=== PATIENT | female | born 1990 | race Caucasian/White ===

== ENCOUNTER 2016-07-16 13:38 | Emergency (ER) | payer OTHER ==
[2016-07-16] MEDS ORDERED: Vistaril 50 MG/ML IM ONE ×2 (14:42→14:47)
[2016-07-16] MEDS ORDERED: TORAdol 30 mg Injection IM ONE (14:42)
[2016-07-16] MEDS ORDERED: TORAdol 30 mg Injection ONE (14:46)
--- NOTE | 2016-07-16 15:02 | ERPHSYRPT ---
- History of Present Illness Time Seen by Provider: 07/16/16 14:24 Source: patient Patient Subjective Stated Complaint: pt here for pain, she has lupus and fibro. co pain to legs and arms,she states that her dr is changing her meds around, she is also worried about her mag. levels being low Triage Nursing Assessment: pt alert and walked in, resp easy, skin w/d Physician History: CC; joint pains hx: 26 y/o patient with hx of lupus and fibromyalgia. She formerly was on steroids. Currently on neurontin. She has increased body aches and pains. No fever. Some skin redness. 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 She does not take pain medications. Severity: moderate, severe Allergies/Adverse Reactions: adhesive Allergy (Mild, Verified 07/16/16 14:15) Rash cefaclor [From Ceclor] Allergy (Mild, Verified 07/16/16 14:15) Hives Home Medications: Dextroamphetamine/Amphetamine [Adderall 15 mg Tablet] 15 mg PO DAILY 02/25/16 [ History] Gabapentin [Neurontin] 600 mg BID 07/16/16 [History] Hx Tetanus, Diphtheria Vaccination/Date Given: (unknown) Hx Influenza Vaccination/Date Given: Yes Hx Pneumococcal Vaccination/Date Given: No Immunizations Up to Date: Yes - Review of Systems Constitutional: Fatigue, Malaise, No Fever, No Chills Eyes: No Symptoms Ears, Nose, & Throat: No Symptoms Respiratory: No Cough, No Dyspnea Cardiac: No Chest Pain Abdominal/Gastrointestinal: No Abdominal Pain, No Nausea, No Vomiting Genitourinary Symptoms: No Dysuria Musculoskeletal: Joint Pain (diffuse), No Back Pain Skin: No Rash Neurological: No Focal Weakness, No Headache, No Parasthesia All Other Systems: Reviewed and Negative - Past Medical History Pertinent Past Medical History: Yes Neurological History: Migraines ENT History: No Pertinent History Cardiac History: Other Respiratory History: Asthma, Bronchitis Endocrine Medical History: Hypothyroidism, Other Musculoskeletal History: Other GI Medical History: Esophageal Disorder, GERD, Hernia, Irritable Bowel History: Other Psycho-Social History: Anxiety, Attention Deficit Disorder, Depression, Panic Disorder Female Reproductive Disorders: Other Other Medical History: cysts on ovaries,arm,knee pain,partial thyroidectomy- nodule removed. mitral valve prolapse. kidney/bladder inflammation. lambert- schlatter. chronic hives - Past Surgical History Past Surgical History: Yes Neuro Surgical History: No Pertinent History Cardiac: No Pertinent History Respiratory: No Pertinent History Gastrointestinal: Cholecystectomy Genitourinary: No Pertinent History Musculoskeletal: No Pertinent History Female Surgical History: Tubal Ligation, Other Other Surgical History: thyroidectomy. gallbladder. breast reconstruction- nodules removed. anesthesia problems - difficult to wake up, drop in bp - Social History Smoking Status: Current every day smoker How long have you smoked: 3 Exposure to second hand smoke: Yes Drug Use: none Patient Lives Alone: No - Female History Hx Last Menstrual Period: now Hx Now: No - Nursing Vital Signs Nursing Vital Signs: Initial Vital Signs Temperature 97.9 F Temperature Source Oral Pulse Rate 91 Respiratory Rate 16 Blood Pressure [Left Arm] 143/74 Pain Intensity 7 - Physical Exam General Appearance: alert Eye Exam: PERRL/EOMI Ears, Nose, Throat Exam: normal ENT inspection, moist mucous membranes Neck Exam: normal inspection, non-tender, supple Respiratory Exam: normal breath sounds, lungs clear, No respiratory distress Cardiovascular Exam: regular rate/rhythm, No murmur Gastrointestinal/Abdomen Exam: soft, No tenderness, No distention, No mass, No guarding Extremity Exam: normal inspection, normal range of motion, other (diffuse discomfort) Neurologic Exam: alert, oriented x 3, cooperative Skin Exam: warm, dry, No rash SpO2 Interpretation: normal SpO2: 96 Oxygen Delivery: Room Air - Course Nursing assessment & vital signs reviewed: Yes Ordered Tests: Active Orders 24 hr Category Date Time Status CBC W DIFF Stat Lab 07/16/16 15:12 Completed CMP Stat Lab 07/16/16 14:42 Completed Erythrocyte Sedimentation Rate Stat Lab 07/16/16 15:12 Completed HCG QUALITATIVE,SERUM Stat Lab 07/16/16 15:12 Completed MAGNESIUM Stat Lab 07/16/16 15:12 Completed Medication Summary Discontinued Medications Generic Name Dose Route Start Last Admin Trade Name Freq PRN Reason Stop Dose Admin Hydroxyzine HCl 50 mg 07/16/16 14:42 07/16/16 14:49 Vistaril 50 Mg/Ml IM 07/16/16 14:43 50 mg STAT ONE Administration Hydroxyzine HCl Confirm 07/16/16 14:47 Vistaril 50 Mg/Ml Administered 07/16/16 14:48 Dose 50 mg IM .STK-MED ONE Ketorolac Tromethamine 60 mg 07/16/16 14:42 07/16/16 14:49 Toradol 30 Mg Injection IM 07/16/16 14:43 60 mg STAT ONE Administration Ketorolac Tromethamine Confirm 07/16/16 14:46 Toradol 30 Mg Injection Administered 07/16/16 14:47 Dose 60 mg .ROUTE .STK-MED ONE Lab/Rad Data: Laboratory Result Diagrams 07/16/16 15:12 07/16/16 14:42 Laboratory Results 07/16/16 07/16/16 07/16/16 Range/Units 15:12 15:12 15:12 WBC 7.6 (4.0-10.5) K/mm3 RBC 4.93 (4.1-5.4) M/mm3 Hgb 14.6 (12.0-16.0) gm/dl Hct 41.7 (35-47) % MCV 84.6 (78-100) fl MCH 29.6 (26-32) pg MCHC 35.0 (32-36) g/dl RDW 12.6 (11.5-14.0) % Plt Count 318 (150-450) K/mm3 MPV 9.9 H (6-9.5) fl Gran % 51.9 (36.0-66.0) % Lymphocytes % 36.9 (24.0-44.0) % Monocytes % 6.4 (0.0-12.0) % Eosinophils % 4.5 (0.00-5.0) % Basophils % 0.3 (0.0-0.4) % Basophils # 0.02 (0-0.4) ESR 2 (0-20) mm/hr Sodium (136-145) mEq/L Potassium (3.5-5.1) mEq/L Chloride (98-107) mEq/L Carbon Dioxide (21-32) mEq/L Anion Gap (5-15) MEQ/L BUN (9-20) mg/dL Creatinine (0.55-1.30) mg/dl Estimated GFR ML/MIN Glucose (70-110) MG/DL Calcium (8.5-10.1) mg/dL Magnesium 2.0 (1.8-2.4) mg/dL Total Bilirubin (0.2-1.0) mg/dL AST (15-37) U/L ALT (12-78) U/L Alkaline Phosphatase (46-116) U/L Serum Total Protein (6.4-8.2) gm/dL Albumin (3.4-5.0) g/dL Serum , Qual NEGATIVE (Negative) 07/16/16 Range/Units 14:42 WBC (4.0-10.5) K/mm3 RBC (4.1-5.4) M/mm3 Hgb (12.0-16.0) gm/dl Hct (35-47) % MCV (78-100) fl MCH (26-32) pg MCHC (32-36) g/dl RDW (11.5-14.0) % Plt Count (150-450) K/mm3 MPV (6-9.5) fl Gran % (36.0-66.0) % Lymphocytes % (24.0-44.0) % Monocytes % (0.0-12.0) % Eosinophils % (0.00-5.0) % Basophils % (0.0-0.4) % Basophils # (0-0.4) ESR (0-20) mm/hr Sodium 140 (136-145) mEq/L Potassium 3.6 (3.5-5.1) mEq/L Chloride 104 (98-107) mEq/L Carbon Dioxide 24.2 (21-32) mEq/L Anion Gap 15.1 H (5-15) MEQ/L BUN 9 (9-20) mg/dL Creatinine 0.78 (0.55-1.30) mg/dl Estimated GFR > 60 ML/MIN Glucose 94 (70-110) MG/DL Calcium 9.2 (8.5-10.1) mg/dL Magnesium (1.8-2.4) mg/dL Total Bilirubin 0.4 (0.2-1.0) mg/dL AST 18 (15-37) U/L ALT 24 (12-78) U/L Alkaline Phosphatase 92 (46-116) U/L Serum Total Protein 7.6 (6.4-8.2) gm/dL Albumin 3.9 (3.4-5.0) g/dL Serum , Qual (Negative) - Progress Progress Note: 02/16/17 16:27 She has been sporadically taking neurontin 300mg caps. Explained she needs to take it regularly and not cold stop. She needs to gradually increase. Spoke to Dr Will who will see in [place] office. He advised continue neurontin and NSAID. Counseled pt/family regarding: lab results, diagnosis, need for follow-up - Departure Time of Disposition: 16:29 Departure Disposition: Home Clinical Impression: Arthralgia Qualifiers: Joint pain location: unspecified Qualified Code(s): M25.50 - Pain in unspecified joint Condition: Stable Critical Care Time: No Referrals: ALMA CALABRESE [Primary Care Provider] - MAGY WILL MD [NON-STAFF PHY W/O PRIVILEGES] - Instructions: Chronic Pain -- Adult Additional Instructions: Call Dr Will to arrange follow up at [place] office. Gradually increase neurontin as explained. Do not abruptly stop neurontin. Take ibuprofen as already prescribed. No driving tonite.
[2016-07-16 15:40] LABS: BASOPHIL % 0.3 % (0.0-0.4); Eosinophil % 4.5 % (0.00-5.0); Granulocytes % 51.9 % (36.0-66.0); Lymphocytes % 36.9 % (24.0-44.0); Mean Cell Volume 84.6 fl (78-100); Mean Corpuscular Hemoglobin 29.6 pg (26-32); Mean Platelet Volume 9.9 fl (6-9.5); Monocytes % 6.4 % (0.0-12.0); Platelet Count 318 K/mm3 (150-450); Red Blood Count 4.93 M/mm3 (4.1-5.4); Red Cell Distribution Width 12.6 % (11.5-14.0); White Blood Count 7.6 K/mm3 (4.0-10.5)
[2016-07-16 16:09] LABS: ALBUMIN 3.9 g/dL (3.4-5.0); ALKALINE PHOSPHATASE 92 U/L (46-116); ANION GAP 15.1 MEQ/L (5-15); BILIRUBIN,TOTAL 0.4 mg/dL (0.2-1.0); BLOOD UREA NITROGEN 9 mg/dL (9-20); CHLORIDE 104 mEq/L (98-107); Carbon Dioxide 24.2 mEq/L (21-32); Glucose 94 MG/DL (70-110); Potassium 3.6 mEq/L (3.5-5.1); SGOT/AST 18 U/L (15-37); SGPT/ALT 24 U/L (12-78); SODIUM 140 mEq/L (136-145); Total Protein 7.6 gm/dL (6.4-8.2)
[2016-07-16 16:22] LABS: Erythrocyte Sedimentation Rate 2 mm/hr (0-20)
[2016-07-16 16:42] VITALS: BP 114/77; PULSE 90; O2SAT 98
== END 2016-07-16 16:42 | disposition home or self-care (01) ==
LOC: ED 13:38
DX: M25.50 Pain in unspecified joint (principal); M79.7 Fibromyalgia; Z79.899 Other long term (current) drug therapy
CPT/HCPCS: 36415; 80053; 83735; 84703; 85025; 85652; 96372; 99283; 99284; J1885; J3410

== ENCOUNTER 2016-10-11 01:28 | Emergency (ER) | payer OTHER ==
[2016-10-11 01:43] VITALS: O2SAT 98
--- NOTE | 2016-10-11 02:04 | ERPHSYRPT ---
- History of Present Illness Time Seen by Provider: 10/11/16 01:50 Source: patient Exam Limitations: no limitations Patient Subjective Stated Complaint: REPORTS THAT SHE HAS BEEN FEELING FUZZY WITH A HEADACHE AND HAVING CRAMPS IN THE EXTREMITIES X 4 DAYS AGO - STATES THAT SHE BEGAN TO HAVE PALPITATIONS TONIGHT WITH 2 EPISODES OF VOMITING - BELIEVES HER POTASSIUM AND MAGNESIUM TO BE LOW Triage Nursing Assessment: AMBULATORY TO TREATMENT AREA - STEADY GAIT - MOVES ALL EXTREMITIES WITH EQUAL STRENGTH. ALERT/ORIENTED - TEARFUL AFFECT. SKIN FLUSHED/DRY - NO RASH/INJURY APPRECIATED. RESPS EASY - NON-LABORED Physician History: FOR THE PAST 4 DAYS PT HAS HAD HEADACHE AND CRAMPS IN THE EXTREMITIES; FOR THE PAST 2 DAYS HEART FLUTTERING; TODAY NAUSEA AND VOMITING X2. PT ALSO C/O DAILY DIARRHEA FOR YEARS. Allergies/Adverse Reactions: adhesive Allergy (Mild, Verified 10/11/16 01:29) Rash cefaclor [From Ceclor] Allergy (Mild, Verified 10/11/16 01:29) Hives duloxetine [From Cymbalta] Allergy (Verified 10/11/16 01:32) Home Medications: Dextroamphetamine/Amphetamine [Adderall 15 mg Tablet] 15 mg PO DAILY 02/25/16 [ History] Gabapentin [Neurontin] 600 mg BID 07/16/16 [History] Hx Tetanus, Diphtheria Vaccination/Date Given: Yes Hx Influenza Vaccination/Date Given: No Hx Pneumococcal Vaccination/Date Given: No Immunizations Up to Date: Yes - Review of Systems Cardiac: Palpitations Abdominal/Gastrointestinal: Nausea, Vomiting, Diarrhea Musculoskeletal: Other (CRAMPING IN EXTREMITIES) Neurological: Headache All Other Systems: Reviewed and Negative - Past Medical History Pertinent Past Medical History: Yes Neurological History: Migraines ENT History: No Pertinent History Cardiac History: Other Respiratory History: Asthma, Bronchitis Endocrine Medical History: Hypothyroidism, Other Musculoskeletal History: Other GI Medical History: Esophageal Disorder, GERD, Hernia, Irritable Bowel History: Other Psycho-Social History: Anxiety, Attention Deficit Disorder, Depression, Panic Disorder Female Reproductive Disorders: Other Other Medical History: cysts on ovaries,arm,knee pain,partial thyroidectomy- nodule removed. mitral valve prolapse. kidney/bladder inflammation. lambert- schlatter. chronic hives - Past Surgical History Past Surgical History: Yes Neuro Surgical History: No Pertinent History Cardiac: No Pertinent History Respiratory: No Pertinent History Gastrointestinal: Cholecystectomy Genitourinary: No Pertinent History Musculoskeletal: No Pertinent History Female Surgical History: Dilation & Curettage, Tubal Ligation, Other Other Surgical History: thyroidectomy. gallbladder. breast reconstruction- nodules removed. anesthesia problems - difficult to wake up, drop in bp - Social History Smoking Status: Never smoker How long have you smoked: 3 Exposure to second hand smoke: No Drug Use: none Patient Lives Alone: No - Female History Hx Last Menstrual Period: 4 MONTHS Hx Now: No - Nursing Vital Signs Nursing Vital Signs: Initial Vital Signs Temperature 98.0 F Temperature Source Oral Pulse Rate 70 Respiratory Rate 16 Blood Pressure [] 118/62 Pain Intensity 6 - Physical Exam General Appearance: alert, anxiety Eye Exam: PERRL/EOMI, eyes nml inspection Ears, Nose, Throat Exam: TMs normal, pharynx normal, moist mucous membranes Neck Exam: normal inspection Respiratory Exam: lungs clear Cardiovascular Exam: normal heart sounds Gastrointestinal/Abdomen Exam: soft, normal bowel sounds Back Exam: normal range of motion Extremity Exam: normal inspection, No pedal edema Neurologic Exam: alert, cooperative, sensation nml, No motor deficits Skin Exam: warm, dry SpO2 Interpretation: normal SpO2: 98 Oxygen Delivery: Room Air - Course Nursing assessment & vital signs reviewed: Yes EKG Interpreted by Me: RATE (85), Sinus Rhythm, NORMAL AXIS, NORMAL QRS - Radiology Exams Chest X-ray Interpretation: Interpreted by me, No Pneumonia Ordered Tests: Active Orders 24 hr Category Date Time Status EKG-ER Only STAT Care 10/11/16 01:56 Active IV Insertion STAT Care 10/11/16 02:10 Active CHEST 1 VIEW (PORTABLE) Stat Exams 10/11/16 01:57 Taken AMYLASE Stat Lab 10/11/16 02:06 Completed CBC W DIFF Stat Lab 10/11/16 02:06 Completed CMP Stat Lab 10/11/16 02:06 Completed HCG QUALITATIVE,SERUM Stat Lab 10/11/16 02:06 Completed LIPASE Stat Lab 10/11/16 02:06 Completed MAGNESIUM Stat Lab 10/11/16 02:06 Completed TROPONIN Stat Lab 10/11/16 02:06 Completed UA W/ MICROSCOPIC Stat Lab 10/11/16 02:00 Completed Urine Triage Profile Stat Lab 10/11/16 02:00 Completed Medication Summary Discontinued Medications Generic Name Dose Route Start Last Admin Trade Name Freq PRN Reason Stop Dose Admin Promethazine HCl 12.5 mg 10/11/16 02:33 10/11/16 02:37 Phenergan 25 Mg Inj IV 10/11/16 02:34 12.5 mg STAT ONE Administration Promethazine HCl Confirm 10/11/16 02:34 Phenergan 25 Mg Inj Administered 10/11/16 02:35 Dose 25 mg .ROUTE .STK-MED ONE Lab/Rad Data: Laboratory Result Diagrams 10/11/16 02:06 10/11/16 02:06 Laboratory Results 10/11/16 10/11/16 10/11/16 Range/Units 02:06 02:06 02:06 WBC 10.8 H (4.0-10.5) K/mm3 RBC 5.14 (4.1-5.4) M/mm3 Hgb 15.4 (12.0-16.0) gm/dl Hct 44.2 (35-47) % MCV 86.0 (78-100) fl MCH 30.0 (26-32) pg MCHC 34.8 (32-36) g/dl RDW 12.7 (11.5-14.0) % Plt Count 309 (150-450) K/mm3 MPV 10.0 H (6-9.5) fl Gran % 61.2 (36.0-66.0) % Lymphocytes % 29.6 (24.0-44.0) % Monocytes % 5.9 (0.0-12.0) % Eosinophils % 3.0 (0.00-5.0) % Basophils % 0.3 (0.0-0.4) % Basophils # 0.03 (0-0.4) Sodium 138 (136-145) mEq/L Potassium 3.1 L (3.5-5.1) mEq/L Chloride 102 (98-107) mEq/L Carbon Dioxide 26.4 (21-32) mEq/L Anion Gap 12.7 (5-15) MEQ/L BUN 15 (9-20) mg/dL Creatinine 1.02 (0.55-1.30) mg/dl Estimated GFR > 60 ML/MIN Glucose 143 H (70-110) MG/DL Calcium 9.4 (8.5-10.1) mg/dL Magnesium 1.6 L (1.8-2.4) mg/dL Total Bilirubin 0.5 (0.2-1.0) mg/dL AST 16 (15-37) U/L ALT 22 (12-78) U/L Alkaline Phosphatase 94 (46-116) U/L Troponin I < 0.017 (0.000-0.056) ng/ml Serum Total Protein 7.5 (6.4-8.2) gm/dL Albumin 4.0 (3.4-5.0) g/dL Amylase 26 (25-115) U/L Lipase 60 L (73-393) U/L Serum , Qual NEGATIVE (Negative) Ur Collection Type Urine Color (YELLOW) Urine Appearance (CLEAR) Urine pH (5-6) Ur Specific [place] (1.005-1.025) Urine Protein (Negative) Urine Glucose (UA) (NEGATIVE) mg/dL Urine Ketones (NEGATIVE) Urine Nitrite (NEGATIVE) Urine Bilirubin (NEGATIVE) Urine Urobilinogen (0-1) mg/dL Urine WBC (Auto) (NEGATIVE) Urine RBC (Auto) (0-5) Matthew/ul Urine Microscopic RBC (0-2) /HPF Ur Epithelial Cells (FEW) /HPF Urine Bacteria (NEGATIVE) /HPF Urine Opiates Level (NEGATIVE) Ur Methadone (NEGATIVE) Urine Barbiturates (NEGATIVE) Ur Phencyclidine (PCP) (NEGATIVE) Urine Amphetamine (NEGATIVE) U Benzodiazepine Level (NEGATIVE) Urine Cocaine (NEGATIVE) Urine Marijuana (THC) (NEGATIVE) Specimen Received 10/11/16 10/11/16 Range/Units 02:00 02:00 WBC (4.0-10.5) K/mm3 RBC (4.1-5.4) M/mm3 Hgb (12.0-16.0) gm/dl Hct (35-47) % MCV (78-100) fl MCH (26-32) pg MCHC (32-36) g/dl RDW (11.5-14.0) % Plt Count (150-450) K/mm3 MPV (6-9.5) fl Gran % (36.0-66.0) % Lymphocytes % (24.0-44.0) % Monocytes % (0.0-12.0) % Eosinophils % (0.00-5.0) % Basophils % (0.0-0.4) % Basophils # (0-0.4) Sodium (136-145) mEq/L Potassium (3.5-5.1) mEq/L Chloride (98-107) mEq/L Carbon Dioxide (21-32) mEq/L Anion Gap (5-15) MEQ/L BUN (9-20) mg/dL Creatinine (0.55-1.30) mg/dl Estimated GFR ML/MIN Glucose (70-110) MG/DL Calcium (8.5-10.1) mg/dL Magnesium (1.8-2.4) mg/dL Total Bilirubin (0.2-1.0) mg/dL AST (15-37) U/L ALT (12-78) U/L Alkaline Phosphatase (46-116) U/L Troponin I (0.000-0.056) ng/ml Serum Total Protein (6.4-8.2) gm/dL Albumin (3.4-5.0) g/dL Amylase (25-115) U/L Lipase (73-393) U/L Serum , Qual (Negative) Ur Collection Type CLEAN CATCH Urine Color STRAW (YELLOW) Urine Appearance CLEAR (CLEAR) Urine pH 6.0 (5-6) Ur Specific [place] >=1.030 (1.005-1.025) Urine Protein 30 (Negative) Urine Glucose (UA) NEGATIVE (NEGATIVE) mg/dL Urine Ketones NEGATIVE (NEGATIVE) Urine Nitrite NEGATIVE (NEGATIVE) Urine Bilirubin NEGATIVE (NEGATIVE) Urine Urobilinogen 0.2 (0-1) mg/dL Urine WBC (Auto) NEGATIVE (NEGATIVE) Urine RBC (Auto) TRACE NON-HEM (0-5) Matthew/ul Urine Microscopic RBC 0-2 (0-2) /HPF Ur Epithelial Cells FEW (FEW) /HPF Urine Bacteria RARE (NEGATIVE) /HPF Urine Opiates Level NEG. (NEGATIVE) Ur Methadone NEG. (NEGATIVE) Urine Barbiturates NEG. (NEGATIVE) Ur Phencyclidine (PCP) NEG. (NEGATIVE) Urine Amphetamine POS. (NEGATIVE) U Benzodiazepine Level NEG. (NEGATIVE) Urine Cocaine NEG. (NEGATIVE) Urine Marijuana (THC) NEG. (NEGATIVE) Specimen Received 10/11/16:0200 - Departure Time of Disposition: 03:03 Departure Disposition: Home Clinical Impression: HYPOKALEMIA, HYPOMAGNESEMIA Condition: Fair Critical Care Time: No Instructions: Headache Additional Instructions: FOLLOW UP WITH PRIVATE DOCTOR TOMORROW.
[2016-10-11 02:13] LABS: BASOPHIL % 0.3 % (0.0-0.4); Granulocytes % 61.2 % (36.0-66.0); Lymphocytes % 29.6 % (24.0-44.0); Monocytes % 5.9 % (0.0-12.0); Platelet Count 309 K/mm3 (150-450); Red Blood Count 5.14 M/mm3 (4.1-5.4); Red Cell Distribution Width 12.7 % (11.5-14.0); White Blood Count 10.8 K/mm3 (4.0-10.5)
[2016-10-11 02:15] LABS: COMPLETE URINE MICROSCOPIC? YES; Collection Type CLEAN CATCH
[2016-10-11 02:16] LABS: Bacteria RARE /HPF (NEGATIVE); Epithelial Cells FEW /HPF (FEW)
[2016-10-11] MEDS ORDERED: Phenergan 25 MG INJ IV ONE (02:33)
[2016-10-11] MEDS ORDERED: Phenergan 25 MG INJ ONE (02:34)
[2016-10-11 02:41] LABS: ALKALINE PHOSPHATASE 94 U/L (46-116); ANION GAP 12.7 MEQ/L (5-15); BILIRUBIN,TOTAL 0.5 mg/dL (0.2-1.0); BLOOD UREA NITROGEN 15 mg/dL (9-20); CHLORIDE 102 mEq/L (98-107); Carbon Dioxide 26.4 mEq/L (21-32); Glucose 143 MG/DL (70-110); LIPASE 60 U/L (73-393); MAGNESIUM 1.6 mg/dL (1.8-2.4); Potassium 3.1 mEq/L (3.5-5.1); SGOT/AST 16 U/L (15-37); SGPT/ALT 22 U/L (12-78); SODIUM 138 mEq/L (136-145); TROPONIN < 0.017 ng/ml (0.000-0.056); Total Protein 7.5 gm/dL (6.4-8.2)
[2016-10-11 02:58] VITALS: BP 118/62; PULSE 70
[2016-10-11] MEDS ORDERED: MAG-OX 400 ONE (03:04)
[2016-10-11] MEDS ORDERED: POTASSIUM CHL 40 MEQ/30 ML ORAL SOLUTION ONE (03:05)
--- NOTE | 2016-10-11 08:48 | XRAY ---
Indication: Palpitations. Comparison: May 13, 2016. Portable chest again demonstrates normal heart, lungs, and bony thorax.
[2016-10-11] MEDS ORDERED: POTASSIUM CHL 40 MEQ/30 ML ORAL SOLUTION PO SCH (10:00)
[2016-10-11] MEDS ORDERED: MAG-OX 400 PO SCH (10:00)
== END 2016-10-11 03:19 | disposition home or self-care (01) ==
LOC: ED 01:28
DX: E87.6 Hypokalemia (principal); E83.42 Hypomagnesemia; R51 Headache; R25.2 Cramp and spasm; R00.2 Palpitations; Z87.898 Personal history of other specified conditions
CPT/HCPCS: 36000; 36415; 71010; 80053; 80307; 81000; 82150; 83690; 83735; 84484; 84703; 85025; 93005; 96374; 99284; J2550; A9270-GY

== ENCOUNTER 2016-11-22 04:02 | Emergency (ER) | payer OTHER ==
[2016-11-22 04:21] VITALS: BP 116/68
--- NOTE | 2016-11-22 04:30 | ERPHSYRPT ---
- History of Present Illness Time Seen by Provider: 11/22/16 04:15 Source: patient Exam Limitations: no limitations Patient Subjective Stated Complaint: reports possible anxiety attack but having left arm, neck, upper, left back and chest pain onset a few hours ago - reports onset of cough with the pain - states that she was hiking earlier today and believes that she was bitten by something on the left leg/hip Triage Nursing Assessment: ambulatory to treatment area - steady gait - moves all extremities with equal strength. alert/oriented - anxious affect. skin flushed/dry - no rash/small localized area of redness on the left upper lateral leg. resps non-labored - dry cough Physician History: ABOUT 45 MINUTES AGO PT STARTED WITH LEFT SIDED BACK, CHEST, NECK AND SHOULDER PAIN WITH COUGH AND CHILLS. PT WAS BITTEN BY A MOSQUITO 2 DAYS AGO ON THE LEFT UPPER THIGH. Allergies/Adverse Reactions: adhesive Allergy (Mild, Verified 11/22/16 04:21) Rash cefaclor [From Ceclor] Allergy (Mild, Verified 11/22/16 04:21) Hives duloxetine [From Cymbalta] Allergy (Verified 11/22/16 04:21) Home Medications: Dextroamphetamine/Amphetamine [Adderall 15 mg Tablet] 15 mg PO DAILY 02/25/16 [ History] Clonazepam [Klonopin] 0.25 mg PO Q4-6HPRN PRN 11/22/16 [History] Potassium Chloride 10 Meq Tab* [Klor Con 10 MEQ] 10 meq PO DAILY 11/22/16 [ History] Hx Tetanus, Diphtheria Vaccination/Date Given: Yes Hx Influenza Vaccination/Date Given: Yes Hx Pneumococcal Vaccination/Date Given: No Immunizations Up to Date: Yes - Review of Systems Constitutional: Chills Respiratory: Cough Cardiac: Chest Pain Musculoskeletal: Back Pain, Neck Pain, Joint Pain (LEFT SHOULDER PAIN) All Other Systems: Reviewed and Negative - Past Medical History Pertinent Past Medical History: Yes Neurological History: Migraines ENT History: No Pertinent History Cardiac History: Other Respiratory History: Asthma, Bronchitis Endocrine Medical History: Hypothyroidism, Other Musculoskeletal History: Other GI Medical History: Esophageal Disorder, GERD, Hernia, Irritable Bowel History: Other Psycho-Social History: Anxiety, Attention Deficit Disorder, Depression, Panic Disorder Female Reproductive Disorders: Other Other Medical History: cysts on ovaries,arm,knee pain,partial thyroidectomy- nodule removed. mitral valve prolapse. kidney/bladder inflammation. lambert- schlatter. chronic hives - Past Surgical History Past Surgical History: Yes Neuro Surgical History: No Pertinent History Cardiac: No Pertinent History Respiratory: No Pertinent History Gastrointestinal: Cholecystectomy Genitourinary: No Pertinent History Musculoskeletal: No Pertinent History Female Surgical History: Dilation & Curettage, Tubal Ligation, Other Other Surgical History: thyroidectomy. gallbladder. breast reconstruction- nodules removed. anesthesia problems - difficult to wake up, drop in bp - Social History Smoking Status: Never smoker How long have you smoked: 3 Exposure to second hand smoke: No Drug Use: none Patient Lives Alone: No - Female History Hx Last Menstrual Period: ablation Hx Now: No - Nursing Vital Signs Nursing Vital Signs: Initial Vital Signs Temperature 98.7 F Temperature Source Oral Pulse Rate [] 83 Pulse Rate 70 Respiratory Rate 16 Blood Pressure [] 116/68 Pain Intensity 9 - Physical Exam General Appearance: alert, anxiety Eye Exam: PERRL/EOMI Ears, Nose, Throat Exam: TMs normal, pharynx normal, moist mucous membranes Neck Exam: normal inspection Respiratory Exam: lungs clear Cardiovascular Exam: normal heart sounds Gastrointestinal/Abdomen Exam: soft, normal bowel sounds Back Exam: normal range of motion Extremity Exam: normal range of motion, No pedal edema Neurologic Exam: alert, cooperative, sensation nml, No motor deficits Skin Exam: other (INSECT BITE ON ANTERIOMEDIAL ASPECT OF LEFT UPPER THIGH) SpO2 Interpretation: normal SpO2: 98 Oxygen Delivery: Room Air - Course Nursing assessment & vital signs reviewed: Yes EKG Interpreted by Me: RATE (85), Sinus Rhythm, NORMAL AXIS, NORMAL INTERVALS - Radiology Exams Chest X-ray Interpretation: Interpreted by me, No Pneumonia Ordered Tests: Active Orders 24 hr Category Date Time 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 STAT Care 11/22/16 04:37 Active EKG-ER Only STAT Care 11/22/16 04:23 Active IV Insertion STAT Care 11/22/16 04:38 Active CHEST 1 VIEW (PORTABLE) Stat Exams 11/22/16 04:24 Taken AMYLASE Stat Lab 11/22/16 04:37 Completed CBC W DIFF Stat Lab 11/22/16 04:37 Completed CMP Stat Lab 11/22/16 04:37 Completed HCG QUALITATIVE,SERUM Stat Lab 11/22/16 04:37 Completed LIPASE Stat Lab 11/22/16 04:37 Completed MAGNESIUM Stat Lab 11/22/16 04:37 Completed TROPONIN Q3H Lab 11/22/16 04:37 Completed TROPONIN Q3H Lab 11/22/16 07:30 Ordered TROPONIN Q3H Lab 11/22/16 10:30 Ordered TROPONIN Q3H Lab 11/22/16 13:30 Ordered TROPONIN Q3H Lab 11/22/16 16:30 Ordered UA W/RFX UR CULTURE Stat Lab 11/22/16 04:35 Completed Urine Triage Profile Stat Lab 11/22/16 04:35 Completed Medication Summary Discontinued Medications Generic Name Dose Route Start Last Admin Trade Name Freq PRN Reason Stop Dose Admin Ketorolac Tromethamine 30 mg 11/22/16 05:09 Toradol 30 Mg Injection IV 11/22/16 05:10 STAT ONE Ketorolac Tromethamine Confirm 11/22/16 05:19 Toradol 30 Mg Injection Administered 11/22/16 05:20 Dose 30 mg .ROUTE .[employer] ONE Lab/Rad Data: Laboratory Result Diagrams 11/22/16 04:37 11/22/16 04:37 Laboratory Results 11/22/16 11/22/16 11/22/16 Range/Units 04:37 04:37 04:37 WBC (4.0-10.5) K/mm3 RBC (4.1-5.4) M/mm3 Hgb (12.0-16.0) gm/dl Hct (35-47) % MCV (78-100) fl MCH (26-32) pg MCHC (32-36) g/dl RDW (11.5-14.0) % Plt Count (150-450) K/mm3 MPV (6-9.5) fl Gran % (36.0-66.0) % Lymphocytes % (24.0-44.0) % Monocytes % (0.0-12.0) % Eosinophils % (0.00-5.0) % Basophils % (0.0-0.4) % Basophils # (0-0.4) Sodium 142 (136-145) mEq/L Potassium 3.6 (3.5-5.1) mEq/L Chloride 107 (98-107) mEq/L Carbon Dioxide 23.3 (21-32) mEq/L Anion Gap 15.2 H (5-15) MEQ/L BUN 13 (9-20) mg/dL Creatinine 0.86 (0.55-1.30) mg/dl Estimated GFR > 60 ML/MIN Glucose 131 H (70-110) MG/DL Calcium 9.1 (8.5-10.1) mg/dL Magnesium 1.8 (1.8-2.4) mg/dL Total Bilirubin 0.40 (0.2-1.0) mg/dL AST 14 L (15-37) U/L ALT 19 (12-78) U/L Alkaline Phosphatase 85 (46-116) U/L Troponin I < 0.017 (0.000-0.056) ng/ml Serum Total Protein 6.6 (6.4-8.2) gm/dL Albumin 3.4 (3.4-5.0) g/dL Amylase 25 (25-115) U/L Lipase 84 (73-393) U/L Serum , Qual NEGATIVE (Negative) Ur Collection Type Urine Color (YELLOW) Urine Appearance (CLEAR) Urine pH (5-6) Ur Specific [place] (1.005-1.025) Urine Protein (Negative) Urine Ketones (NEGATIVE) Urine Blood (0-5) Matthew/ul Urine Nitrite (NEGATIVE) Urine Bilirubin (NEGATIVE) Urine Urobilinogen (0-1) mg/dL Ur Leukocyte Esterase (NEGATIVE) Urine Glucose (NEGATIVE) mg/dL Urine Opiates Level (NEGATIVE) Ur Methadone (NEGATIVE) Urine Barbiturates (NEGATIVE) Ur Phencyclidine (PCP) (NEGATIVE) Urine Amphetamine (NEGATIVE) U Benzodiazepine Level (NEGATIVE) Urine Cocaine (NEGATIVE) Urine Marijuana (THC) (NEGATIVE) Specimen Received 11/22/16 11/22/16 11/22/16 Range/Units 04:37 04:35 04:35 WBC 9.8 (4.0-10.5) K/mm3 RBC 4.49 (4.1-5.4) M/mm3 Hgb 13.9 (12.0-16.0) gm/dl Hct 39.0 (35-47) % MCV 86.9 (78-100) fl MCH 31.0 (26-32) pg MCHC 35.6 (32-36) g/dl RDW 12.4 (11.5-14.0) % Plt Count 262 (150-450) K/mm3 MPV 10.3 H (6-9.5) fl Gran % 53.0 (36.0-66.0) % Lymphocytes % 35.5 (24.0-44.0) % Monocytes % 6.5 (0.0-12.0) % Eosinophils % 4.8 (0.00-5.0) % Basophils % 0.2 (0.0-0.4) % Basophils # 0.02 (0-0.4) Sodium (136-145) mEq/L Potassium (3.5-5.1) mEq/L Chloride (98-107) mEq/L Carbon Dioxide (21-32) mEq/L Anion Gap (5-15) MEQ/L BUN (9-20) mg/dL Creatinine (0.55-1.30) mg/dl Estimated GFR ML/MIN Glucose (70-110) MG/DL Calcium (8.5-10.1) mg/dL Magnesium (1.8-2.4) mg/dL Total Bilirubin (0.2-1.0) mg/dL AST (15-37) U/L ALT (12-78) U/L Alkaline Phosphatase (46-116) U/L Troponin I (0.000-0.056) ng/ml Serum Total Protein (6.4-8.2) gm/dL Albumin (3.4-5.0) g/dL Amylase (25-115) U/L Lipase (73-393) U/L Serum , Qual (Negative) Ur Collection Type CLEAN CATCH Urine Color YELLOW (YELLOW) Urine Appearance CLEAR (CLEAR) Urine pH 5.5 (5-6) Ur Specific [place] 1.020 (1.005-1.025) Urine Protein NEGATIVE (Negative) Urine Ketones NEGATIVE (NEGATIVE) Urine Blood NEGATIVE (0-5) Matthew/ul Urine Nitrite NEGATIVE (NEGATIVE) Urine Bilirubin NEGATIVE (NEGATIVE) Urine Urobilinogen NORMAL (0-1) mg/dL Ur Leukocyte Esterase NEGATIVE (NEGATIVE) Urine Glucose NEGATIVE (NEGATIVE) mg/dL Urine Opiates Level NEG. (NEGATIVE) Ur Methadone NEG. (NEGATIVE) Urine Barbiturates NEG. (NEGATIVE) Ur Phencyclidine (PCP) NEG. (NEGATIVE) Urine Amphetamine NEG. (NEGATIVE) U Benzodiazepine Level NEG. (NEGATIVE) Urine Cocaine NEG. (NEGATIVE) Urine Marijuana (THC) NEG. (NEGATIVE) Specimen Received 11/22/16:0435 - Departure Time of Disposition: 05:36 Departure Disposition: Home Clinical Impression: CHEST PAIN, LEFT SHOULDER PAIN, ANXIETY Condition: Stable Critical Care Time: No Instructions: Chest Pain Additional Instructions: FOLLOW UP WITH PRIVATE DOCTOR TOMORROW. Prescriptions: Ibuprofen 200 mg [Motrin 200 mg] 600 mg PO Q6H PRN PRN #20 tablet PRN Reason: Pain
[2016-11-22 04:43] LABS: ADD URINE CULTURE? NO (NO); Bilirubin NEGATIVE (NEGATIVE); Blood NEGATIVE Ery/ul (0-5); COMPLETE URINE MICROSCOPIC? NO; Collection Type CLEAN CATCH; Glucose NEGATIVE (NEGATIVE); Leukocyte Esterase NEGATIVE (NEGATIVE)
[2016-11-22 04:43] LABS: BASOPHIL % 0.2 % (0.0-0.4); Eosinophil % 4.8 % (0.00-5.0); Lymphocytes % 35.5 % (24.0-44.0); Mean Cell Volume 86.9 fl (78-100); Mean Platelet Volume 10.3 fl (6-9.5); Monocytes % 6.5 % (0.0-12.0); Platelet Count 262 K/mm3 (150-450); Red Blood Count 4.49 M/mm3 (4.1-5.4); Red Cell Distribution Width 12.4 % (11.5-14.0); White Blood Count 9.8 K/mm3 (4.0-10.5)
[2016-11-22 05:05] LABS: ALBUMIN 3.4 g/dL (3.4-5.0); ALKALINE PHOSPHATASE 85 U/L (46-116); ANION GAP 15.2 MEQ/L (5-15); BLOOD UREA NITROGEN 13 mg/dL (9-20); CHLORIDE 107 mEq/L (98-107); Carbon Dioxide 23.3 mEq/L (21-32); Glucose 131 MG/DL (70-110); LIPASE 84 U/L (73-393); MAGNESIUM 1.8 mg/dL (1.8-2.4); Potassium 3.6 mEq/L (3.5-5.1); SGOT/AST 14 U/L (15-37); SGPT/ALT 19 U/L (12-78); SODIUM 142 mEq/L (136-145); Total Protein 6.6 gm/dL (6.4-8.2)
[2016-11-22 05:08] VITALS: PULSE 70
[2016-11-22] MEDS ORDERED: TORAdol 30 mg Injection IV ONE (05:09)
[2016-11-22] MEDS ORDERED: TORAdol 30 mg Injection ONE (05:19)
[2016-11-22 05:20] VITALS: O2SAT 98
--- NOTE | 2016-11-22 07:44 | XRAY ---
Indication: Pain. Comparison: October 11, 2016. Portable chest again demonstrates normal heart, lungs, and bony thorax.
== END 2016-11-22 05:51 | disposition home or self-care (01) ==
LOC: ED 04:02
DX: R07.89 Other chest pain (principal); M25.512 Pain in left shoulder; F41.9 Anxiety disorder, unspecified
CPT/HCPCS: 36000; 36415; 71010; 80053; 80307; 81002; 82150; 83690; 83735; 84484; 84703; 85025; 93005; 93041; 99284; 99285; J1885

== ENCOUNTER 2016-12-11 20:41 | Emergency (ER) | payer OTHER ==
--- NOTE | 2016-12-11 21:23 | ERPHSYRPT ---
- History of Present Illness Time Seen by Provider: 12/11/16 21:20 Historian: patient Exam Limitations: no limitations Patient Subjective Stated Complaint: pt states she had a hysterectomy on wednesday and states she has had pain that has not been controlled since. Triage Nursing Assessment: pt alert and oriented, answrs questions approp. pt ambulatory with slow careful gait noted while holding a pillow against her abd. respirations tachy, nonlabored. lungs cta. abd soft nontender in upper quadrants. inc to pelvic area with gianni and steri strips. no redness around incision noted. Physician History: 26 y/o female s/p hysterectomy on Wednesday at [facility] comes to the ER with complaints of lower abdominal pain since the surgery. Pt describes the pain as sharp, constant, 8/10, and not relieved by percocet. Pt also admits to dysuria, polyuria and nausea. Pt denies any vomiting, fever, chills, bloody stools or constipation. Pt says that she is passing gas. Timing/Duration: day(s) Activities at Onset: none Quality: sharpness Abdominal Pain Onset Location: suprapubic Pain Radiation: no radiation Severity of Pain-Max: severe Severity of Pain-Current: severe Modifying Factors: Improves With: nothing Associated Symptoms: nausea Allergies/Adverse Reactions: adhesive Allergy (Mild, Verified 12/11/16 21:00) Rash cefaclor [From Ceclor] Allergy (Mild, Verified 12/11/16 21:00) Hives duloxetine [From Cymbalta] Allergy (Verified 12/11/16 21:00) tramadol Adverse Reaction (Verified 12/11/16 21:00) Home Medications: Clonazepam [Klonopin] 0.5 mg PO Q4-6HPRN PRN 11/22/16 [History] Oxycodone HCl/Acetaminophen [Percocet 5-325 mg Tablet] 1 each PO Q4-6HPRN PRN [History] Hx Tetanus, Diphtheria Vaccination/Date Given: Yes Hx Influenza Vaccination/Date Given: Yes Hx Pneumococcal Vaccination/Date Given: No Immunizations Up to Date: Yes - Review of Systems Constitutional: No Fever, No Chills Eyes: No Symptoms Ears, Nose, & Throat: No Symptoms Respiratory: No Cough, No Dyspnea Cardiac: No Chest Pain, No Edema, No Syncope Abdominal/Gastrointestinal: Abdominal Pain, Nausea, No Vomiting, No Diarrhea Genitourinary Symptoms: No Dysuria Musculoskeletal: No Back Pain, No Neck Pain Skin: No Rash Neurological: No Dizziness, No Focal Weakness, No Sensory Changes Psychological: No Symptoms Endocrine: No Symptoms All Other Systems: Reviewed and Negative - Past Medical History Pertinent Past Medical History: Yes Neurological History: Migraines ENT History: No Pertinent History Cardiac History: Other Respiratory History: Asthma, Bronchitis Endocrine Medical History: Hypothyroidism, Other Musculoskeletal History: Other GI Medical History: Esophageal Disorder, GERD, Irritable Bowel History: Other Psycho-Social History: Anxiety, Attention Deficit Disorder, Depression, Panic Disorder Female Reproductive Disorders: Other Other Medical History: cysts on ovaries,arm,knee pain,partial thyroidectomy- nodule removed. mitral valve prolapse. kidney/bladder inflammation. lambert- schlatter. chronic hives - Past Surgical History Past Surgical History: Yes Neuro Surgical History: No Pertinent History Cardiac: No Pertinent History Respiratory: No Pertinent History Gastrointestinal: Cholecystectomy Genitourinary: No Pertinent History Musculoskeletal: No Pertinent History Female Surgical History: Hysterectomy, Dilation & Curettage, Tubal Ligation, Other Other Surgical History: thyroidectomy. gallbladder. breast reconstruction- nodules removed. anesthesia problems - difficult to wake up, drop in bp - Social History Smoking Status: Current every day smoker How long have you smoked: 3 Exposure to second hand smoke: No Drug Use: none Patient Lives Alone: No - Female History Hx Last Menstrual Period: hyster tues Hx Now: No - Nursing Vital Signs Nursing Vital Signs: Initial Vital Signs Temperature 98.1 F Temperature Source Oral Pulse Rate 110 Respiratory Rate 18 Blood Pressure [Left Arm] 118/82 Blood Pressure [Right Arm] 115/64 Pain Intensity 7 - Physical Exam General Appearance: moderate distress, alert Eye Exam: PERRL/EOMI, eyes nml inspection Ears, Nose, Throat Exam: normal ENT inspection, pharynx normal, moist mucous membranes Neck Exam: normal inspection, non-tender, supple, full range of motion Respiratory Exam: normal breath sounds, lungs clear, No respiratory distress Cardiovascular Exam: regular rate/rhythm, normal heart sounds Gastrointestinal/Abdomen Exam: soft, normal bowel sounds, tenderness, distention , other (incision site looks clean with no drainage), No mass Back Exam: normal inspection, normal range of motion, No CVA tenderness, No vertebral tenderness Extremity Exam: normal inspection, normal range of motion, pelvis stable Neurologic Exam: alert, oriented x 3, cooperative, normal mood/affect, nml cerebellar function, sensation nml, No motor deficits Skin Exam: normal color, warm, dry SpO2: 99 Oxygen Delivery: Room Air - Course Nursing assessment & vital signs reviewed: Yes Ordered Tests: Active Orders 24 hr Category Date Time Status IV Insertion STAT Care 12/11/16 21:25 Active ABDOMEN AND PELVIS W CONTRAST [CT] Stat Exams 12/11/16 21:24 Taken AMYLASE Stat Lab 12/11/16 21:26 Completed CBCD [CBC W DIFF] Stat Lab 12/11/16 21:26 Completed CMP Stat Lab 12/11/16 21:26 Completed LIPASE Stat Lab 12/11/16 21:26 Completed Lactic Acid Stat Lab 12/11/16 21:42 Completed UA W/RFX UR CULTURE Stat Lab 12/11/16 21:45 Completed Medication Summary Discontinued Medications Generic Name Dose Route Start Last Admin Trade Name Freq PRN Reason Stop Dose Admin Hydromorphone HCl 1 mg 12/11/16 21:25 12/11/16 21:31 Hydromorphone 1 Mg/Ml Ampule IV 12/11/16 21:26 1 mg STAT ONE Administration Hydromorphone HCl Confirm 12/11/16 21:28 Hydromorphone 1 Mg/Ml Ampule Administered 12/11/16 21:29 Dose 1 mg .ROUTE .STK-MED ONE Hydromorphone HCl 1 mg 12/11/16 22:29 12/11/16 22:33 Hydromorphone 1 Mg/Ml Ampule IV 12/11/16 22:30 1 mg STAT ONE Administration Hydromorphone HCl Confirm 12/11/16 22:32 Hydromorphone 1 Mg/Ml Ampule Administered 12/11/16 22:33 Dose 1 mg .ROUTE .STK-MED ONE Sodium Chloride 1,000 mls @ 999 mls/hr 12/11/16 21:25 12/11/16 21:31 Sodium Chloride 0.9% 1000 Ml IV 12/11/16 22:25 999 mls/hr .Q1H1M STA Administration Sodium Chloride Confirm 12/11/16 21:29 Sodium Chloride 0.9% 1000 Ml Administered 12/11/16 21:30 Dose 1,000 mls @ ud .ROUTE .STK-MED ONE Ketorolac Tromethamine 30 mg 12/11/16 23:35 12/11/16 23:40 Toradol 30 Mg Injection IV 12/11/16 23:36 30 mg STAT ONE Administration Ketorolac Tromethamine Confirm 12/11/16 23:39 Toradol 30 Mg Injection Administered 12/11/16 23:40 Dose 30 mg .ROUTE .STK-MED ONE Ondansetron HCl 4 mg 12/11/16 21:25 12/11/16 21:31 Zofran 4 Mg/2 Ml Vial IV 12/11/16 21:26 4 mg STAT ONE Administration Ondansetron HCl Confirm 12/11/16 21:28 Zofran 4 Mg/2 Ml Vial Administered 12/11/16 21:29 Dose 4 mg .ROUTE .STK-MED ONE Lab/Rad Data: Laboratory Result Diagrams 12/11/16 21:26 12/11/16 21:26 Laboratory Results 12/11/16 12/11/16 12/11/16 Range/Units 21:45 21:42 21:26 WBC (4.0-10.5) K/mm3 RBC (4.1-5.4) M/mm3 Hgb (12.0-16.0) gm/dl Hct (35-47) % MCV (78-100) fl MCH (26-32) pg MCHC (32-36) g/dl RDW (11.5-14.0) % Plt Count (150-450) K/mm3 MPV (6-9.5) fl Gran % (36.0-66.0) % Lymphocytes % (24.0-44.0) % Monocytes % (0.0-12.0) % Eosinophils % (0.00-5.0) % Basophils % (0.0-0.4) % Basophils # (0-0.4) Sodium 137 (136-145) mEq/L Potassium 3.9 (3.5-5.1) mEq/L Chloride 100 (98-107) mEq/L Carbon Dioxide 24.9 (21-32) mEq/L Anion Gap 16.0 H (5-15) MEQ/L BUN 10 (9-20) mg/dL Creatinine 0.88 (0.55-1.30) mg/dl Estimated GFR > 60 ML/MIN Glucose 126 H (70-110) MG/DL Lactic Acid 1.3 (0.4-2.0) Calcium 9.3 (8.5-10.1) mg/dL Total Bilirubin 0.30 (0.2-1.0) mg/dL AST 17 (15-37) U/L ALT 22 (12-78) U/L Alkaline Phosphatase 115 (46-116) U/L Serum Total Protein 6.7 (6.4-8.2) gm/dL Albumin 3.6 (3.4-5.0) g/dL Amylase 24 L (25-115) U/L Lipase 67 L (73-393) U/L Ur Collection Type CLEAN CATCH Urine Color YELLOW (YELLOW) Urine Appearance CLEAR (CLEAR) Urine pH 8.0 (5-6) Ur Specific [place] 1.005 (1.005-1.025) Urine Protein NEGATIVE (Negative) Urine Ketones NEGATIVE (NEGATIVE) Urine Blood NEGATIVE (0-5) Matthew/ul Urine Nitrite NEGATIVE (NEGATIVE) Urine Bilirubin NEGATIVE (NEGATIVE) Urine Urobilinogen NORMAL (0-1) mg/dL Ur Leukocyte Esterase NEGATIVE (NEGATIVE) Urine Glucose NEGATIVE (NEGATIVE) mg/dL Specimen Received 12/11/16 2145 12/11/16 Range/Units 21:26 WBC 11.0 H (4.0-10.5) K/mm3 RBC 4.64 (4.1-5.4) M/mm3 Hgb 14.2 (12.0-16.0) gm/dl Hct 39.9 (35-47) % MCV 86.0 (78-100) fl MCH 30.6 (26-32) pg MCHC 35.6 (32-36) g/dl RDW 12.1 (11.5-14.0) % Plt Count 341 (150-450) K/mm3 MPV 10.4 H (6-9.5) fl Gran % 60.3 (36.0-66.0) % Lymphocytes % 30.3 (24.0-44.0) % Monocytes % 5.1 (0.0-12.0) % Eosinophils % 4.0 (0.00-5.0) % Basophils % 0.3 (0.0-0.4) % Basophils # 0.03 (0-0.4) Sodium (136-145) mEq/L Potassium (3.5-5.1) mEq/L Chloride (98-107) mEq/L Carbon Dioxide (21-32) mEq/L Anion Gap (5-15) MEQ/L BUN (9-20) mg/dL Creatinine (0.55-1.30) mg/dl Estimated GFR ML/MIN Glucose (70-110) MG/DL Lactic Acid (0.4-2.0) Calcium (8.5-10.1) mg/dL Total Bilirubin (0.2-1.0) mg/dL AST (15-37) U/L ALT (12-78) U/L Alkaline Phosphatase (46-116) U/L Serum Total Protein (6.4-8.2) gm/dL Albumin (3.4-5.0) g/dL Amylase (25-115) U/L Lipase (73-393) U/L Ur Collection Type Urine Color (YELLOW) Urine Appearance (CLEAR) Urine pH (5-6) Ur Specific [place] (1.005-1.025) Urine Protein (Negative) Urine Ketones (NEGATIVE) Urine Blood (0-5) Matthew/ul Urine Nitrite (NEGATIVE) Urine Bilirubin (NEGATIVE) Urine Urobilinogen (0-1) mg/dL Ur Leukocyte Esterase (NEGATIVE) Urine Glucose (NEGATIVE) mg/dL Specimen Received - Progress Progress: improved Progress Note: 12/11/16 23:[address] scan abd/pelvis does not show any acute findings except for significant constipation. The rest of the labs and UA are within normal limits. Pt was given 2 doses of dilaudid 1mg IV and toradol 30mg IV X 1 dose. Pt will be given a dose of magnesium citrate and a bowel regimen of miralax and senna for constipation. - Departure Time of Disposition: 23:57 Departure Disposition: Home Clinical Impression: Constipation Qualifiers: Constipation type: drug induced constipation Qualified Code(s): K59.03 - Drug induced constipation Condition: Stable Critical Care Time: No Referrals: ALMA CALABRESE [Primary Care Provider] - Instructions: Constipation Additional Instructions: Follow up with your primary care doctor for any additional recommendations for constipation. Start the following bowel regimen: 1) Miralax 17 grams once daily 2) Senna 1 tablet twice daily Prescriptions: Polyethylene Glycol 3350 17 gm [Miralax Powder 17GM PACKET] 17 gm PO DAILY # 30 packet Sennosides [Senna] 8.6 mg PO BID #30 tablet
[2016-12-11] MEDS ORDERED: Hydromorphone 1 mg/ml Ampule IV ONE ×2 (21:25→22:29)
[2016-12-11] MEDS ORDERED: Sodium Chloride 0.9% 1000 ML 1,000 ML IV STA (21:25)
[2016-12-11] MEDS ORDERED: Zofran 4 MG/2 ML VIAL IV ONE (21:25)
[2016-12-11] MEDS ORDERED: Hydromorphone 1 mg/ml Ampule ONE ×2 (21:28→22:32)
[2016-12-11] MEDS ORDERED: Zofran 4 MG/2 ML VIAL ONE (21:28)
[2016-12-11] MEDS ORDERED: Sodium Chloride 0.9% 1000 ML 1,000 ML ONE (21:29)
[2016-12-11 21:32] LABS: BASOPHIL % 0.3 % (0.0-0.4); Granulocytes % 60.3 % (36.0-66.0); Lymphocytes % 30.3 % (24.0-44.0); Mean Corpuscular Hemoglobin 30.6 pg (26-32); Mean Platelet Volume 10.4 fl (6-9.5); Monocytes % 5.1 % (0.0-12.0); Platelet Count 341 K/mm3 (150-450); Red Blood Count 4.64 M/mm3 (4.1-5.4); Red Cell Distribution Width 12.1 % (11.5-14.0)
[2016-12-11 21:49] LABS: ADD URINE CULTURE? NO (NO); Bilirubin NEGATIVE (NEGATIVE); Blood NEGATIVE Ery/ul (0-5); COMPLETE URINE MICROSCOPIC? NO; Collection Type CLEAN CATCH; Glucose NEGATIVE (NEGATIVE); Leukocyte Esterase NEGATIVE (NEGATIVE)
[2016-12-11 21:55] LABS: ALBUMIN 3.6 g/dL (3.4-5.0); ALKALINE PHOSPHATASE 115 U/L (46-116); BLOOD UREA NITROGEN 10 mg/dL (9-20); CHLORIDE 100 mEq/L (98-107); Carbon Dioxide 24.9 mEq/L (21-32); Glucose 126 MG/DL (70-110); LIPASE 67 U/L (73-393); Potassium 3.9 mEq/L (3.5-5.1); SGOT/AST 17 U/L (15-37); SGPT/ALT 22 U/L (12-78); SODIUM 137 mEq/L (136-145); Total Protein 6.7 gm/dL (6.4-8.2)
[2016-12-11 23:33] VITALS: BP 115/64; PULSE 110
[2016-12-11] MEDS ORDERED: TORAdol 30 mg Injection IV ONE (23:35)
[2016-12-11] MEDS ORDERED: TORAdol 30 mg Injection ONE (23:39)
[2016-12-11] MEDS ORDERED: CITROMA 296 ML PO ONE (23:55)
[2016-12-12] VITALS: O2SAT 99
[2016-12-12] MEDS ORDERED: CITROMA 296 ML ONE (00:01)
--- NOTE | 2016-12-12 08:51 | XRAY ---
Indication: Right lower quadrant pain following hysterectomy 3 days ago. Abscess versus small bowel obstruction. Multiple contiguous axial images obtained through the abdomen and pelvis using 80 cc Isovue 370 contrast and enteric contrast. Comparison: October 14, 2016. Lung bases clear. Heart is not enlarged. Again partially visualized bilateral breast implants. Contrasted stomach and bowel loops appear nonobstructed. There is again mild/moderate scattered colonic fecal debris throughout. Normal appearing appendix. There has been interval partial hysterectomy. Small pelvic free fluid, abdominal wall soft tissue changes, and cutaneous suture material attest to recent surgery. No walled off fluid collection or free air. Spleen remains enlarged today 15 cm in greatest axial dimension. Again previous cholecystectomy. Urinary bladder now demonstrates small intraluminal air either iatrogenic versus air forming bacterial infection. Remaining liver, pancreas, spleen, adrenal glands, kidneys, ureters, bladder, ovaries, and aorta appear unremarkable. No pathologic retroperitoneal lymphadenopathy. Osseous structures intact. Impression: 1. Status post partial hysterectomy. Abdominal wall and pelvic free fluid presumed related to recent surgery. No walled off fluid collection/abscess. 2. Again mild stasis without obstruction. 3. Increasing splenomegaly. Comment: Preliminary interpretation was made by C. No critical discrepancy. CTDI 27.58
== END 2016-12-12 00:12 | disposition home or self-care (01) ==
LOC: ED 20:41
DX: K59.03 Drug induced constipation (principal); R30.0 Dysuria; R11.0 Nausea; R10.9 Unspecified abdominal pain
CPT/HCPCS: 36000; 36415; 74177; 80053; 81002; 82150; 83605; 83690; 85025; 96360; 96374; 96375; 99284; J1170; J1885; J2405; A9270-GY

== ENCOUNTER 2016-12-19 01:32 | Emergency (ER) | payer OTHER ==
[2016-12-19] MEDS ORDERED: Phenergan 25 MG INJ IV ONE ×2 (02:07→05:54)
[2016-12-19] MEDS ORDERED: Hydromorphone 1 mg/ml Ampule IV ONE ×3 (02:07→04:58)
[2016-12-19] MEDS ORDERED: Sodium Chloride 0.9% 1000 ML 1,000 ML IV SCH (02:15)
--- NOTE | 2016-12-19 02:16 | ERPHSYRPT ---
- History of Present Illness Time Seen by Provider: 12/19/16 01:56 Historian: patient Exam Limitations: no limitations Physician History: 12 DAYS AGO PT HAD A HYSTERECTOMY BY DR ALEXANDER. 5 DAYS AGO THE INCISION HAD DEHISCENCE. FOR THE PAST 3 DAYS PT HAS HAD YELLOW GREEN BLOODY DRAINAGE FROM THE INCISION, FEVER UP TO 100.9 DEGREES, DIARRHEA, LOWER ABDOMINAL PAIN, DIAPHORESIS AND CHILLS. PT ALSO C/O URINARY HESITANCY SINCE HER SURGERY. Allergies/Adverse Reactions: adhesive Allergy (Mild, Verified 12/19/16 02:43) Rash cefaclor [From Ceclor] Allergy (Mild, Verified 12/19/16 02:43) Hives duloxetine [From Cymbalta] Allergy (Verified 12/19/16 02:43) tramadol Adverse Reaction (Verified 12/19/16 02:43) Home Medications: Clonazepam [Klonopin] 0.5 mg PO Q4-6HPRN PRN 11/22/16 [History] Hx Tetanus, Diphtheria Vaccination/Date Given: Yes Hx Influenza Vaccination/Date Given: Yes Hx Pneumococcal Vaccination/Date Given: No - Review of Systems Constitutional: Fever, Chills Abdominal/Gastrointestinal: Abdominal Pain, Diarrhea, Other (ABDOMINAL INCISIONAL DRAINAGE.) Genitourinary Symptoms: Hesitancy Endocrine: Excessive Sweating All Other Systems: Reviewed and Negative - Past Medical History Pertinent Past Medical History: Yes Neurological History: Migraines ENT History: No Pertinent History Cardiac History: Other Respiratory History: Asthma, Bronchitis Endocrine Medical History: Hypothyroidism, Other Musculoskeletal History: Other GI Medical History: Esophageal Disorder, GERD, Irritable Bowel History: Other Psycho-Social History: Anxiety, Attention Deficit Disorder, Depression, Panic Disorder Female Reproductive Disorders: Other Other Medical History: cysts on ovaries,arm,knee pain,partial thyroidectomy- nodule removed. mitral valve prolapse. kidney/bladder inflammation. lambert- schlatter. chronic hives - Past Surgical History Past Surgical History: Yes Neuro Surgical History: No Pertinent History Cardiac: No Pertinent History Respiratory: No Pertinent History Gastrointestinal: Cholecystectomy Genitourinary: No Pertinent History Musculoskeletal: No Pertinent History Female Surgical History: Hysterectomy, Dilation & Curettage, Tubal Ligation, Other Other Surgical History: thyroidectomy. gallbladder. breast reconstruction- nodules removed. anesthesia problems - difficult to wake up, drop in bp - Social History Smoking Status: Current every day smoker How long have you smoked: 3 Exposure to second hand smoke: No Drug Use: none Patient Lives Alone: No - Female History Hx Now: No - Nursing Vital Signs Nursing Vital Signs: Initial Vital Signs Temperature 98.8 F 12/19/16 02:53 Pulse Rate 84 12/19/16 02:53 Respiratory Rate 16 12/19/16 02:53 Blood Pressure 130/78 12/19/16 02:53 O2 Sat by Pulse Oximetry 97 12/19/16 02:53 Pain Scale Pain Intensity 7 - Physical Exam General Appearance: alert Eye Exam: PERRL/EOMI Ears, Nose, Throat Exam: pharynx normal, moist mucous membranes Neck Exam: normal inspection Respiratory Exam: lungs clear Cardiovascular Exam: normal heart sounds Gastrointestinal/Abdomen Exam: soft, normal bowel sounds, tenderness (MILD LOWER ABDOMINAL TENDERNESS RIGHT > LEFT), other (CLEAR EXUDATE FROM THE RIGHT SIDE OF THE LOWER ABDOMINAL INCISION WITH SURROUNDING ERYTHEMA.) Back Exam: normal range of motion Extremity Exam: normal inspection, No pedal edema Neurologic Exam: alert, cooperative - Course Nursing assessment & vital signs reviewed: Yes - CT Exams Abdomen/Pelvis CT Interpretation: Tele-radiologist Report (ENLARGED RIGHT ADNEXAL REGION MEASURING 5.1 CM WITH A SMALL AMOUNT OF ADJACENT FLUID IN THE CENTRAL 2.5 CM CYST. 3MM NONOBSTRUCTING RIGHT RENAL CALCULUS. SMALL AMOUNT OF FLUID ALONG THE PELVIC WALL INCISION.) - Radiology Ultrasound Exam Pelvis Ultrasound: Other (TECH REPORT: INFLAMATION ABOUT 2 CM DOWN FROM INCISION. NO LARGE FLUID COLLECTION.) Ordered Tests: Active Orders 24 hr Category Date Time Status Clean Catch Urine Specimen STAT Care 12/19/16 02:07 Active IV Insertion STAT Care 12/19/16 02:07 Active ABDOMEN AND PELVIS W/0 CONTRAS [CT] Stat Exams 12/19/16 02:08 Taken PELVIC [US] Stat Exams 12/19/16 03:30 Ordered AMYLASE Stat Lab 12/19/16 02:30 Completed BLOOD CULTURE Stat Lab 12/19/16 05:10 Ordered CBC W DIFF Stat Lab 12/19/16 02:30 Completed CMP Stat Lab 12/19/16 02:30 Completed Erythrocyte Sedimentation Rate Stat Lab 12/19/16 02:30 Completed LIPASE Stat Lab 12/19/16 02:30 Completed MAG [MAGNESIUM] Stat Lab 12/19/16 02:30 Completed UA W/RFX UR CULTURE Stat Lab 12/19/16 02:30 Completed Medication Summary Generic Name Dose Route Start Last Admin Trade Name Viktoriya PRN Reason Stop Dose Admin Sodium Chloride 1,000 mls @ 250 mls/hr 12/19/16 02:15 12/19/16 02:39 Sodium Chloride 0.9% 1000 Ml IV 01/18/17 02:14 250 mls/hr .Q4H MALA Administration Clindamycin HCl/Dextrose 900 mg in 50 mls @ 100 mls/hr 12/19/16 04:58 05:10 Clindamycin-D5w 900 Mg/50 Ml IV 12/19/16 05:27 100 mls/hr STAT STA Administration Magnesium Oxide 400 mg 12/19/16 10:00 Mag-Ox 400 PO 01/18/17 09:59 BID MALA Discontinued Medications Generic Name Dose Route Start Last Admin Trade Name Viktoriya PRN Reason Stop Dose Admin Hydromorphone HCl 1 mg 12/19/16 02:07 12/19/16 02:39 Hydromorphone 1 Mg/Ml Ampule IV 12/19/16 02:08 1 mg STAT ONE Administration Hydromorphone HCl Confirm 12/19/16 02:34 Hydromorphone 1 Mg/Ml Ampule Administered 12/19/16 02:35 Dose 1 mg .ROUTE .STK-MED ONE Hydromorphone HCl 1 mg 12/19/16 03:26 12/19/16 03:31 Hydromorphone 1 Mg/Ml Ampule IV 12/19/16 03:27 1 mg STAT ONE Administration Hydromorphone HCl Confirm 12/19/16 03:29 Hydromorphone 1 Mg/Ml Ampule Administered 12/19/16 03:30 Dose 1 mg .ROUTE .STK-MED ONE Hydromorphone HCl 1 mg 12/19/16 04:58 12/19/16 05:10 Hydromorphone 1 Mg/Ml Ampule IV 12/19/16 04:59 1 mg STAT ONE Administration Hydromorphone HCl Confirm 12/19/16 05:03 Hydromorphone 1 Mg/Ml Ampule Administered 12/19/16 05:04 Dose 1 mg .ROUTE .STK-MED ONE Clindamycin HCl/Dextrose Confirm 12/19/16 05:04 Clindamycin-D5w 900 Mg/50 Ml Administered 12/19/16 05:05 Dose 900 mg in 50 mls @ ud IV .STK-MED ONE Promethazine HCl 12.5 mg 12/19/16 02:07 12/19/16 02:40 Phenergan 25 Mg Inj IV 12/19/16 02:08 12.5 mg STAT ONE Administration Promethazine HCl Confirm 12/19/16 02:34 Phenergan 25 Mg Inj Administered 12/19/16 02:35 Dose 25 mg .ROUTE .STK-MED ONE Lab/Rad Data: Laboratory Result Diagrams 12/19/16 02:30 12/19/16 02:30 Laboratory Results 12/19/16 12/19/16 12/19/16 Range/Units 02:30 02:30 02:30 WBC (4.0-10.5) K/mm3 RBC (4.1-5.4) M/mm3 Hgb (12.0-16.0) gm/dl Hct (35-47) % MCV (78-100) fl MCH (26-32) pg MCHC (32-36) g/dl RDW (11.5-14.0) % Plt Count (150-450) K/mm3 MPV (6-9.5) fl Gran % (36.0-66.0) % Lymphocytes % (24.0-44.0) % Monocytes % (0.0-12.0) % Eosinophils % (0.00-5.0) % Basophils % (0.0-0.4) % Basophils # (0-0.4) ESR 42 H (0-20) mm/hr Sodium 138 (136-145) mEq/L Potassium 3.7 (3.5-5.1) mEq/L Chloride 102 (98-107) mEq/L Carbon Dioxide 25.2 (21-32) mEq/L Anion Gap 14.3 (5-15) MEQ/L BUN 13 (9-20) mg/dL Creatinine 0.82 (0.55-1.30) mg/dl Estimated GFR > 60 ML/MIN Glucose 122 H (70-110) MG/DL Calcium 9.7 (8.5-10.1) mg/dL Magnesium 1.7 L (1.8-2.4) mg/dL Total Bilirubin 0.20 (0.2-1.0) mg/dL AST 16 (15-37) U/L ALT 40 (12-78) U/L Alkaline Phosphatase 106 (46-116) U/L Serum Total Protein 7.4 (6.4-8.2) gm/dL Albumin 3.7 (3.4-5.0) g/dL Amylase 27 (25-115) U/L Lipase 65 L (73-393) U/L Ur Collection Type Urine Color (YELLOW) Urine Appearance (CLEAR) Urine pH (5-6) Ur Specific [place] (1.005-1.025) Urine Protein (Negative) Urine Ketones (NEGATIVE) Urine Blood (0-5) Matthew/ul Urine Nitrite (NEGATIVE) Urine Bilirubin (NEGATIVE) Urine Urobilinogen (0-1) mg/dL Ur Leukocyte Esterase (NEGATIVE) Urine Glucose (NEGATIVE) mg/dL Specimen Received 12/19/16 12/19/16 Range/Units 02:30 02:30 WBC 11.9 H (4.0-10.5) K/mm3 RBC 4.57 (4.1-5.4) M/mm3 Hgb 14.0 (12.0-16.0) gm/dl Hct 39.4 (35-47) % MCV 86.2 (78-100) fl MCH 30.6 (26-32) pg MCHC 35.5 (32-36) g/dl RDW 12.2 (11.5-14.0) % Plt Count 329 (150-450) K/mm3 MPV 9.9 H (6-9.5) fl Gran % 66.0 (36.0-66.0) % Lymphocytes % 24.5 (24.0-44.0) % Monocytes % 6.3 (0.0-12.0) % Eosinophils % 2.9 (0.00-5.0) % Basophils % 0.3 (0.0-0.4) % Basophils # 0.04 (0-0.4) ESR (0-20) mm/hr Sodium (136-145) mEq/L Potassium (3.5-5.1) mEq/L Chloride (98-107) mEq/L Carbon Dioxide (21-32) mEq/L Anion Gap (5-15) MEQ/L BUN (9-20) mg/dL Creatinine (0.55-1.30) mg/dl Estimated GFR ML/MIN Glucose (70-110) MG/DL Calcium (8.5-10.1) mg/dL Magnesium (1.8-2.4) mg/dL Total Bilirubin (0.2-1.0) mg/dL AST (15-37) U/L ALT (12-78) U/L Alkaline Phosphatase (46-116) U/L Serum Total Protein (6.4-8.2) gm/dL Albumin (3.4-5.0) g/dL Amylase (25-115) U/L Lipase (73-393) U/L Ur Collection Type CLEAN CATCH Urine Color LT.YELLOW (YELLOW) Urine Appearance CLEAR (CLEAR) Urine pH 7.0 (5-6) Ur Specific [place] 1.015 (1.005-1.025) Urine Protein NEGATIVE (Negative) Urine Ketones NEGATIVE (NEGATIVE) Urine Blood NEGATIVE (0-5) Matthew/ul Urine Nitrite NEGATIVE (NEGATIVE) Urine Bilirubin NEGATIVE (NEGATIVE) Urine Urobilinogen NORMAL (0-1) mg/dL Ur Leukocyte Esterase NEGATIVE (NEGATIVE) Urine Glucose NEGATIVE (NEGATIVE) mg/dL Specimen Received 12/19/16 0230 - Progress Discussed with : Other (SPOKE WITH DR MCCORD(COVERING FOR DR ALEXANDER)([id number]) WHO ACCEPTED PT FOR TRANSFER TO [facility] A DIRECT ADMISSION.) - Departure Time of Disposition: 05:26 Departure Disposition: Transfer ([facility]) Clinical Impression: CELLULITIS OF ABDOMINAL WALL, MILD HYPOMAGNESEMIA, S/P HYSTERECTOMY DAY 12 Condition: Stable Critical Care Time: No Referrals: ALAM CALABRESE [Primary Care Provider] -
[2016-12-19] MEDS ORDERED: Hydromorphone 1 mg/ml Ampule ONE ×3 (02:34→05:03)
[2016-12-19] MEDS ORDERED: Phenergan 25 MG INJ ONE ×2 (02:34→05:59)
[2016-12-19] MEDS ORDERED: Sodium Chloride 0.9% 1000 ML 1,000 ML ONE (02:35)
[2016-12-19 02:40] LABS: BASOPHIL % 0.3 % (0.0-0.4); Eosinophil % 2.9 % (0.00-5.0); Lymphocytes % 24.5 % (24.0-44.0); Mean Cell Volume 86.2 fl (78-100); Mean Corpuscular Hemoglobin 30.6 pg (26-32); Mean Platelet Volume 9.9 fl (6-9.5); Monocytes % 6.3 % (0.0-12.0); Platelet Count 329 K/mm3 (150-450); Red Blood Count 4.57 M/mm3 (4.1-5.4); Red Cell Distribution Width 12.2 % (11.5-14.0); White Blood Count 11.9 K/mm3 (4.0-10.5)
[2016-12-19 02:45] LABS: Collection Type CLEAN CATCH
[2016-12-19 02:46] LABS: ADD URINE CULTURE? NO (NO); Bilirubin NEGATIVE (NEGATIVE); Blood NEGATIVE Ery/ul (0-5); COMPLETE URINE MICROSCOPIC? NO; Glucose NEGATIVE (NEGATIVE); Leukocyte Esterase NEGATIVE (NEGATIVE)
[2016-12-19 03:02] LABS: ALBUMIN 3.7 g/dL (3.4-5.0); ALKALINE PHOSPHATASE 106 U/L (46-116); ANION GAP 14.3 MEQ/L (5-15); BLOOD UREA NITROGEN 13 mg/dL (9-20); CHLORIDE 102 mEq/L (98-107); Carbon Dioxide 25.2 mEq/L (21-32); Glucose 122 MG/DL (70-110); LIPASE 65 U/L (73-393); Potassium 3.7 mEq/L (3.5-5.1); SGOT/AST 16 U/L (15-37); SGPT/ALT 40 U/L (12-78); SODIUM 138 mEq/L (136-145); Total Protein 7.4 gm/dL (6.4-8.2)
[2016-12-19] MEDS ORDERED: CLINDAMYCIN-D5W 900 MG/50 ML*** 900 MG/50 ML BAG IV STA (04:58)
[2016-12-19] MEDS ORDERED: CLINDAMYCIN-D5W 900 MG/50 ML*** 900 MG/50 ML BAG IV ONE (05:04)
[2016-12-19] MEDS ORDERED: MAG-OX 400 ONE (06:00)
--- NOTE | 2016-12-19 08:23 | XRAY ---
Indication: Lower abdominal pain. Status post hysterectomy 10 days ago with incisional drainage. Multiple contiguous axial images obtained through the abdomen and pelvis without contrast as ordered. Comparison: October 14 and December 11, 2016. Lung bases clear. Heart is not enlarged. Again partially visualized bilateral breast implants. Contrasted stomach and bowel loops appear nonobstructed. There is mild scattered colonic fecal debris throughout less than before. Normal appearing appendix with now a tiny appendicolith. Again post surgical changes related to hysterectomy. There is now 3.2 cm leaking right ovary cyst with stable small pelvic free fluid. No free air. Again abdominal wall postsurgical soft tissue changes with new incisional fluid collection measuring at least 11 cm in diameter and 11 mm in thickness but no abnormal air bubbles. Finding probably postsurgical hematoma/seroma with infected fluid collection not completely excluded on this noncontrast exam. Spleen remains enlarged today 14.3 cm in greatest axial dimension. Again previous cholecystectomy. There is now a 3 mm nonobstructing right renal calculus obscured on the previous contrasted exam. Remaining liver, pancreas, spleen, adrenal glands, kidneys, ureters, bladder, and aorta appear unremarkable. Impression: 1. Again status post partial hysterectomy. New incisional fluid collection as detailed either hematoma/seroma. Cannot completely exclude infected fluid collection on this noncontrast exam. 2. New 3.2 cm leaking right ovary cyst. Pelvic sonogram may yield further information if there remains further clinical concern. 3. New nonobstructing right renal microcalculus obscured on the previous contrast exam. 4. Again splenomegaly. Comment: Preliminary interpretation was made by [facility]. No critical discrepancy. CTDI 22.11
[2016-12-19] MEDS ORDERED: MAG-OX 400 PO SCH (10:00)
[2016-12-19 20:46] VITALS: BP 130/78; PULSE 84; O2SAT 97
--- NOTE | 2016-12-20 17:52 | XRAY ---
Indication: Incisional drainage following partial hysterectomy. Two-dimensional transabdominal pelvic sonogram was performed. Comparison: August 09, 2008. Sonogram limited due to overlying bandage material and patient discomfort. Uterus is now surgically absent. Neither ovaries are seen. No suspicious pelvic mass or fluid collection. Abdominal wall incision demonstrates small subcutaneous fluid collection at least 8 mm in thickness. Impression: Limited transabdominal pelvic sonogram as detailed. Abdominal wall incisional fluid collection corresponds to the same day CT finding. Comment: Preliminary report was given.
== END 2016-12-19 06:50 | disposition short-term general hospital (02) ==
LOC: ED 01:32
DX: L03.311 Cellulitis of abdominal wall (principal); E83.42 Hypomagnesemia; Z90.710 Acquired absence of both cervix and uterus
CPT/HCPCS: 36000; 36415; 74176; 76856; 80053; 81002; 82150; 83690; 83735; 85025; 85652; 87040; 96360; 96361; 96365; 96374; 96375; 96376; 99284; 99285; J1170; J2550; A9270-GY

== ENCOUNTER 2017-01-10 21:48 | Emergency (ER) | payer OTHER ==
[2017-01-10] MEDS ORDERED: Lactated Ringers 1,000 ML IV ONE ×2 (22:07→22:16)
[2017-01-10 22:14] LABS: BASOPHIL % 0.2 % (0.0-0.4); Eosinophil % 3.1 % (0.00-5.0); Granulocytes % 60.1 % (36.0-66.0); Lymphocytes % 30.8 % (24.0-44.0); Mean Cell Volume 86.8 fl (78-100); Mean Corpuscular Hemoglobin 30.3 pg (26-32); Mean Platelet Volume 10.2 fl (6-9.5); Monocytes % 5.8 % (0.0-12.0); Platelet Count 296 K/mm3 (150-450); Red Blood Count 4.68 M/mm3 (4.1-5.4); Red Cell Distribution Width 12.4 % (11.5-14.0); White Blood Count 12.1 K/mm3 (4.0-10.5)
[2017-01-10] MEDS ORDERED: Pepcid 20 MG VIAL IV ONE ×2 (22:15→22:18)
[2017-01-10] MEDS ORDERED: SUBLIMAZE 100 MCG/2 ML IV ONE ×2 (22:15→23:16)
[2017-01-10] MEDS ORDERED: BENADRYL 50 MG/ML IV ONE (22:15)
[2017-01-10] MEDS ORDERED: BENADRYL 50 MG/ML ONE (22:18)
[2017-01-10] MEDS ORDERED: SUBLIMAZE 100 MCG/2 ML ONE ×2 (22:19→23:18)
[2017-01-10 22:25] LABS: Bilirubin NEGATIVE (NEGATIVE); Blood NEGATIVE Ery/ul (0-5); Collection Type VOID; Glucose NEGATIVE (NEGATIVE); Leukocyte Esterase 1+ (NEGATIVE)
[2017-01-10 22:26] LABS: ADD URINE CULTURE? YES (NO); Bacteria MODERATE /HPF (NEGATIVE); COMPLETE URINE MICROSCOPIC? YES; Epithelial Cells MODERATE /HPF (FEW); Mucus SLIGHT /HPF (NEGATIVE)
--- NOTE | 2017-01-10 22:28 | ERPHSYRPT ---
- History of Present Illness Time Seen by Provider: 01/10/17 21:51 Source: patient Patient Subjective Stated Complaint: Pt states "about four weeks ago I had a histerctomy and I have. had quite a few problems since then. I had a ct scan last week and it showed an ovarian cyst, enlarged spleen. I am having trouble urinating, and yesterday I had horrible back pain on the left that goes straight into my stomach." Triage Nursing Assessment: Pt alert and oriented X 3, skin pwd. Pt ambulates slowly, pt is crying, holding her left flank and walking slightly hunched over. pt able to speak in full setences. Physician History: CC: pain Hx: 26 y/o patient of Dr Sandie Alexander is 5 weeks post hysterectomy. She had post op abd pain and was seen in ER and had pelvic sono and CT which showed mild right kidney stone, right ovarian cyst, and minimal courtney-incisional fluid. She was transferred to [facility] under chief dispatcher care and released. She subsequently saw SALAS Leger and had abtx for her urine and wound. Small wound separation. She took pyridium. Since yesterday she has some pain in left upper abd and her back. No chest pain. No cough or shortness of breath. Then the pain comes in sharp stabs every minute. Some urinary hesitancy. Normal BM's. No fever or chills. She reports allergic to toradol. Timing/Duration: today (5PM) Severity: severe Allergies/Adverse Reactions: adhesive Allergy (Mild, Verified 12/19/16 02:43) Rash cefaclor [From Ceclor] Allergy (Mild, Verified 01/10/17 22:02) Hives duloxetine [From Cymbalta] Allergy (Verified 12/19/16 02:43) tramadol Adverse Reaction (Verified 12/19/16 02:43) Home Medications: Clonazepam [Klonopin] 0.5 mg PO Q4-6HPRN PRN 11/22/16 [History] Hx Tetanus, Diphtheria Vaccination/Date Given: Yes Hx Influenza Vaccination/Date Given: Yes Hx Pneumococcal Vaccination/Date Given: No Immunizations Up to Date: Yes - Review of Systems Constitutional: Malaise, No Fever, No Chills Eyes: No Symptoms Ears, Nose, & Throat: No Symptoms Respiratory: No Cough, No Dyspnea Cardiac: No Chest Pain, No Edema, No Palpitations, No Syncope Abdominal/Gastrointestinal: Abdominal Pain, No Nausea, No Vomiting, No Diarrhea , No Constipation Genitourinary Symptoms: Hesitancy, No Dysuria Musculoskeletal: Back Pain Skin: No Rash Neurological: No Focal Weakness, No Headache, No Parasthesia All Other Systems: Reviewed and Negative - Past Medical History Pertinent Past Medical History: Yes Neurological History: Migraines ENT History: No Pertinent History Cardiac History: Other Respiratory History: Asthma, Bronchitis Endocrine Medical History: Hypothyroidism, Other Musculoskeletal History: Other GI Medical History: Esophageal Disorder, GERD, Irritable Bowel History: Other Psycho-Social History: Anxiety, Attention Deficit Disorder, Depression, Panic Disorder Female Reproductive Disorders: Other Other Medical History: cysts on ovaries,arm,knee pain,partial thyroidectomy- nodule removed. mitral valve prolapse. kidney/bladder inflammation. lambert- schlatter. chronic hives - Past Surgical History Past Surgical History: Yes Neuro Surgical History: No Pertinent History Cardiac: No Pertinent History Respiratory: No Pertinent History Gastrointestinal: Cholecystectomy Genitourinary: No Pertinent History Musculoskeletal: No Pertinent History Female Surgical History: Hysterectomy, Dilation & Curettage, Tubal Ligation, Other Other Surgical History: thyroidectomy. gallbladder. breast reconstruction- nodules removed. anesthesia problems - difficult to wake up, drop in bp. histerectomy - Social History Smoking Status: Current every day smoker How long have you smoked: 1.5 year Exposure to second hand smoke: Yes Drug Use: none Patient Lives Alone: No - Female History Hx Last Menstrual Period: histectomy 4 weeks ago Hx Now: No - Nursing Vital Signs Nursing Vital Signs: Initial Vital Signs Temperature 98.5 F 01/10/17 21:51 Pulse Rate 132 H 01/10/17 21:51 Respiratory Rate 18 01/10/17 21:51 Blood Pressure 129/101 01/10/17 21:51 O2 Sat by Pulse Oximetry 98 01/10/17 21:51 Pain Scale Pain Intensity 4 118/70 current manual BP - Physical Exam General Appearance: alert, anxiety Eye Exam: PERRL/EOMI Ears, Nose, Throat Exam: normal ENT inspection, moist mucous membranes Neck Exam: normal inspection, non-tender, supple Respiratory Exam: normal breath sounds, lungs clear Cardiovascular Exam: regular rate/rhythm, tachycardia Gastrointestinal/Abdomen Exam: soft, tenderness (diffuse discomfort without guarding or point tenderness. No mass. At times she complains or right then left.), other (inicision well healed, nontender, pink scar, no fluctuance) Back Exam: normal inspection, No CVA tenderness Extremity Exam: normal inspection, normal range of motion Neurologic Exam: alert, oriented x 3, cooperative, sensation nml, No motor deficits Skin Exam: warm, dry, No rash SpO2 Interpretation: normal SpO2: 98 Oxygen Delivery: Room Air - Course Nursing assessment & vital signs reviewed: Yes - Radiology Exams AAS X-ray Interpretation: Interpreted by me, Negative (no free air or obstr), No Pneumonia - CT Exams abd/pelvis CT Interpretation: Tele-radiologist Report (trace pelvic free fluid, mild hepatosplenomegaly, prominent adnexa, tiny umbilical hernia) Ordered Tests: Active Orders 24 hr Category Date Time Status Clean Catch Urine Specimen STAT Care 01/10/17 22:06 Active IV Insertion STAT Care 01/10/17 22:06 Active ABDOMEN AND PELVIS W CONTRAST [CT] Stat Exams 01/10/17 23:16 Taken OBSTR/ACUTE ABDOMEN SERIES Stat Exams 01/10/17 22:15 Taken CBC W DIFF Stat Lab 01/10/17 22:09 Completed CMP Stat Lab 01/10/17 22:09 Completed CULTURE,URINE Stat Lab 01/10/17 22:09 Received LIPASE Stat Lab 01/10/17 22:09 Completed Lactic Acid Stat Lab 01/10/17 22:06 Completed UA W/ MICROSCOPIC Stat Lab 01/10/17 22:09 Completed Medication Summary Discontinued Medications Generic Name Dose Route Start Last Admin Trade Name Nileq PRN Reason Stop Dose Admin Diphenhydramine HCl 50 mg 01/10/17 22:15 01/10/17 22:21 Benadryl 50 Mg/Ml IV 01/10/17 22:16 50 mg STAT ONE Administration Diphenhydramine HCl Confirm 01/10/17 22:18 Benadryl 50 Mg/Ml Administered 01/10/17 22:19 Dose 50 mg .ROUTE .STK-MED ONE Famotidine 20 mg 01/10/17 22:15 01/10/17 22:20 Pepcid 20 Mg Vial IV 01/10/17 22:16 20 mg STAT ONE Administration Famotidine Confirm 01/10/17 22:18 Pepcid 20 Mg Vial Administered 01/10/17 22:19 Dose 20 mg IV .STK-MED ONE Fentanyl Citrate 50 mcg 01/10/17 22:15 01/10/17 22:20 Sublimaze 100 Mcg/2 Ml IV 01/10/17 22:16 50 mcg STAT ONE Administration Fentanyl Citrate Confirm 01/10/17 22:19 Sublimaze 100 Mcg/2 Ml Administered 01/10/17 22:20 Dose 100 mcg .ROUTE .STK-MED ONE Fentanyl Citrate 50 mcg 01/10/17 23:16 01/10/17 23:21 Sublimaze 100 Mcg/2 Ml IV 01/10/17 23:17 50 mcg STAT ONE Administration Fentanyl Citrate Confirm 01/10/17 23:18 Sublimaze 100 Mcg/2 Ml Administered 01/10/17 23:19 Dose 100 mcg .ROUTE .STK-MED ONE Lactated Ringer's 1,000 mls @ 999 mls/hr 01/10/17 22:07 01/10/17 22:20 Lactated Ringers IV 01/10/17 23:07 999 mls/hr .Q1H1M ONE Administration Lactated Ringer's Confirm 01/10/17 22:16 Lactated Ringers Administered 01/10/17 22:17 Dose 1,000 mls @ ud IV .STK-MED ONE Lab/Rad Data: Laboratory Result Diagrams 01/10/17 22:09 01/10/17 22:09 Laboratory Results 01/10/17 01/10/17 01/10/17 Range/Units 22:09 22:09 22:09 WBC 12.1 H (4.0-10.5) K/mm3 RBC 4.68 (4.1-5.4) M/mm3 Hgb 14.2 (12.0-16.0) gm/dl Hct 40.6 (35-47) % MCV 86.8 (78-100) fl MCH 30.3 (26-32) pg MCHC 35.0 (32-36) g/dl RDW 12.4 (11.5-14.0) % Plt Count 296 (150-450) K/mm3 MPV 10.2 H (6-9.5) fl Gran % 60.1 (36.0-66.0) % Lymphocytes % 30.8 (24.0-44.0) % Monocytes % 5.8 (0.0-12.0) % Eosinophils % 3.1 (0.00-5.0) % Basophils % 0.2 (0.0-0.4) % Basophils # 0.03 (0-0.4) Sodium 140 (136-145) mEq/L Potassium 3.8 (3.5-5.1) mEq/L Chloride 104 (98-107) mEq/L Carbon Dioxide 22.5 (21-32) mEq/L Anion Gap 16.9 H (5-15) MEQ/L BUN 9 (9-20) mg/dL Creatinine 0.83 (0.55-1.30) mg/dl Estimated GFR > 60 ML/MIN Glucose 124 H (70-110) MG/DL Lactic Acid (0.4-2.0) Calcium 9.3 (8.5-10.1) mg/dL Total Bilirubin 0.30 (0.2-1.0) mg/dL AST 15 (15-37) U/L ALT 19 (12-78) U/L Alkaline Phosphatase 112 (46-116) U/L Serum Total Protein 8.2 (6.4-8.2) gm/dL Albumin 4.0 (3.4-5.0) g/dL Lipase 88 (73-393) U/L Ur Collection Type VOID Urine Color YELLOW (YELLOW) Urine Appearance CLEAR (CLEAR) Urine pH 7.0 (5-6) Ur Specific [place] 1.010 (1.005-1.025) Urine Protein NEGATIVE (Negative) Urine Ketones NEGATIVE (NEGATIVE) Urine Blood NEGATIVE (0-5) Matthew/ul Urine Nitrite NEGATIVE (NEGATIVE) Urine Bilirubin NEGATIVE (NEGATIVE) Urine Urobilinogen NORMAL (0-1) mg/dL Ur Leukocyte Esterase 1+ (NEGATIVE) Urine Microscopic RBC 2-5 (0-2) /HPF Urine Microscopic WBC 2-5 (0-5) /HPF Ur Epithelial Cells MODERATE (FEW) /HPF Urine Bacteria MODERATE (NEGATIVE) /HPF Urine Mucus SLIGHT (NEGATIVE) /HPF Urine Glucose NEGATIVE (NEGATIVE) mg/dL Specimen Received 01/10/17 2212 01/10/17 Range/Units 22:06 WBC (4.0-10.5) K/mm3 RBC (4.1-5.4) M/mm3 Hgb (12.0-16.0) gm/dl Hct (35-47) % MCV (78-100) fl MCH (26-32) pg MCHC (32-36) g/dl RDW (11.5-14.0) % Plt Count (150-450) K/mm3 MPV (6-9.5) fl Gran % (36.0-66.0) % Lymphocytes % (24.0-44.0) % Monocytes % (0.0-12.0) % Eosinophils % (0.00-5.0) % Basophils % (0.0-0.4) % Basophils # (0-0.4) Sodium (136-145) mEq/L Potassium (3.5-5.1) mEq/L Chloride (98-107) mEq/L Carbon Dioxide (21-32) mEq/L Anion Gap (5-15) MEQ/L BUN (9-20) mg/dL Creatinine (0.55-1.30) mg/dl Estimated GFR ML/MIN Glucose (70-110) MG/DL Lactic Acid 1.6 (0.4-2.0) Calcium (8.5-10.1) mg/dL Total Bilirubin (0.2-1.0) mg/dL AST (15-37) U/L ALT (12-78) U/L Alkaline Phosphatase (46-116) U/L Serum Total Protein (6.4-8.2) gm/dL Albumin (3.4-5.0) g/dL Lipase (73-393) U/L Ur Collection Type Urine Color (YELLOW) Urine Appearance (CLEAR) Urine pH (5-6) Ur Specific [place] (1.005-1.025) Urine Protein (Negative) Urine Ketones (NEGATIVE) Urine Blood (0-5) Matthew/ul Urine Nitrite (NEGATIVE) Urine Bilirubin (NEGATIVE) Urine Urobilinogen (0-1) mg/dL Ur Leukocyte Esterase (NEGATIVE) Urine Microscopic RBC (0-2) /HPF Urine Microscopic WBC (0-5) /HPF Ur Epithelial Cells (FEW) /HPF Urine Bacteria (NEGATIVE) /HPF Urine Mucus (NEGATIVE) /HPF Urine Glucose (NEGATIVE) mg/dL Specimen Received - Progress Progress: unchanged Progress Note: 01/10/17 22:27 She is anxious. She has no symptoms to suggest PE. MEdications and lab evaluation ordered. 01/10/17 23:06 Explained test results to pt and her mother. She has IVF in progress. The test results are really unremarkable. Vitals better after medications. Unlikely that CT would be helpful as she had this prior. Offered CT but discussed risks and benefits. She declines for now but is considering. Advised follow up with Dr Alexander her surgeon or SALAS Leger tomorrow. She is somewhat upset as she never gets an answer regarding the cause of her pain. 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 She declines toradol as she is allergic- it caused seizures. 01/10/17 23:17 She changed her mind and told nurse she wants CT scan. She understands risks and benefits including risks of multiple radiation exposures. Will get CT abd/ pelvis. Fentanyl given for pain. 01/11/17 01:16 CT reassuring. Explained this to pt and mother. Urine cx pending. She is distracted by pain but explained no further treatment at this time and needs follow up with SALAS Leger in 1 days. Mother and pt report she can take motrin/ ibuprofen. Will release with instructions. Counseled pt/family regarding: lab results, diagnosis, need for follow-up, rad results - Departure Time of Disposition: 01:17 Departure Disposition: Home Clinical Impression: Status post hysterectomy Abdominal pain Qualifiers: Abdominal location: generalized Qualified Code(s): R10.84 - Generalized abdominal pain Condition: Stable Critical Care Time: No Referrals: ADAMS LEGER [NON-STAFF PHY W/O PRIVILEGES] - SANDIE ALEXANDER [COURTESY STAFF] - Additional Instructions: Abdominal pain
[2017-01-10 22:34] LABS: ALKALINE PHOSPHATASE 112 U/L (46-116); ANION GAP 16.9 MEQ/L (5-15); BLOOD UREA NITROGEN 9 mg/dL (9-20); CHLORIDE 104 mEq/L (98-107); Carbon Dioxide 22.5 mEq/L (21-32); Glucose 124 MG/DL (70-110); LIPASE 88 U/L (73-393); Potassium 3.8 mEq/L (3.5-5.1); SGOT/AST 15 U/L (15-37); SGPT/ALT 19 U/L (12-78); SODIUM 140 mEq/L (136-145); Total Protein 8.2 gm/dL (6.4-8.2)
[2017-01-11 00:39] VITALS: PULSE 83
[2017-01-11 01:17] VITALS: BP 113/60; O2SAT 98
--- NOTE | 2017-01-11 08:45 | XRAY ---
Indication: Left abdominal pain Multiple contiguous axial images obtained through the abdomen and pelvis using 80 cc Isovue 370 contrast. Comparison: December 11 and 2016. Lung bases remain clear. Heart is not enlarged. Again partially visualized bilateral breast implants. Noncontrasted stomach and bowel loops appear nonobstructed. There remains mild scattered colonic fecal debris. Normal appearing appendix. Again cholecystectomy and partial hysterectomy. There is now 1.7 cm leaking left ovary cyst tiny free fluid. No free air. Spleen remains enlarged today 14.3 cm in greatest axial dimension. Stable 3 mm nonobstructing right renal calculus. Previous incisional fluid collection has cleared. Remaining liver, pancreas, spleen, adrenal glands, kidneys, ureters, bladder, and aorta appear unremarkable. Osseous structures intact. Impression: 1. New 1.7 cm leaking left ovary cyst with tiny free fluid. Pelvic sonogram may yield further information if there remains further clinical concern. 2. Stable nonobstructing right renal microcalculus and splenomegaly. Comment: Preliminary interpretation was made by [facility]. No critical discrepancy. CTDI 23.39
--- NOTE | 2017-01-11 08:47 | XRAY ---
Indication: Left abdomen/flank pain. Comparison: Chest exam November 22, 2016. 2 views of the abdomen nonacute and nonobstructed with cholecystotomy clips. Solid organs and osseous structures unremarkable. AP chest again demonstrates normal heart, lungs, and bony thorax. Impression: Negative abdomen. Stable normal 1 view chest.
== END 2017-01-11 01:31 | disposition home or self-care (01) ==
LOC: ED 21:48
DX: R10.84 Generalized abdominal pain (principal); Z90.710 Acquired absence of both cervix and uterus
CPT/HCPCS: 36000; 36415; 74022; 74177; 80053; 81000; 83605; 83690; 85025; 87086; 96360; 96374; 96375; 96376; 99284; J1200; J3010

== ENCOUNTER 2017-09-22 12:59 | Emergency (ER) | payer BC, OTHER ==
[2017-09-22 13:10] VITALS: BP 129/90; PULSE 112; O2SAT 98
--- NOTE | 2017-09-22 13:21 | ERPHSYRPT ---
- History of Present Illness Time Seen by Provider: 09/22/17 13:09 Source: patient Exam Limitations: no limitations Patient Subjective Stated Complaint: Left Knee pain Triage Nursing Assessment: Pt presents to the ED with complaints of left knee pain after falling 3 days ago. Pt states ache to left knee after initial injury. Pt states she then tripped over her dog today causing worse pain. Pt states burning sensation to left knee. Pt able to walk with pain. No distress noted, skin PWD. Physician History: Pt states, she fell 3 days ago, twisted her left knee. She has been walking with mild-moderate pain, and apparently fell over her dog this morning, and twisted her left knee again. She denies fall, head or other injury or complaints. Method of Injury: twisted Occurred: days ago (3) Quality: constant Severity of Pain-Max: moderate Severity of Pain-Current: moderate Modifying Factors: Improves With: movement Associated Symptoms: none Allergies/Adverse Reactions: adhesive Allergy (Mild, Verified 12/19/16 02:43) Rash cefaclor [From Ceclor] Allergy (Mild, Verified 01/10/17 22:02) Hives duloxetine [From Cymbalta] Allergy (Verified 12/19/16 02:43) tramadol Adverse Reaction (Verified 12/19/16 02:43) Home Medications: Clonazepam [Klonopin] 0.5 mg PO BIDPRN PRN 11/22/16 [History] Albuterol 2.5 mg/3 ml Neb [Proventil 2.5 mg/3 ml Neb] 2.5 mg IH Q4HPRN PRN 03/30/17 [History] Albuterol Common Canister [Proventil Common Canister] 2 puff IH Q4H PRN PRN 03/30/17 [History] Bupropion HCl [Wellbutrin] 200 mg PO BID 09/22/17 [History] Hx Tetanus, Diphtheria Vaccination/Date Given: Yes Hx Influenza Vaccination/Date Given: Yes Hx Pneumococcal Vaccination/Date Given: No Immunizations Up to Date: Yes - Review of Systems Constitutional: No Symptoms Musculoskeletal: Other (left knee pain) All Other Systems: Reviewed and Negative - Past Medical History Pertinent Past Medical History: Yes Neurological History: Migraines ENT History: No Pertinent History Cardiac History: Other Respiratory History: Asthma, Bronchitis Endocrine Medical History: Hypothyroidism, Other Musculoskeletal History: Fibromyalgia, Other GI Medical History: Esophageal Disorder, GERD, Irritable Bowel History: Other Psycho-Social History: Anxiety, Attention Deficit Disorder, Depression, Panic Disorder Female Reproductive Disorders: Other Other Medical History: cysts on ovaries,arm,knee pain,partial thyroidectomy- nodule removed. mitral valve prolapse. kidney/bladder inflammation. lambert- schlatter. chronic hives - Past Surgical History Past Surgical History: Yes Neuro Surgical History: No Pertinent History Cardiac: No Pertinent History, Other Respiratory: Other Gastrointestinal: Cholecystectomy Genitourinary: No Pertinent History Musculoskeletal: No Pertinent History Female Surgical History: Hysterectomy, Dilation & Curettage, Tubal Ligation, Other Other Surgical History: thyroidectomy. gallbladder. breast reconstruction- nodules removed. anesthesia problems - difficult to wake up, drop in bp. histerectomy - Social History Smoking Status: Current every day smoker How long have you smoked: 2 years Exposure to second hand smoke: Yes Drug Use: none Patient Lives Alone: No - Female History Hx Now: No - Nursing Vital Signs Nursing Vital Signs: Initial Vital Signs Temperature 98.2 F 09/22/17 13:05 Pulse Rate 112 H 09/22/17 13:05 Respiratory Rate 16 09/22/17 13:05 Blood Pressure 129/90 09/22/17 13:05 O2 Sat by Pulse Oximetry 98 09/22/17 13:05 Pain Scale Pain Intensity 0 - Physical Exam General Appearance: no apparent distress Eyes, Ears, Nose, Throat Exam: normal ENT inspection Neck Exam: normal inspection, non-tender Cardiovascular/Respiratory Exam: chest non-tender, normal breath sounds, heart sounds normal Gastrointestinal/Abdominal Exam: non-tender, soft Back Exam: normal inspection, No CVA tenderness Knees Exam: left knee: soft tissue tenderness (full ROM, diffuse tenderness ( medial-lateral), no deformity, or severe laxity, no effusion. Good distal pulses.) Neuro/Tendon Exam: normal motor functions Mental Status Exam: alert, oriented x 3 Skin Exam: normal color, warm, dry SpO2 Interpretation: normal SpO2: 98 Oxygen Delivery: Room Air - Course Nursing assessment & vital signs reviewed: Yes - Radiology Exams Knee X-ray Interpretation: Reviewed by me, Negative Ordered Tests: Active Orders 24 hr Category Date Time Status Crutches STAT Care 09/22/17 14:03 Ordered KNEE (3 VIEWS) Stat Exams 09/22/17 13:28 Completed - Progress Progress: unchanged Progress Note: 09/22/17 14:04 I discussed X ray report with this patient, and the possible diagnosis, spained knee, or minor meniscus injury, she is given JOSIAS band and crutches, to follow up with her physician or Orthopedic surgeon next week, if still not better. - Departure Time of Disposition: 14:06 Departure Disposition: Home Clinical Impression: Knee sprain Qualifiers: Encounter type: initial encounter Involved ligament of knee: unspecified ligament Laterality: left Qualified Code(s): S83.92XA - Sprain of unspecified site of left knee, initial encounter Condition: Stable Critical Care Time: No Referrals: ALMA CALABRESE [Primary Care Provider] - Instructions: Knee Sprain (DC) Additional Instructions: Rest x 1-2 days with elevated leg, apply ice or cold compresses to swelling, return if severe pain, swelling, discoloration or coldness of the toes, or foot ! Follow up with your physician and Orthopedic surgeon next week, if not better!
--- NOTE | 2017-09-22 13:43 | XRAY ---
Indication: Pain following twisting injury. Comparison: June 09, 2016. 3 views of the left knee unchanged again demonstrating minimal medial joint space narrowing, tiny infrapatellar spurring, and tiny well-circumscribed ossification adjacent to the lateral tibial plateau either degenerative versus old injury. No new/acute findings.
== END 2017-09-22 14:19 | disposition home or self-care (01) ==
LOC: ED 12:59
DX: S83.92XA Sprain of unspecified site of left knee, initial encounter (principal); W01.0XXA Fall on same level from slipping, tripping and stumbling without subsequent striking against object, initial encounter
CPT/HCPCS: 73562; 99283

== ENCOUNTER 2017-11-25 23:11 | Emergency (ER) | payer BC, OTHER ==
[2017-11-26] MEDS ORDERED: Lasix 20 MG/2 ML IV ONE (00:29)
[2017-11-26] MEDS ORDERED: TORAdol 30 mg Injection IV ONE (00:30)
[2017-11-26] MEDS ORDERED: Lasix 40 MG/4 ML ONE (00:33)
[2017-11-26] MEDS ORDERED: TORAdol 30 mg Injection ONE (00:33)
[2017-11-26 01:19] LABS: BASOPHIL % 0.3 % (0.0-0.4); Basophil (Absolute #) 0.03 (0-0.4); Eosinophil % 2.8 % (0.00-5.0); Eosinophil (Absolute #) 0.24 (0-0.5); Granulocyte Absolute (ANC) 4.53 (1.4-6.9); Granulocytes % 52.2 % (36.0-66.0); Hematocrit 37.7 % (35-47); Hemoglobin 13.4 gm/dl (12.0-16.0); Lymphocyte (Absolute #) 3.41 (1.0-4.6); Lymphocytes % 39.2 % (24.0-44.0); Mean Cell Volume 86.9 fl (78-100); Mean Corpuscular Hemoglobin 30.9 pg (26-32); Mean Corpuscular Hgb Concent. 35.5 g/dl (32-36); Mean Platelet Volume 10.3 fl (6-9.5); Monocyte (Absolute #) 0.48 (0.0-1.3); Monocytes % 5.5 % (0.0-12.0); Platelet Count 302 K/mm3 (150-450); Red Blood Count 4.34 M/mm3 (4.1-5.4); Red Cell Distribution Width 12.4 % (11.5-14.0); White Blood Count 8.7 K/mm3 (4.0-10.5)
[2017-11-26 01:36] LABS: ANION GAP 13.7 MEQ/L (5-15); BLOOD UREA NITROGEN 9 mg/dL (7-17); CHLORIDE 108 mmol/L (98-107); Calcium 9.4 mg/dL (8.4-10.2); Carbon Dioxide 24 mmol/L (22-30); Creatinine 1 0.59 mg/dL (0.52-1.04); Glucose 102 mg/dL (74-106); Potassium 3.4 mmol/L (3.5-5.1); SODIUM 142 mmol/L (137-145)
--- NOTE | 2017-11-26 03:34 | ERPHSYRPT ---
- History of Present Illness Time Seen by Provider: 11/25/17 23:45 Source: patient Exam Limitations: clinical condition Patient Subjective Stated Complaint: hands began swelling approximately 5-6 days ago, left arm started hurting tonite which radiated to the jaw and chest Triage Nursing Assessment: Pt A&O x3, c/o of burning in her left hand, weakness numbness in the forearm and squeezing/stabbing pain in the upper part of her left arm, hands began swelling 5-6 days ago and stated that she has had a 10 lb weight gain in the past week, no edema present, pulses normal Physician History: PATIENT WITH A HISTORY OF SYSTEMIC LUPUS ERYThEMATOUS COMPLAINS OF SWELLING OF BOTH HANDS OVER PAST 24 HOURS ASSOCIATED WITH LEFT ARM PAIN, NUMBNESS, ASSOCIATED WITH SHARP PAINS OVER THE LEFT SIDE OF HER NECK RADIATING DOWN HER LEFT ARM. DENIES HEADACHE , BLURRED VISION, SLURRED SPEECH, FOCAL WEAKNESS IN EXTREMITIES. Timing/Duration: today Severity: moderate Character of Deficits: altered sensation, LLE Baseline/Normal Cognition: alert oriented x 3 Current Cognition: alert oriented x 3 Baseline Gait: walks w/o assistance Associated Symptoms: numbness/tingling in legs/feet Allergies/Adverse Reactions: adhesive Allergy (Mild, Verified 11/25/17 23:52) Rash cefaclor [From Ceclor] Allergy (Mild, Verified 11/25/17 23:52) Hives duloxetine [From Cymbalta] Allergy (Verified 11/25/17 23:52) tramadol Adverse Reaction (Verified 11/25/17 23:52) Home Medications: Cyclobenzaprine HCl [Flexeril] 5 mg PO TID PRN 11/25/17 [History] Hx Tetanus, Diphtheria Vaccination/Date Given: Yes Hx Influenza Vaccination/Date Given: Yes Hx Pneumococcal Vaccination/Date Given: No - Review of Systems Constitutional: No Fever, No Chills Eyes: No Symptoms Ears, Nose, & Throat: No Symptoms Respiratory: No Symptoms, No Cough, No Dyspnea Cardiac: No Chest Pain, No Edema, No Syncope Abdominal/Gastrointestinal: No Symptoms, No Abdominal Pain, No Nausea, No Vomiting, No Diarrhea Genitourinary Symptoms: No Symptoms, No Dysuria Musculoskeletal: No Symptoms, No Back Pain, No Neck Pain Skin: No Rash Neurological: Parasthesia, No Dizziness, No Focal Weakness, No Sensory Changes Psychological: No Symptoms Endocrine: No Symptoms All Other Systems: Reviewed and Negative - Past Medical History Pertinent Past Medical History: Yes Neurological History: Migraines ENT History: No Pertinent History Cardiac History: Other Respiratory History: Asthma, Bronchitis Endocrine Medical History: Hypothyroidism, Other Musculoskeletal History: Fibromyalgia, Other GI Medical History: GERD, Irritable Bowel History: Other Psycho-Social History: Anxiety, Attention Deficit Disorder, Depression, Panic Disorder Female Reproductive Disorders: Other Other Medical History: cysts on ovaries,arm,knee pain,partial thyroidectomy- nodule removed. mitral valve prolapse. kidney/bladder inflammation. lambert- schlatter. chronic hives - Past Surgical History Past Surgical History: Yes Neuro Surgical History: No Pertinent History Cardiac: No Pertinent History, Other Respiratory: Other Gastrointestinal: Cholecystectomy Genitourinary: No Pertinent History Musculoskeletal: No Pertinent History Female Surgical History: Hysterectomy, Dilation & Curettage, Tubal Ligation, Other Other Surgical History: thyroidectomy. gallbladder. breast reconstruction- nodules removed. anesthesia problems - difficult to wake up, drop in bp. histerectomy - Social History Smoking Status: Current every day smoker How long have you smoked: 2 years Exposure to second hand smoke: Yes Drug Use: none Patient Lives Alone: No - Female History Hx Last Menstrual Period: hysterectomy Hx Now: No - Nursing Vital Signs Nursing Vital Signs: Initial Vital Signs Temperature 98.9 F 11/25/17 23:39 Pulse Rate 99 H 11/25/17 23:39 Blood Pressure 123/79 11/25/17 23:39 O2 Sat by Pulse Oximetry 99 11/25/17 23:39 Pain Scale Pain Intensity 7 - Physical Exam General Appearance: no apparent distress, alert Eye Exam: bilateral eye: PERRL, EOMI Ears, Nose, Throat Exam: normal ENT inspection, moist mucous membranes Neck Exam: normal inspection, non-tender, supple Respiratory: normal breath sounds, lungs clear, airway intact, No respiratory distress Cardiovascular: regular rate/rhythm, normal heart sounds, No edema Gastrointestinal: soft, No tenderness, No distention Back Exam: normal inspection Extremity Exam: normal inspection, other (THERE IS MINIMAL SWELLING LEFT DIGITS OF LEFT HAND, NO FOREARM OR BICEPS TENDERNESS, SWELLING, LEFT RADIAL PULSE 2+) , No pedal edema Peripheral Pulses: carotid (R): 2+, carotid (L): 2+, femoral (R): 2+, femoral (L ): 2+, dorsalis-pedis (R): 2+, dorsalis-pedis (L): 2+ Mental Status: alert, oriented 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: tongue midline Coordination/Gait: normal finger to nose, normal gait Motor/Sensory: no motor deficit, no sensory deficit DTR: bicep (R): 2+, bicep (L): 2+, tricep (R): 2+, tricep (L): 2+, knee (R): 2+ , knee (L): 2+, ankle (R): 2+, ankle (L): 2+ Skin Exam: normal color, warm, dry, No rash SpO2 Interpretation: normal SpO2: 97 Oxygen Delivery: Room Air - Course EKG Interpreted by Me: RATE, Sinus Rhythm, NORMAL AXIS - CT Exams Head CT Interpretation: Tele-radiologist Report (NO ACUTE FINDINGS), No/Intracranial Hemorrhag Cervical Spine CT Interpretation: Tele-radiologist Report, No Fracture, No Subluxation Ordered Tests: Active Orders 24 hr Category Date Time Status EKG-ER Only STAT Care 11/26/17 00:23 Active IV Insertion STAT Care 11/26/17 00:23 Active CERVICAL SPINE WO CONTRAST [CT] Stat Exams 11/26/17 01:51 Taken CHEST 1 VIEW (PORTABLE) Stat Exams 11/26/17 00:25 Taken HEAD WITHOUT CONTRAST [CT] Stat Exams 11/26/17 01:50 Taken BMP Stat Lab 11/26/17 00:45 Completed CBC W DIFF Stat Lab 11/26/17 00:45 Completed D-DIMER QUANTITATION Stat Lab 11/26/17 00:45 Completed MAGNESIUM Stat Lab 11/26/17 00:30 Completed TROPONIN Q3H Lab 11/26/17 00:45 Completed TROPONIN Q3H Lab 11/26/17 03:30 Ordered TROPONIN Q3H Lab 11/26/17 06:30 Ordered TROPONIN Q3H Lab 11/26/17 09:30 Ordered TROPONIN Q3H Lab 11/26/17 12:30 Ordered Peak Expiratory Flow Rate ONCE RT 11/26/17 00:30 Completed Medication Summary Discontinued Medications Generic Name Dose Route Start Last Admin Trade Name Freq PRN Reason Stop Dose Admin Furosemide 20 mg 11/26/17 00:29 11/26/17 00:57 Lasix 20 Mg/2 Ml IV 11/26/17 00:30 20 mg STAT ONE Administration Furosemide Confirm 11/26/17 00:33 Lasix 40 Mg/4 Ml Administered 11/26/17 00:34 Dose 40 mg .ROUTE .[facility] ONE Ketorolac Tromethamine 30 mg 11/26/17 00:30 11/26/17 00:57 Toradol 30 Mg Injection IV 11/26/17 00:31 30 mg STAT ONE Administration Ketorolac Tromethamine Confirm 11/26/17 00:33 Toradol 30 Mg Injection Administered 11/26/17 00:34 Dose 30 mg .ROUTE .[facility] ONE Lab/Rad Data: Laboratory Result Diagrams 11/26/17 00:45 11/26/17 00:45 Laboratory Results 11/26/17 11/26/17 11/26/17 Range/Units 00:45 00:45 00:45 WBC (4.0-10.5) K/mm3 RBC (4.1-5.4) M/mm3 Hgb (12.0-16.0) gm/dl Hct (35-47) % MCV (78-100) fl MCH (26-32) pg MCHC (32-36) g/dl RDW (11.5-14.0) % Plt Count (150-450) K/mm3 MPV (6-9.5) fl Gran % (36.0-66.0) % Eos # (Auto) (0-0.5) Absolute Lymphs (auto) (1.0-4.6) Absolute Monos (auto) (0.0-1.3) Lymphocytes % (24.0-44.0) % Monocytes % (0.0-12.0) % Eosinophils % (0.00-5.0) % Basophils % (0.0-0.4) % Absolute Granulocytes (1.4-6.9) Basophils # (0-0.4) D-Dimer 426 (215-500) ng/mL Sodium 142 (137-145) mmol/L Potassium 3.4 L (3.5-5.1) mmol/L Chloride 108 H (98-107) mmol/L Carbon Dioxide 24 (22-30) mmol/L Anion Gap 13.7 (5-15) MEQ/L BUN 9 (7-17) mg/dL Creatinine 0.59 (0.52-1.04) mg/dL Estimated GFR > 60.0 ML/MIN Glucose 102 (74-106) mg/dL Calcium 9.4 (8.4-10.2) mg/dL Magnesium (1.6-2.3) mg/dL Troponin I < 0.012 (0.000-0.034) ng/mL 11/26/17 11/26/17 Range/Units 00:45 00:30 WBC 8.7 (4.0-10.5) K/mm3 RBC 4.34 (4.1-5.4) M/mm3 Hgb 13.4 (12.0-16.0) gm/dl Hct 37.7 (35-47) % MCV 86.9 (78-100) fl MCH 30.9 (26-32) pg MCHC 35.5 (32-36) g/dl RDW 12.4 (11.5-14.0) % Plt Count 302 (150-450) K/mm3 MPV 10.3 H (6-9.5) fl Gran % 52.2 (36.0-66.0) % Eos # (Auto) 0.24 (0-0.5) Absolute Lymphs (auto) 3.41 (1.0-4.6) Absolute Monos (auto) 0.48 (0.0-1.3) Lymphocytes % 39.2 (24.0-44.0) % Monocytes % 5.5 (0.0-12.0) % Eosinophils % 2.8 (0.00-5.0) % Basophils % 0.3 (0.0-0.4) % Absolute Granulocytes 4.53 (1.4-6.9) Basophils # 0.03 (0-0.4) D-Dimer (215-500) ng/mL Sodium (137-145) mmol/L Potassium (3.5-5.1) mmol/L Chloride (98-107) mmol/L Carbon Dioxide (22-30) mmol/L Anion Gap (5-15) MEQ/L BUN (7-17) mg/dL Creatinine (0.52-1.04) mg/dL Estimated GFR ML/MIN Glucose (74-106) mg/dL Calcium (8.4-10.2) mg/dL Magnesium 1.9 (1.6-2.3) mg/dL Troponin I (0.000-0.034) ng/mL - Progress Progress Note: 11/26/17 03:35 SALINE LOCK ESTABLISHED, TORADOL 30MG, LASIX 20MG IV - Departure Time of Disposition: 03:55 Departure Disposition: Home Clinical Impression: DEPENDENT EDEMA, CERVICAL RADICULOPATHY, HYPOKALEMIA Condition: Stable Critical Care Time: No Referrals: ALMA CALABRESE [Primary Care Provider] - Additional Instructions: PERCOGESIC EVERY 6 HOURS FOR PAIN NEEDED, AND KLOR CON 20MEQ DAILY FOR 1 WEEK FOR TREATMENT OF LOW POTASSIUM. CONSULT YOUR PRIMARY CARE PROVIDER FOR FOLLOWUP. Prescriptions: Acetaminophen/Diphenhydramine [Percogesic 325-12.5 mg Tablet] 1 each PO Q6H PRN PRN #15 tablet PRN Reason: Pain Potassium Chloride 20 Meq [Klor-Con 20 MEQ] 20 meq PO DAILY #7 tab
[2017-11-26 04:29] VITALS: BP 123/86; PULSE 82; O2SAT 96
--- NOTE | 2017-11-26 09:24 | XRAY ---
Indication: Headache. Left neck/jaw and left arm pain. Intermittent blurred vision. Multiple contiguous axial images obtained through the head without contrast as ordered. Comparison: March 31, 2017. Again normal appearing brain parenchyma, ventricles, and bony calvarium. Visualized paranasal sinuses and mastoid air cells are clear. Impression: Stable normal CT head without contrast exam. Comment: Preliminary interpretation was made by [facility]. No discrepancy. CT DI 69.11
--- NOTE | 2017-11-26 09:26 | XRAY ---
Indication: Headache. Left neck/jaw and left arm pain. Intermittent blurred vision. Multiple contiguous axial images obtained through the cervical spine. Sagittal and coronal reformatted images obtained. Comparison: Cervical radiograph October 17, 2009. Axial images negative for acute fracture, suspicious bony lesions, or spinal canal stenosis. Sagittal and coronal reformatted images again demonstrates straightening of the cervical lordosis, positional versus paraspinal spasm. Disc spaces maintained. No acute compression fracture, subluxation, or jumped facet. Normal appearing craniocervical junction. Visualized noncontrasted soft tissues demonstrates right thyroid lobectomy. Impression: 1. Stable cervical lordotic straightening, positional versus paraspinal spasm. 2. Remaining CT cervical spine is negative. Comment: Preliminary interpretation was made by [facility]. No discrepancy. CT DI 56.67
--- NOTE | 2017-11-26 09:30 | XRAY ---
Indication: Dyspnea. Comparison: March 31, 2017. Portable chest again demonstrates normal heart, lungs, and bony thorax.
== END 2017-11-26 04:29 | disposition home or self-care (01) ==
LOC: ED 23:11
DX: R60.9 Edema, unspecified (principal); M79.89 Other specified soft tissue disorders; M54.12 Radiculopathy, cervical region; M79.602 Pain in left arm; R20.0 Anesthesia of skin; M54.2 Cervicalgia; E87.6 Hypokalemia
CPT/HCPCS: 36000; 36415; 70450; 71045; 72125; 80048; 83735; 84484; 85025; 85379; 93005; 94150; 96374; 96375; 99284; J1885; J1940

== ENCOUNTER 2018-09-16 13:17 | Emergency (ER) | payer BC ==
[2018-09-16] MEDS ORDERED: Zofran 4 MG/2 ML VIAL IV ONE (13:58)
[2018-09-16] MEDS ORDERED: Sodium Chloride 0.9% 1000 ML 1,000 ML IV STA (13:58)
[2018-09-16] MEDS ORDERED: Zofran 4 MG/2 ML VIAL ONE (14:05)
[2018-09-16] MEDS ORDERED: Sodium Chloride 0.9% 1000 ML 1,000 ML ONE (14:05)
[2018-09-16 14:12] VITALS: PULSE 68; O2SAT 96
[2018-09-16] MEDS ORDERED: TORAdol 30 mg Injection IV ONE (14:21)
[2018-09-16] MEDS ORDERED: Hydromorphone 1 mg/ml Ampule IV ONE (14:21)
[2018-09-16] MEDS ORDERED: TORAdol 30 mg Injection ONE (14:23)
[2018-09-16] MEDS ORDERED: Hydromorphone 1 mg/ml Ampule ONE (14:24)
[2018-09-16 14:27] LABS: BASOPHIL % 0.1 % (0.0-0.4); Basophil (Absolute #) 0.01 (0-0.4); Eosinophil % 1.6 % (0.00-5.0); Eosinophil (Absolute #) 0.17 (0-0.5); Granulocytes % 82.7 % (36.0-66.0); Hematocrit 44.6 % (35-47); Hemoglobin 15.5 gm/dl (12.0-16.0); Lymphocyte (Absolute #) 1.14 (1.0-4.6); Lymphocytes % 10.5 % (24.0-44.0); Mean Cell Volume 86.4 fl (78-100); Mean Corpuscular Hgb Concent. 34.8 g/dl (32-36); Monocyte (Absolute #) 0.55 (0.0-1.3); Monocytes % 5.1 % (0.0-12.0); Platelet Count 274 K/mm3 (150-450); Red Blood Count 5.16 M/mm3 (4.1-5.4); White Blood Count 10.9 K/mm3 (4.0-10.5)
[2018-09-16 14:39] LABS: ALBUMIN 4.5 g/dL (3.5-5.0); ALKALINE PHOSPHATASE 84 U/L (38-126); AMYLASE 49 U/L (30-110); ANION GAP 15.2 MEQ/L (5-15); BLOOD UREA NITROGEN 12 mg/dL (7-17); CHLORIDE 103 mmol/L (98-107); Calcium 9.7 mg/dL (8.4-10.2); Carbon Dioxide 23 mmol/L (22-30); Creatinine 1 0.66 mg/dL (0.52-1.04); Glucose 109 mg/dL (74-106); LIPASE 15 U/L (23-300); Potassium 3.9 mmol/L (3.5-5.1); SGOT/AST 22 U/L (14-36); SGPT/ALT 20 U/L (0-35); SODIUM 138 mmol/L (137-145)
[2018-09-16 15:08] VITALS: BP 115/71
--- NOTE | 2018-09-16 15:13 | ERPHSYRPT ---
- History of Present Illness Time Seen by Provider: 09/16/18 14:00 Historian: patient Exam Limitations: clinical condition Patient Subjective Stated Complaint: right side abdominal pain since last night. states had a BM thinking it would help but it did not. nausea with no vomiting. Triage Nursing Assessment: alert and tearful.. states pauin to RLQ starting yesterday. Physician History: PATIENT WITH A HISTORY OF LUPUS, ASTHMA, IRRITABLE BOWEL COMPLAINS OF RIGHT SIDED ABDOMINAL PAIN SINCE LAST NIGHT ASSOCIATED WITH NAUSEA. DENIES FEVER, URINARY SYMPTOMS, DYSURIA, FREQUENCY, URGENCY Timing/Duration: yesterday Activities at Onset: none Quality: sharpness, stabbing Abdominal Pain Onset Location: RLQ, periumbilical Pain Radiation: no radiation Severity of Pain-Max: moderate Severity of Pain-Current: moderate Modifying Factors: Improves With: nothing Associated Symptoms: nausea Previous symptoms: same symptoms as today Allergies/Adverse Reactions: adhesive Allergy (Mild, Verified 11/25/17 23:52) Rash cefaclor [From Ceclor] Allergy (Mild, Verified 11/25/17 23:52) Hives duloxetine [From Cymbalta] Allergy (Verified 11/25/17 23:52) tramadol Adverse Reaction (Verified 11/25/17 23:52) Home Medications: Cyclobenzaprine HCl [Flexeril] 5 mg PO TID PRN 11/25/17 [History] Hx Tetanus, Diphtheria Vaccination/Date Given: Yes Hx Influenza Vaccination/Date Given: Yes Hx Pneumococcal Vaccination/Date Given: No - Review of Systems Constitutional: No Fever, No Chills Eyes: No Symptoms Ears, Nose, & Throat: No Symptoms Respiratory: No Symptoms, No Cough, No Dyspnea Cardiac: No Symptoms, No Chest Pain, No Edema, No Syncope Abdominal/Gastrointestinal: Abdominal Pain, Nausea, No Vomiting, No Diarrhea Genitourinary Symptoms: No Symptoms, No Dysuria Musculoskeletal: No Symptoms, No Back Pain, No Neck Pain Skin: No Rash Neurological: No Dizziness, No Focal Weakness, No Sensory Changes Psychological: No Symptoms Endocrine: No Symptoms All Other Systems: Reviewed and Negative - Past Medical History Pertinent Past Medical History: Yes Neurological History: Migraines ENT History: No Pertinent History Cardiac History: Other Respiratory History: Asthma, Bronchitis Endocrine Medical History: Hypothyroidism, Other Musculoskeletal History: Fibromyalgia, Other GI Medical History: GERD, Irritable Bowel History: Other Psycho-Social History: Anxiety, Attention Deficit Disorder, Depression, Panic Disorder Female Reproductive Disorders: Other Other Medical History: cysts on ovaries,arm,knee pain,partial thyroidectomy- nodule removed. mitral valve prolapse. kidney/bladder inflammation. lambert- schlatter. chronic hives - Past Surgical History Past Surgical History: Yes Neuro Surgical History: No Pertinent History Cardiac: No Pertinent History, Other Respiratory: Other Gastrointestinal: Cholecystectomy Genitourinary: No Pertinent History Musculoskeletal: No Pertinent History Female Surgical History: Hysterectomy, Dilation & Curettage, Tubal Ligation, Other Other Surgical History: thyroidectomy. gallbladder. breast reconstruction- nodules removed. anesthesia problems - difficult to wake up, drop in bp. histerectomy - Social History Smoking Status: Never smoker How long have you smoked: 2 years Exposure to second hand smoke: No Drug Use: none Patient Lives Alone: No - Female History Hx Now: No (hysterectomy) - Nursing Vital Signs Nursing Vital Signs: Initial Vital Signs Temperature 98.7 F 09/16/18 13:44 Pulse Rate 94 H 09/16/18 13:44 Respiratory Rate 18 09/16/18 13:44 Blood Pressure 119/74 09/16/18 13:44 O2 Sat by Pulse Oximetry 97 09/16/18 13:44 Pain Scale Pain Intensity 2 - Physical Exam General Appearance: no apparent distress, alert Eye Exam: PERRL/EOMI, eyes nml inspection Ears, Nose, Throat Exam: normal ENT inspection, pharynx normal, moist mucous membranes Neck Exam: normal inspection, non-tender, supple, full range of motion Respiratory Exam: normal breath sounds, lungs clear, No respiratory distress Cardiovascular Exam: regular rate/rhythm, normal heart sounds Gastrointestinal/Abdomen Exam: soft, normal bowel sounds, tenderness (RIGHT LATERAL PERIUMBILICAL TENDERNESS, SUPRAPUBIC TENDERNESS), No mass Back Exam: normal inspection, normal range of motion, No CVA tenderness, No vertebral tenderness Extremity Exam: normal inspection, normal range of motion, pelvis stable Neurologic Exam: alert, oriented x 3, cooperative, normal mood/affect, nml cerebellar function, sensation nml, No motor deficits Skin Exam: normal color, warm, dry SpO2: 96 - CT Exams Abdomen/Pelvis CT Interpretation: Discussed w/radiologist (FECAL STASIS, NORMAL APPENDIX, NO ACUTE FINDINGS) Ordered Tests: Active Orders 24 hr Category Date Time Status Clean Catch Urine Specimen STAT Care 09/16/18 13:58 Active IV Insertion STAT Care 09/16/18 13:58 Active ABDOMEN AND PELVIS W CONTRAST [CT] Stat Exams 09/16/18 13:59 Taken AMYLASE Stat Lab 09/16/18 14:00 Completed BLOOD CULTURE Stat Lab 09/16/18 14:00 Received CBC W DIFF Stat Lab 09/16/18 14:00 Completed CMP Stat Lab 09/16/18 14:00 Completed LIPASE Stat Lab 09/16/18 14:00 Completed UA W/RFX UR CULTURE Stat Lab 09/16/18 15:30 Completed Medication Summary Discontinued Medications Generic Name Dose Route Start Last Admin Trade Name Freq PRN Reason Stop Dose Admin Hydromorphone HCl 1 mg 09/16/18 14:21 09/16/18 14:30 Hydromorphone 1 Mg/Ml Ampule IV 09/16/18 14:22 1 mg STAT ONE Administration Hydromorphone HCl Confirm 09/16/18 14:24 Hydromorphone 1 Mg/Ml Ampule Administered 09/16/18 14:25 Dose 1 mg .ROUTE .STK-MED ONE Sodium Chloride 1,000 mls @ 999 mls/hr 09/16/18 13:58 09/16/18 16:18 Sodium Chloride 0.9% 1000 Ml IV 09/16/18 14:58 Infused .Q1H1M STA Infusion Sodium Chloride Confirm 09/16/18 14:05 Sodium Chloride 0.9% 1000 Ml Administered 09/16/18 14:06 Dose 1,000 mls @ ud .ROUTE .STK-MED ONE Ketorolac Tromethamine 30 mg 09/16/18 14:21 09/16/18 14:26 Toradol 30 Mg Injection IV 09/16/18 14:22 30 mg STAT ONE Administration Ketorolac Tromethamine Confirm 09/16/18 14:23 Toradol 30 Mg Injection Administered 09/16/18 14:24 Dose 30 mg .ROUTE .STK-MED ONE Ondansetron HCl 4 mg 09/16/18 13:58 09/16/18 14:08 Zofran 4 Mg/2 Ml Vial IV 09/16/18 13:59 4 mg STAT ONE Administration Ondansetron HCl Confirm 09/16/18 14:05 Zofran 4 Mg/2 Ml Vial Administered 09/16/18 14:06 Dose 4 mg .ROUTE .STK-MED ONE Lab/Rad Data: Laboratory Result Diagrams 09/16/18 14:00 09/16/18 14:00 Laboratory Results 09/16/18 09/16/18 09/16/18 Range/Units 15:30 14:00 14:00 WBC 10.9 H (4.0-10.5) K/mm3 RBC 5.16 (4.1-5.4) M/mm3 Hgb 15.5 (12.0-16.0) gm/dl Hct 44.6 (35-47) % MCV 86.4 (78-100) fl MCH 30.0 (26-32) pg MCHC 34.8 (32-36) g/dl RDW 13.0 (11.5-14.0) % Plt Count 274 (150-450) K/mm3 MPV 10.0 H (6-9.5) fl Gran % 82.7 H (36.0-66.0) % Eos # (Auto) 0.17 (0-0.5) Absolute Lymphs (auto) 1.14 (1.0-4.6) Absolute Monos (auto) 0.55 (0.0-1.3) Lymphocytes % 10.5 L (24.0-44.0) % Monocytes % 5.1 (0.0-12.0) % Eosinophils % 1.6 (0.00-5.0) % Basophils % 0.1 (0.0-0.4) % Absolute Granulocytes 9.00 H (1.4-6.9) Basophils # 0.01 (0-0.4) Sodium 138 (137-145) mmol/L Potassium 3.9 (3.5-5.1) mmol/L Chloride 103 (98-107) mmol/L Carbon Dioxide 23 (22-30) mmol/L Anion Gap 15.2 H (5-15) MEQ/L BUN 12 (7-17) mg/dL Creatinine 0.66 (0.52-1.04) mg/dL Estimated GFR > 60.0 ML/MIN Glucose 109 H (74-106) mg/dL Calcium 9.7 (8.4-10.2) mg/dL Total Bilirubin 1.00 (0.2-1.3) mg/dL AST 22 (14-36) U/L ALT 20 (0-35) U/L Alkaline Phosphatase 84 (38-126) U/L Serum Total Protein 8.0 (6.3-8.2) g/dL Albumin 4.5 (3.5-5.0) g/dL Amylase 49 (30-110) U/L Lipase 15 L (23-300) U/L Urine Color YELLOW (YELLOW) Urine Appearance SLIGHTLY CLOUDY (CLEAR) Urine pH 7.0 (5-6) Ur Specific [place] 1.020 (1.005-1.025) Urine Protein NEGATIVE (Negative) Urine Ketones NEGATIVE (NEGATIVE) Urine Blood NEGATIVE (0-5) Matthew/ul Urine Nitrite NEGATIVE (NEGATIVE) Urine Bilirubin NEGATIVE (NEGATIVE) Urine Urobilinogen NEGATIVE (0-1) mg/dL Ur Leukocyte Esterase NEGATIVE (NEGATIVE) Urine WBC (Auto) NONE (0-5) /HPF Urine RBC (Auto) NONE (0-2) /HPF U Epithel Cells (Auto) FEW (FEW) /HPF Urine Bacteria (Auto) NONE (NEGATIVE) /HPF Urine Mucus (Auto) SLIGHT (NEGATIVE) /HPF Urine Culture Reflexed NO (NO) Urine Glucose NEGATIVE (NEGATIVE) mg/dL - Progress Progress: improved Progress Note: 09/16/18 16:31 IV NORMAL SALINE 1 LITER/HR, ZOFRAN 4MG, TORADOL 30MG AND DILAUDID 1MG. Counseled pt/family regarding: lab results, diagnosis, rad results - Departure Departure Disposition: Home Clinical Impression: ABDOMINAL PAIN Condition: Stable Critical Care Time: No Referrals: ALMA CALABRESE [Primary Care Provider] - Additional Instructions: TORADOL 10MG EVERY 6 HOURS NEEDED FOR PAIN. ZOFRAN 4MG EVERY 6 HOURS NEEDED FOR NAUSEA. CONSULT YOUR PRIMARY CARE PROVIDER FOR EVALUATION. RETURN TO EMERGENCY FOR INCREASING PAIN DISCOMFORT. Prescriptions: Ketorolac Tromethamine [Toradol] 10 mg PO Q6HPRN PRN #20 tablet PRN Reason: Pain Ondansetron ODT 4 MG [Zofran Odt 4 mg] 4 mg PO Q6H PRN PRN #10 tab.rapdis PRN Reason: Nausea
[2018-09-16 15:39] LABS: Appearance SLIGHTLY CLOUDY (CLEAR); Bilirubin NEGATIVE (NEGATIVE); Blood NEGATIVE Ery/ul (0-5); Epithelial Cells FEW /HPF (FEW); Glucose NEGATIVE (NEGATIVE); Ketones NEGATIVE (NEGATIVE); Leukocyte Esterase NEGATIVE (NEGATIVE); Mucus SLIGHT /HPF (NEGATIVE); Nitrite NEGATIVE (NEGATIVE); Protein,Urine Dip NEGATIVE (Negative); Urobilinogen NEGATIVE mg/dL (0-1)
--- NOTE | 2018-09-16 19:02 | XRAY ---
Indication: Right upper quadrant pain. Multiple contiguous axial images obtained through the abdomen and pelvis using 100 cc Isovue 370 contrast. Comparison: January 10, 2017. Lung bases are clear. Heart is not enlarged. Again partially visualized bilateral breast implants. Noncontrasted stomach and bowel loops appear nonobstructed. Normal appendix. Again mild diffuse scattered colonic fecal debris throughout. Minimal sigmoid diverticulosis. Previous cholecystectomy and hysterectomy. No free fluid/air. Spleen remains enlarged measuring 14 cm in greatest axial dimension. Remaining liver, pancreas, spleen, adrenal glands, kidneys, ureters, bladder, and aorta appear unremarkable. No pathologic retroperitoneal lymphadenopathy. Osseous structures intact. No ventral or inguinal hernias. Impression: 1. Again mild fecal stasis without obstruction and splenomegaly. 2. New sigmoid diverticulosis without diverticulitis. 3. Remaining CT abdomen/pelvis with contrast exam is negative. CTDI 22.64
== END 2018-09-16 16:52 | disposition home or self-care (01) ==
LOC: ED 13:17
DX: R10.9 Unspecified abdominal pain (principal)
CPT/HCPCS: 36000; 36415; 74177; 80053; 81001; 82150; 83690; 85025; 87040; 96360; 96374; 96375; 99284; J1170; J1885; J2405

== ENCOUNTER 2018-11-15 19:56 | Observation (INO) | payer BC ==
[2018-11-15] MEDS ORDERED: Sodium Chloride 0.9% 1000 ML 1,000 ML IV STA (20:20)
[2018-11-15] MEDS ORDERED: Zofran 4 MG/2 ML VIAL IV ONE (20:20)
--- NOTE | 2018-11-15 20:29 | ERPHSYRPT ---
- History of Present Illness Time Seen by Provider: 11/15/18 20:14 Source: patient, police Exam Limitations: no limitations Physician History: Pt states, she has been depressed since last March, since her marital difficulties started. She was treated in [facility] 3 weeks ago, because she was suicidal. She was diagnosed wih Depression, Anxiety and PTSD, currently takes Klonopin and Wellbutrin. She tried to cut herself few hours ago with a knife and took 12 x 1 mg Klonopin (1 mg) tablets at 18:30 PM, and had several drinks of [place]. She denies taking other medications or drugs, or other injury complaints, besides being nauseated, and dizzy. She states her tetanus was undated 2 years ago. Timing/Duration: today Severity of Symptoms-Max: severe Severity of Symptoms-Current: severe Context related to: spouse Suicidal thoughts: attempt Associated Symptoms: anxiety, depressed Previous symptoms: same symptoms as today Allergies/Adverse Reactions: adhesive Allergy (Mild, Verified 09/16/18 16:36) Rash cefaclor [From Ceclor] Allergy (Mild, Verified 09/16/18 16:36) Hives duloxetine [From Cymbalta] Allergy (Verified 09/16/18 16:36) tramadol Adverse Reaction (Verified 09/16/18 16:36) Home Medications: Bupropion HCl [Wellbutrin Xl] 150 mg PO DAILY 11/15/18 [History] Clonazepam 0.5 mg [Klonopin 0.5 MG] 0.5 mg PO BID 11/15/18 [History] Escitalopram Oxalate [Lexapro] 10 mg PO DAILY 11/15/18 [History] Hx Tetanus, Diphtheria Vaccination/Date Given: Yes Hx Influenza Vaccination/Date Given: Yes Hx Pneumococcal Vaccination/Date Given: No - Past Medical History Pertinent Past Medical History: Yes Neurological History: Migraines ENT History: No Pertinent History Cardiac History: Other Respiratory History: Asthma, Bronchitis Endocrine Medical History: Hypothyroidism, Other Musculoskeletal History: Fibromyalgia, Other GI Medical History: GERD, Irritable Bowel History: Other Psycho-Social History: Anxiety, Attention Deficit Disorder, Depression, Panic Disorder Female Reproductive Disorders: Other Other Medical History: cysts on ovaries,arm,knee pain,partial thyroidectomy- nodule removed. mitral valve prolapse. kidney/bladder inflammation. lambert- schlatter. chronic hives - Past Surgical History Past Surgical History: Yes Neuro Surgical History: No Pertinent History Cardiac: No Pertinent History, Other Respiratory: Other Gastrointestinal: Cholecystectomy Genitourinary: No Pertinent History Musculoskeletal: No Pertinent History Female Surgical History: Hysterectomy, Dilation & Curettage, Tubal Ligation, Other Other Surgical History: thyroidectomy. gallbladder. breast reconstruction- nodules removed. anesthesia problems - difficult to wake up, drop in bp. histerectomy - Social History Smoking Status: Never smoker How long have you smoked: 2 years Exposure to second hand smoke: No Drug Use: none Patient Lives Alone: No - Review of Systems Constitutional: No Symptoms Eyes: No Symptoms Ears, Nose, & Throat: No Symptoms Respiratory: No Symptoms Cardiac: No Symptoms Abdominal/Gastrointestinal: Nausea Musculoskeletal: No Symptoms Skin: Other (superficial excoriation of the left anterior thigh.) Neurological: Dizziness Psychological: Anxiety, Depression, Suicidal Ideations Endocrine: No Symptoms All Other Systems: Reviewed and Negative - Nursing Vital Signs Nursing Vital Signs: Initial Vital Signs Temperature 98.7 F 11/15/18 20:09 Pulse Rate 79 11/15/18 20:09 Respiratory Rate 14 11/15/18 20:09 Blood Pressure 131/76 11/15/18 20:09 O2 Sat by Pulse Oximetry 96 11/15/18 20:09 Pain Scale Pain Intensity 0 - Physical Exam General Appearance: no apparent distress Eyes, Ears, Nose, Throat Exam: normal ENT inspection, pharynx normal Neck Exam: normal inspection, non-tender, supple, No carotid bruit, No JVD Respiratory Exam: normal breath sounds, lungs clear, airway intact Cardiovascular Exam: regular rate/rhythm, normal heart sounds, normal peripheral pulses, capillary refill <2 sec, No murmur Gastrointestinal/Abdominal Exam: soft, normal bowel sounds, No tenderness, No distention, No mass, No guarding, No ecchymosis, No rebound, No organomegaly Peripheral Pulses: carotid (R): 3+, carotid (L): 3+, dorsalis-pedis (R): 3+, dorsalis-pedis (L): 3+ Current Suicidality: has suicide plan Neurological Exam: alert, normal mood/affect, oriented x 3 Appearance: appropriate appearance Behavior/Eye Contact/Speech: alert & cooperative Thoughts/Hallucinations: normal thought pattern, no apparent hallucination Skin Exam: normal color, warm, dry, rash, other (5-6 cm long superficial excoriation over the left superior, anterior thigh, no penetrating injury, bleeding or hematoma.), No petechiae, No jaundice, No cyanosis, No diaphoresis SpO2 Interpretation: normal O2 Delivery: Room Air - Course Nursing assessment & vital signs reviewed: Yes EKG Interpreted by Me: RATE (70/min), NORMAL AXIS, NORMAL INTERVALS, NORMAL QRS , Non-specific ST Changes Ordered Tests: Active Orders 24 hr Category Date Time Status EKG-ER Only STAT Care 11/15/18 20:20 Active IV Insertion STAT Care 11/15/18 20:20 Active ACETAMINOPHEN Stat Lab 11/15/18 20:39 Completed CBC W DIFF Stat Lab 11/15/18 20:39 Completed CMP Stat Lab 11/15/18 20:39 Completed ETHYL ALCOHOL Stat Lab 11/15/18 20:39 Completed HCG,QUALITATIVE URINE Stat Lab 11/15/18 20:39 Completed MAGNESIUM Stat Lab 11/15/18 20:39 Completed SALICYLATE Stat Lab 11/15/18 20:39 Completed TSH [TSH, 3RD Generation] Stat Lab 11/15/18 20:39 Completed UA W/RFX UR CULTURE Stat Lab 11/15/18 20:39 Completed Urine Triage Profile Stat Lab 11/15/18 20:39 Completed Medication Summary Discontinued Medications Generic Name Dose Route Start Last Admin Trade Name Freq PRN Reason Stop Dose Admin Sodium Chloride 1,000 mls @ 999 mls/hr 11/15/18 20:20 11/15/18 20:42 Sodium Chloride 0.9% 1000 Ml IV 11/15/18 21:20 999 mls/hr .Q1H1M STA Administration Sodium Chloride Confirm 11/15/18 20:38 Sodium Chloride 0.9% 1000 Ml Administered 11/15/18 20:39 Dose 1,000 mls @ ud .ROUTE .STK-MED ONE Ondansetron HCl 4 mg 11/15/18 20:20 11/15/18 20:41 Zofran 4 Mg/2 Ml Vial IV 11/15/18 20:21 4 mg STAT ONE Administration Ondansetron HCl Confirm 11/15/18 20:38 Zofran 4 Mg/2 Ml Vial Administered 11/15/18 20:39 Dose 4 mg .ROUTE .STK-MED ONE Lab/Rad Data: Laboratory Result Diagrams 11/15/18 20:39 06/18/19 20:39 Laboratory Results 11/15/18 11/15/18 11/15/18 Range/Units 20:39 20:39 20:39 WBC (4.0-10.5) K/mm3 RBC (4.1-5.4) M/mm3 Hgb (12.0-16.0) gm/dl Hct (35-47) % MCV (78-100) fl MCH (26-32) pg MCHC (32-36) g/dl RDW (11.5-14.0) % Plt Count (150-450) K/mm3 MPV (6-9.5) fl Gran % (36.0-66.0) % Eos # (Auto) (0-0.5) Absolute Lymphs (auto) (1.0-4.6) Absolute Monos (auto) (0.0-1.3) Lymphocytes % (24.0-44.0) % Monocytes % (0.0-12.0) % Eosinophils % (0.00-5.0) % Basophils % (0.0-0.4) % Absolute Granulocytes (1.4-6.9) Basophils # (0-0.4) Sodium (137-145) mmol/L Potassium (3.5-5.1) mmol/L Chloride (98-107) mmol/L Carbon Dioxide (22-30) mmol/L Anion Gap (5-15) MEQ/L BUN (7-17) mg/dL Creatinine (0.52-1.04) mg/dL Estimated GFR ML/MIN Glucose (74-106) mg/dL Calcium (8.4-10.2) mg/dL Magnesium (1.6-2.3) mg/dL Total Bilirubin (0.2-1.3) mg/dL AST (14-36) U/L ALT (0-35) U/L Alkaline Phosphatase (38-126) U/L Serum Total Protein (6.3-8.2) g/dL Albumin (3.5-5.0) g/dL TSH 3rd Generation (0.47-4.68) mIU/L Urine Color YELLOW (YELLOW) Urine Appearance CLEAR (CLEAR) Urine pH 7.0 (5-6) Ur Specific [place] 1.005 (1.005-1.025) Urine Protein NEGATIVE (Negative) Urine Ketones NEGATIVE (NEGATIVE) Urine Blood NEGATIVE (0-5) Matthew/ul Urine Nitrite NEGATIVE (NEGATIVE) Urine Bilirubin NEGATIVE (NEGATIVE) Urine Urobilinogen NEGATIVE (0-1) mg/dL Ur Leukocyte Esterase NEGATIVE (NEGATIVE) Urine WBC (Auto) NONE (0-5) /HPF Urine RBC (Auto) NONE (0-2) /HPF U Epithel Cells (Auto) RARE (FEW) /HPF Urine Bacteria (Auto) NONE (NEGATIVE) /HPF Urine Mucus (Auto) SLIGHT (NEGATIVE) /HPF Urine Culture Reflexed NO (NO) Urine Glucose NEGATIVE (NEGATIVE) mg/dL Urine HCG, Qual NEGATIVE (Negative) Salicylates (2-20) mg/dL Urine Opiates Level NEGATIVE (NEGATIVE) Ur Methadone NEGATIVE (NEGATIVE) Acetaminophen (10-30) ug/ml Urine Barbiturates NEGATIVE (NEGATIVE) Ur Phencyclidine (PCP) NEGATIVE (NEGATIVE) Urine Amphetamine NEGATIVE (NEGATIVE) U Benzodiazepine Level NEGATIVE (NEGATIVE) Urine Cocaine NEGATIVE (NEGATIVE) Urine Marijuana (THC) NEGATIVE (NEGATIVE) Ethyl Alcohol (0-10) mg/dL 11/15/18 11/15/18 11/15/18 Range/Units 20:39 20:39 20:39 WBC 9.8 (4.0-10.5) K/mm3 RBC 4.67 (4.1-5.4) M/mm3 Hgb 14.7 (12.0-16.0) gm/dl Hct 41.7 (35-47) % MCV 89.3 (78-100) fl MCH 31.5 (26-32) pg MCHC 35.3 (32-36) g/dl RDW 13.1 (11.5-14.0) % Plt Count 264 (150-450) K/mm3 MPV 10.5 H (6-9.5) fl Gran % 64.2 (36.0-66.0) % Eos # (Auto) 0.09 (0-0.5) Absolute Lymphs (auto) 2.86 (1.0-4.6) Absolute Monos (auto) 0.54 (0.0-1.3) Lymphocytes % 29.2 (24.0-44.0) % Monocytes % 5.5 (0.0-12.0) % Eosinophils % 0.9 (0.00-5.0) % Basophils % 0.2 (0.0-0.4) % Absolute Granulocytes 6.28 (1.4-6.9) Basophils # 0.02 (0-0.4) Sodium 144 (137-145) mmol/L Potassium 3.6 (3.5-5.1) mmol/L Chloride 107 (98-107) mmol/L Carbon Dioxide 23 (22-30) mmol/L Anion Gap 18.5 H (5-15) MEQ/L BUN 3 L (7-17) mg/dL Creatinine 0.70 (0.52-1.04) mg/dL Estimated GFR > 60.0 ML/MIN Glucose 87 (74-106) mg/dL Calcium 9.9 (8.4-10.2) mg/dL Magnesium 2.1 (1.6-2.3) mg/dL Total Bilirubin 0.60 (0.2-1.3) mg/dL AST 23 (14-36) U/L ALT 24 (0-35) U/L Alkaline Phosphatase 77 (38-126) U/L Serum Total Protein 7.9 (6.3-8.2) g/dL Albumin 4.5 (3.5-5.0) g/dL TSH 3rd Generation 1.320 (0.47-4.68) mIU/L Urine Color (YELLOW) Urine Appearance (CLEAR) Urine pH (5-6) Ur Specific [place] (1.005-1.025) Urine Protein (Negative) Urine Ketones (NEGATIVE) Urine Blood (0-5) Matthew/ul Urine Nitrite (NEGATIVE) Urine Bilirubin (NEGATIVE) Urine Urobilinogen (0-1) mg/dL Ur Leukocyte Esterase (NEGATIVE) Urine WBC (Auto) (0-5) /HPF Urine RBC (Auto) (0-2) /HPF U Epithel Cells (Auto) (FEW) /HPF Urine Bacteria (Auto) (NEGATIVE) /HPF Urine Mucus (Auto) (NEGATIVE) /HPF Urine Culture Reflexed (NO) Urine Glucose (NEGATIVE) mg/dL Urine HCG, Qual (Negative) Salicylates < 1.0 L (2-20) mg/dL Urine Opiates Level (NEGATIVE) Ur Methadone (NEGATIVE) Acetaminophen < 10 L (10-30) ug/ml Urine Barbiturates (NEGATIVE) Ur Phencyclidine (PCP) (NEGATIVE) Urine Amphetamine (NEGATIVE) U Benzodiazepine Level (NEGATIVE) Urine Cocaine (NEGATIVE) Urine Marijuana (THC) (NEGATIVE) Ethyl Alcohol 83 H (0-10) mg/dL - Progress Progress: improved Progress Note: 11/15/18 21:47 Pt improved, did not vomit, calm, asleep, easy to arouse, not lethargic, reviewed her lab results, mild alcohol intoxication noted, she is medically stable, after observed for 6 hours following Klonopin overdose. Psychiatry consult ordered. 11/16/18 00:18 [facility] was contacted, they are unable to accept this patient till this morning. We called Dr Banerjee, patient's physician, discussed her finding and current condition, situation, he agreed to admit her for observation until psychiatric consult is available. Discussed with : Chriss Will see patient in: hospital (observation) Counseled pt/family regarding: lab results, diagnosis, need for follow-up - Departure Departure Disposition: Observation Clinical Impression: Alcohol intoxication Qualifiers: Complication of substance-induced condition: uncomplicated Qualified Code(s): F10.920 - Alcohol use, unspecified with intoxication, uncomplicated Overdose Qualifiers: Encounter type: initial encounter Injury intent: intentional self-harm Qualified Code(s): T50.902A - Poisoning by unspecified drugs, medicaments and biological substances, intentional self-harm, initial encounter Condition: Stable Critical Care Time: No Referrals: ALMA BANERJEE [Primary Care Provider] -
[2018-11-15] MEDS ORDERED: Zofran 4 MG/2 ML VIAL ONE (20:38)
[2018-11-15] MEDS ORDERED: Sodium Chloride 0.9% 1000 ML 1,000 ML ONE (20:38)
[2018-11-15 20:42] LABS: BASOPHIL % 0.2 % (0.0-0.4); Basophil (Absolute #) 0.02 (0-0.4); Eosinophil % 0.9 % (0.00-5.0); Eosinophil (Absolute #) 0.09 (0-0.5); Granulocyte Absolute (ANC) 6.28 (1.4-6.9); Granulocytes % 64.2 % (36.0-66.0); Hematocrit 41.7 % (35-47); Hemoglobin 14.7 gm/dl (12.0-16.0); Lymphocyte (Absolute #) 2.86 (1.0-4.6); Lymphocytes % 29.2 % (24.0-44.0); Mean Cell Volume 89.3 fl (78-100); Mean Corpuscular Hemoglobin 31.5 pg (26-32); Mean Corpuscular Hgb Concent. 35.3 g/dl (32-36); Mean Platelet Volume 10.5 fl (6-9.5); Monocyte (Absolute #) 0.54 (0.0-1.3); Monocytes % 5.5 % (0.0-12.0); Platelet Count 264 K/mm3 (150-450); Red Blood Count 4.67 M/mm3 (4.1-5.4); Red Cell Distribution Width 13.1 % (11.5-14.0); White Blood Count 9.8 K/mm3 (4.0-10.5)
[2018-11-15 20:47] LABS: Appearance CLEAR (CLEAR); Bilirubin NEGATIVE (NEGATIVE); Blood NEGATIVE Ery/ul (0-5); Epithelial Cells RARE /HPF (FEW); Glucose NEGATIVE (NEGATIVE); Ketones NEGATIVE (NEGATIVE); Leukocyte Esterase NEGATIVE (NEGATIVE); Mucus SLIGHT /HPF (NEGATIVE); Nitrite NEGATIVE (NEGATIVE); Protein,Urine Dip NEGATIVE (Negative); Specific Gravity 1.005 (1.005-1.025); Urobilinogen NEGATIVE mg/dL (0-1)
[2018-11-15 20:54] LABS: ALBUMIN 4.5 g/dL (3.5-5.0); ALKALINE PHOSPHATASE 77 U/L (38-126); ANION GAP 18.5 MEQ/L (5-15); BLOOD UREA NITROGEN 3 mg/dL (7-17); CHLORIDE 107 mmol/L (98-107); Calcium 9.9 mg/dL (8.4-10.2); Carbon Dioxide 23 mmol/L (22-30); ETHYL ALCOHOL 83 mg/dL (0-10); Glucose 87 mg/dL (74-106); Potassium 3.6 mmol/L (3.5-5.1); SGOT/AST 23 U/L (14-36); SGPT/ALT 24 U/L (0-35); SODIUM 144 mmol/L (137-145); Total Protein 7.9 g/dL (6.3-8.2)
[2018-11-15 20:55] LABS: ACETAMINOPHEN < 10 ug/ml (10-30); SALICYLATE < 1.0 mg/dL (2-20)
[2018-11-15 21:00] LABS: Amphetamine,Urine NEGATIVE (NEGATIVE); Barbiturate,Urine NEGATIVE (NEGATIVE); Benzodiazepine,Urine NEGATIVE (NEGATIVE); Cocaine,Urine NEGATIVE (NEGATIVE); Methadone,Urine NEGATIVE (NEGATIVE); Opiate,Urine NEGATIVE (NEGATIVE); PCP,Urine NEGATIVE (NEGATIVE); THC,Urine NEGATIVE (NEGATIVE)
[2018-11-15 21:27] LABS: MAGNESIUM 2.1 mg/dL (1.6-2.3); TSH, 3RD Generation 1.32 mIU/L (0.47-4.68)
[2018-11-16] MEDS ORDERED: TYLENOL 325 MG PO PRN (00:21)
[2018-11-16] MEDS ORDERED: Zofran 4 MG/2 ML VIAL IV PRN (00:21)
[2018-11-16] MEDS ORDERED: Sodium Chloride 0.9% 1000 ML 1,000 ML IV SCH (00:30)
[2018-11-16] MEDS ORDERED: Zofran 4 MG/2 ML VIAL IV ONE (00:31)
[2018-11-16] MEDS ORDERED: TYLENOL EXTRA STRENGTH 500 MG PO STA (00:31)
[2018-11-16] MEDS ORDERED: TYLENOL EXTRA STRENGTH 500 MG ONE (01:13)
[2018-11-16 06:04] LABS: BASOPHIL % 0.3 % (0.0-0.4); Basophil (Absolute #) 0.02 (0-0.4); Eosinophil % 1.7 % (0.00-5.0); Eosinophil (Absolute #) 0.13 (0-0.5); Granulocyte Absolute (ANC) 4.44 (1.4-6.9); Granulocytes % 56.5 % (36.0-66.0); Hematocrit 37.2 % (35-47); Hemoglobin 12.7 gm/dl (12.0-16.0); Lymphocyte (Absolute #) 2.68 (1.0-4.6); Lymphocytes % 34.1 % (24.0-44.0); Mean Cell Volume 91.4 fl (78-100); Mean Corpuscular Hemoglobin 31.2 pg (26-32); Mean Corpuscular Hgb Concent. 34.1 g/dl (32-36); Mean Platelet Volume 10.7 fl (6-9.5); Monocyte (Absolute #) 0.58 (0.0-1.3); Monocytes % 7.4 % (0.0-12.0); Platelet Count 230 K/mm3 (150-450); Red Blood Count 4.07 M/mm3 (4.1-5.4); Red Cell Distribution Width 13.2 % (11.5-14.0); White Blood Count 7.9 K/mm3 (4.0-10.5)
[2018-11-16 06:59] LABS: ANION GAP 12.1 MEQ/L (5-15); BLOOD UREA NITROGEN 7 mg/dL (7-17); CHLORIDE 108 mmol/L (98-107); Calcium 8.7 mg/dL (8.4-10.2); Carbon Dioxide 24 mmol/L (22-30); Glucose 87 mg/dL (74-106); Potassium 3.5 mmol/L (3.5-5.1); SODIUM 141 mmol/L (137-145)
--- NOTE | 2018-11-16 10:16 | SSS ---
DISCHARGE DIAGNOSIS: SUICIDE GESTURE. HISTORY: The patient is a 28 year-old white female with long history of psych problems with depression and anxiety. She was seen in our office by nurse practitioner and placed on Lexapro and Klonopin as she had been previously on medications by myself. She was fairly recently admitted to the [facility] for inpatient stay for approximately five to seven days. She reports that they treated her like shit there and she just wanted to go home. Apparently last evening she got into it with her for which she is having issues and contemplating divorce over the past six months. She took a handful which I believe was a total 12 Klonopin last evening and scratched her left thigh very superficially. The patient this morning is awake, alert, oriented x3. She reports it was stupid what she did and regrets it and currently is back to what appears to be her usual state of health. 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 Apparently the nurses report the patient was never lethargic after taking the Klonopin and currently as I mentioned earlier is entirely awake, alert, oriented x3. PAST MEDICAL/SURGICAL HISTORY: Otherwise significant for hysterectomy, cholecystectomy. She has had breast reconstruction, nodules removed and thyroidectomy. PHYSICAL EXAMINATION: Her vital signs on admission showed temperature 98.7F, pulse 79, respiratory rate 14 and blood pressure 131/76. O2 saturation 96%. HEENT: Normocephalic, atraumatic. Pupils equal round reactive to light. Extraocular movements intact. Oropharynx is pink and moist. NECK: Supple without lymphadenopathy, thyromegaly or JVD. CHEST: Clear to auscultation. HEART: Regular rate and rhythm without murmurs, rubs or gallops. ABDOMEN: Soft. No palpable masses. EXTREMITIES: Without cyanosis, clubbing or edema. NEUROLOGIC: The patient is again alert and oriented x3. No focal deficits were noted. LAB DATA AND TESTS: Revealed metabolic panel which was normal. She had UA which was normal. She had metabolic panel showing glucose 87, BUN 3, creatinine 0.7. Liver enzymes were normal. Acetaminophen and salicylate were negative. Alcohol was 83. CBC was entirely normal. Urine HCG was negative. Magnesium 2.1. TSH was 1.32. Urine drug screen was entirely negative including benzodiazepines. The patient's EKG was normal sinus rhythm and appeared to be normal. HOSPITAL COURSE: Currently the patient is awaiting [facility] consultation. They had reported last evening they would take her for inpatient stay but this morning she appears to be of no danger to herself presently at least. We will have a [place] tele-medicine consult at roughly 1000 hours this morning. Disposition will be determined by them as she is cleared medically for either discharge home or transfer to inpatient stay.
[2018-11-16 13:31] VITALS: BP 119/71; PULSE 93; O2SAT 96
== END 2018-11-16 13:11 | disposition home or self-care (01) ==
LOC: ED 19:56 → MED SURG 11-16 01:36
PROVIDERS: ADMIT Family Medicine; ATTEND Family Medicine
DX: T50.902A Poisoning by unspecified drugs, medicaments and biological substances, intentional self-harm, initial encounter (principal); S70.312A Abrasion, left thigh, initial encounter
CPT/HCPCS: 36000; 36415; 80048; 80053; 80307; 81001; 83735; 84443; 84703; 85025; 93005; 96374; G0481; 90791; 96376; 99285; G0378; J2405; Q3014; A9270-GY; G0480

== ENCOUNTER 2019-07-21 19:22 | Emergency (ER) | payer OTHER ==
--- NOTE | 2019-07-21 19:37 | ERPHSYRPT ---
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 pt is under stress but not more than usual. no new meds. pt denies head injury. pt has a h/o migraine headaches. no headache now. pt has a h/o anxiety and panic disorder, attention deficit disorder and depression. pt has a remote h/o seizure d/o but usually smells a bad odor before onset of them. did not experience this today. Timing/Duration: today (45 minutes ago.) Severity: mild Character of Deficits: none Deficits: no difficulties Baseline/Normal Cognition: alert oriented x 3 Current Cognition: alert oriented x 3 Baseline Gait: walks w/o assistance Associated Symptoms: confusion (resolved) Allergies/Adverse Reactions: adhesive Allergy (Mild, Verified 07/21/19 19:46) Rash cefaclor [From Ceclor] Allergy (Mild, Verified 07/21/19 19:46) Hives duloxetine [From Cymbalta] Allergy (Verified 07/21/19 19:46) ketorolac [From Toradol] Allergy (Verified 07/21/19 19:46) Hives paroxetine [From Paxil] Adverse Reaction (Verified 07/21/19 19:46) tramadol Adverse Reaction (Verified 07/21/19 19:46) Home Medications: Levothyroxine Sodium 50 Mcg [Synthroid 50 Mcg] 50 mcg PO DAILY 07/21/19 [ History] clonazePAM [Clonazepam] 1 mg PO BIDPRN PRN 07/21/19 [History] Hx Tetanus, Diphtheria Vaccination/Date Given: Yes Hx Influenza Vaccination/Date Given: Yes Hx Pneumococcal Vaccination/Date Given: No - Review of Systems Constitutional: No Symptoms Eyes: No Symptoms Ears, Nose, & Throat: No Symptoms Respiratory: No Symptoms Cardiac: No Symptoms Abdominal/Gastrointestinal: No Symptoms Genitourinary Symptoms: No Symptoms Musculoskeletal: No Symptoms Skin: No Symptoms Neurological: Dizziness, Other (confusion) Psychological: No Symptoms Endocrine: No Symptoms Hematologic/Lymphatic: No Symptoms Immunological/Allergic: No Symptoms All Other Systems: Reviewed and Negative - Past Medical History Pertinent Past Medical History: Yes Neurological History: Migraines ENT History: No Pertinent History Cardiac History: Other Respiratory History: Bronchitis Endocrine Medical History: Other Musculoskeletal History: Fibromyalgia GI Medical History: GERD, Irritable Bowel History: Other Psycho-Social History: Anxiety, Attention Deficit Disorder, Depression, Panic Disorder Female Reproductive Disorders: Other Other Medical History: cysts on ovaries,. partial thyroidectomy-nodule removed (pt states she has never been dx with low thyroid). mitral valve prolapse. frequent bladder/kidney infections. 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 lupus. hives d/t anxiety - Past Surgical History Past Surgical History: Yes Neuro Surgical History: No Pertinent History Cardiac: No Pertinent History Respiratory: No Pertinent History Gastrointestinal: Cholecystectomy Genitourinary: No Pertinent History Musculoskeletal: No Pertinent History Female Surgical History: Hysterectomy, Dilation & Curettage, Tubal Ligation, Other Other Surgical History: partial thyroidectomy. breast reconstruction-nodules removed. anesthesia problems - difficult to wake up, drop in bp. histerectomy - Social History Smoking Status: Current every day smoker How long have you smoked: 2 years Exposure to second hand smoke: No Drug Use: marijuana Patient Lives Alone: No - Nursing Vital Signs Nursing Vital Signs: Initial Vital Signs Temperature 98.1 F 07/21/19 19:31 Pulse Rate 114 H 07/21/19 19:31 Respiratory Rate 16 07/21/19 19:31 Blood Pressure 141/92 07/21/19 19:31 O2 Sat by Pulse Oximetry 100 07/21/19 19:31 Pain Scale Pain Intensity 8 - [place] Coma Scale Best Eye Response ([place]): (4) open spontaneously Best Verbal Response (Ziggy): (5) oriented Best Motor Response (Ziggy): (6) obeys commands Ziggy Total: 15 - Physical Exam General Appearance: no apparent distress, alert, anxiety Eye Exam: bilateral eye: normal inspection, PERRL, EOMI Ears, Nose, Throat Exam: normal ENT inspection, moist mucous membranes Neck Exam: normal inspection, non-tender, supple, full range of motion Respiratory: normal breath sounds, lungs clear, airway intact, No chest tenderness, No respiratory distress Cardiovascular: regular rate/rhythm, normal heart sounds, normal peripheral pulses Gastrointestinal: soft, normal bowel sounds, No tenderness Pelvic Exam: not done Rectal Exam: not done Back Exam: normal inspection, normal range of motion, No CVA tenderness, No vertebral tenderness Extremity Exam: normal inspection, normal range of motion, pelvis stable Mental Status: alert, oriented x 3, 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 Exam: normal hearing, normal speech, PERRL, tongue midline Coordination/Gait: normal finger to nose, normal gait, normal cerebellar function Motor/Sensory: no motor deficit, no sensory deficit, no pronator drift Skin Exam: normal color, warm, dry SpO2 Interpretation: normal O2 Delivery: Room Air - Course Nursing assessment & vital signs reviewed: Yes EKG Interpreted by Me: RATE (106), Sinus Rhythm, Other (new sI/QIII; no other changes compared to ekg dated 11/15/18) Ordered Tests: Active Orders 24 hr Category Date Time Status Accucheck STAT Care 07/21/19 19:51 Active Journalism Intern STAT Care 07/21/19 19:54 Active EKG-ER Only STAT Care 07/21/19 19:51 Active IV Insertion STAT Care 07/21/19 19:51 Active Pulse Oximetry (ED) STAT Care 07/21/19 19:51 Active HEAD WITHOUT CONTRAST [CT] Stat Exams 07/21/19 19:53 Taken CBC W DIFF Stat Lab 07/21/19 19:45 Completed CMP Stat Lab 07/21/19 19:45 Completed ETHYL ALCOHOL Stat Lab 07/21/19 19:45 Completed HCG,QUALITATIVE URINE Stat Lab 07/21/19 19:45 Completed T4 (Thyroxine) Stat Lab 07/21/19 19:45 Completed TSH [TSH, 3RD Generation] Stat Lab 07/21/19 19:45 Completed UA W/RFX UR CULTURE Stat Lab 07/21/19 19:45 Completed Urine Triage Profile Stat Lab 07/21/19 19:45 Completed Medication Summary Discontinued Medications Generic Name Dose Route Start Last Admin Trade Name Viktoriya PRN Reason Stop Dose Admin Acetaminophen 650 mg 07/21/19 20:18 07/21/19 20:19 Tylenol 325 Mg PO 07/21/19 20:19 650 mg STAT STA Administration Acetaminophen Confirm 07/21/19 20:18 Tylenol 325 Mg Administered 07/21/19 20:19 Dose 650 mg .ROUTE .STK-MED ONE Sodium Chloride 1,000 mls @ 999 mls/hr 07/21/19 19:51 07/21/19 21:03 Sodium Chloride 0.9% 1000 Ml IV 07/21/19 20:51 Infused .Q1H1M STA Infusion Sodium Chloride Confirm 07/21/19 20:00 Sodium Chloride 0.9% 1000 Ml Administered 07/21/19 20:01 Dose 1,000 mls @ ud .ROUTE .K-MED ONE Lab/Rad Data: Laboratory Result Diagrams 07/21/19 19:45 07/21/19 19:45 Laboratory Results 07/21/19 07/21/19 07/21/19 Range/Units 19:45 19:45 19:45 WBC (4.0-10.5) K/mm3 RBC (4.1-5.4) M/mm3 Hgb (12.0-16.0) gm/dl Hct (35-47) % MCV (78-100) fl MCH (26-32) pg MCHC (32-36) g/dl RDW (11.5-14.0) % Plt Count (150-450) K/mm3 MPV (7.5-11.0) fl Gran % (36.0-66.0) % Eos # (Auto) (0-0.5) Absolute Lymphs (auto) (1.0-4.6) Absolute Monos (auto) (0.0-1.3) Lymphocytes % (24.0-44.0) % Monocytes % (0.0-12.0) % Eosinophils % (0.00-5.0) % Basophils % (0.0-0.4) % Absolute Granulocytes (1.4-6.9) Basophils # (0-0.4) Sodium (137-145) mmol/L Potassium (3.5-5.1) mmol/L Chloride (98-107) mmol/L Carbon Dioxide (22-30) mmol/L Anion Gap (5-15) MEQ/L BUN (7-17) mg/dL Creatinine (0.52-1.04) mg/dL Estimated GFR ML/MIN Glucose (74-106) mg/dL Calcium (8.4-10.2) mg/dL Total Bilirubin (0.2-1.3) mg/dL AST (14-36) U/L ALT (0-35) U/L Alkaline Phosphatase (38-126) U/L Ammonia (9-30) umol/L Serum Total Protein (6.3-8.2) g/dL Albumin (3.5-5.0) g/dL Thyroxine (T4) (5.53-10.96) ug/dL TSH 3rd Generation (0.47-4.68) mIU/L Urine Color YELLOW (YELLOW) Urine Appearance SLIGHTLY CLOUDY (CLEAR) Urine pH 5.0 (5-6) Ur Specific [place] 1.014 (1.005-1.025) Urine Protein NEGATIVE (Negative) Urine Ketones NEGATIVE (NEGATIVE) Urine Blood NEGATIVE (0-5) Matthew/ul Urine Nitrite NEGATIVE (NEGATIVE) Urine Bilirubin NEGATIVE (NEGATIVE) Urine Urobilinogen NEGATIVE (0-1) mg/dL Ur Leukocyte Esterase NEGATIVE (NEGATIVE) Urine WBC (Auto) NONE (0-5) /HPF Urine RBC (Auto) NONE (0-2) /HPF U Epithel Cells (Auto) RARE (FEW) /HPF Urine Bacteria (Auto) NONE (NEGATIVE) /HPF Urine Mucus (Auto) SLIGHT (NEGATIVE) /HPF Urine Culture Reflexed NO (NO) Urine Glucose NEGATIVE (NEGATIVE) mg/dL Urine HCG, Qual NEGATIVE (Negative) Urine Opiates Level NEGATIVE (NEGATIVE) Ur Methadone NEGATIVE (NEGATIVE) Urine Barbiturates NEGATIVE (NEGATIVE) Ur Phencyclidine (PCP) NEGATIVE (NEGATIVE) Urine Amphetamine NEGATIVE (NEGATIVE) U Benzodiazepine Level NEGATIVE (NEGATIVE) Urine Cocaine NEGATIVE (NEGATIVE) Urine Marijuana (THC) NEGATIVE (NEGATIVE) Ethyl Alcohol (0-10) mg/dL 07/21/19 07/21/19 07/21/19 Range/Units 19:45 19:45 19:45 WBC (4.0-10.5) K/mm3 RBC (4.1-5.4) M/mm3 Hgb (12.0-16.0) gm/dl Hct (35-47) % MCV (78-100) fl MCH (26-32) pg MCHC (32-36) g/dl RDW (11.5-14.0) % Plt Count (150-450) K/mm3 MPV (7.5-11.0) fl Gran % (36.0-66.0) % Eos # (Auto) (0-0.5) Absolute Lymphs (auto) (1.0-4.6) Absolute Monos (auto) (0.0-1.3) Lymphocytes % (24.0-44.0) % Monocytes % (0.0-12.0) % Eosinophils % (0.00-5.0) % Basophils % (0.0-0.4) % Absolute Granulocytes (1.4-6.9) Basophils # (0-0.4) Sodium (137-145) mmol/L Potassium (3.5-5.1) mmol/L Chloride (98-107) mmol/L Carbon Dioxide (22-30) mmol/L Anion Gap (5-15) MEQ/L BUN (7-17) mg/dL Creatinine (0.52-1.04) mg/dL Estimated GFR ML/MIN Glucose (74-106) mg/dL Calcium (8.4-10.2) mg/dL Total Bilirubin (0.2-1.3) mg/dL AST (14-36) U/L ALT (0-35) U/L Alkaline Phosphatase (38-126) U/L Ammonia < 9 L (9-30) umol/L Serum Total Protein (6.3-8.2) g/dL Albumin (3.5-5.0) g/dL Thyroxine (T4) 8.31 (5.53-10.96) ug/dL TSH 3rd Generation (0.47-4.68) mIU/L Urine Color (YELLOW) Urine Appearance (CLEAR) Urine pH (5-6) Ur Specific [place] (1.005-1.025) Urine Protein (Negative) Urine Ketones (NEGATIVE) Urine Blood (0-5) Matthew/ul Urine Nitrite (NEGATIVE) Urine Bilirubin (NEGATIVE) Urine Urobilinogen (0-1) mg/dL Ur Leukocyte Esterase (NEGATIVE) Urine WBC (Auto) (0-5) /HPF Urine RBC (Auto) (0-2) /HPF U Epithel Cells (Auto) (FEW) /HPF Urine Bacteria (Auto) (NEGATIVE) /HPF Urine Mucus (Auto) (NEGATIVE) /HPF Urine Culture Reflexed (NO) Urine Glucose (NEGATIVE) mg/dL Urine HCG, Qual (Negative) Urine Opiates Level (NEGATIVE) Ur Methadone (NEGATIVE) Urine Barbiturates (NEGATIVE) Ur Phencyclidine (PCP) (NEGATIVE) Urine Amphetamine (NEGATIVE) U Benzodiazepine Level (NEGATIVE) Urine Cocaine (NEGATIVE) Urine Marijuana (THC) (NEGATIVE) Ethyl Alcohol < 10 (0-10) mg/dL 07/21/19 07/21/19 07/21/19 Range/Units 19:45 19:45 19:45 WBC 12.4 H (4.0-10.5) K/mm3 RBC 5.07 (4.1-5.4) M/mm3 Hgb 15.7 (12.0-16.0) gm/dl Hct 44.6 (35-47) % MCV 88.0 (78-100) fl MCH 31.0 (26-32) pg MCHC 35.2 (32-36) g/dl RDW 12.4 (11.5-14.0) % Plt Count 321 (150-450) K/mm3 MPV 10.3 (7.5-11.0) fl Gran % 61.0 (36.0-66.0) % Eos # (Auto) 0.40 (0-0.5) Absolute Lymphs (auto) 3.91 (1.0-4.6) Absolute Monos (auto) 0.49 (0.0-1.3) Lymphocytes % 31.6 (24.0-44.0) % Monocytes % 4.0 (0.0-12.0) % Eosinophils % 3.2 (0.00-5.0) % Basophils % 0.2 (0.0-0.4) % Absolute Granulocytes 7.54 H (1.4-6.9) Basophils # 0.03 (0-0.4) Sodium 141 (137-145) mmol/L Potassium 3.7 (3.5-5.1) mmol/L Chloride 105 (98-107) mmol/L Carbon Dioxide 25 (22-30) mmol/L Anion Gap 14.6 (5-15) MEQ/L BUN 14 (7-17) mg/dL Creatinine 0.75 (0.52-1.04) mg/dL Estimated GFR > 60.0 ML/MIN Glucose 160 H (74-106) mg/dL Calcium 10.0 (8.4-10.2) mg/dL Total Bilirubin 0.60 (0.2-1.3) mg/dL AST 21 (14-36) U/L ALT 21 (0-35) U/L Alkaline Phosphatase 98 (38-126) U/L Ammonia (9-30) umol/L Serum Total Protein 8.7 H (6.3-8.2) g/dL Albumin 5.0 (3.5-5.0) g/dL Thyroxine (T4) (5.53-10.96) ug/dL TSH 3rd Generation 2.070 (0.47-4.68) mIU/L Urine Color (YELLOW) Urine Appearance (CLEAR) Urine pH (5-6) Ur Specific [place] (1.005-1.025) Urine Protein (Negative) Urine Ketones (NEGATIVE) Urine Blood (0-5) Matthew/ul Urine Nitrite (NEGATIVE) Urine Bilirubin (NEGATIVE) Urine Urobilinogen (0-1) mg/dL Ur Leukocyte Esterase (NEGATIVE) Urine WBC (Auto) (0-5) /HPF Urine RBC (Auto) (0-2) /HPF U Epithel Cells (Auto) (FEW) /HPF Urine Bacteria (Auto) (NEGATIVE) /HPF Urine Mucus (Auto) (NEGATIVE) /HPF Urine Culture Reflexed (NO) Urine Glucose (NEGATIVE) mg/dL Urine HCG, Qual (Negative) Urine Opiates Level (NEGATIVE) Ur Methadone (NEGATIVE) Urine Barbiturates (NEGATIVE) Ur Phencyclidine (PCP) (NEGATIVE) Urine Amphetamine (NEGATIVE) U Benzodiazepine Level (NEGATIVE) Urine Cocaine (NEGATIVE) Urine Marijuana (THC) (NEGATIVE) Ethyl Alcohol (0-10) mg/dL - Progress Progress: improved Progress Note: 07/21/19 21:17 CAT scan of the head reveals no acute intra-cranial process Counseled pt/family regarding: lab results, diagnosis, need for follow-up, rad results - Departure Departure Disposition: Home Clinical Impression: Dizziness, Confusion, Anxiety Condition: Stable Critical Care Time: No Referrals: ALMA CALABRESE [Primary Care Provider] - Additional Instructions: Follow-up with your primary care physician and neurologist for further evaluation of your symptoms. Take all your medications as prescribed
[2019-07-21] MEDS ORDERED: Sodium Chloride 0.9% 1000 ML 1,000 ML IV STA (19:51)
[2019-07-21] MEDS ORDERED: Sodium Chloride 0.9% 1000 ML 1,000 ML ONE (20:00)
[2019-07-21 20:03] LABS: Absolute Neutrophil Ct (ANC) 7.54 (1.4-6.9); BASOPHIL % 0.2 % (0.0-0.4); Basophil (Absolute #) 0.03 (0-0.4); Eosinophil % 3.2 % (0.00-5.0); Hematocrit 44.6 % (35-47); Hemoglobin 15.7 gm/dl (12.0-16.0); Lymphocyte (Absolute #) 3.91 (1.0-4.6); Lymphocytes % 31.6 % (24.0-44.0); Mean Corpuscular Hgb Concent. 35.2 g/dl (32-36); Mean Platelet Volume 10.3 fl (7.5-11.0); Monocyte (Absolute #) 0.49 (0.0-1.3); Platelet Count 321 K/mm3 (150-450); Red Blood Count 5.07 M/mm3 (4.1-5.4); Red Cell Distribution Width 12.4 % (11.5-14.0); White Blood Count 12.4 K/mm3 (4.0-10.5)
[2019-07-21 20:12] LABS: ALKALINE PHOSPHATASE 98 U/L (38-126); ANION GAP 14.6 MEQ/L (5-15); BLOOD UREA NITROGEN 14 mg/dL (7-17); CHLORIDE 105 mmol/L (98-107); Carbon Dioxide 25 mmol/L (22-30); Creatinine 1 0.75 mg/dL (0.52-1.04); Glucose 160 mg/dL (74-106); Potassium 3.7 mmol/L (3.5-5.1); SGOT/AST 21 U/L (14-36); SGPT/ALT 21 U/L (0-35); SODIUM 141 mmol/L (137-145); Total Protein 8.7 g/dL (6.3-8.2)
[2019-07-21 20:17] LABS: Appearance SLIGHTLY CLOUDY (CLEAR); Bilirubin NEGATIVE (NEGATIVE); Blood NEGATIVE Ery/ul (0-5); Epithelial Cells RARE /HPF (FEW); Glucose NEGATIVE (NEGATIVE); Ketones NEGATIVE (NEGATIVE); Leukocyte Esterase NEGATIVE (NEGATIVE); Mucus SLIGHT /HPF (NEGATIVE); Nitrite NEGATIVE (NEGATIVE); Protein,Urine Dip NEGATIVE (Negative); Specific Gravity 1.014 (1.005-1.025); Urobilinogen NEGATIVE mg/dL (0-1)
[2019-07-21] MEDS ORDERED: TYLENOL 325 MG ONE (20:18)
[2019-07-21] MEDS ORDERED: TYLENOL 325 MG PO STA (20:18)
[2019-07-21 20:24] LABS: Amphetamine,Urine NEGATIVE (NEGATIVE); Barbiturate,Urine NEGATIVE (NEGATIVE); Benzodiazepine,Urine NEGATIVE (NEGATIVE); Cocaine,Urine NEGATIVE (NEGATIVE); Methadone,Urine NEGATIVE (NEGATIVE); Opiate,Urine NEGATIVE (NEGATIVE); PCP,Urine NEGATIVE (NEGATIVE); THC,Urine NEGATIVE (NEGATIVE)
[2019-07-21 21:19] VITALS: BP 114/72; PULSE 82; O2SAT 99
--- NOTE | 2019-07-21 21:49 | XRAY ---
Indication: Frontal headache and dizziness. Confusion. No known injury. Multiple contiguous axial images obtained through the head without contrast. Comparison: November 26, 2017. Again normal appearing brain parenchyma, ventricles, and bony calvarium. Visualized paranasal sinuses and mastoid air cells are clear. Impression: Normal CT head without contrast exam. Comment: Preliminary interpretation was made by [facility]. No critical discrepancy.
== END 2019-07-21 21:23 | disposition home or self-care (01) ==
LOC: ED 19:22
DX: R42 Dizziness and giddiness (principal); R41.0 Disorientation, unspecified; F41.9 Anxiety disorder, unspecified; Z79.899 Other long term (current) drug therapy
CPT/HCPCS: 36000; 36415; 70450; 80053; 80307; 81001; 82140; 82962; 84436; 84443; 84703; 85025; 93005; 93041; 94760; 99284; G0480; 96360; A9270-GY

== ENCOUNTER 2019-07-31 12:34 | Emergency (ER) | payer OTHER ==
[2019-07-31 13:00] VITALS: O2SAT 97
[2019-07-31] MEDS ORDERED: Zofran 4 MG/2 ML VIAL IV ONE (13:18)
[2019-07-31] MEDS ORDERED: Sodium Chloride 0.9% 1000 ML 1,000 ML IV STA (13:18)
--- NOTE | 2019-07-31 13:18 | ERPHSYRPT ---
- History of Present Illness Time Seen by Provider: 07/31/19 13:10 Historian: patient Exam Limitations: no limitations Patient Subjective Stated Complaint: Pt stated that she was here about a week ago due to a migraine and a CT was done at that time and said that everything looked normal, has had a migraine everyday since then and yesterday she began vomiting up blood mixed all in her vomit and then she had black specks in it and then she had blood streaks in it Triage Nursing Assessment: Pt brought into the ER by her , pt reports that she has a mass in her right breast and is to have an MRI tomorrow for it, states that it is painful and swollen, breast is noticably larger than the left , pt unsure if she isn't feeling well due to the breast, pt rates abdominal pain as 6/10, hypertensive, no edema, nauseous, usually has daily diarrhea but her bowels have gotten harder, pain in upper medial epigastric area, pain to LUQ with palpatation, lots of belching, unable to keep liquids down Physician History: This is a 29-year-old female who I evaluated approximately 1 week ago for complaints of a headache. CAT scan of the head was done at that time which was normal. Since that time the patient states that she has had a persistently intermittent headache that is not worsened. This morning, the patient stated that she had some vomiting issues and there was bright red blood in it followed by an episode of vomiting with black specks in it. Patient is concerned about this vomiting. Patient is very anxious and has a history of anxiety and panic disorder. Patient also is known to have a left breast mass that is present and is scheduled for an MRI tomorrow. Patient denies chest pain she denies shortness of breath. Patient denies fevers. Patient has had not had any diarrhea Timing/Duration: today Activities at Onset: none Quality: cramping Abdominal Pain Onset Location: epigastric Pain Radiation: no radiation Severity of Pain-Max: mild Severity of Pain-Current: mild Modifying Factors: Improves With: vomiting Associated Symptoms: nausea, vomiting Previous symptoms: no prior history Allergies/Adverse Reactions: adhesive Allergy (Mild, Verified 07/31/19 13:01) Rash cefaclor [From Ceclor] Allergy (Mild, Verified 07/31/19 13:01) Hives duloxetine [From Cymbalta] Allergy (Verified 07/31/19 13:01) ketorolac [From Toradol] Allergy (Verified 07/31/19 13:01) Hives paroxetine [From Paxil] Adverse Reaction (Verified 07/31/19 13:01) tramadol Adverse Reaction (Verified 07/31/19 13:01) Home Medications: Levothyroxine Sodium 50 Mcg [Synthroid 50 Mcg] 50 mcg PO DAILY 07/21/19 [ History] Hx Tetanus, Diphtheria Vaccination/Date Given: Yes Hx Influenza Vaccination/Date Given: Yes Hx Pneumococcal Vaccination/Date Given: No - Review of Systems Constitutional: No Symptoms Eyes: No Symptoms Ears, Nose, & Throat: No Symptoms Respiratory: No Symptoms Cardiac: No Symptoms Abdominal/Gastrointestinal: Abdominal Pain (Mild epigastric), Nausea, Vomiting Genitourinary Symptoms: No Symptoms Musculoskeletal: No Symptoms Skin: No Symptoms Neurological: No Symptoms Psychological: Anxiety Endocrine: No Symptoms Hematologic/Lymphatic: No Symptoms Immunological/Allergic: No Symptoms All Other Systems: Reviewed and Negative - Past Medical History Pertinent Past Medical History: Yes Neurological History: Migraines ENT History: No Pertinent History Cardiac History: Other Respiratory History: Bronchitis Endocrine Medical History: Other Musculoskeletal History: Fibromyalgia GI Medical History: GERD, Irritable Bowel History: Other Psycho-Social History: Anxiety, Attention Deficit Disorder, Depression, Panic Disorder Female Reproductive Disorders: Other Other Medical History: cysts on ovaries,. partial thyroidectomy-nodule removed (pt states she has never been dx with low thyroid). mitral valve prolapse. frequent bladder/kidney infections. 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 lupus. hives d/t anxiety - Past Surgical History Past Surgical History: Yes Neuro Surgical History: No Pertinent History Cardiac: No Pertinent History Respiratory: No Pertinent History Gastrointestinal: Cholecystectomy Genitourinary: No Pertinent History Musculoskeletal: No Pertinent History Female Surgical History: Hysterectomy, Dilation & Curettage, Tubal Ligation, Other Other Surgical History: partial thyroidectomy. breast reconstruction-nodules removed. anesthesia problems - difficult to wake up, drop in bp. histerectomy - Social History Smoking Status: Current every day smoker How long have you smoked: 2 years Exposure to second hand smoke: Yes Drug Use: marijuana Patient Lives Alone: No - Female History Hx Now: No (hysterectomy) - Nursing Vital Signs Nursing Vital Signs: Initial Vital Signs Temperature 98.7 F 03/02/20 12:45 Pulse Rate 93 H 07/31/19 12:45 Blood Pressure 140/104 07/31/19 12:45 O2 Sat by Pulse Oximetry 97 07/31/19 12:45 Pain Scale Pain Intensity 6 - Physical Exam General Appearance: no apparent distress, alert, anxiety, obese Eye Exam: PERRL/EOMI, eyes nml inspection Ears, Nose, Throat Exam: normal ENT inspection, moist mucous membranes Neck Exam: normal inspection, non-tender, supple, full range of motion Respiratory Exam: normal breath sounds, lungs clear, airway intact, No chest tenderness, No respiratory distress Cardiovascular Exam: regular rate/rhythm, normal heart sounds, normal peripheral pulses Gastrointestinal/Abdomen Exam: soft, normal bowel sounds, tenderness (Mild epigastric), No guarding, No rebound Pelvic Exam: not done Rectal Exam: not done Back Exam: normal inspection, normal range of motion, No CVA tenderness, No vertebral tenderness Extremity Exam: normal inspection, normal range of motion, pelvis stable Neurologic Exam: alert, oriented x 3, cooperative, 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, nml cerebellar function Skin Exam: normal color, warm, dry Lymphatic Exam: No adenopathy SpO2 Interpretation: normal SpO2: 97 O2 Delivery: Room Air Ordered Tests: Active Orders 24 hr Category Date Time Status IV Insertion STAT Care 07/31/19 13:18 Active AMYLASE Stat Lab 07/31/19 13:18 Completed BLOOD CULTURE Stat Lab 07/31/19 13:35 Received CBC W DIFF Stat Lab 07/31/19 13:18 Completed CMP Stat Lab 07/31/19 13:18 Completed HCG,QUALITATIVE URINE Stat Lab 07/31/19 14:18 Completed LIPASE Stat Lab 07/31/19 13:18 Completed Lactic Acid Stat Lab 07/31/19 13:40 Completed UA W/RFX UR CULTURE Stat Lab 07/31/19 14:18 Completed Medication Summary Discontinued Medications Generic Name Dose Route Start Last Admin Trade Name Freq PRN Reason Stop Dose Admin Hydromorphone HCl 1 mg 07/31/19 14:58 07/31/19 15:03 Hydromorphone 1 Mg/Ml Ampule IV 07/31/19 14:59 1 mg STAT ONE Administration Hydromorphone HCl Confirm 07/31/19 15:02 Hydromorphone 1 Mg/Ml Ampule Administered 07/31/19 15:03 Dose 1 mg .ROUTE .STK-MED ONE Sodium Chloride 1,000 mls @ 999 mls/hr 07/31/19 13:18 07/31/19 14:45 Sodium Chloride 0.9% 1000 Ml IV 07/31/19 14:18 Infused .Q1H1M STA Infusion Sodium Chloride Confirm 07/31/19 13:22 Sodium Chloride 0.9% 1000 Ml Administered 07/31/19 13:23 Dose 1,000 mls @ ud .ROUTE .STK-MED ONE Ondansetron HCl 4 mg 07/31/19 13:18 07/31/19 13:23 Zofran 4 Mg/2 Ml Vial IV 07/31/19 13:19 4 mg STAT ONE Administration Ondansetron HCl Confirm 07/31/19 13:22 Zofran 4 Mg/2 Ml Vial Administered 07/31/19 13:23 Dose 4 mg .ROUTE .STK-MED ONE Pantoprazole Sodium 40 mg 07/31/19 14:59 07/31/19 15:03 Protonix 40 Mg Iv IV 07/31/19 15:00 40 mg STAT ONE Administration Pantoprazole Sodium Confirm 07/31/19 15:02 Protonix 40 Mg Iv Administered 07/31/19 15:03 Dose 40 mg IV .STK-MED ONE Lab/Rad Data: Laboratory Result Diagrams 07/31/19 13:18 07/31/19 13:18 Laboratory Results 07/31/19 07/31/19 07/31/19 Range/Units 14:18 14:18 13:40 WBC (4.0-10.5) K/mm3 RBC (4.1-5.4) M/mm3 Hgb (12.0-16.0) gm/dl Hct (35-47) % MCV (78-100) fl MCH (26-32) pg MCHC (32-36) g/dl RDW (11.5-14.0) % Plt Count (150-450) K/mm3 MPV (7.5-11.0) fl Gran % (36.0-66.0) % Eos # (Auto) (0-0.5) Absolute Lymphs (auto) (1.0-4.6) Absolute Monos (auto) (0.0-1.3) Lymphocytes % (24.0-44.0) % Monocytes % (0.0-12.0) % Eosinophils % (0.00-5.0) % Basophils % (0.0-0.4) % Absolute Granulocytes (1.4-6.9) Basophils # (0-0.4) Sodium (137-145) mmol/L Potassium (3.5-5.1) mmol/L Chloride (98-107) mmol/L Carbon Dioxide (22-30) mmol/L Anion Gap (5-15) MEQ/L BUN (7-17) mg/dL Creatinine (0.52-1.04) mg/dL Estimated GFR ML/MIN Glucose (74-106) mg/dL Lactic Acid 1.7 (0.4-2.0) Calcium (8.4-10.2) mg/dL Total Bilirubin (0.2-1.3) mg/dL AST (14-36) U/L ALT (0-35) U/L Alkaline Phosphatase (38-126) U/L Serum Total Protein (6.3-8.2) g/dL Albumin (3.5-5.0) g/dL Amylase (30-110) U/L Lipase (23-300) U/L Urine Color YELLOW (YELLOW) Urine Appearance SLIGHTLY CLOUDY (CLEAR) Urine pH 6.0 (5-6) Ur Specific [place] 1.016 (1.005-1.025) Urine Protein NEGATIVE (Negative) Urine Ketones NEGATIVE (NEGATIVE) Urine Blood NEGATIVE (0-5) Matthew/ul Urine Nitrite NEGATIVE (NEGATIVE) Urine Bilirubin NEGATIVE (NEGATIVE) Urine Urobilinogen NEGATIVE (0-1) mg/dL Ur Leukocyte Esterase NEGATIVE (NEGATIVE) Urine WBC (Auto) NONE (0-5) /HPF Urine RBC (Auto) NONE (0-2) /HPF U Epithel Cells (Auto) RARE (FEW) /HPF Urine Bacteria (Auto) NONE (NEGATIVE) /HPF Urine Mucus (Auto) SLIGHT (NEGATIVE) /HPF Urine Culture Reflexed NO (NO) Urine Glucose NEGATIVE (NEGATIVE) mg/dL Urine HCG, Qual NEGATIVE (Negative) 07/31/19 07/31/19 Range/Units 13:18 13:18 WBC 8.2 (4.0-10.5) K/mm3 RBC 4.87 (4.1-5.4) M/mm3 Hgb 15.1 (12.0-16.0) gm/dl Hct 42.9 (35-47) % MCV 88.1 (78-100) fl MCH 31.0 (26-32) pg MCHC 35.2 (32-36) g/dl RDW 12.4 (11.5-14.0) % Plt Count 312 (150-450) K/mm3 MPV 9.6 (7.5-11.0) fl Gran % 58.4 (36.0-66.0) % Eos # (Auto) 0.40 (0-0.5) Absolute Lymphs (auto) 2.60 (1.0-4.6) Absolute Monos (auto) 0.39 (0.0-1.3) Lymphocytes % 31.6 (24.0-44.0) % Monocytes % 4.7 (0.0-12.0) % Eosinophils % 4.9 (0.00-5.0) % Basophils % 0.4 (0.0-0.4) % Absolute Granulocytes 4.81 (1.4-6.9) Basophils # 0.03 (0-0.4) Sodium 140 (137-145) mmol/L Potassium 4.1 (3.5-5.1) mmol/L Chloride 106 (98-107) mmol/L Carbon Dioxide 25 (22-30) mmol/L Anion Gap 12.6 (5-15) MEQ/L BUN 9 (7-17) mg/dL Creatinine 0.62 (0.52-1.04) mg/dL Estimated GFR > 60.0 ML/MIN Glucose 107 H (74-106) mg/dL Lactic Acid (0.4-2.0) Calcium 9.8 (8.4-10.2) mg/dL Total Bilirubin 0.60 (0.2-1.3) mg/dL AST 19 (14-36) U/L ALT 19 (0-35) U/L Alkaline Phosphatase 85 (38-126) U/L Serum Total Protein 7.9 (6.3-8.2) g/dL Albumin 4.5 (3.5-5.0) g/dL Amylase 49 (30-110) U/L Lipase 16 L (23-300) U/L Urine Color (YELLOW) Urine Appearance (CLEAR) Urine pH (5-6) Ur Specific [place] (1.005-1.025) Urine Protein (Negative) Urine Ketones (NEGATIVE) Urine Blood (0-5) Matthew/ul Urine Nitrite (NEGATIVE) Urine Bilirubin (NEGATIVE) Urine Urobilinogen (0-1) mg/dL Ur Leukocyte Esterase (NEGATIVE) Urine WBC (Auto) (0-5) /HPF Urine RBC (Auto) (0-2) /HPF U Epithel Cells (Auto) (FEW) /HPF Urine Bacteria (Auto) (NEGATIVE) /HPF Urine Mucus (Auto) (NEGATIVE) /HPF Urine Culture Reflexed (NO) Urine Glucose (NEGATIVE) mg/dL Urine HCG, Qual (Negative) - Progress Progress: improved Progress Note: 07/31/19 15:11 Patient states she is not on any medications for stomach ulcer gastritis or gastroesophageal reflux disease at this time Counseled pt/family regarding: lab results, diagnosis, need for follow-up - Departure Departure Disposition: Home Clinical Impression: Gastritis, Vomiting Condition: Stable Critical Care Time: No Referrals: ALMA CALABRESE [Primary Care Provider] - Additional Instructions: Drink plenty of fluids. Avoid fatty greasy spicy foods. Keep your appointment for your MRI tomorrow. Call your primary care physician for further management of your symptoms. Prescriptions: Ondansetron ODT 4 MG [Zofran Odt 4 mg] 4 mg PO Q6H PRN PRN #10 tab.rapdis PRN Reason: Vomiting Famotidine 20 mg [Pepcid 20 MG] 20 mg PO DAILY #10 tablet
[2019-07-31] MEDS ORDERED: Zofran 4 MG/2 ML VIAL ONE (13:22)
[2019-07-31] MEDS ORDERED: Sodium Chloride 0.9% 1000 ML 1,000 ML ONE (13:22)
[2019-07-31 13:47] LABS: ALBUMIN 4.5 g/dL (3.5-5.0); ALKALINE PHOSPHATASE 85 U/L (38-126); AMYLASE 49 U/L (30-110); ANION GAP 12.6 MEQ/L (5-15); BLOOD UREA NITROGEN 9 mg/dL (7-17); CHLORIDE 106 mmol/L (98-107); Calcium 9.8 mg/dL (8.4-10.2); Carbon Dioxide 25 mmol/L (22-30); Creatinine 1 0.62 mg/dL (0.52-1.04); Glucose 107 mg/dL (74-106); LIPASE 16 U/L (23-300); Potassium 4.1 mmol/L (3.5-5.1); SGOT/AST 19 U/L (14-36); SGPT/ALT 19 U/L (0-35); SODIUM 140 mmol/L (137-145); Total Protein 7.9 g/dL (6.3-8.2)
[2019-07-31 13:51] LABS: Red Blood Count 4.87 M/mm3 (4.1-5.4); White Blood Count 8.2 K/mm3 (4.0-10.5)
[2019-07-31 13:52] LABS: Absolute Neutrophil Ct (ANC) 4.81 (1.4-6.9); BASOPHIL % 0.4 % (0.0-0.4); Basophil (Absolute #) 0.03 (0-0.4); Eosinophil % 4.9 % (0.00-5.0); Hematocrit 42.9 % (35-47); Hemoglobin 15.1 gm/dl (12.0-16.0); Lymphocytes % 31.6 % (24.0-44.0); Mean Cell Volume 88.1 fl (78-100); Mean Corpuscular Hgb Concent. 35.2 g/dl (32-36); Mean Platelet Volume 9.6 fl (7.5-11.0); Monocyte (Absolute #) 0.39 (0.0-1.3); Monocytes % 4.7 % (0.0-12.0); Neutrophil % 58.4 % (36.0-66.0); Platelet Count 312 K/mm3 (150-450); Red Cell Distribution Width 12.4 % (11.5-14.0)
[2019-07-31 14:29] LABS: Appearance SLIGHTLY CLOUDY (CLEAR); Bilirubin NEGATIVE (NEGATIVE); Blood NEGATIVE Ery/ul (0-5); Epithelial Cells RARE /HPF (FEW); Glucose NEGATIVE (NEGATIVE); Ketones NEGATIVE (NEGATIVE); Leukocyte Esterase NEGATIVE (NEGATIVE); Mucus SLIGHT /HPF (NEGATIVE); Nitrite NEGATIVE (NEGATIVE); Protein,Urine Dip NEGATIVE (Negative); Specific Gravity 1.016 (1.005-1.025); Urobilinogen NEGATIVE mg/dL (0-1)
[2019-07-31] MEDS ORDERED: Hydromorphone 1 mg/ml Ampule IV ONE (14:58)
[2019-07-31] MEDS ORDERED: PROTONIX 40 MG IV IV ONE ×2 (14:59→15:02)
[2019-07-31] MEDS ORDERED: Hydromorphone 1 mg/ml Ampule ONE (15:02)
[2019-07-31 15:08] VITALS: BP 101/70; PULSE 88
== END 2019-07-31 16:21 | disposition home or self-care (01) ==
LOC: ED 12:34
DX: K29.70 Gastritis, unspecified, without bleeding (principal); R10.13 Epigastric pain; R11.2 Nausea with vomiting, unspecified; Z79.899 Other long term (current) drug therapy
CPT/HCPCS: 36415; 80053; 81001; 82150; 83605; 83690; 84703; 85025; 87040; 96360; 96374; 96375; 99284; J1170; J2405

== ENCOUNTER 2020-01-11 17:20 | Emergency (ER) | payer OTHER ==
[2020-01-11] MEDS ORDERED: Compazine 10 MG/2 ML IV ONE (17:54)
[2020-01-11] MEDS ORDERED: Sodium Chloride 0.9% 1000 ML 1,000 ML IV STA (17:54)
[2020-01-11 18:03] LABS: Absolute Neutrophil Ct (ANC) 5.62 (1.4-6.9); BASOPHIL % 0.3 % (0.0-0.4); Basophil (Absolute #) 0.03 (0-0.4); Eosinophil % 3.9 % (0.00-5.0); Eosinophil (Absolute #) 0.37 (0-0.5); Hematocrit 45.9 % (35-47); Hemoglobin 15.9 gm/dl (12.0-16.0); Lymphocyte (Absolute #) 3.04 (1.0-4.6); Lymphocytes % 31.9 % (24.0-44.0); Mean Cell Volume 89.6 fl (78-100); Mean Corpuscular Hemoglobin 31.1 pg (26-32); Mean Corpuscular Hgb Concent. 34.6 g/dl (32-36); Mean Platelet Volume 10.3 fl (7.5-11.0); Monocyte (Absolute #) 0.47 (0.0-1.3); Monocytes % 4.9 % (0.0-12.0); Platelet Count 328 K/mm3 (150-450); Red Blood Count 5.12 M/mm3 (4.1-5.4); Red Cell Distribution Width 12.2 % (11.5-14.0); White Blood Count 9.5 K/mm3 (4.0-10.5)
[2020-01-11 18:07] LABS: ALBUMIN 4.7 g/dL (3.5-5.0); ALKALINE PHOSPHATASE 95 U/L (38-126); BLOOD UREA NITROGEN 11 mg/dL (7-17); CHLORIDE 104 mmol/L (98-107); Calcium 9.8 mg/dL (8.4-10.2); Carbon Dioxide 26 mmol/L (22-30); Creatinine 1 0.66 mg/dL (0.52-1.04); Glucose 133 mg/dL (74-106); Potassium 3.5 mmol/L (3.5-5.1); SGOT/AST 25 U/L (14-36); SGPT/ALT 24 U/L (0-35); SODIUM 139 mmol/L (137-145); Total Protein 7.8 g/dL (6.3-8.2)
[2020-01-11 18:19] LABS: Appearance SLIGHTLY CLOUDY (CLEAR); Bacteria RARE /HPF (NEGATIVE); Bilirubin NEGATIVE (NEGATIVE); Blood SMALL Ery/ul (0-5); Epithelial Cells RARE /HPF (FEW); Glucose NEGATIVE (NEGATIVE); Ketones NEGATIVE (NEGATIVE); Leukocyte Esterase NEGATIVE (NEGATIVE); Mucus SLIGHT /HPF (NEGATIVE); Nitrite NEGATIVE (NEGATIVE); Protein,Urine Dip NEGATIVE (Negative); Specific Gravity 1.021 (1.005-1.025); Urobilinogen NEGATIVE mg/dL (0-1); WBC 0-2 /HPF (0-5)
[2020-01-11 18:32] VITALS: O2SAT 96
[2020-01-11] MEDS ORDERED: Compazine 10 MG/2 ML ONE (18:33)
[2020-01-11] MEDS ORDERED: Sodium Chloride 0.9% 1000 ML 1,000 ML ONE (18:33)
--- NOTE | 2020-01-11 18:55 | ERPHSYRPT ---
- History of Present Illness Time Seen by Provider: 01/11/20 17:30 Exam Limitations: no limitations Patient Subjective Stated Complaint: covid sx, ear ache and neck pain Triage Nursing Assessment: pt to ED c/o bilat ear aches and neck pain onset today, as well as COVId sx since Wednesday. was already swabbed per PCP for flu and COVID yesterday, flu - and COVID still pending. called PCP today when ears and neck began to hurt and told to come to ED. rates 7/10 pain. ears without redness, throat appears irritated. no diff breathing or SOB. Physician History: Patient is a 29-year-old female referred to our ED for evaluation. Patient has been experiencing a headache bilateral posterior neck pain along with bilateral earache. Headache and neck pain started today. Subjective fever at home. Patient currently afebrile. Patient is also been experiencing myalgias. She was tested for flu and strep which were both negative. Patient had a COVID test yesterday. Results pending. Patient admits to history of meningitis. In light of patient symptomology a lumbar puncture was advised. Patient adamantly refused. Patient agrees to symptomatic care only at this time. Timing/Duration: today Severity: moderate Modifying Factors: Improves With: nothing Associated Symptoms: vomiting, abdominal pain, heartburn, diaphoresis, cough, headaches, No nausea, No shortness of breath, No loss of appetite, No malaise, No syncope, No seizure, No weakness Allergies/Adverse Reactions: adhesive Allergy (Mild, Verified 01/11/20 17:40) Rash cefaclor [From Ceclor] Allergy (Mild, Verified 01/11/20 17:40) Hives duloxetine [From Cymbalta] Allergy (Verified 01/11/20 17:40) ketorolac [From Toradol] Allergy (Verified 01/11/20 17:40) Hives paroxetine [From Paxil] Adverse Reaction (Verified 01/11/20 17:40) tramadol Adverse Reaction (Verified 01/11/20 17:40) Home Medications: Levothyroxine Sodium 50 Mcg [Synthroid 50 Mcg] 50 mcg PO DAILY 07/21/19 [History] Hx Tetanus, Diphtheria Vaccination/Date Given: Yes Hx Influenza Vaccination/Date Given: Yes Hx Pneumococcal Vaccination/Date Given: No Immunizations Up to Date: Yes Travel Risk - International Travel Have you traveled outside of the country in past 3 weeks: No - Coronavirus Screening Are you exhibiting any of the following symptoms?: No Close contact with a COVID-19 positive Pt in past 14-21 Days: No - Review of Systems Constitutional: No Symptoms, No Fever, No Chills Eyes: No Symptoms Ears, Nose, & Throat: No Symptoms Respiratory: No Symptoms, No Cough, No Dyspnea Cardiac: No Symptoms, No Chest Pain, No Edema, No Syncope Abdominal/Gastrointestinal: No Symptoms, No Abdominal Pain, No Nausea, No Vomiting, No Diarrhea Genitourinary Symptoms: No Symptoms, No Dysuria Musculoskeletal: No Symptoms, No Back Pain, No Neck Pain Skin: No Symptoms, No Rash Neurological: No Symptoms, No Dizziness, No Focal Weakness, No Sensory Changes Psychological: No Symptoms Endocrine: No Symptoms Hematologic/Lymphatic: No Symptoms Immunological/Allergic: No Symptoms All Other Systems: Reviewed and Negative - Past Medical History Pertinent Past Medical History: Yes Neurological History: Seizures ENT History: No Pertinent History Cardiac History: Other Respiratory History: Asthma Endocrine Medical History: Hypothyroidism, Other Musculoskeletal History: Other GI Medical History: GERD, Irritable Bowel History: Other Psycho-Social History: Anxiety, Attention Deficit Disorder, Depression, Panic Disorder Female Reproductive Disorders: Other Other Medical History: MITRAL VALVE PROLAPSE, HX OF SEIZURES BUT NO LONGER TAKING MEDICATION, "PREDIABETIC" - SUPPOSED TO TAKE METFORMIN BUT DOESN'T. REPO RTS SYSTEMIC LUPUS - Past Surgical History Past Surgical History: Yes Neuro Surgical History: No Pertinent History Cardiac: No Pertinent History Respiratory: No Pertinent History Gastrointestinal: Cholecystectomy Genitourinary: No Pertinent History Musculoskeletal: No Pertinent History Female Surgical History: Hysterectomy, Dilation & Curettage, Tubal Ligation, Other Other Surgical History: partial thyroidectomy. breast reconstruction-nodules removed. anesthesia problems - difficult to wake up, drop in bp. hysterectomy - Social History Smoking Status: Current every day smoker How long have you smoked: years Exposure to second hand smoke: Yes Drug Use: none Patient Lives Alone: No - Female History Hx Now: No - Nursing Vital Signs Nursing Vital Signs: Initial Vital Signs Temperature 98.5 F 01/11/20 17:26 Pulse Rate 95 H 01/11/20 17:26 Respiratory Rate 16 01/11/20 17:26 Blood Pressure 127/78 01/11/20 17:26 O2 Sat by Pulse Oximetry 95 01/11/20 17:26 Pain Scale Pain Intensity 7 - Physical Exam General Appearance: no apparent distress, alert Eye Exam: PERRL/EOMI, eyes nml inspection Ears, Nose, Throat Exam: normal ENT inspection, TMs normal, pharynx normal, moist mucous membranes Neck Exam: normal inspection, non-tender, supple, full range of motion Respiratory Exam: normal breath sounds, lungs clear, No respiratory distress Cardiovascular Exam: regular rate/rhythm, normal heart sounds, normal peripheral pulses Gastrointestinal/Abdomen Exam: soft, normal bowel sounds, No tenderness, No mass Back Exam: normal inspection, normal range of motion, No CVA tenderness, No vertebral tenderness Extremity Exam: normal inspection, normal range of motion, pelvis stable Neurologic Exam: alert, oriented x 3, cooperative, normal mood/affect, nml cerebellar function, nml station & gait, sensation nml, other (No focal or lateralizing symptoms. Neck pain with chin to chest motion. 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 Skin Exam: normal color, warm, dry, No rash Lymphatic Exam: No adenopathy SpO2 Interpretation: normal SpO2: 96 O2 Delivery: Room Air - Course Nursing assessment & vital signs reviewed: Yes Ordered Tests: Active Orders 24 hr Category Date Time Status IV Insertion STAT Care 01/11/20 17:54 Active CBC W DIFF Stat Lab 01/11/20 17:58 Completed CMP Stat Lab 01/11/20 17:54 Completed HCG,QUALITATIVE URINE Stat Lab 01/11/20 18:00 Completed UA W/RFX UR CULTURE Stat Lab 01/11/20 18:00 Completed Medication Summary Discontinued Medications Generic Name Dose Route Start Last Admin Trade Name Freq PRN Reason Stop Dose Admin Sodium Chloride 1,000 mls @ 999 mls/hr 01/11/20 17:54 01/11/20 18:36 Sodium Chloride 0.9% 1000 Ml IV 01/11/20 18:54 999 mls/hr .Q1H1M STA Administration Sodium Chloride Confirm 01/11/20 18:33 Sodium Chloride 0.9% 1000 Ml Administered 01/11/20 18:34 Dose 1,000 mls @ ud .ROUTE .[facility] Prochlorperazine Edisylate 10 mg 01/11/20 17:54 01/11/20 18:35 Compazine 10 Mg/2 Ml IV 01/11/20 17:55 10 mg STAT ONE Administration Prochlorperazine Edisylate Confirm 01/11/20 18:33 Compazine 10 Mg/2 Ml Administered 01/11/20 18:34 Dose 10 mg .ROUTE .[facility] Lab/Rad Data: Laboratory Result Diagrams 01/11/20 17:58 01/11/20 17:54 Laboratory Results 01/11/20 01/11/20 01/11/20 Range/Units 18:00 18:00 17:58 WBC 9.5 (4.0-10.5) K/mm3 RBC 5.12 (4.1-5.4) M/mm3 Hgb 15.9 (12.0-16.0) gm/dl Hct 45.9 (35-47) % MCV 89.6 (78-100) fl MCH 31.1 (26-32) pg MCHC 34.6 (32-36) g/dl RDW 12.2 (11.5-14.0) % Plt Count 328 (150-450) K/mm3 MPV 10.3 (7.5-11.0) fl Gran % 59.0 (36.0-66.0) % Eos # (Auto) 0.37 (0-0.5) Absolute Lymphs (auto) 3.04 (1.0-4.6) Absolute Monos (auto) 0.47 (0.0-1.3) Lymphocytes % 31.9 (24.0-44.0) % Monocytes % 4.9 (0.0-12.0) % Eosinophils % 3.9 (0.00-5.0) % Basophils % 0.3 (0.0-0.4) % Absolute Granulocytes 5.62 (1.4-6.9) Basophils # 0.03 (0-0.4) Sodium (137-145) mmol/L Potassium (3.5-5.1) mmol/L Chloride (98-107) mmol/L Carbon Dioxide (22-30) mmol/L Anion Gap (5-15) MEQ/L BUN (7-17) mg/dL Creatinine (0.52-1.04) mg/dL Estimated GFR ML/MIN Glucose (74-106) mg/dL Calcium (8.4-10.2) mg/dL Total Bilirubin (0.2-1.3) mg/dL AST (14-36) U/L ALT (0-35) U/L Alkaline Phosphatase (38-126) U/L Serum Total Protein (6.3-8.2) g/dL Albumin (3.5-5.0) g/dL Urine Color YELLOW (YELLOW) Urine Appearance SLIGHTLY CLOUDY (CLEAR) Urine pH 5.0 (5-6) Ur Specific [place] 1.021 (1.005-1.025) Urine Protein NEGATIVE (Negative) Urine Ketones NEGATIVE (NEGATIVE) Urine Blood SMALL (0-5) Matthew/ul Urine Nitrite NEGATIVE (NEGATIVE) Urine Bilirubin NEGATIVE (NEGATIVE) Urine Urobilinogen NEGATIVE (0-1) mg/dL Ur Leukocyte Esterase NEGATIVE (NEGATIVE) Urine WBC (Auto) 0-2 (0-5) /HPF Urine RBC (Auto) 3-5 (0-2) /HPF U Epithel Cells (Auto) RARE (FEW) /HPF Urine Bacteria (Auto) RARE (NEGATIVE) /HPF Urine Mucus (Auto) SLIGHT (NEGATIVE) /HPF Urine Culture Reflexed NO (NO) Urine Glucose NEGATIVE (NEGATIVE) mg/dL Urine HCG, Qual NEGATIVE (Negative) 01/11/20 Range/Units 17:54 WBC (4.0-10.5) K/mm3 RBC (4.1-5.4) M/mm3 Hgb (12.0-16.0) gm/dl Hct (35-47) % MCV (78-100) fl MCH (26-32) pg MCHC (32-36) g/dl RDW (11.5-14.0) % Plt Count (150-450) K/mm3 MPV (7.5-11.0) fl Gran % (36.0-66.0) % Eos # (Auto) (0-0.5) Absolute Lymphs (auto) (1.0-4.6) Absolute Monos (auto) (0.0-1.3) Lymphocytes % (24.0-44.0) % Monocytes % (0.0-12.0) % Eosinophils % (0.00-5.0) % Basophils % (0.0-0.4) % Absolute Granulocytes (1.4-6.9) Basophils # (0-0.4) Sodium 139 (137-145) mmol/L Potassium 3.5 (3.5-5.1) mmol/L Chloride 104 (98-107) mmol/L Carbon Dioxide 26 (22-30) mmol/L Anion Gap 13.0 (5-15) MEQ/L BUN 11 (7-17) mg/dL Creatinine 0.66 (0.52-1.04) mg/dL Estimated GFR > 60.0 ML/MIN Glucose 133 H (74-106) mg/dL Calcium 9.8 (8.4-10.2) mg/dL Total Bilirubin 0.50 (0.2-1.3) mg/dL AST 25 (14-36) U/L ALT 24 (0-35) U/L Alkaline Phosphatase 95 (38-126) U/L Serum Total Protein 7.8 (6.3-8.2) g/dL Albumin 4.7 (3.5-5.0) g/dL Urine Color (YELLOW) Urine Appearance (CLEAR) Urine pH (5-6) Ur Specific [place] (1.005-1.025) Urine Protein (Negative) Urine Ketones (NEGATIVE) Urine Blood (0-5) Matthew/ul Urine Nitrite (NEGATIVE) Urine Bilirubin (NEGATIVE) Urine Urobilinogen (0-1) mg/dL Ur Leukocyte Esterase (NEGATIVE) Urine WBC (Auto) (0-5) /HPF Urine RBC (Auto) (0-2) /HPF U Epithel Cells (Auto) (FEW) /HPF Urine Bacteria (Auto) (NEGATIVE) /HPF Urine Mucus (Auto) (NEGATIVE) /HPF Urine Culture Reflexed (NO) Urine Glucose (NEGATIVE) mg/dL Urine HCG, Qual (Negative) - Progress Progress: improved Progress Note: 01/11/20 18:49 Patient reassessed. Symptoms significantly improved. Patient declined a lumbar puncture as she has had meningitis in the past. She had a lumbar puncture w hich was complicated by a post LP headache. Patient adamantly refused a lumbar puncture. Risks and benefits of LP were discussed. In spite of the potential outcome patient declined lumbar puncture. Patient is of sound mind. She is appropriate to make informed independent medical decisions. Patient understand that declining lumbar puncture may result in delayed diagnosis, worsening of symptoms, increased risk of morbidity, mortality, short and long-term disability including . In spite of her risks patient has refused a lumbar puncture. Patient understand that she may return to our ED at any point for reevaluation and/or lumbar puncture. Patient agrees to follow-up with her primary care doctor within 48 hours for reevaluation. Counseled pt/family regarding: lab results, diagnosis, need for follow-up, rad results - Departure Departure Disposition: Home Clinical Impression: Viral illness, Meningismus Condition: Stable Critical Care Time: No Referrals: ALMA CALABRESE [Primary Care Provider] - Additional Instructions: Discharge/Care Plan AGNIESZKA HE IGNACIO was seen on 01/11/20 in the Emergency Room. The patient was counseled regarding Diagnosis,Lab results, Imaging studies, need for follow up and when to return to the Emergency Room. Prescriptions given: Discharge Note I have spoken with the patient and/or caregivers. I have explained the patient's condition, diagnosis and treatment plan based on the information available to me at this time. I have answered the patient's and/or caregiver's questions and addressed any concerns. The patient and/or caregivers have as good understanding of the patient's diagnosis, condition and treatment plan as can be expected at this point. The vital signs have been stable. The patient's condition is stable and appropriate for discharge from the emergency department. The patient will pursue further outpatient evaluation with the primary care physician or other designated or consulting physician as outlined in the discharge instructions. The patient and/or caregivers are agreeable to this plan of care and follow-up instructions have been explained in detail. The patient and/or caregivers have received these instruction. The patient/and or caregivers are aware that any significant change in condition or worsening of symptoms should prompt an immediate return to this or the closest emergency department or call 911.
[2020-01-11 19:08] VITALS: BP 106/85; PULSE 72
== END 2020-01-11 19:30 | disposition home or self-care (01) ==
LOC: ED 17:20
DX: B34.9 Viral infection, unspecified (principal); R29.1 Meningismus; H92.03 Otalgia, bilateral; M54.2 Cervicalgia; R51 Headache; R11.10 Vomiting, unspecified; R10.9 Unspecified abdominal pain; R12 Heartburn; R61 Generalized hyperhidrosis; R05 Cough; Z79.899 Other long term (current) drug therapy; E03.9 Hypothyroidism, unspecified
CPT/HCPCS: 36000; 36415; 80053; 81001; 84703; 85025; 96360; 96374; 99284

== ENCOUNTER 2020-05-29 01:33 | Emergency (ER) | payer OTHER ==
[2020-05-29 02:13] LABS: Absolute Neutrophil Ct (ANC) 7.18 (1.4-6.9); BASOPHIL % 0.2 % (0.0-0.4); Basophil (Absolute #) 0.03 (0-0.4); Eosinophil % 2.2 % (0.00-5.0); Eosinophil (Absolute #) 0.28 (0-0.5); Hematocrit 44.5 % (35-47); Hemoglobin 15.4 gm/dl (12.0-16.0); Lymphocyte (Absolute #) 4.52 (1.0-4.6); Lymphocytes % 35.6 % (24.0-44.0); Mean Cell Volume 88.8 fl (78-100); Mean Corpuscular Hemoglobin 30.7 pg (26-32); Mean Corpuscular Hgb Concent. 34.6 g/dl (32-36); Mean Platelet Volume 10.1 fl (7.5-11.0); Monocytes % 5.5 % (0.0-12.0); Neutrophil % 56.5 % (36.0-66.0); Platelet Count 339 K/mm3 (150-450); Red Blood Count 5.01 M/mm3 (4.1-5.4); Red Cell Distribution Width 12.5 % (11.5-14.0); White Blood Count 12.7 K/mm3 (4.0-10.5)
[2020-05-29 02:24] LABS: ALBUMIN 4.3 g/dL (3.5-5.0); ALKALINE PHOSPHATASE 115 U/L (38-126); ANION GAP 12.3 MEQ/L (5-15); BLOOD UREA NITROGEN 16 mg/dL (7-17); CHLORIDE 106 mmol/L (98-107); Calcium 9.8 mg/dL (8.4-10.2); Carbon Dioxide 22 mmol/L (22-30); Creatinine 1 0.66 mg/dL (0.52-1.04); EST GLOMERULAR FILTRATION RATE > 60.0 ML/MIN; ETHYL ALCOHOL < 10 mg/dL (0-10); Glucose 108 mg/dL (74-106); MAGNESIUM 1.8 mg/dL (1.6-2.3); Potassium 3.7 mmol/L (3.5-5.1); SGOT/AST 18 U/L (14-36); SGPT/ALT 19 U/L (0-35); SODIUM 137 mmol/L (137-145); Total Protein 7.7 g/dL (6.3-8.2)
--- NOTE | 2020-05-29 02:26 | ERPHSYRPT ---
- History of Present Illness Time Seen by Provider: 05/29/20 01:40 Historian: patient Exam Limitations: no limitations Patient Subjective Stated Complaint: pt state she has been having palpitations throughout the day with occasional dizzy spells. approx 2-3 hours ago she began having chest pain radiating to her neck and lt arm. states she has heaviness in her chest and arm Triage Nursing Assessment: pt alert and oreinted, answers questions approp. pt ambulatory with steady gait noted. respirations nonlabored with lungs cta. skin pink warm and dry. heart rate 102 on monitor, sinus tach. Physician History: Patient is a 29-year-old female with history of lupus, diabetes current smoker presents to our ED with complaints of heart palpitations and dizzy spells that have been intermittent throughout the day. Approximately 2 to 3 hours prior to arrival patient developed chest pain and a heavy sensation in her chest and left arm. Patient states her chest pain tends to radiate to her left arm as well. No nausea or vomiting. No diaphoresis. No trauma no fevers. Patient has history of anxiety and states that her symptoms were somewhat different from her typical anxiety attacks. No active chest pain during time of this HPI. Symptoms are mild to moderate in intensity. No specific worsening or improving factors. Patient voices no other complaints at this time. Timing/Duration: today Activities at Onset: none Quality: aching Location: substernal Chest Pain Radiation: arm, back Severity of Pain-Max: moderate Severity of Pain-Current: mild Modifying Factors: Improves With: nothing Prior Chest Pain/Cardiac Workup: no prior chest pain Nitro Today/Relief: no nitro taken today Aspirin Treatment Today: no aspirin today Allergies/Adverse Reactions: adhesive Allergy (Mild, Verified 01/11/20 17:40) Rash cefaclor [From Ceclor] Allergy (Mild, Verified 01/11/20 17:40) Hives duloxetine [From Cymbalta] Allergy (Verified 01/11/20 17:40) ketorolac [From Toradol] Allergy (Verified 01/11/20 17:40) Hives paroxetine [From Paxil] Adverse Reaction (Verified 01/11/20 17:40) tramadol Adverse Reaction (Verified 01/11/20 17:40) Home Medications: Levothyroxine Sodium 50 Mcg [Synthroid 50 Mcg] 50 mcg PO DAILY 07/21/19 [History] Metformin HCl 500 mg [Glucophage 500 MG] 500 mg PO DAILY 05/29/20 [History] clonazePAM [Klonopin] 1 mg PO BID PRN 05/29/20 [History] Hx Tetanus, Diphtheria Vaccination/Date Given: Yes Hx Influenza Vaccination/Date Given: No Hx Pneumococcal Vaccination/Date Given: No Immunizations Up to Date: Yes Travel Risk - International Travel Have you traveled outside of the country in past 3 weeks: No - Coronavirus Screening Are you exhibiting any of the following symptoms?: No Close contact with a COVID-19 positive Pt in past 14-21 Days: No - Review of Systems Constitutional: No Symptoms, No Fever, No Chills Eyes: No Symptoms Ears, Nose, & Throat: No Symptoms Respiratory: No Symptoms, No Cough, No Dyspnea Cardiac: No Symptoms, No Chest Pain, No Edema, No Syncope Abdominal/Gastrointestinal: No Symptoms, No Abdominal Pain, No Nausea, No Vomi ting, No Diarrhea Genitourinary Symptoms: No Symptoms, No Dysuria Musculoskeletal: No Symptoms, No Back Pain, No Neck Pain Skin: No Symptoms, No Rash Neurological: No Symptoms, No Dizziness, No Focal Weakness, No Sensory Changes Psychological: No Symptoms Endocrine: No Symptoms Hematologic/Lymphatic: No Symptoms Immunological/Allergic: No Symptoms All Other Systems: Reviewed and Negative - Past Medical History Pertinent Past Medical History: Yes Neurological History: Seizures ENT History: No Pertinent History Cardiac History: Other Respiratory History: Asthma Endocrine Medical History: Hypothyroidism, Other Musculoskeletal History: Other GI Medical History: GERD, Irritable Bowel History: Other Psycho-Social History: Anxiety, Attention Deficit Disorder, Depression, Panic Disorder Female Reproductive Disorders: Other Other Medical History: MITRAL VALVE PROLAPSE, HX OF SEIZURES BUT NO LONGER TAKING MEDICATION, "PREDIABETIC" - SUPPOSED TO TAKE METFORMIN BUT DOESN'T. REPORTS SYSTEMIC LUPUS - Past Surgical History Past Surgical History: Yes Neuro Surgical History: No Pertinent History Cardiac: No Pertinent History Respiratory: No Pertinent History Gastrointestinal: Cholecystectomy Genitourinary: No Pertinent History Musculoskeletal: No Pertinent History Female Surgical History: Hysterectomy, Dilation & Curettage, Tubal Ligation, Other Other Surgical History: partial thyroidectomy. breast reconstruction-nodules removed. anesthesia problems - difficult to wake up, drop in bp. hysterectomy - Social History Smoking Status: Current every day smoker How long have you smoked: 4 yrs Exposure to second hand smoke: Yes Drug Use: none Patient Lives Alone: No - Female History Hx Last Menstrual Period: hyster Hx Now: No - Nursing Vital Signs Nursing Vital Signs: Initial Vital Signs Temperature 98.6 F 05/29/20 01:37 Pulse Rate 104 H 05/29/20 01:37 Respiratory Rate 18 05/29/20 01:37 Blood Pressure 130/100 05/29/20 01:37 O2 Sat by Pulse Oximetry 98 05/29/20 01:37 Pain Scale Pain Intensity 0 - Physical Exam General Appearance: no apparent distress, alert Eye Exam: PERRL/EOMI, eyes nml inspection Ears, Nose, Throat Exam: normal ENT inspection, moist mucous membranes Neck Exam: normal inspection, non-tender, supple, full range of motion Respiratory Exam: normal breath sounds, lungs clear, No respiratory distress Cardiovascular Exam: regular rate/rhythm, normal heart sounds Gastrointestinal/Abdomen Exam: soft, No tenderness, No mass Back Exam: normal inspection, No CVA tenderness, No vertebral tenderness Extremity Exam: normal inspection, normal range of motion Neurologic Exam: alert, oriented x 3, cooperative, normal mood/affect, sensation nml, No motor deficits Skin Exam: normal color, warm, dry SpO2 Interpretation: normal SpO2: 98 O2 Delivery: Room Air - Course Nursing assessment & vital signs reviewed: Yes EKG Interpreted by Me: RATE ([id number]), Sinus Rhythm, NORMAL AXIS, NORMAL INTERVALS - CT Exams Chest CT Interpretation: Tele-radiologist Report (No Pulmonary embolus. Evidence of cholecystectomy. Negative CTA chest) Ordered Tests: Active Orders 24 hr Category Date Time Status Substation Operator STAT Care 05/29/20 01:51 Active EKG-ER Only STAT Care 05/29/20 01:51 Active IV Insertion STAT Care 05/29/20 01:51 Active Pulse Oximetry (ED) STAT Care 05/29/20 01:51 Active CHEST 1 VIEW (PORTABLE) Stat Exams 05/29/20 01:51 Taken CHEST WITH CONTRAST [CT] Stat Exams 05/29/20 02:42 Taken CBC W DIFF Stat Lab 05/29/20 02:00 Completed CMP Stat Lab 05/29/20 02:00 Completed D-DIMER QUANTITATIVE Stat Lab 05/29/20 02:00 Completed ETHYL ALCOHOL Stat Lab 05/29/20 02:00 Completed MAGNESIUM Stat Lab 05/29/20 02:00 Completed TROPONIN Q3H Lab 05/29/20 02:00 Completed TROPONIN Q3H Lab 05/29/20 04:20 Completed TROPONIN Q3H Lab 05/29/20 08:15 Ordered TROPONIN Q3H Lab 05/29/20 11:15 Ordered TROPONIN Q3H Lab 05/29/20 14:15 Ordered UA W/RFX UR CULTURE Stat Lab 05/29/20 02:33 Completed Urine Triage Profile Stat Lab 05/29/20 02:33 Completed Lab/Rad Data: Laboratory Result Diagrams 05/29/20 02:00 05/29/20 02:00 Laboratory Results 05/29/20 05/29/20 05/29/20 Range/Units 04:20 02:33 02:33 WBC (4.0-10.5) K/mm3 RBC (4.1-5.4) M/mm3 Hgb (12.0-16.0) gm/dl Hct (35-47) % MCV (78-100) fl MCH (26-32) pg MCHC (32-36) g/dl RDW (11.5-14.0) % Plt Count (150-450) K/mm3 MPV (7.5-11.0) fl Gran % (36.0-66.0) % Eos # (Auto) (0-0.5) Absolute Lymphs (auto) (1.0-4.6) Absolute Monos (auto) (0.0-1.3) Lymphocytes % (24.0-44.0) % Monocytes % (0.0-12.0) % Eosinophils % (0.00-5.0) % Basophils % (0.0-0.4) % Absolute Granulocytes (1.4-6.9) Basophils # (0-0.4) D-Dimer (215-500) ng/mL Sodium (137-145) mmol/L Potassium (3.5-5.1) mmol/L Chloride (98-107) mmol/L Carbon Dioxide (22-30) mmol/L Anion Gap (5-15) MEQ/L BUN (7-17) mg/dL Creatinine (0.52-1.04) mg/dL Estimated GFR ML/MIN Glucose (74-106) mg/dL Calcium (8.4-10.2) mg/dL Magnesium (1.6-2.3) mg/dL Total Bilirubin (0.2-1.3) mg/dL AST (14-36) U/L ALT (0-35) U/L Alkaline Phosphatase (38-126) U/L Troponin I < 0.012 (0.000-0.034) ng/mL Serum Total Protein (6.3-8.2) g/dL Albumin (3.5-5.0) g/dL Urine Color YELLOW (YELLOW) Urine Appearance SLIGHTLY CLOUDY (CLEAR) Urine pH 5.0 (5-6) Ur Specific [place] 1.023 (1.005-1.025) Urine Protein NEGATIVE (Negative) Urine Ketones NEGATIVE (NEGATIVE) Urine Blood NEGATIVE (0-5) Matthew/ul Urine Nitrite NEGATIVE (NEGATIVE) Urine Bilirubin NEGATIVE (NEGATIVE) Urine Urobilinogen NEGATIVE (0-1) mg/dL Ur Leukocyte Esterase NEGATIVE (NEGATIVE) Urine WBC (Auto) NONE (0-5) /HPF Urine RBC (Auto) NONE (0-2) /HPF U Epithel Cells (Auto) RARE (FEW) /HPF Urine Bacteria (Auto) NONE (NEGATIVE) /HPF Urine Mucus (Auto) SLIGHT (NEGATIVE) /HPF Urine Culture Reflexed NO (NO) Urine Glucose NEGATIVE (NEGATIVE) mg/dL Urine Opiates Level NEGATIVE (NEGATIVE) Ur Methadone NEGATIVE (NEGATIVE) Urine Barbiturates NEGATIVE (NEGATIVE) Ur Phencyclidine (PCP) NEGATIVE (NEGATIVE) Urine Amphetamine NEGATIVE (NEGATIVE) U Benzodiazepine Level NEGATIVE (NEGATIVE) Urine Cocaine NEGATIVE (NEGATIVE) Urine Marijuana (THC) NEGATIVE (NEGATIVE) Ethyl Alcohol (0-10) mg/dL 05/29/20 05/29/20 05/29/20 Range/Units 02:00 02:00 02:00 WBC (4.0-10.5) K/mm3 RBC (4.1-5.4) M/mm3 Hgb (12.0-16.0) gm/dl Hct (35-47) % MCV (78-100) fl MCH (26-32) pg MCHC (32-36) g/dl RDW (11.5-14.0) % Plt Count (150-450) K/mm3 MPV (7.5-11.0) fl Gran % (36.0-66.0) % Eos # (Auto) (0-0.5) Absolute Lymphs (auto) (1.0-4.6) Absolute Monos (auto) (0.0-1.3) Lymphocytes % (24.0-44.0) % Monocytes % (0.0-12.0) % Eosinophils % (0.00-5.0) % Basophils % (0.0-0.4) % Absolute Granulocytes (1.4-6.9) Basophils # (0-0.4) D-Dimer 557 H* (215-500) ng/mL Sodium 137 (137-145) mmol/L Potassium 3.7 (3.5-5.1) mmol/L Chloride 106 (98-107) mmol/L Carbon Dioxide 22 (22-30) mmol/L Anion Gap 12.3 (5-15) MEQ/L BUN 16 (7-17) mg/dL Creatinine 0.66 (0.52-1.04) mg/dL Estimated GFR > 60.0 ML/MIN Glucose 108 H (74-106) mg/dL Calcium 9.8 (8.4-10.2) mg/dL Magnesium 1.8 (1.6-2.3) mg/dL Total Bilirubin 0.20 (0.2-1.3) mg/dL AST 18 (14-36) U/L ALT 19 (0-35) U/L Alkaline Phosphatase 115 (38-126) U/L Troponin I < 0.012 (0.000-0.034) ng/mL Serum Total Protein 7.7 (6.3-8.2) g/dL Albumin 4.3 (3.5-5.0) g/dL Urine Color (YELLOW) Urine Appearance (CLEAR) Urine pH (5-6) Ur Specific [place] (1.005-1.025) Urine Protein (Negative) Urine Ketones (NEGATIVE) Urine Blood (0-5) Matthew/ul Urine Nitrite (NEGATIVE) Urine Bilirubin (NEGATIVE) Urine Urobilinogen (0-1) mg/dL Ur Leukocyte Esterase (NEGATIVE) Urine WBC (Auto) (0-5) /HPF Urine RBC (Auto) (0-2) /HPF U Epithel Cells (Auto) (FEW) /HPF Urine Bacteria (Auto) (NEGATIVE) /HPF Urine Mucus (Auto) (NEGATIVE) /HPF Urine Culture Reflexed (NO) Urine Glucose (NEGATIVE) mg/dL Urine Opiates Level (NEGATIVE) Ur Methadone (NEGATIVE) Urine Barbiturates (NEGATIVE) Ur Phencyclidine (PCP) (NEGATIVE) Urine Amphetamine (NEGATIVE) U Benzodiazepine Level (NEGATIVE) Urine Cocaine (NEGATIVE) Urine Marijuana (THC) (NEGATIVE) Ethyl Alcohol < 10 (0-10) mg/dL 05/29/20 Range/Units 02:00 WBC 12.7 H (4.0-10.5) K/mm3 RBC 5.01 (4.1-5.4) M/mm3 Hgb 15.4 (12.0-16.0) gm/dl Hct 44.5 (35-47) % MCV 88.8 (78-100) fl MCH 30.7 (26-32) pg MCHC 34.6 (32-36) g/dl RDW 12.5 (11.5-14.0) % Plt Count 339 (150-450) K/mm3 MPV 10.1 (7.5-11.0) fl Gran % 56.5 (36.0-66.0) % Eos # (Auto) 0.28 (0-0.5) Absolute Lymphs (auto) 4.52 (1.0-4.6) Absolute Monos (auto) 0.70 (0.0-1.3) Lymphocytes % 35.6 (24.0-44.0) % Monocytes % 5.5 (0.0-12.0) % Eosinophils % 2.2 (0.00-5.0) % Basophils % 0.2 (0.0-0.4) % Absolute Granulocytes 7.18 H (1.4-6.9) Basophils # 0.03 (0-0.4) D-Dimer (215-500) ng/mL Sodium (137-145) mmol/L Potassium (3.5-5.1) mmol/L Chloride (98-107) mmol/L Carbon Dioxide (22-30) mmol/L Anion Gap (5-15) MEQ/L BUN (7-17) mg/dL Creatinine (0.52-1.04) mg/dL Estimated GFR ML/MIN Glucose (74-106) mg/dL Calcium (8.4-10.2) mg/dL Magnesium (1.6-2.3) mg/dL Total Bilirubin (0.2-1.3) mg/dL AST (14-36) U/L ALT (0-35) U/L Alkaline Phosphatase (38-126) U/L Troponin I (0.000-0.034) ng/mL Serum Total Protein (6.3-8.2) g/dL Albumin (3.5-5.0) g/dL Urine Color (YELLOW) Urine Appearance (CLEAR) Urine pH (5-6) Ur Specific [place] (1.005-1.025) Urine Protein (Negative) Urine Ketones (NEGATIVE) Urine Blood (0-5) Matthew/ul Urine Nitrite (NEGATIVE) Urine Bilirubin (NEGATIVE) Urine Urobilinogen (0-1) mg/dL Ur Leukocyte Esterase (NEGATIVE) Urine WBC (Auto) (0-5) /HPF Urine RBC (Auto) (0-2) /HPF U Epithel Cells (Auto) (FEW) /HPF Urine Bacteria (Auto) (NEGATIVE) /HPF Urine Mucus (Auto) (NEGATIVE) /HPF Urine Culture Reflexed (NO) Urine Glucose (NEGATIVE) mg/dL Urine Opiates Level (NEGATIVE) Ur Methadone (NEGATIVE) Urine Barbiturates (NEGATIVE) Ur Phencyclidine (PCP) (NEGATIVE) Urine Amphetamine (NEGATIVE) U Benzodiazepine Level (NEGATIVE) Urine Cocaine (NEGATIVE) Urine Marijuana (THC) (NEGATIVE) Ethyl Alcohol (0-10) mg/dL - Progress Progress: improved Air Movement: good Progress Note: 05/29/20 05:12 Patient reassessed. Symptoms essentially resolved. Troponin negative x2. EKG negative for ischemia/STEMI. D-dimer positive. CTA chest negative. Vitals st able. No indication for further evaluation or treatment at this time. Will discharge home. Heart score 1 which is considered low. Risk of MACE of 0.9 to 1.7%. Patient agrees to follow-up with her primary care doctor within 48 hours for reevaluation. Blood Culture(s) Obtained: No Antibiotics given: No Counseled pt/family regarding: lab results, diagnosis, need for follow-up, rad results - Departure Departure Disposition: Home Clinical Impression: Chest pain Condition: Stable Critical Care Time: No Referrals: ALMA CALABRESE [Primary Care Provider] - Instructions: Chest Pain (DC) Additional Instructions: Discharge/Care Plan [id number] PIERRE was seen on 05/29/20 in the Emergency Room. The patient was counseled regarding Diagnosis,Lab results, Imaging studies, need for follow up and when to return to the Emergency Room. Prescriptions given: Discharge Note I have spoken with the patient and/or caregivers. I have explained the patient's condition, diagnosis and treatment plan based on the information available to me at this time. I have answered the patient's and/or caregiver's questions and addressed any concerns. The patient and/or caregivers have as good understanding of the patient's diagnosis, condition and treatment plan as can be expected at this point. The vital signs have been stable. The patient's condition is stable and appropriate for discharge from the emergency department. The patient will pursue further outpatient evaluation with the primary care physician or other designated or consulting physician as outlined in the discharge instructions. The patient and/or caregivers are agreeable to this plan of care and follow-up instructions have been explained in detail. The patient and/or caregivers have received these instruction. The patient/and or caregivers are aware that any significant change in condition or worsening of symptoms should prompt an immediate return to this or the closest emergency department or call 911.
[2020-05-29 03:00] LABS: Appearance SLIGHTLY CLOUDY (CLEAR); Bilirubin NEGATIVE (NEGATIVE); Blood NEGATIVE Ery/ul (0-5); Epithelial Cells RARE /HPF (FEW); Glucose NEGATIVE (NEGATIVE); Ketones NEGATIVE (NEGATIVE); Leukocyte Esterase NEGATIVE (NEGATIVE); Mucus SLIGHT /HPF (NEGATIVE); Nitrite NEGATIVE (NEGATIVE); Protein,Urine Dip NEGATIVE (Negative); Specific Gravity 1.023 (1.005-1.025); Urobilinogen NEGATIVE mg/dL (0-1)
[2020-05-29 03:08] LABS: Amphetamine,Urine NEGATIVE (NEGATIVE); Barbiturate,Urine NEGATIVE (NEGATIVE); Benzodiazepine,Urine NEGATIVE (NEGATIVE); Cocaine,Urine NEGATIVE (NEGATIVE); Methadone,Urine NEGATIVE (NEGATIVE); Opiate,Urine NEGATIVE (NEGATIVE); PCP,Urine NEGATIVE (NEGATIVE); THC,Urine NEGATIVE (NEGATIVE)
[2020-05-29 05:16] VITALS: O2SAT 98
[2020-05-29 05:19] VITALS: BP 127/81; PULSE 76
--- NOTE | 2020-05-29 09:15 | XRAY ---
Indication: Chest pain. Elevated d-dimer. Multiple contiguous axial images obtained through the chest using 80 cc Isovue 370 contrast and PE protocol. Comparison: None There is suboptimal opacification of the pulmonary arteries limiting evaluation for pulmonary embolus. No obvious central pulmonary embolus. Heart is not enlarged. Aorta is normal in course and caliber. No pathologic mediastinal/hilar lymphadenopathy. Lungs are inflated and clear. Bony thorax intact. Incidental intact bilateral breast implants. Limited upper abdomen demonstrates mild fatty liver, 14.3 cm splenomegaly, and cholecystectomy. Impression: 1. Pulmonary embolus evaluation limited due to suboptimal contrast opacification. No obvious central pulmonary embolus. 2. Incidental fatty liver, splenomegaly, and bilateral breast implants. 3. Remaining CT chest with contrast exam is negative. Comment: Preliminary interpretation was made by [facility]. No critical discrepancy.
--- NOTE | 2020-05-29 09:15 | XRAY ---
Indication: Chest pain. Comparison: November 26, 2017. Portable chest again demonstrates normal heart, lungs, and bony thorax.
== END 2020-05-29 05:28 | disposition home or self-care (01) ==
LOC: ED 01:33
DX: R07.89 Other chest pain (principal); E11.9 Type 2 diabetes mellitus without complications; Z79.899 Other long term (current) drug therapy; E03.9 Hypothyroidism, unspecified
CPT/HCPCS: 36000; 36415; 71045; 71260; 80053; 80307; 81001; 83735; 84484; 85025; 85379; 93005; 93041; 94760; 99284; G0480

== ENCOUNTER 2020-07-14 13:44 | Emergency (ER) | payer OTHER ==
--- NOTE | 2020-07-14 14:12 | ERPHSYRPT ---
- History of Present Illness Time Seen by Provider: 07/14/20 14:07 Source: patient Exam Limitations: no limitations Patient Subjective Stated Complaint: fall down stairs today Triage Nursing Assessment: pt to ED c/o R hand pain after falling down stairs today. denies hitting head and no LOC. denies blodo thinners. limited ROM with R hand, noted mild swelling to thumb under hand and tender to palp. rates 8/10 sharp constant pain that does not radiate out of hand. staes body is some what sore from fall. down 4 stairs. Physician History: pt fell down 4 stairs after missing a step looking for dog today. Denies hitting head , no LOC, no head or neck pain. Not SObreath, No CP or abd pain . Chest nontender , Abd soft nontender. normal neuro. full ROM all ext except right hand which is tender at navicular shuff box. some mild pain at full ROM right shoulder, right ankle, Left Knee. Occurred: just prior to arrival Reason for Fall: tripped, fell from standing pos Injuries/Pain Location: upper extremity Loss of Consciousness: no loss of consciousness Quality: sharpness, throbbing Severity of Pain-Max: moderate Severity of Pain-Current: moderate Modifying Factors: Improves With: cold therapy, immobilization, movement Associated Symptoms (Fall): denies symptoms Allergies/Adverse Reactions: adhesive Allergy (Mild, Verified 07/14/20 13:59) Rash cefaclor [From Ceclor] Allergy (Mild, Verified 07/14/20 13:59) Hives duloxetine [From Cymbalta] Allergy (Verified 07/14/20 13:59) ketorolac [From Toradol] Allergy (Verified 07/14/20 13:59) Hives paroxetine [From Paxil] Adverse Reaction (Verified 07/14/20 13:59) tramadol Adverse Reaction (Verified 07/14/20 13:59) Home Medications: Levothyroxine Sodium 50 Mcg [Synthroid 50 Mcg] 50 mcg PO DAILY 07/21/19 [History] Metformin HCl 500 mg [Glucophage 500 MG] 500 mg PO DAILY 05/29/20 [History] clonazePAM [Klonopin] 1 mg PO BID PRN 05/29/20 [History] Semaglutide [Ozempic] 1 mg SQ WEEKLY 07/14/20 [History] Hx Tetanus, Diphtheria Vaccination/Date Given: Yes Hx Influenza Vaccination/Date Given: No Hx Pneumococcal Vaccination/Date Given: No Travel Risk - International Travel Have you traveled outside of the country in past 3 weeks: No - Coronavirus Screening Are you exhibiting any of the following symptoms?: No Close contact with a COVID-19 positive Pt in past 14-21 Days: No - Review of Systems Constitutional: No Fever, No Chills Eyes: No Symptoms Ears, Nose, & Throat: No Symptoms Respiratory: No Cough, No Dyspnea Cardiac: No Chest Pain, No Edema, No Syncope Abdominal/Gastrointestinal: No Abdominal Pain, No Nausea, No Vomiting, No Diarrhea Genitourinary Symptoms: No Dysuria Musculoskeletal: Fall, Injury, Joint Pain (right ankle, hand, shoulder, Left knee), No Back Pain, No Neck Pain Skin: No Rash Neurological: No Symptoms, No Dizziness, No Focal Weakness, No Headache, No Seizure, No Sensory Changes, No Vertigo Psychological: No Symptoms Endocrine: No Symptoms Hematologic/Lymphatic: No Symptoms Immunological/Allergic: No Symptoms All Other Systems: Reviewed and Negative - Past Medical History Pertinent Past Medical History: Yes Neurological History: Seizures ENT History: No Pertinent History Cardiac History: Other Respiratory History: Asthma Endocrine Medical History: Diabetes Type II, Hypothyroidism, Other Musculoskeletal History: Other GI Medical History: GERD, Irritable Bowel History: Other Psycho-Social History: Anxiety, Attention Deficit Disorder, Depression, Panic Disorder Female Reproductive Disorders: Other Other Medical History: MITRAL VALVE PROLAPSE, HX OF SEIZURES BUT NO LONGER TAKING MEDICATION,. REPORTS SYSTEMIC LUPUS - Past Surgical History Past Surgical History: Yes Neuro Surgical History: No Pertinent History Cardiac: No Pertinent History Respiratory: No Pertinent History Gastrointestinal: Cholecystectomy Genitourinary: No Pertinent History Musculoskeletal: No Pertinent History Female Surgical History: Hysterectomy, Dilation & Curettage, Tubal Ligation, Other Other Surgical History: partial thyroidectomy. breast reconstruction-nodules removed. anesthesia problems - difficult to wake up, drop in bp. hysterectomy - Social History Smoking Status: Current every day smoker How long have you smoked: 4 yrs Exposure to second hand smoke: Yes Drug Use: none Patient Lives Alone: No - Female History Hx Now: No (hysterectomy) - Nursing Vital Signs Nursing Vital Signs: Initial Vital Signs Temperature 97.7 F 07/14/20 13:47 Pulse Rate 73 07/14/20 13:47 Respiratory Rate 18 07/14/20 13:47 Blood Pressure 120/80 07/14/20 13:47 O2 Sat by Pulse Oximetry 99 07/14/20 13:47 Pain Scale Pain Intensity [] 3 Pain Intensity [] 3 Pain Intensity 8 - Ziggy Coma Score Best Eye Response (Ziggy): (4) open spontaneously Best Verbal Response (Ziggy): (5) oriented Best Motor Response (Spencer): (6) obeys commands Spencer Total: 15 - Physical Exam General Appearance: no apparent distress, alert Head Injury: no evidence of injury Eye Exam: PERRL/EOMI ENT Exam: airway nml Neck Exam: normal inspection, No tenderness Respiratory/Chest Exam: normal breath sounds, No chest tenderness, No respiratory distress Cardiovascular Exam: normal heart sounds, regular rate/rhythm Gastrointestinal Exam: soft, No tenderness, No distention, No guarding, No ecchymosis Rectal Exam: deferred Back Exam: normal inspection, No vertebral tenderness Extremity Exam: normal inspection, normal range of motion, pelvis stable, No deformities Peripheral Pulses: carotid (R): 2+, carotid (L): 2+, femoral (R): 2+, femoral (L): 2+, dorsalis-pedis (R): 2+, dorsalis-pedis (L): 2+ Neurologic Exam: alert, oriented x 3, cooperative, sensation nml, No motor deficits Skin Exam: normal color, warm, dry SpO2 Interpretation: normal SpO2: 99 O2 Delivery: Room Air Procedures - Splinting Location of Splint: Right, Wrist Type of Splint: Orthoglass Short Arm Splint Splint Applied By: ED Nurse Pre-Proc Neuro Vasc Exam: normal Post-Proc Neuro Vasc Exam: neurovascular intact, good alignment, unchanged from pre-exam - Course Nursing assessment & vital signs reviewed: Yes - Radiology Exams Left Knee X-ray Interpretation: Reviewed by me, Other (no obvious fracture noted.) Right Ankle X-ray Interpretation: Reviewed by me, Other (no obvious fracture noted) Right Shoulder X-ray Interpretation: Reviewed by me, Other (no obvious fracture noted. ) Right Hand X-ray Interpretation: Reviewed by me, Non-displaced Fracture (suspected nondisplace schaphoid fx, also sent for read for carpal alignment. ) Ordered Tests: Active Orders 24 hr Category Date Time Status Splint STAT Care 07/14/20 16:15 Ordered ANKLE (3 VIEWS) Stat Exams 07/14/20 14:04 Taken HAND (MINIMUM 3 VIEWS) Stat Exams 07/14/20 14:06 Taken KNEE (3 VIEWS) Stat Exams 07/14/20 14:05 Taken SHOULDER Stat Exams 07/14/20 14:05 Taken Medication Summary Discontinued Medications Generic Name Dose Route Start Last Admin Trade Name Viktoriya PRN Reason Stop Dose Admin Hydrocodone Bitart/Acetaminophen 1 tab 07/14/20 15:54 07/14/20 15:57 [place] 5/325 Mg PO 07/14/20 15:55 1 tab STAT ONE Administration Hydrocodone Bitart/Acetaminophen Confirm 07/14/20 15:55 [place] 5/325 Mg Administered 07/14/20 15:56 Dose 1 tab .ROUTE .STK-MED ONE - Progress Progress: improved, re-examined Progress Note: 07/14/20 14:41 pt was advised of the limitations of testing performed and that additional fractures and/or internal injuries may still be evolving undetected and of the need for return/followup if any further symptoms develope; she understands and prefers this to further observation testing in ER at this time, and has the capacity to make this choice. 07/14/20 16:07 discussed possibility of ligament injury and occult fracture of wrist/hand with pt and need for f/u to rule out. pt prefers splint and outpt f/u to further w/u at this time, and has the capacity to make this choice. Counseled pt/family regarding: diagnosis, need for follow-up, rad results - Departure Departure Disposition: Home Clinical Impression: clinical/ occult right schapoid fracture, wrist sprain/hand sprain, Sprain/lig/ injury L Knee R SHould R ANk, Sprain of ulnar collateral ligament of metacarpophalangeal (MCP) joint of thumb Condition: Good Critical Care Time: No Referrals: ALMA CALABRESE [Primary Care Provider] - Instructions: Hand Fracture (DC), Wrist Fracture (DC), Knee Sprain (DC), Ankle Sprain (DC), Shoulder Sprain, Sprained Thumb (DC) Additional Instructions: although the radiology reading is no acute fracture, there still could be an undetected fracture such as the schaphoid and so we will splint as such - these can become visible sometimes 10 days after on later x-rays. In addition, ligament injuries are common and may require MRI to detect and surgery to repair. So followup with your Dr, this week final x-ray reports Wednesday, for the hand, knee, shoulder and ankle, and return meantime if persisting pain, numbness or other concerns. There also could be ligament injuries of the ankle, knee or shoulder to followup with your Dr. In addition, other undetected injuries from a fall are possible to still be evolving so return if any dizziness or other symptoms of concern.
[2020-07-14] MEDS ORDERED: NORCO 5/325 MG PO ONE (15:54)
[2020-07-14] MEDS ORDERED: NORCO 5/325 MG ONE (15:55)
[2020-07-14 16:09] VITALS: BP 124/76; PULSE 72
[2020-07-14 16:13] VITALS: O2SAT 99
--- NOTE | 2020-07-14 17:58 | XRAY ---
Indication: Pain following fall. Comparison: None 3 view right ankle demonstrates tiny plantar heel spur. No other bony, articular, or soft tissue abnormalities.
--- NOTE | 2020-07-14 17:58 | XRAY ---
Indication: Pain following fall. Comparison: None 3 view right shoulder obtained. No bony, articular, or soft tissue abnormalities.
--- NOTE | 2020-07-14 17:58 | XRAY ---
Indication: Pain following fall. Comparison: September 22, 2017. 3 view left knee unchanged again demonstrating minimal medial joint space narrowing and tiny infrapatellar spurring. No new/acute bony, articular, or soft tissue abnormalities.
--- NOTE | 2020-07-14 18:04 | XRAY ---
Indication: Pain following fall. Comparison: None 3 view right hand demonstrates old 5th metacarpal fracture. No other bony, articular, or soft tissue abnormalities. Comment: Preliminary interpretation was made by [facility]. No critical discrepancy.
== END 2020-07-14 16:43 | disposition home or self-care (01) ==
LOC: ED 13:44
DX: M79.641 Pain in right hand (principal); M25.511 Pain in right shoulder; M25.561 Pain in right knee; M25.571 Pain in right ankle and joints of right foot; S62.011A Displaced fracture of distal pole of navicular [scaphoid] bone of right wrist, initial encounter for closed fracture; S63.501A Unspecified sprain of right wrist, initial encounter; S83.91XA Sprain of unspecified site of right knee, initial encounter; S93.401A Sprain of unspecified ligament of right ankle, initial encounter; W10.9XXA Fall (on) (from) unspecified stairs and steps, initial encounter; E11.9 Type 2 diabetes mellitus without complications; F17.210 Nicotine dependence, cigarettes, uncomplicated; Z79.899 Other long term (current) drug therapy
CPT/HCPCS: 29125; 73030; 73130; 73562; 73610; 99284; A9270-GY

== ENCOUNTER 2020-08-10 10:53 | Emergency (ER) | payer OTHER ==
[2020-08-10] MEDS ORDERED: VENTOLIN COMMON CANISTER IH ONE (11:14)
[2020-08-10 11:30] LABS: Hematocrit 43.1 % (35-47); Hemoglobin 14.7 gm/dl (12.0-16.0); Mean Cell Volume 88.3 fl (78-100); Mean Corpuscular Hemoglobin 30.1 pg (26-32); Mean Corpuscular Hgb Concent. 34.1 g/dl (32-36); Mean Platelet Volume 10.3 fl (7.5-11.0); Platelet Count 269 K/mm3 (150-450); Red Blood Count 4.88 M/mm3 (4.1-5.4); Red Cell Distribution Width 12.2 % (11.5-14.0); White Blood Count 8.2 K/mm3 (4.0-10.5)
[2020-08-10 11:37] LABS: INR 1.39 (0.8-3.0); PROTIME 15.8 SECONDS (9.95-12.35)
--- NOTE | 2020-08-10 11:46 | ERPHSYRPT ---
- History of Present Illness Time Seen by Provider: 08/10/20 11:45 Source: patient Exam Limitations: no limitations Patient Subjective Stated Complaint: SOB Triage Nursing Assessment: Patient ambulated back to ED and transferred self to bed. Patient complains of cough, ONOFRE, fever, chills fatigue that started on Friday August 07, 2020. [facility] [place] and swabbed for COVID, which was negative and dx with pneumonia. Patient currently on Doxycycline 100mg BID for 10 days. Patient has productive cough with thick green sputum. Lungs clear a/p carlos. Physician History: Patient complains of cough, ONOFRE, fever, chills fatigue that started on Friday August 07, 2020. [facility] at [facility] in [place] and swabbed for COVID, which was negative and dx with pneumonia. Patient currently on Doxycycline 100mg BID for 10 days. Patient has productive cough with thick green sputum Timing/Duration: day(s) (three) Severity: moderate Associated Symptoms: shortness of breath, cough, chills, chest pain, fever, headaches Allergies/Adverse Reactions: adhesive Allergy (Mild, Verified 08/10/20 11:04) Rash cefaclor [From Ceclor] Allergy (Mild, Verified 08/10/20 11:04) Hives duloxetine [From Cymbalta] Allergy (Verified 08/10/20 11:04) ketorolac [From Toradol] Allergy (Verified 08/10/20 11:04) Hives paroxetine [From Paxil] Adverse Reaction (Verified 08/10/20 11:04) tramadol Adverse Reaction (Verified 08/10/20 11:04) Home Medications: Levothyroxine Sodium 50 Mcg [Synthroid 50 Mcg] 50 mcg PO DAILY 07/21/19 [History] Metformin HCl 500 mg [Glucophage 500 MG] 500 mg PO BID 05/29/20 [History] clonazePAM [Klonopin] 1 mg PO BID PRN 05/29/20 [History] Semaglutide [Ozempic] 1 mg SQ WEEKLY 07/14/20 [History] Hx Tetanus, Diphtheria Vaccination/Date Given: Yes Hx Influenza Vaccination/Date Given: Yes Hx Pneumococcal Vaccination/Date Given: No Immunizations Up to Date: Yes Travel Risk - International Travel Have you traveled outside of the country in past 3 weeks: No - Coronavirus Screening Are you exhibiting any of the following symptoms?: Yes Symptoms: Fever, Cough: New Onset, Shortness of Breath, Headaches/Body Aches/Fatigue - Review of Systems Constitutional: Fever, Chills Eyes: No Symptoms Ears, Nose, & Throat: No Symptoms Respiratory: Cough, Dyspnea, Dyspnea on Exertion (JEAN) Cardiac: No Chest Pain, No Edema, No Syncope Abdominal/Gastrointestinal: No Abdominal Pain, No Nausea, No Vomiting, No Diarrhea Genitourinary Symptoms: No Dysuria Musculoskeletal: No Back Pain, No Neck Pain Skin: No Rash Neurological: No Dizziness, No Focal Weakness, No Sensory Changes Psychological: No Symptoms Endocrine: No Symptoms All Other Systems: Reviewed and Negative - Past Medical History Pertinent Past Medical History: Yes Neurological History: Seizures ENT History: No Pertinent History Cardiac History: Other Respiratory History: Asthma Endocrine Medical History: Diabetes Type II, Hypothyroidism, Other Musculoskeletal History: Other GI Medical History: GERD, Irritable Bowel History: Other Psycho-Social History: Anxiety, Attention Deficit Disorder, Depression, Panic Disorder Female Reproductive Disorders: Other Other Medical History: MITRAL VALVE PROLAPSE, HX OF SEIZURES BUT NO LONGER TAKING MEDICATION,. REPORTS SYSTEMIC LUPUS - Past Surgical History Past Surgical History: Yes Neuro Surgical History: No Pertinent History Cardiac: No Pertinent History Respiratory: No Pertinent History Gastrointestinal: Cholecystectomy Genitourinary: No Pertinent History Musculoskeletal: No Pertinent History Female Surgical History: Hysterectomy, Dilation & Curettage, Tubal Ligation, Other Other Surgical History: partial thyroidectomy. breast reconstruction-nodules removed. anesthesia problems - difficult to wake up, drop in bp. hysterectomy - Social History Smoking Status: Current every day smoker How long have you smoked: 4 yrs Exposure to second hand smoke: Yes Drug Use: none Patient Lives Alone: No - Female History Hx Last Menstrual Period: partial hysterectomy 2017 Hx Now: No - Nursing Vital Signs Nursing Vital Signs: Initial Vital Signs Temperature 99.2 F 08/10/20 11:06 Pulse Rate 110 H 08/10/20 11:06 Respiratory Rate 20 08/10/20 11:06 Blood Pressure 140/88 08/10/20 11:06 O2 Sat by Pulse Oximetry 98 08/10/20 11:06 Pain Scale Pain Intensity 7 - Physical Exam General Appearance: no apparent distress, alert Eye Exam: PERRL/EOMI, eyes nml inspection Ears, Nose, Throat Exam: normal ENT inspection, TMs normal, pharynx normal, moist mucous membranes Neck Exam: normal inspection, non-tender, supple, full range of motion Respiratory Exam: lungs clear, diminished breath sounds, wheezing, No resp iratory distress Cardiovascular Exam: regular rate/rhythm, normal heart sounds, normal peripheral pulses Gastrointestinal/Abdomen Exam: soft, normal bowel sounds, No tenderness, No mass Back Exam: normal inspection, normal range of motion, No CVA tenderness, No vertebral tenderness Extremity Exam: normal inspection, normal range of motion, pelvis stable Neurologic Exam: alert, oriented x 3, cooperative, normal mood/affect, nml cerebellar function, nml station & gait, sensation nml, No motor deficits Skin Exam: normal color, warm, dry, No rash Lymphatic Exam: No adenopathy SpO2: 97 - Course Nursing assessment & vital signs reviewed: Yes - Radiology Exams Chest X-ray Interpretation: Reviewed by me, Infiltrates (early infiltrate) Ordered Tests: Active Orders 24 hr Category Date Time Status Precision Mechanical Instrument Maker STAT Care 08/10/20 11:15 Active Isolation, Initiate & Maintain STAT Care 08/10/20 11:15 Active CHEST 1 VIEW (PORTABLE) Stat Exams 08/10/20 11:14 Taken CBC Stat Lab 08/10/20 11:20 Completed CMP Stat Lab 08/10/20 11:20 Completed D-DIMER QUANTITATIVE Stat Lab 08/10/20 11:20 Completed Ferritin Stat Lab 08/10/20 11:20 Received LDH-LACTATE DEHYDROGENASE Stat Lab 08/10/20 11:20 Completed PROCALCITONIN Stat Lab 08/10/20 11:20 Received PROTIME WITH INR Stat Lab 08/10/20 11:20 Completed Respiratory MDI STAT RT 08/10/20 11:16 Completed Respiratory Therapy Assessment DAILY RT 08/10/20 11:43 Completed Medication Summary Discontinued Medications Generic Name Dose Route Start Last Admin Trade Name Freq PRN Reason Stop Dose Admin Albuterol Sulfate 4 puff 08/10/20 11:14 08/10/20 11:43 Ventolin Common Canister IH 08/10/20 11:15 4 puff STAT ONE Administration Lab/Rad Data: Laboratory Result Diagrams 08/10/20 11:20 08/10/20 11:20 Laboratory Results 08/10/20 08/10/20 08/10/20 Range/Units 11:20 11:20 11:20 WBC 8.2 (4.0-10.5) K/mm3 RBC 4.88 (4.1-5.4) M/mm3 Hgb 14.7 (12.0-16.0) gm/dl Hct 43.1 (35-47) % MCV 88.3 (78-100) fl MCH 30.1 (26-32) pg MCHC 34.1 (32-36) g/dl RDW 12.2 (11.5-14.0) % Plt Count 269 (150-450) K/mm3 MPV 10.3 (7.5-11.0) fl PT 15.8 H (9.95-12.35) SECONDS INR 1.39 (0.8-3.0) D-Dimer 432 (215-500) ng/mL Sodium 138 (137-145) mmol/L Potassium 4.1 (3.5-5.1) mmol/L Chloride 104 (98-107) mmol/L Carbon Dioxide 25 (22-30) mmol/L Anion Gap 13.1 (5-15) MEQ/L BUN 11 (7-17) mg/dL Creatinine 0.74 (0.52-1.04) mg/dL Estimated GFR > 60.0 ML/MIN Glucose 121 H (74-106) mg/dL Calcium 10.1 (8.4-10.2) mg/dL Total Bilirubin 0.50 (0.2-1.3) mg/dL AST 24 (14-36) U/L ALT 18 (0-35) U/L Alkaline Phosphatase 74 (38-126) U/L Lactate Dehydrogenase 139 (120-246) U/L Serum Total Protein 8.0 (6.3-8.2) g/dL Albumin 4.8 (3.5-5.0) g/dL - Progress Progress: improved Counseled pt/family regarding: lab results, diagnosis, need for follow-up, rad results - Departure Departure Disposition: Home Clinical Impression: Asymptomatic COVID-19 virus infection, Viral pneumonia Condition: Stable Critical Care Time: No Referrals: ALMA CALABRESE [Primary Care Provider] - Instructions: Coronavirus Disease 2019 (COVID-19) (DC)
[2020-08-10 11:49] LABS: ALBUMIN 4.8 g/dL (3.5-5.0); ALKALINE PHOSPHATASE 74 U/L (38-126); ANION GAP 13.1 MEQ/L (5-15); BLOOD UREA NITROGEN 11 mg/dL (7-17); CHLORIDE 104 mmol/L (98-107); Calcium 10.1 mg/dL (8.4-10.2); Carbon Dioxide 25 mmol/L (22-30); Creatinine 1 0.74 mg/dL (0.52-1.04); EST GLOMERULAR FILTRATION RATE > 60.0 ML/MIN; Glucose 121 mg/dL (74-106); LDH-LACTATE DEHYDROGENASE 139 U/L (120-246); Potassium 4.1 mmol/L (3.5-5.1); SGOT/AST 24 U/L (14-36); SGPT/ALT 18 U/L (0-35); SODIUM 138 mmol/L (137-145)
[2020-08-10 12:03] VITALS: BP 112/67; PULSE 87; O2SAT 98
[2020-08-10 12:32] LABS: Ferritin 98.9 ng/mL (6.24-137)
--- NOTE | 2020-08-10 20:06 | XRAY ---
Indication: Short of breath. Suspect Covid 19. Comparison: May 29, 2020. Portable chest again demonstrates normal heart, lungs, and bony thorax.
== END 2020-08-10 12:33 | disposition home or self-care (01) ==
LOC: ED 10:53
DX: U07.1 COVID-19 (principal); J12.82 Pneumonia due to coronavirus disease 2019
CPT/HCPCS: 36000; 36415; 71045; 80053; 82728; 83615; 84145; 85027; 85379; 85610; 93041; 94640; 99284; U0003

== ENCOUNTER 2020-12-10 07:07 | Day surgery (SDC) | payer OTHER ==
[~2020-12-10 07:07] MED LIST: Sensorcaine 0.25% 10 ML ONE
[2020-12-10] MEDS ORDERED: CLINDAMYCIN-D5W 900 MG/50 ML*** 900 MG/50 ML BAG IV STA (07:20)
[2020-12-10] MEDS ORDERED: Lactated Ringers 1,000 ML IV SCH (07:30)
[2020-12-10] MEDS ORDERED: CLINDAMYCIN-D5W 900 MG/50 ML*** 900 MG/50 ML BAG IV ONE (07:58)
[2020-12-10] MEDS ORDERED: Lactated Ringers 1,000 ML IV ONE ×2 (07:59→10:11)
[2020-12-10] MEDS ORDERED: Zofran 4 MG/2 ML VIAL ONE (09:10)
[2020-12-10] MEDS ORDERED: DIPRIVAN 200 MG/20 ML IV ONE (09:10)
[2020-12-10] MEDS ORDERED: SUBLIMAZE 100 MCG/2 ML ONE ×2 (09:10→10:43)
[2020-12-10] MEDS ORDERED: Zemuron 100 MG/10 ML ONE ×2 (09:10→10:04)
[2020-12-10] MEDS ORDERED: Decadron 4 MG INJ ONE (09:10)
[2020-12-10] MEDS ORDERED: Versed 2 MG/2 ML Injection ONE (09:10)
[2020-12-10] MEDS ORDERED: BRIDION 200MG/2ML IV ONE (10:21)
[2020-12-10] MEDS ORDERED: Hydromorphone 1 mg/ml Injection ONE (10:43)
[2020-12-10 12:29] VITALS: BP 101/63; PULSE 67; O2SAT 97
[2020-12-10 15:21] LABS: Appearance SLIGHTLY CLOUDY (CLEAR); Bilirubin NEGATIVE (NEGATIVE); Blood NEGATIVE Ery/ul (0-5); Epithelial Cells RARE /HPF (FEW); Glucose NEGATIVE (NEGATIVE); Ketones NEGATIVE (NEGATIVE); Leukocyte Esterase NEGATIVE (NEGATIVE); Mucus MANY /HPF (NEGATIVE); Nitrite NEGATIVE (NEGATIVE); Protein,Urine Dip NEGATIVE (Negative); Specific Gravity 1.026 (1.005-1.025); Urobilinogen NEGATIVE mg/dL (0-1)
--- NOTE | 2020-12-11 09:25 | OP ---
SURGERY DATE/TIME: 12/10/2020 0928 PREOPERATIVE DIAGNOSES: 1) Chronic pelvic pain. 2) Left ovarian cyst. POSTOPERATIVE DIAGNOSIS: Chronic pelvic pain with extensive abdominopelvic adhesions. PROCEDURES: 1) Diagnostic laparoscopy, lysis of abdominopelvic adhesions. 2) Left salpingectomy. SURGEON: Murtaza Kent D.O. LOG FEEDER: Adis Valdez armorer technician. ANESTHESIA: General. ESTIMATED BLOOD LOSS: Minimal. COMPLICATIONS: None. INDICATIONS: The risks, benefits, indications and alternatives of the procedure were reviewed with the patient prior to procedure. The patient understood the risk of infection, bleeding, bowel injury, bladder injury, ureteral injury, pelvic infection, thromboembolic disorder associated with this procedure however desires to have this surgery as a possible means to alleviate her current medical condition. DESCRIPTION OF PROCEDURE AND FINDINGS: At this point the patient is taken to the operating room, given general sedation, placed in the supine position where she was prepped and draped in the usual sterile fashion. A 5 mm incision was made approximately 1 cm above the umbilicus where a 5 mm trocar and sleeve were advanced under direct visualization where pneumoperitoneum was obtained with 4 liters of CO2 gas. An additional incision was made in the left middle quadrant region where a 5 mm trocar and sleeve were advanced under direct visualization where at this point it was noted the trocar site was noted to be bleeding. Immediately a 2-0 chromic suture was placed over the bleeding site to tamponade the bleeding where at this point there was no bleeding that was noted from the trocar site. An additional incision was made 2 cm above the symphysis pubic where 5 mm trocar and sleeve were advanced under direct visualization. From this point there was a flap of omentum that was located in the midline from the umbilicus down to the pelvic symphysis region where LigaSure was used and was taken down adjacent to the abdominal wall where flap was completely taken down and hemostasis was obtained. There was no bowel that was noted on the vertical flap. From this point the patient did have a history of a hysterectomy and one of the trocar sites a grasper was used to lift the left ovary and in doing so there was some bleeding noted from the fallopian tube where LigaSure was used to excise the fallopian tube and hemostasis was obtained. The left ovary appeared to be within normal limits with no cysts that were located on the left ovary. The right ovary appeared to be within normal limits as well with no cysts located on its side. There were adhesions between left colon and left side wall where it was taken down freeing up the left colon from the left side wall. There were also adhesions between the left adnexa to left side wall where again the adhesions were lysed freeing up the left side of her ovary again visualizing no cysts that were noted. From this point the remainder of the abdominopelvic region appeared to be within normal limits with no gross abnormalities that were noted. From this point all instruments were then removed from the patient's abdominal region and the incisions were closed with 4-0 Monocryl suture. The patient was then taken out of anesthesia and was then taken to the recovery room in stable condition. All laps and instruments were accounted for x2.
== END 2020-12-10 12:32 | disposition home or self-care (01) ==
LOC: SDC 07:07
PROVIDERS: ATTEND Obstetrics & Gynecology
DX: R10.2 Pelvic and perineal pain (principal); N83.202 Unspecified ovarian cyst, left side
CPT/HCPCS: 81001; 82947; 87086; J1100; J1170; J2250; J2405; J2704; J3010

== ENCOUNTER 2020-12-14 18:04 | Emergency (ER) | payer OTHER ==
--- NOTE | 2020-12-14 18:08 | ERPHSYRPT ---
- History of Present Illness Time Seen by Provider: 12/14/20 18:08 Source: patient Exam Limitations: no limitations Physician History: This is a 30-year-old white female who has had a hysterectomy in the distant past and presents with 2-day history of feeling weak and dizzy intermittently and migraine headache. This morning, the patient's headache was much worse. She also felt very shaky and weak and had near syncopal episode. Patient underwent a laparoscopic left salpingectomy on 12/10/[address] Kent. She stated that this procedure was meant to perform a left ovarian cystectomy. However, when exploratory laparoscopy was performed the left ovarian cyst had ruptured already and there was bleeding from the left fallopian tube and therefore it was removed. She also underwent adhesiolysis laparoscopically. Patient was feeling well until yesterday then she began having the above symptoms. She has had some associated abdominal pain today. She has had no vaginal bleeding. She has no abdominal vaginal discharge. She has no dysuria or hematuria. She has been having intermittent rectal bleeding even before her procedure from approximately 4 days ago. She has already seen a emergency worker and has a colonoscopy scheduled for further evaluation of the colon. Patient refusing any narcotic pain medicine is on arrival. Timing/Duration: yesterday, worse Severity: moderate Modifying Factors: Improves With: nothing Associated Symptoms: nausea, abdominal pain, headaches, weakness, No shortness of breath, No cough Allergies/Adverse Reactions: duloxetine [From Cymbalta] Allergy (Intermediate, Verified 12/14/20 18:24) states "irritability" adhesive Allergy (Mild, Verified 12/14/20 18:24) Rash cefaclor [From Ceclor] Allergy (Mild, Verified 12/14/20 18:24) Hives ketorolac [From Toradol] Allergy (Verified 12/14/20 18:24) Hives paroxetine [From Paxil] Adverse Reaction (Severe, Verified 12/14/20 18:24) "electric shock feeling in my head" tramadol Adverse Reaction (Intermediate, Verified 12/14/20 18:24) Hives Home Medications: Levothyroxine Sodium 50 Mcg [Synthroid 50 Mcg] 50 mcg PO DAILY 07/21/19 [History] Semaglutide [Ozempic] 1 mg SQ WEEKLY 07/14/20 [History] clonazePAM [Klonopin] 1 mg PO UD 11/27/20 [History] Hx Tetanus, Diphtheria Vaccination/Date Given: Yes Hx Influenza Vaccination/Date Given: Yes Hx Pneumococcal Vaccination/Date Given: No Travel Risk - International Travel Have you traveled outside of the country in past 3 weeks: No - Coronavirus Screening Are you exhibiting any of the following symptoms?: No Close contact with a COVID-19 positive Pt in past 14-21 Days: No - Review of Systems Constitutional: Weakness Eyes: No Symptoms Ears, Nose, & Throat: No Symptoms Respiratory: No Symptoms Cardiac: No Symptoms Abdominal/Gastrointestinal: Abdominal Pain, Nausea Genitourinary Symptoms: No Symptoms Musculoskeletal: No Symptoms Skin: No Symptoms Neurological: Headache Psychological: No Symptoms Endocrine: No Symptoms Hematologic/Lymphatic: No Symptoms Immunological/Allergic: No Symptoms All Other Systems: Reviewed and Negative - Past Medical History Pertinent Past Medical History: Yes Neurological History: Migraines ENT History: No Pertinent History Cardiac History: No Pertinent History Respiratory History: No Pertinent History Endocrine Medical History: Diabetes Type II, Hypothyroidism Musculoskeletal History: No Pertinent History GI Medical History: GERD, Irritable Bowel History: Other Psycho-Social History: Anxiety, Attention Deficit Disorder, Depression, Panic Disorder Female Reproductive Disorders: Other Other Medical History: Pt has a partial thyroid, mitral valve prolapse.Dr Kent dx states chronic pelvic pain - Past Surgical History Past Surgical History: Yes Neuro Surgical History: No Pertinent History Cardiac: No Pertinent History Respiratory: No Pertinent History Gastrointestinal: Cholecystectomy Genitourinary: No Pertinent History Musculoskeletal: No Pertinent History Female Surgical History: Hysterectomy, Dilation & Curettage, Tubal Ligation, Other Other Surgical History: partial thyroidectomy. breast reconstruction-nodules removed. anesthesia problems - difficult to wake up, drop in bp. hysterectomy - Social History Smoking Status: Current every day smoker How long have you smoked: 4 yrs Exposure to second hand smoke: Yes Drug Use: none Patient Lives Alone: No - Nursing Vital Signs Nursing Vital Signs: Initial Vital Signs Temperature 97.8 F 12/14/20 18:14 Pulse Rate 94 H 12/14/20 18:14 Blood Pressure 104/81 12/14/20 18:14 O2 Sat by Pulse Oximetry 98 12/14/20 18:14 Pain Scale Pain Intensity 4 - Physical Exam General Appearance: no apparent distress, alert, anxiety Eye Exam: PERRL/EOMI, eyes nml inspection Ears, Nose, Throat Exam: normal ENT inspection, moist mucous membranes Neck Exam: normal inspection, non-tender, supple, full range of motion Respiratory Exam: normal breath sounds, lungs clear, airway intact, No chest tenderness, No respiratory distress Cardiovascular Exam: regular rate/rhythm, normal heart sounds, normal peripheral pulses Gastrointestinal/Abdomen Exam: soft, normal bowel sounds, tenderness, No guarding (Mild generalized) Pelvic Exam: not done Rectal Exam: not done Back Exam: normal inspection, normal range of motion, No CVA tenderness, No vertebral tenderness Extremity Exam: normal inspection, normal range of motion, pelvis stable Neurologic Exam: alert, oriented x 3, cooperative, glass sander belt II-XII nml as tested, normal mood/affect, nml cerebellar function, nml station & gait, sensation nml Skin Exam: normal color, warm, dry Lymphatic Exam: No adenopathy SpO2 Interpretation: normal O2 Delivery: Room Air - Course Nursing assessment & vital signs reviewed: Yes Ordered Tests: Active Orders 24 hr Category Date Time Status IV Insertion STAT Care 12/14/20 18:55 Active ABDOMEN AND PELVIS W/0 CONTRAS [CT] Stat Exams 12/14/20 18:56 Taken HEAD WITHOUT CONTRAST [CT] Stat Exams 12/14/20 18:57 Taken AMYLASE Stat Lab 12/14/20 18:50 Completed CBC W DIFF Stat Lab 12/14/20 18:50 Completed CMP Stat Lab 12/14/20 18:50 Completed LIPASE Stat Lab 12/14/20 18:50 Completed Lactic Acid Stat Lab 12/14/20 18:55 Completed UA W/RFX UR CULTURE Stat Lab 12/14/20 19:39 Completed Medication Summary Discontinued Medications Generic Name Dose Route Start Last Admin Trade Name Viktoriya PRN Reason Stop Dose Admin Sodium Chloride 1,000 mls @ 999 mls/hr 12/14/20 18:55 12/14/20 20:29 Sodium Chloride 0.9% 1000 Ml IV 12/14/20 19:55 Infused .Q1H1M STA Infusion Sodium Chloride Confirm 12/14/20 18:59 Sodium Chloride 0.9% 1000 Ml Administered 12/14/20 19:00 Dose 1,000 mls @ ud .ROUTE .STK-MED ONE Ondansetron HCl 4 mg 12/14/20 18:55 12/14/20 19:02 Zofran 4 Mg/2 Ml Vial IV 12/14/20 18:56 4 mg STAT ONE Administration Ondansetron HCl Confirm 12/14/20 18:59 Zofran 4 Mg/2 Ml Vial Administered 12/14/20 19:00 Dose 4 mg .ROUTE .STK-MED ONE Lab/Rad Data: Laboratory Result Diagrams 12/14/20 18:50 12/14/20 18:50 Laboratory Results 12/14/20 12/14/20 12/14/20 Range/Units 19:39 18:55 18:50 WBC (4.0-10.5) K/mm3 RBC (4.1-5.4) M/mm3 Hgb (12.0-16.0) gm/dl Hct (35-47) % MCV (78-100) fl MCH (26-32) pg MCHC (32-36) g/dl RDW (11.5-14.0) % Plt Count (150-450) K/mm3 MPV (7.5-11.0) fl Gran % (36.0-66.0) % Eos # (Auto) (0-0.5) Absolute Lymphs (auto) (1.0-4.6) Absolute Monos (auto) (0.0-1.3) Lymphocytes % (24.0-44.0) % Monocytes % (0.0-12.0) % Eosinophils % (0.00-5.0) % Basophils % (0.0-0.4) % Absolute Granulocytes (1.4-6.9) Basophils # (0-0.4) Sodium 138 (137-145) mmol/L Potassium 3.6 (3.5-5.1) mmol/L Chloride 103 (98-107) mmol/L Carbon Dioxide 23 (22-30) mmol/L Anion Gap 15.8 H (5-15) MEQ/L BUN 10 (7-17) mg/dL Creatinine 0.63 (0.52-1.04) mg/dL Estimated GFR > 60.0 ML/MIN Glucose 96 (74-106) mg/dL Lactic Acid 1.0 (0.4-2.0) Calcium 9.6 (8.4-10.2) mg/dL Total Bilirubin 0.40 (0.2-1.3) mg/dL AST 24 (14-36) U/L ALT 23 (0-35) U/L Alkaline Phosphatase 76 (38-126) U/L Serum Total Protein 7.5 (6.3-8.2) g/dL Albumin 4.6 (3.5-5.0) g/dL Amylase 47 (30-110) U/L Lipase 21 L (23-300) U/L Urine Color STRAW (YELLOW) Urine Appearance CLEAR (CLEAR) Urine pH 6.0 (5-6) Ur Specific [place] 1.005 (1.005-1.025) Urine Protein NEGATIVE (Negative) Urine Ketones NEGATIVE (NEGATIVE) Urine Blood NEGATIVE (0-5) Matthew/ul Urine Nitrite NEGATIVE (NEGATIVE) Urine Bilirubin NEGATIVE (NEGATIVE) Urine Urobilinogen NEGATIVE (0-1) mg/dL Ur Leukocyte Esterase NEGATIVE (NEGATIVE) Urine WBC (Auto) 3-5 (0-5) /HPF Urine RBC (Auto) NONE (0-2) /HPF U Epithel Cells (Auto) RARE (FEW) /HPF Urine Bacteria (Auto) MODERATE (NEGATIVE) /HPF Urine Culture Reflexed NO (NO) Urine Glucose NEGATIVE (NEGATIVE) mg/dL 12/14/20 Range/Units 18:50 WBC 11.5 H (4.0-10.5) K/mm3 RBC 5.37 (4.1-5.4) M/mm3 Hgb 16.1 H (12.0-16.0) gm/dl Hct 45.9 (35-47) % MCV 85.5 (78-100) fl MCH 30.0 (26-32) pg MCHC 35.1 (32-36) g/dl RDW 12.2 (11.5-14.0) % Plt Count 337 (150-450) K/mm3 MPV 10.4 (7.5-11.0) fl Gran % 64.9 (36.0-66.0) % Eos # (Auto) 0.40 (0-0.5) Absolute Lymphs (auto) 2.99 (1.0-4.6) Absolute Monos (auto) 0.62 (0.0-1.3) Lymphocytes % 26.0 (24.0-44.0) % Monocytes % 5.4 (0.0-12.0) % Eosinophils % 3.5 (0.00-5.0) % Basophils % 0.2 (0.0-0.4) % Absolute Granulocytes 7.47 H (1.4-6.9) Basophils # 0.02 (0-0.4) Sodium (137-145) mmol/L Potassium (3.5-5.1) mmol/L Chloride (98-107) mmol/L Carbon Dioxide (22-30) mmol/L Anion Gap (5-15) MEQ/L BUN (7-17) mg/dL Creatinine (0.52-1.04) mg/dL Estimated GFR ML/MIN Glucose (74-106) mg/dL Lactic Acid (0.4-2.0) Calcium (8.4-10.2) mg/dL Total Bilirubin (0.2-1.3) mg/dL AST (14-36) U/L ALT (0-35) U/L Alkaline Phosphatase (38-126) U/L Serum Total Protein (6.3-8.2) g/dL Albumin (3.5-5.0) g/dL Amylase (30-110) U/L Lipase (23-300) U/L Urine Color (YELLOW) Urine Appearance (CLEAR) Urine pH (5-6) Ur Specific [place] (1.005-1.025) Urine Protein (Negative) Urine Ketones (NEGATIVE) Urine Blood (0-5) Matthew/ul Urine Nitrite (NEGATIVE) Urine Bilirubin (NEGATIVE) Urine Urobilinogen (0-1) mg/dL Ur Leukocyte Esterase (NEGATIVE) Urine WBC (Auto) (0-5) /HPF Urine RBC (Auto) (0-2) /HPF U Epithel Cells (Auto) (FEW) /HPF Urine Bacteria (Auto) (NEGATIVE) /HPF Urine Culture Reflexed (NO) Urine Glucose (NEGATIVE) mg/dL - Progress Progress: improved, pain not gone completely, re-examined Progress Note: 12/14/20 20:36 CAT scan of the head shows no acute intracranial abnormality. CAT scan of the abdomen pelvis without contrast shows no acute process intra- abdominal or intrapelvic leak - Departure Departure Disposition: Home Clinical Impression: Postoperative abdominal pain, Headache Condition: Stable Critical Care Time: No Referrals: ALMA CALABRESE [Primary Care Provider] - Additional Instructions: Drink plenty of fluids. Use Tylenol and ibuprofen for pain control. Follow-up with your surgeon and primary care physician for further management.
[2020-12-14] MEDS ORDERED: Sodium Chloride 0.9% 1000 ML 1,000 ML IV STA (18:55)
[2020-12-14] MEDS ORDERED: Zofran 4 MG/2 ML VIAL IV ONE (18:55)
[2020-12-14] MEDS ORDERED: Sodium Chloride 0.9% 1000 ML 1,000 ML ONE (18:59)
[2020-12-14] MEDS ORDERED: Zofran 4 MG/2 ML VIAL ONE (18:59)
[2020-12-14 19:07] LABS: Absolute Neutrophil Ct (ANC) 7.47 (1.4-6.9); BASOPHIL % 0.2 % (0.0-0.4); Basophil (Absolute #) 0.02 (0-0.4); Eosinophil % 3.5 % (0.00-5.0); Hematocrit 45.9 % (35-47); Hemoglobin 16.1 gm/dl (12.0-16.0); Lymphocyte (Absolute #) 2.99 (1.0-4.6); Mean Cell Volume 85.5 fl (78-100); Mean Corpuscular Hgb Concent. 35.1 g/dl (32-36); Mean Platelet Volume 10.4 fl (7.5-11.0); Monocyte (Absolute #) 0.62 (0.0-1.3); Monocytes % 5.4 % (0.0-12.0); Neutrophil % 64.9 % (36.0-66.0); Platelet Count 337 K/mm3 (150-450); Red Blood Count 5.37 M/mm3 (4.1-5.4); Red Cell Distribution Width 12.2 % (11.5-14.0); White Blood Count 11.5 K/mm3 (4.0-10.5)
[2020-12-14 19:14] LABS: ALBUMIN 4.6 g/dL (3.5-5.0); ALKALINE PHOSPHATASE 76 U/L (38-126); AMYLASE 47 U/L (30-110); ANION GAP 15.8 MEQ/L (5-15); BLOOD UREA NITROGEN 10 mg/dL (7-17); CHLORIDE 103 mmol/L (98-107); Calcium 9.6 mg/dL (8.4-10.2); Carbon Dioxide 23 mmol/L (22-30); Creatinine 1 0.63 mg/dL (0.52-1.04); EST GLOMERULAR FILTRATION RATE > 60.0 ML/MIN; Glucose 96 mg/dL (74-106); LIPASE 21 U/L (23-300); Potassium 3.6 mmol/L (3.5-5.1); SGOT/AST 24 U/L (14-36); SGPT/ALT 23 U/L (0-35); SODIUM 138 mmol/L (137-145); Total Protein 7.5 g/dL (6.3-8.2)
[2020-12-14 19:58] LABS: Appearance CLEAR (CLEAR); Bacteria MODERATE /HPF (NEGATIVE); Bilirubin NEGATIVE (NEGATIVE); Blood NEGATIVE Ery/ul (0-5); Epithelial Cells RARE /HPF (FEW); Glucose NEGATIVE (NEGATIVE); Ketones NEGATIVE (NEGATIVE); Leukocyte Esterase NEGATIVE (NEGATIVE); Nitrite NEGATIVE (NEGATIVE); Protein,Urine Dip NEGATIVE (Negative); Specific Gravity 1.005 (1.005-1.025); Urobilinogen NEGATIVE mg/dL (0-1)
[2020-12-14 20:45] VITALS: BP 100/70; PULSE 75; O2SAT 99
--- NOTE | 2020-12-14 21:35 | XRAY ---
Indication: Headache and syncope. History of migraines. Multiple contiguous axial images obtained through the head without contrast. Comparison: July 21, 2019. Normal appearing brain parenchyma, ventricles, and bony calvarium. Visualized paranasal sinuses and mastoid air cells are clear. Impression: Continued normal CT head without contrast exam. Comment: Preliminary interpretation made by [facility]. No critical discrepancy.
--- NOTE | 2020-12-14 21:41 | XRAY ---
Indication: Postop abdominal pain following oophorectomy. Multiple contiguous axial images obtained through the abdomen and pelvis without contrast. Comparison: November 21, 2020. Lung bases are clear. Heart not enlarged. Again partially visualized bilateral breast implants. Noncontrasted stomach and bowel loops are nonobstructed. Normal appendix. There is again mild diffuse scattered colonic fecal debris less than before. Again cholecystectomy. Uterus and ovaries surgically absent. Tiny pelvic free fluid presumed postoperative hematoma/seroma. No walled off fluid collection/abscess. Abdominal wall demonstrates subcutaneous air also presumed postoperative. Remaining liver, pancreas, spleen, adrenal glands, kidneys, ureters, bladder, and aorta are unremarkable for noncontrast exam. Osseous structures intact. Impression: 1. Tiny pelvic free fluid presumed postoperative hematoma/seroma. Anterior abdominal wall subcutaneous air also presumed postoperative. 2. Diminished fecal stasis. 3. Remaining CT abdomen/pelvis without contrast exam is negative. Comment: Preliminary interpretation made by [facility]. No critical discrepancy.
== END 2020-12-14 20:49 | disposition home or self-care (01) ==
LOC: ED 18:04
DX: R10.9 Unspecified abdominal pain (principal); Z98.890 Other specified postprocedural states; R42 Dizziness and giddiness; R53.1 Weakness
CPT/HCPCS: 36000; 36415; 70450; 74176; 80053; 81001; 82150; 83605; 83690; 85025; 96374; 99284; J2405

== ENCOUNTER 2021-03-19 15:24 | Emergency (ER) | payer OTHER ==
[2021-03-19] MEDS ORDERED: Zofran 4 MG/2 ML VIAL IV ONE (15:44)
[2021-03-19] MEDS ORDERED: Sodium Chloride 0.9% 1000 ML 1,000 ML IV SCH (15:45)
[2021-03-19] MEDS ORDERED: Sodium Chloride 0.9% 1000 ML 1,000 ML ONE (15:49)
[2021-03-19] MEDS ORDERED: Zofran 4 MG/2 ML VIAL ONE (15:49)
[2021-03-19 15:55] LABS: BASOPHIL % 0.2 % (0.0-0.4); Basophil (Absolute #) 0.01 (0-0.4); Eosinophil % 4.6 % (0.00-5.0); Eosinophil (Absolute #) 0.26 (0-0.5); Lymphocyte (Absolute #) 2.05 (1.0-4.6); Lymphocytes % 36.4 % (24.0-44.0); Mean Cell Volume 87.8 fl (78-100); Mean Corpuscular Hemoglobin 30.6 pg (26-32); Mean Corpuscular Hgb Concent. 34.9 g/dl (32-36); Mean Platelet Volume 10.3 fl (7.5-11.0); Monocyte (Absolute #) 0.41 (0.0-1.3); Monocytes % 7.3 % (0.0-12.0); Neutrophil % 51.5 % (36.0-66.0); Platelet Count 267 K/mm3 (150-450); Red Cell Distribution Width 12.5 % (11.5-14.0); White Blood Count 5.6 K/mm3 (4.0-10.5)
[2021-03-19 15:57] LABS: Appearance SLIGHTLY CLOUDY (CLEAR); Bacteria RARE /HPF (NEGATIVE); Bilirubin NEGATIVE (NEGATIVE); Blood NEGATIVE Ery/ul (0-5); Epithelial Cells RARE /HPF (FEW); Glucose NEGATIVE (NEGATIVE); Ketones TRACE (NEGATIVE); Leukocyte Esterase NEGATIVE (NEGATIVE); Mucus MANY /HPF (NEGATIVE); Nitrite NEGATIVE (NEGATIVE); Protein,Urine Dip 30 (Negative); RBC 0-2 /HPF (0-2); Specific Gravity 1.033 (1.005-1.025); Urobilinogen 2 mg/dL (0-1); WBC 0-2 /HPF (0-5)
[2021-03-19 16:11] LABS: ALBUMIN 4.6 g/dL (3.5-5.0); ALKALINE PHOSPHATASE 78 U/L (38-126); ANION GAP 15.8 MEQ/L (5-15); BLOOD UREA NITROGEN 14 mg/dL (7-17); CHLORIDE 103 mmol/L (98-107); Calcium 9.2 mg/dL (8.4-10.2); Carbon Dioxide 24 mmol/L (22-30); Creatinine 1 0.78 mg/dL (0.52-1.04); EST GLOMERULAR FILTRATION RATE > 60.0 ML/MIN; Glucose 92 mg/dL (74-106); Potassium 3.6 mmol/L (3.5-5.1); SGOT/AST 24 U/L (14-36); SGPT/ALT 20 U/L (0-35); SODIUM 139 mmol/L (137-145); Total Protein 7.4 g/dL (6.3-8.2)
[2021-03-19 16:53] VITALS: O2SAT 98
--- NOTE | 2021-03-19 17:44 | ERPHSYRPT ---
- History of Present Illness Time Seen by Provider: 03/19/21 15:40 Historian: patient Exam Limitations: no limitations Patient Subjective Stated Complaint: Abdominal pain Triage Nursing Assessment: Patient ambulated into ED and transferred self to bed. Patient A+O X3. patient's skin pink ,warm and dry. Patient complains of left sided abdominal pain 8/10 constant aching with intermittent sharp and stabbing pain. Patient states she started vomiting and diarrhea on wednesday and her left side of abdomen has hurt ever since vomiting. She states she was vomiting very hard. Patient denies N/V today, but complains of diarrhea. Abdomen soft and round with BS X 4. Physician History: Patient is a 30-year-old female presents to our ED with complaints of left upper abdominal pain. Symptoms started 3 days ago on Wednesday. Pain started after a bout of nausea vomiting and diarrhea. Pain has been ongoing for 3 days. Pain described as a constant ache with occasional episodes of intermittent sharp stabbing sensation. No associated trauma. No fever. No vaginal discharge. Symptoms are mild to moderate in intensity. No specific worsening improving factors. Patient voices no other complaints or concerns at this time. Patient advised that she has a history of hepatosplenomegaly. She was told in the past that she had a mass on her spleen. Patient had a colonoscopy 2 months ago. Patient reports all was negative. Timing/Duration: day(s) (3 days ago) Activities at Onset: none Quality: aching, stabbing Abdominal Pain Onset Location: LLQ Pain Radiation: no radiation Severity of Pain-Max: moderate Severity of Pain-Current: mild Modifying Factors: Improves With: nothing Associated Symptoms: diarrhea, nausea, vomiting Previous symptoms: no prior history Allergies/Adverse Reactions: duloxetine [From Cymbalta] Allergy (Intermediate, Verified 03/19/21 15:32) states "irritability" adhesive Allergy (Mild, Verified 03/19/21 15:32) Rash cefaclor [From Ceclor] Allergy (Mild, Verified 03/19/21 15:32) Hives ketorolac [From Toradol] Allergy (Verified 03/19/21 15:32) Hives paroxetine [From Paxil] Adverse Reaction (Severe, Verified 03/19/21 15:32) "electric shock feeling in my head" tramadol Adverse Reaction (Intermediate, Verified 10/20/21 15:32) Hives Home Medications: Levothyroxine Sodium 50 Mcg [Synthroid 50 Mcg] 50 mcg PO DAILY 07/21/19 [History] Semaglutide [Ozempic] 1 mg SQ WEEKLY 07/14/20 [History] clonazePAM [Klonopin] 1 mg PO UD 11/27/20 [History] Hx Tetanus, Diphtheria Vaccination/Date Given: Yes Hx Influenza Vaccination/Date Given: No Hx Pneumococcal Vaccination/Date Given: No Immunizations Up to Date: Yes Travel Risk - International Travel Have you traveled outside of the country in past 3 weeks: No - Coronavirus Screening Are you exhibiting any of the following symptoms?: No Close contact with a COVID-19 positive Pt in past 14-21 Days: No - Vaccine Status Have you recieved a Covid-19 vaccination: No - Review of Systems Constitutional: No Symptoms, No Fever, No Chills Eyes: No Symptoms Ears, Nose, & Throat: No Symptoms Respiratory: No Symptoms, No Cough, No Dyspnea Cardiac: Orthopnea, No Chest Pain, No Edema, No Syncope Abdominal/Gastrointestinal: No Abdominal Pain, No Nausea, No Vomiting, No Diarrhea Genitourinary Symptoms: No Symptoms, No Dysuria Musculoskeletal: No Symptoms, No Back Pain, No Neck Pain Skin: No Symptoms, No Rash Neurological: No Symptoms, No Dizziness, No Focal Weakness, No Sensory Changes Psychological: No Symptoms Endocrine: No Symptoms Hematologic/Lymphatic: No Symptoms Immunological/Allergic: No Symptoms All Other Systems: Reviewed and Negative - Past Medical History Pertinent Past Medical History: Yes Neurological History: Migraines ENT History: No Pertinent History Cardiac History: No Pertinent History Respiratory History: No Pertinent History Endocrine Medical History: Diabetes Type II, Hypothyroidism Musculoskeletal History: No Pertinent History GI Medical History: GERD, Irritable Bowel History: Other Psycho-Social History: Anxiety, Attention Deficit Disorder, Depression, Panic Disorder Female Reproductive Disorders: Other Other Medical History: Pt has a partial thyroid, mitral valve prolapse.Dr Donte cevallos states chronic pelvic pain - Past Surgical History Past Surgical History: Yes Neuro Surgical History: No Pertinent History Cardiac: No Pertinent History Respiratory: No Pertinent History Gastrointestinal: Cholecystectomy Genitourinary: No Pertinent History Musculoskeletal: No Pertinent History Female Surgical History: Hysterectomy, Dilation & Curettage, Tubal Ligation, Other Other Surgical History: partial thyroidectomy. breast reconstruction-nodules removed. anesthesia problems - difficult to wake up, drop in bp. hysterectomy - Social History Smoking Status: Current every day smoker How long have you smoked: 4 yrs Exposure to second hand smoke: Yes Drug Use: none Patient Lives Alone: No - Female History Hx Last Menstrual Period: hysterectomy 2017 Hx Now: No - Nursing Vital Signs Nursing Vital Signs: Initial Vital Signs Temperature 98.4 F 03/19/21 15:33 Pulse Rate 88 03/19/21 15:33 Respiratory Rate 18 03/19/21 15:33 Blood Pressure 132/89 03/19/21 15:33 O2 Sat by Pulse Oximetry 100 03/19/21 15:33 Pain Scale Pain Intensity 4 - Physical Exam General Appearance: no apparent distress, alert Eye Exam: PERRL/EOMI, eyes nml inspection Ears, Nose, Throat Exam: normal ENT inspection, pharynx normal, moist mucous membranes Neck Exam: normal inspection, non-tender, supple, full range of motion Respiratory Exam: normal breath sounds, lungs clear, No respiratory distress Cardiovascular Exam: regular rate/rhythm, normal heart sounds Gastrointestinal/Abdomen Exam: soft, tenderness (Tenderness palpation left upper quadrant.), No mass Back Exam: normal inspection, normal range of motion, No CVA tenderness, No vertebral tenderness Extremity Exam: normal inspection, normal range of motion, pelvis stable Neurologic Exam: alert, oriented x 3, cooperative, normal mood/affect, nml cerebellar function, sensation nml, No motor deficits Skin Exam: normal color, warm, dry Lymphatic Exam: No adenopathy SpO2 Interpretation: normal SpO2: 98 O2 Delivery: Room Air - Course Nursing assessment & vital signs reviewed: Yes - CT Exams Abdomen/Pelvis CT Interpretation: Tele-radiologist Report (Continue negative abdomen pelvis compared to 12/14/2020. Incidental 14.4 cm splenomegaly.) Ordered Tests: Active Orders 24 hr Category Date Time Status IV Insertion STAT Care 03/19/21 15:44 Active ABDOMEN AND PELVIS W CONTRAST [CT] Stat Exams 03/19/21 15:44 Taken CBC W DIFF Stat Lab 03/19/21 15:50 Completed CMP Stat Lab 03/19/21 15:50 Completed UA W/RFX UR CULTURE Stat Lab 03/19/21 15:47 Completed Medication Summary Generic Name Dose Route Start Last Admin Trade Name Freq PRN Reason Stop Dose Admin Sodium Chloride 1,000 mls @ 100 mls/hr 03/19/21 15:45 10/20/21 15:51 Sodium Chloride 0.9% 1000 Ml IV 04/18/21 15:44 100 mls/hr .Q10H MALA Administration Discontinued Medications Generic Name Dose Route Start Last Admin Trade Name Nileq PRN Reason Stop Dose Admin Ondansetron HCl 4 mg 03/19/21 15:44 03/19/21 15:53 Ondansetron Hcl 4 Mg/2 Ml Vial IV 03/19/21 15:45 4 mg STAT ONE Administration Ondansetron HCl Confirm 03/19/21 15:49 Ondansetron Hcl 4 Mg/2 Ml Vial Administered 03/19/21 15:50 Dose 4 mg .ROUTE .Drippler-Joust ONE Lab/Rad Data: Laboratory Result Diagrams 03/19/21 15:50 03/19/21 15:50 Laboratory Results 03/19/21 03/19/21 03/19/21 Range/Units 15:50 15:50 15:47 WBC 5.6 (4.0-10.5) K/mm3 RBC 4.90 (4.1-5.4) M/mm3 Hgb 15.0 (12.0-16.0) gm/dl Hct 43.0 (35-47) % MCV 87.8 (78-100) fl MCH 30.6 (26-32) pg MCHC 34.9 (32-36) g/dl RDW 12.5 (11.5-14.0) % Plt Count 267 (150-450) K/mm3 MPV 10.3 (7.5-11.0) fl Gran % 51.5 (36.0-66.0) % Eos # (Auto) 0.26 (0-0.5) Absolute Lymphs (auto) 2.05 (1.0-4.6) Absolute Monos (auto) 0.41 (0.0-1.3) Lymphocytes % 36.4 (24.0-44.0) % Monocytes % 7.3 (0.0-12.0) % Eosinophils % 4.6 (0.00-5.0) % Basophils % 0.2 (0.0-0.4) % Absolute Granulocytes 2.90 (1.4-6.9) Basophils # 0.01 (0-0.4) Sodium 139 (137-145) mmol/L Potassium 3.6 (3.5-5.1) mmol/L Chloride 103 (98-107) mmol/L Carbon Dioxide 24 (22-30) mmol/L Anion Gap 15.8 H (5-15) MEQ/L BUN 14 (7-17) mg/dL Creatinine 0.78 (0.52-1.04) mg/dL Estimated GFR > 60.0 ML/MIN Glucose 92 (74-106) mg/dL Calcium 9.2 (8.4-10.2) mg/dL Total Bilirubin 0.60 (0.2-1.3) mg/dL AST 24 (14-36) U/L ALT 20 (0-35) U/L Alkaline Phosphatase 78 (38-126) U/L Serum Total Protein 7.4 (6.3-8.2) g/dL Albumin 4.6 (3.5-5.0) g/dL Urine Color YELLOW (YELLOW) Urine Appearance SLIGHTLY CLOUDY (CLEAR) Urine pH 5.0 (5-6) Ur Specific [place] 1.033 (1.005-1.025) Urine Protein 30 (Negative) Urine Ketones TRACE (NEGATIVE) Urine Blood NEGATIVE (0-5) Matthew/ul Urine Nitrite NEGATIVE (NEGATIVE) Urine Bilirubin NEGATIVE (NEGATIVE) Urine Urobilinogen 2 (0-1) mg/dL Ur Leukocyte Esterase NEGATIVE (NEGATIVE) Urine WBC (Auto) 0-2 (0-5) /HPF Urine RBC (Auto) 0-2 (0-2) /HPF U Epithel Cells (Auto) RARE (FEW) /HPF Urine Bacteria (Auto) RARE (NEGATIVE) /HPF Urine Mucus (Auto) MANY (NEGATIVE) /HPF Urine Culture Reflexed NO (NO) Urine Glucose NEGATIVE (NEGATIVE) mg/dL - Progress Progress: improved Progress Note: Patient reassessed. She feels well. Patient declined pain medication. Laboratory work-up essentially nonremarkable. CT abdomen pelvis reveals splenomegaly. Vitals are stable. We will refer patient to primary care doctor for further evaluation and treatment. Patient voices no other complaints concerns at this time. Portions of this note were created with voice recognition technology. There may be grammatical, spelling, punctuation or sound alike errors 03/19/21 18:15 Counseled pt/family regarding: lab results, diagnosis, need for follow-up, rad results - Departure Departure Disposition: Home Clinical Impression: Splenomegaly, Left upper quadrant pain, Proteinuria Condition: Stable Critical Care Time: No Referrals: ALMA CALABRESE [Primary Care Provider] - Additional Instructions: Discharge/Care Plan [id number] PIERRE was seen on 03/19/21 in the Emergency Room. The patient was counseled regarding Diagnosis,Lab results, Imaging studies, need for follow up and when to return to the Emergency Room. Prescriptions given: Discharge Note I have spoken with the patient and/or caregivers. I have explained the patient's condition, diagnosis and treatment plan based on the information available to me at this time. I have answered the patient's and/or caregiver's questions and addressed any concerns. The patient and/or caregivers have as good understanding of the patient's diagnosis, condition and treatment plan as can be expected at this point. The vital signs have been stable. The patient's condition is stable and appropriate for discharge from the emergency department. The patient will pursue further outpatient evaluation with the primary care physician or other designated or consulting physician as outlined in the discharge instructions. The patient and/or caregivers are agreeable to this plan of care and follow-up instructions have been explained in detail. The patient and/or caregivers have received these instruction. The patient/and or caregivers are aware that any significant change in condition or worsening of symptoms should prompt an immediate return to this or the closest emergency department or call 911.
[2021-03-19 18:48] VITALS: BP 109/61; PULSE 75
--- NOTE | 2021-03-20 08:37 | XRAY ---
Indication: Left abdomen pain. Vomiting and diarrhea. Multiple contiguous axial images obtained through the abdomen and pelvis using 80 cc Isovue 370 contrast. Comparison: December 14, 2020. Lung bases remain clear. Heart not enlarged. Again partially visualized bilateral breast implants. Noncontrasted stomach and bowel loops remain nonobstructed with normal appendix. Again 14.4 cm splenomegaly, hysterectomy, and cholecystectomy. No free fluid/air. Remaining liver, pancreas, spleen, adrenal glands, kidneys, ureters, bladder, and aorta are normal in CT appearance and attenuation. No pathologic retroperitoneal lymphadenopathy. Osseous structures intact. Impression: Splenomegaly. Remaining CT abdomen/pelvis with contrast exam is negative.
== END 2021-03-19 19:10 | disposition home or self-care (01) ==
LOC: ED 15:24
DX: R16.1 Splenomegaly, not elsewhere classified (principal); R10.12 Left upper quadrant pain; R80.9 Proteinuria, unspecified
CPT/HCPCS: 36000; 36415; 74177; 80053; 81001; 85025; 96374; 99284; J2405

== ENCOUNTER 2021-05-13 01:09 | Emergency (ER) | payer OTHER ==
[2021-05-13] MEDS ORDERED: BABY ASPIRIN 81 MG CHEW PO ONE (01:29)
[2021-05-13 01:41] LABS: Absolute Neutrophil Ct (ANC) 6.05 (1.4-6.9); Basophil (Absolute #) 0 (0-0.4); Eosinophil % 3.7 % (0.00-5.0); Eosinophil (Absolute #) 0.42 (0-0.5); Hematocrit 40.9 % (35-47); Hemoglobin 14.2 gm/dl (12.0-16.0); Lymphocyte (Absolute #) 4.22 (1.0-4.6); Lymphocytes % 37.6 % (24.0-44.0); Mean Corpuscular Hemoglobin 30.5 pg (26-32); Mean Corpuscular Hgb Concent. 34.7 g/dl (32-36); Mean Platelet Volume 10.2 fl (7.5-11.0); Monocyte (Absolute #) 0.54 (0.0-1.3); Monocytes % 4.8 % (0.0-12.0); Neutrophil % 53.9 % (36.0-66.0); Platelet Count 276 K/mm3 (150-450); Red Blood Count 4.65 M/mm3 (4.1-5.4); Red Cell Distribution Width 12.1 % (11.5-14.0); White Blood Count 11.2 K/mm3 (4.0-10.5)
--- NOTE | 2021-05-13 01:45 | ERPHSYRPT ---
- History of Present Illness Source: patient Exam Limitations: no limitations Patient Subjective Stated Complaint: pt states "I don't feel right." Triage Nursing Assessment: pt ambulated into the er; pt is axo x4; c/o chest pain; pt states 8/10 pain to left chest; pt states that pain is wide spread to chest; pt states that pain radiates up the left side of her neck; pt states that she has had left shoulder pain for the past 2 days; pt states that she was sitting and her hands was cold and sweaty at the same time; pt states that she thought it was anxiety and took her anxiety medicine with no relief; strong clear apical tone; clear lung sounds in all lobes; strong carlos radial pulses; strong carlos pedal pulses; no edema present; tachycardic; pt states she had covid over thanksgiving; pt states she received the covid infusion on 04/25 Physician History: 30 yo wf w mid-sternal chest pain [id number] which is rated an 8 on scale w radiation to anterior cervical area/L shoulder. Pt states that she is mild dyspneic and mildly diaphoretic wo nausea/vomiting. She has DM/smokes 1ppd but denies hyperlipidemia/hypertension/h-o CAD-GA. Pt has CV19 in Nov but denies cough/fever. Timing/Duration: other (22:00) Activities at Onset: rest Quality: sharpness, stabbing Location: substernal, central Chest Pain Radiation: neck, arm Severity of Pain-Max: severe Severity of Pain-Current: severe Modifying Factors: Improves With: nothing Nitro Today/Relief: no nitro taken today Associated Symptoms: shortness of breath, diaphoresis, chest pain, No nausea, No vomiting, No abdominal pain, No heartburn, No cough, No chills, No fever, No headaches, No loss of appetite, No malaise, No rash, No syncope, No seizure, No weakness Prior Chest Pain/Cardiac Workup: no prior chest pain Allergies/Adverse Reactions: duloxetine [From Cymbalta] Allergy (Intermediate, Verified 05/13/21 01:12) states "irritability" adhesive Allergy (Mild, Verified 05/13/21 01:12) Rash cefaclor [From Ceclor] Allergy (Mild, Verified 05/13/21 01:12) Hives ketorolac [From Toradol] Allergy (Verified 05/13/21 01:12) Hives paroxetine [From Paxil] Adverse Reaction (Severe, Verified 05/13/21 01:12) "electric shock feeling in my head" tramadol Adverse Reaction (Intermediate, Verified 05/13/21 01:12) Hives Home Medications: Levothyroxine Sodium 50 Mcg [Synthroid 50 Mcg] 50 mcg PO DAILY 07/21/19 [History] Semaglutide [Ozempic] 1 mg SQ WEEKLY 07/14/20 [History] clonazePAM [Klonopin] 1 mg PO UD 11/27/20 [History] Nortriptyline HCl [Pamelor] 10 mg PO DAILY 05/13/21 [History] Hx Tetanus, Diphtheria Vaccination/Date Given: Yes Hx Influenza Vaccination/Date Given: No Hx Pneumococcal Vaccination/Date Given: No Travel Risk - International Travel Have you traveled outside of the country in past 3 weeks: No - Coronavirus Screening Are you exhibiting any of the following symptoms?: No Close contact with a COVID-19 positive Pt in past 14-21 Days: No - Vaccine Status Have you recieved a Covid-19 vaccination: No - Review of Systems Constitutional: No Symptoms Eyes: No Symptoms Ears, Nose, & Throat: No Symptoms Respiratory: No Symptoms, Dyspnea Cardiac: Chest Pain Abdominal/Gastrointestinal: No Symptoms Genitourinary Symptoms: No Symptoms Musculoskeletal: No Symptoms Skin: No Symptoms Neurological: No Symptoms Psychological: No Symptoms Endocrine: No Symptoms Hematologic/Lymphatic: No Symptoms Immunological/Allergic: No Symptoms - Past Medical History Pertinent Past Medical History: Yes Neurological History: Migraines ENT History: No Pertinent History Cardiac History: No Pertinent History Respiratory History: No Pertinent History Endocrine Medical History: Diabetes Type II, Hypothyroidism Musculoskeletal History: No Pertinent History GI Medical History: GERD, Irritable Bowel History: Other Psycho-Social History: Anxiety, Attention Deficit Disorder, Depression, Panic Disorder Female Reproductive Disorders: Other Other Medical History: Pt has a partial thyroid, mitral valve prolapse.Dr Donte cevallos states chronic pelvic pain; lupus - Past Surgical History Past Surgical History: Yes Neuro Surgical History: No Pertinent History Cardiac: No Pertinent History Respiratory: No Pertinent History Gastrointestinal: Cholecystectomy Genitourinary: No Pertinent History Musculoskeletal: No Pertinent History Female Surgical History: Hysterectomy, Dilation & Curettage, Tubal Ligation, Other Other Surgical History: partial thyroidectomy. breast reconstruction-nodules removed. anesthesia problems - difficult to wake up, drop in bp. hysterectomy - Social History Smoking Status: Light tobacco smoker How long have you smoked: 4 yrs Exposure to second hand smoke: Yes Drug Use: none Patient Lives Alone: No Significant Family History: no pertinent family hx - Female History Hx Now: No - Nursing Vital Signs Nursing Vital Signs: Initial Vital Signs Temperature 98.6 F 05/13/21 01:14 Pulse Rate 102 H 05/13/21 01:14 Respiratory Rate 14 05/13/21 01:14 Blood Pressure 145/82 05/13/21 01:14 O2 Sat by Pulse Oximetry 100 05/13/21 01:14 Pain Scale Pain Intensity 6 Hypertensive/Tachycardic - Physical Exam General Appearance: no apparent distress Eye Exam: PERRL/EOMI, eyes nml inspection Ears, Nose, Throat Exam: normal ENT inspection, TMs normal, pharynx normal Neck Exam: normal inspection, non-tender, supple, full range of motion Respiratory Exam: normal breath sounds, lungs clear, airway intact Cardiovascular Exam: regular rate/rhythm, normal heart sounds, normal peripheral pulses, No murmur Gastrointestinal/Abdomen Exam: soft, normal bowel sounds, No tenderness Back Exam: normal inspection, normal range of motion Extremity Exam: normal inspection, normal range of motion Neurologic Exam: alert, oriented x 3, cooperative, 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 as tested, normal mood/affect, nml station & gait, sensation nml Skin Exam: normal color, warm, dry Lymphatic Exam: adenopathy SpO2 Interpretation: normal SpO2: 100 O2 Delivery: Room Air - Course Nursing assessment & vital signs reviewed: Yes EKG Interpreted by Me: RATE (NSR/Borderline prolonged QTc/Low voltage/No acute ST segment changes) - CT Exams Chest CT Interpretation: Tele-radiologist Report (CTA chest-No PE/Bronchial wall thickening) Ordered Tests: Active Orders 24 hr Category Date Time Status Woven 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 STAT Care 05/13/21 01:28 Active EKG-ER Only STAT Care 05/13/21 01:28 Active CHEST 1 VIEW (PORTABLE) Stat Exams 05/13/21 01:28 Taken CHEST WITH CONTRAST [CT] Stat Exams 05/13/21 02:22 Taken CBC W DIFF Stat Lab 05/13/21 01:30 Completed CMP Stat Lab 05/13/21 01:30 Completed D-DIMER QUANTITATIVE Stat Lab 05/13/21 01:30 Completed PROTIME WITH INR Stat Lab 05/13/21 01:30 Completed PTT Stat Lab 05/13/21 01:30 Completed TROPONIN Q3H Lab 05/13/21 01:30 Completed TROPONIN Q3H Lab 05/13/21 03:45 Completed TROPONIN Q3H Lab 05/13/21 07:30 Ordered TROPONIN Q3H Lab 05/13/21 10:30 Ordered TROPONIN Q3H Lab 05/13/21 13:30 Ordered Medication Summary Discontinued Medications Generic Name Dose Route Start Last Admin Trade Name Viktoriya PRN Reason Stop Dose Admin Aspirin 324 mg 05/13/21 01:29 05/13/21 01:32 Aspirin 81 Mg Tab.Chew PO 05/13/21 01:30 324 mg STAT ONE Administration Ibuprofen 800 mg 05/13/21 01:57 05/13/21 01:59 Ibuprofen 400 Mg Tablet PO 05/13/21 01:58 800 mg STAT ONE Administration Ibuprofen Confirm 05/13/21 01:58 Ibuprofen 400 Mg Tablet Administered 05/13/21 01:59 Dose 800 mg .ROUTE .STK-MED ONE Lab/Rad Data: Laboratory Result Diagrams 05/13/21 01:30 05/13/21 01:30 Laboratory Results 05/13/21 05/13/21 05/13/21 Range/Units 03:45 01:30 01:30 WBC (4.0-10.5) K/mm3 RBC (4.1-5.4) M/mm3 Hgb (12.0-16.0) gm/dl Hct (35-47) % MCV (78-100) fl MCH (26-32) pg MCHC (32-36) g/dl RDW (11.5-14.0) % Plt Count (150-450) K/mm3 MPV (7.5-11.0) fl Gran % (36.0-66.0) % Eos # (Auto) (0-0.5) Absolute Lymphs (auto) (1.0-4.6) Absolute Monos (auto) (0.0-1.3) Lymphocytes % (24.0-44.0) % Monocytes % (0.0-12.0) % Eosinophils % (0.00-5.0) % Basophils % (0.0-0.4) % Absolute Granulocytes (1.4-6.9) Basophils # (0-0.4) PT 13.9 H (9.4-12.5) SECONDS INR 1.18 (0.8-3.0) APTT 32.2 (25.1-36.5) SECONDS D-Dimer 829 H* (215-500) ng/mL Sodium (137-145) mmol/L Potassium (3.5-5.1) mmol/L Chloride (98-107) mmol/L Carbon Dioxide (22-30) mmol/L Anion Gap (5-15) MEQ/L BUN (7-17) mg/dL Creatinine (0.52-1.04) mg/dL Estimated GFR ML/MIN Glucose (74-106) mg/dL Calcium (8.4-10.2) mg/dL Total Bilirubin (0.2-1.3) mg/dL AST (14-36) U/L ALT (0-35) U/L Alkaline Phosphatase (38-126) U/L Troponin I < 0.012 < 0.012 (0.000-0.034) ng/mL Serum Total Protein (6.3-8.2) g/dL Albumin (3.5-5.0) g/dL 05/13/21 05/13/21 Range/Units 01:30 01:30 WBC 11.2 H (4.0-10.5) K/mm3 RBC 4.65 (4.1-5.4) M/mm3 Hgb 14.2 (12.0-16.0) gm/dl Hct 40.9 (35-47) % MCV 88.0 (78-100) fl MCH 30.5 (26-32) pg MCHC 34.7 (32-36) g/dl RDW 12.1 (11.5-14.0) % Plt Count 276 (150-450) K/mm3 MPV 10.2 (7.5-11.0) fl Gran % 53.9 (36.0-66.0) % Eos # (Auto) 0.42 (0-0.5) Absolute Lymphs (auto) 4.22 (1.0-4.6) Absolute Monos (auto) 0.54 (0.0-1.3) Lymphocytes % 37.6 (24.0-44.0) % Monocytes % 4.8 (0.0-12.0) % Eosinophils % 3.7 (0.00-5.0) % Basophils % 0.0 (0.0-0.4) % Absolute Granulocytes 6.05 (1.4-6.9) Basophils # 0 (0-0.4) PT (9.4-12.5) SECONDS INR (0.8-3.0) APTT (25.1-36.5) SECONDS D-Dimer (215-500) ng/mL Sodium 137 (137-145) mmol/L Potassium 3.6 (3.5-5.1) mmol/L Chloride 105 (98-107) mmol/L Carbon Dioxide 24 (22-30) mmol/L Anion Gap 11.4 (5-15) MEQ/L BUN 14 (7-17) mg/dL Creatinine 0.67 (0.52-1.04) mg/dL Estimated GFR > 60.0 ML/MIN Glucose 95 (74-106) mg/dL Calcium 9.6 (8.4-10.2) mg/dL Total Bilirubin 0.60 (0.2-1.3) mg/dL AST 20 (14-36) U/L ALT 16 (0-35) U/L Alkaline Phosphatase 97 (38-126) U/L Troponin I (0.000-0.034) ng/mL Serum Total Protein 6.9 (6.3-8.2) g/dL Albumin 4.3 (3.5-5.0) g/dL - Progress Progress: improved Progress Note: 05/13/21 01:51 ASA 324mg po 05/13/21 04:33 Pain much improved and asleep before discharge Heart Score 2 05/13/21 04:35 Counseled pt/family regarding: lab results, diagnosis, need for follow-up, rad results - Departure Departure Disposition: Home Clinical Impression: Chest pain Condition: Stable Critical Care Time: No Referrals: ALMA CALABRESE [Primary Care Provider] - Follow up/PCP as directed Instructions: Chest Pain (DC) Additional Instructions: Follow up with your family MD Return to ER for increasing pain or temperature greater than 100.5
[2021-05-13 01:48] LABS: INR 1.18 (0.8-3.0); PROTIME 13.9 SECONDS (9.4-12.5)
[2021-05-13 01:51] LABS: PTT 32.2 SECONDS (25.1-36.5)
[2021-05-13 01:53] LABS: ALBUMIN 4.3 g/dL (3.5-5.0); ALKALINE PHOSPHATASE 97 U/L (38-126); ANION GAP 11.4 MEQ/L (5-15); BLOOD UREA NITROGEN 14 mg/dL (7-17); CHLORIDE 105 mmol/L (98-107); Calcium 9.6 mg/dL (8.4-10.2); Carbon Dioxide 24 mmol/L (22-30); Creatinine 1 0.67 mg/dL (0.52-1.04); EST GLOMERULAR FILTRATION RATE > 60.0 ML/MIN; Glucose 95 mg/dL (74-106); Potassium 3.6 mmol/L (3.5-5.1); SGOT/AST 20 U/L (14-36); SGPT/ALT 16 U/L (0-35); SODIUM 137 mmol/L (137-145); Total Protein 6.9 g/dL (6.3-8.2)
[2021-05-13] MEDS ORDERED: MOTRIN 400 MG PO ONE (01:57)
[2021-05-13] MEDS ORDERED: MOTRIN 400 MG ONE (01:58)
[2021-05-13 04:05] VITALS: PULSE 68
[2021-05-13 04:35] VITALS: BP 87/56
[2021-05-13 04:36] VITALS: O2SAT 100
--- NOTE | 2021-05-13 09:33 | XRAY ---
Indication: Chest pain. Elevated d-dimer. Multiple contiguous axial images obtained through the chest using 80 cc Isovue 370 contrast and PE protocol. Comparison: May 29, 2020. There is again suboptimal opacification of the pulmonary arteries limiting evaluation for pulmonary embolus. No obvious pulmonary embolus. Heart is not enlarged. Aorta is normal in course and caliber. No pathologic mediastinal/hilar lymphadenopathy. Lungs are inflated and remain clear. Bony thorax intact. Again intact bilateral breast implants. Limited upper abdomen again demonstrates mild fatty liver, 14 cm splenomegaly, and cholecystectomy. Impression: 1. Again pulmonary embolus evaluation limited due to suboptimal contrast opacification. No obvious pulmonary embolus. 2. Again incidental fatty liver, splenomegaly, and bilateral breast implants. 3. Remaining CT chest with contrast exam is again negative. Comment: Preliminary interpretation made by [facility]. No critical discrepancy.
--- NOTE | 2021-05-13 09:33 | XRAY ---
Indication: Chest pain. Comparison: August 10, 2020. Portable chest again demonstrates normal heart, lungs, and bony thorax with incidental bilateral breast implants.
== END 2021-05-13 04:39 | disposition home or self-care (01) ==
LOC: ED 01:09
DX: R07.9 Chest pain, unspecified (principal); R06.02 Shortness of breath; R61 Generalized hyperhidrosis; E11.8 Type 2 diabetes mellitus with unspecified complications; Z79.899 Other long term (current) drug therapy; Z86.16 Personal history of COVID-19; Z72.0 Tobacco use
CPT/HCPCS: 36000; 36415; 71045; 71260; 80053; 84484; 85025; 85379; 85610; 85730; 93005; 93041; 99284; A9270-GY

== ENCOUNTER 2021-07-26 07:23 | Emergency (ER) | payer OTHER ==
[2021-07-26] MEDS ORDERED: Celestone Soluspan 6MG/ML IM ONE (07:55)
[2021-07-26] MEDS ORDERED: Pepcid 20 MG PO ONE (07:55)
--- NOTE | 2021-07-26 08:04 | ERPHSYRPT ---
- History of Present Illness Time Seen by Provider: 07/26/21 08:02 Source: patient Exam Limitations: no limitations Patient Subjective Stated Complaint: allergic reaction Triage Nursing Assessment: Patient ambulated back to ED and transferred self to bed. Patient A+O x3. Patient's skin flushed, warm and dry. Patient states she woke up with redness and swelling to face, eyes and lips. Patient states her throat is scratchy. Patient also states she has hives all over her body, which isn't normal for her. She has been dealing with hives on and off for 10 years. She states her PCP thinks she is allergic to her silicone breast implants and is seeing a surgeon wednesday about removal. Patient denies pain or discomfort. Eyes and lips noted to be swollen. Physician History: Patient states she woke up with redness and swelling to face, eyes and lips. Patient states her throat is scratchy. Patient also states she has hives all over her body, which isn't normal for her. She has been dealing with hives on and off for 10 years. She states her PCP thinks she is allergic to her silicone breast implants and is seeing a surgeon wednesday about removal. Patient denies pain or discomfort. Eyes and lips noted to be swollen. Hx of silicon breast implants 10 years ago Timing/Duration: today Quality: itchy Severity: moderate Location: torso, hands Possible Causes: no cause identified Modifying Factors: Improves With: antihistamine Associated Symptoms: denies symptoms Allergies/Adverse Reactions: duloxetine [From Cymbalta] Allergy (Intermediate, Verified 07/26/21 07:47) states "irritability" adhesive Allergy (Mild, Verified 07/26/21 07:47) Rash cefaclor [From Ceclor] Allergy (Mild, Verified 07/26/21 07:47) Hives ketorolac [From Toradol] Allergy (Verified 07/26/21 07:47) Hives paroxetine [From Paxil] Adverse Reaction (Severe, Verified 07/26/21 07:47) "electric shock feeling in my head" tramadol Adverse Reaction (Intermediate, Verified 07/26/21 07:47) Hives Home Medications: Levothyroxine Sodium 50 Mcg [Synthroid 50 Mcg] 50 mcg PO DAILY 07/21/19 [History] Semaglutide [Ozempic] 1 mg SQ WEEKLY 07/14/20 [History] clonazePAM [Klonopin] 1 mg PO UD 11/27/20 [History] Nortriptyline HCl [Pamelor] 10 mg PO DAILY 05/13/21 [History] Hx Tetanus, Diphtheria Vaccination/Date Given: Yes Hx Influenza Vaccination/Date Given: No Hx Pneumococcal Vaccination/Date Given: No Immunizations Up to Date: Yes Travel Risk - International Travel Have you traveled outside of the country in past 3 weeks: No - Coronavirus Screening Are you exhibiting any of the following symptoms?: No Close contact with a COVID-19 positive Pt in past 14-21 Days: No - Vaccine Status Have you recieved a Covid-19 vaccination: No - Review of Systems Constitutional: No Fever, No Chills Eyes: No Symptoms Ears, Nose, & Throat: No Symptoms Respiratory: No Cough, No Dyspnea Cardiac: No Chest Pain, No Edema, No Syncope Abdominal/Gastrointestinal: No Abdominal Pain, No Nausea, No Vomiting, No Diarrhea Genitourinary Symptoms: No Dysuria Musculoskeletal: No Back Pain, No Neck Pain Skin: Rash Neurological: No Dizziness, No Focal Weakness, No Sensory Changes Psychological: No Symptoms Endocrine: No Symptoms All Other Systems: Reviewed and Negative - Past Medical History Pertinent Past Medical History: Yes Neurological History: Migraines ENT History: No Pertinent History Cardiac History: No Pertinent History Respiratory History: No Pertinent History Endocrine Medical History: Diabetes Type II, Hypothyroidism Musculoskeletal History: No Pertinent History GI Medical History: GERD, Irritable Bowel History: Other Psycho-Social History: Anxiety, Attention Deficit Disorder, Depression, Panic Disorder Female Reproductive Disorders: Other Other Medical History: Pt has a partial thyroid, mitral valve prolapse.Dr Kent dx states chronic pelvic pain; lupus - Past Surgical History Past Surgical History: Yes Neuro Surgical History: No Pertinent History Cardiac: No Pertinent History Respiratory: No Pertinent History Gastrointestinal: Cholecystectomy Genitourinary: No Pertinent History Musculoskeletal: No Pertinent History Female Surgical History: Hysterectomy, Dilation & Curettage, Tubal Ligation, Other Other Surgical History: partial thyroidectomy. breast reconstruction-nodules removed. anesthesia problems - difficult to wake up, drop in bp. hysterectomy - Social History Smoking Status: Light tobacco smoker How long have you smoked: 4 yrs Exposure to second hand smoke: Yes Drug Use: none Patient Lives Alone: No Significant Family History: no pertinent family hx - Female History Hx Last Menstrual Period: hysterectomy Hx Now: No - Nursing Vital Signs Nursing Vital Signs: Initial Vital Signs Temperature 98.2 F 07/26/21 07:48 Pulse Rate 84 07/26/21 07:48 Respiratory Rate 18 07/26/21 07:48 Blood Pressure 117/94 07/26/21 07:48 O2 Sat by Pulse Oximetry 99 07/26/21 07:48 Pain Scale Pain Intensity 0 - Physical Exam General Appearance: no apparent distress, alert Eye Exam: PERRL/EOMI, eyes nml inspection Ears, Nose, Throat Exam: normal ENT inspection, pharynx normal, moist mucous membranes Neck Exam: normal inspection, non-tender, supple, full range of motion Respiratory Exam: normal breath sounds, lungs clear, No respiratory distress Cardiovascular Exam: regular rate/rhythm, normal heart sounds Gastrointestinal/Abdomen Exam: soft, mass, No tenderness Back Exam: normal inspection, normal range of motion, No CVA tenderness, No vert ebral tenderness Extremity Exam: normal inspection, normal range of motion Neurologic Exam: alert, oriented x 3, cooperative, normal mood/affect, sensation nml, No motor deficits Skin Exam: normal color, warm, dry, rash SpO2: 100 - Course Nursing assessment & vital signs reviewed: Yes Ordered Tests: Active Orders 24 hr Category Date Time Status CBC W DIFF Stat Lab 07/26/21 08:15 Completed CMP Stat Lab 07/26/21 08:15 Completed Medication Summary Discontinued Medications Generic Name Dose Route Start Last Admin Trade Name Nileq PRN Reason Stop Dose Admin Betamethasone Acet/Betameth SodPhos 12 mg 07/26/21 07:55 07/26/21 08:13 Betamet Acet/Betamet Na Ph 6 Mg/Ml IM 07/26/21 07:56 12 mg STAT ONE Administration Betamethasone Acet/Betameth SodPhos Confirm 07/26/21 08:10 Betamet Acet/Betamet Na Ph 6 Mg/Ml Administered 07/26/21 08:11 Dose 6 mg .ROUTE .STK-MED ONE Famotidine 40 mg 07/26/21 07:55 07/26/21 08:12 Famotidine 20 Mg Tablet PO 07/26/21 07:56 40 mg STAT ONE Administration Famotidine Confirm 07/26/21 08:09 Famotidine 20 Mg Tablet Administered 07/26/21 08:10 Dose 40 mg .ROUTE .STK-MED ONE Lab/Rad Data: Laboratory Result Diagrams 07/26/21 08:15 07/26/21 08:15 Laboratory Results 07/26/21 07/26/21 Range/Units 08:15 08:15 WBC 8.6 (4.0-10.5) K/mm3 RBC 4.68 (4.1-5.4) M/mm3 Hgb 14.7 (12.0-16.0) gm/dl Hct 42.3 (35-47) % MCV 90.4 (78-100) fl MCH 31.4 (26-32) pg MCHC 34.8 (32-36) g/dl RDW 12.7 (11.5-14.0) % Plt Count 254 (150-450) K/mm3 MPV 9.8 (7.5-11.0) fl Gran % 64.8 (36.0-66.0) % Eos # (Auto) 0.23 (0-0.5) Absolute Lymphs (auto) 2.32 (1.0-4.6) Absolute Monos (auto) 0.48 (0.0-1.3) Lymphocytes % 26.9 (24.0-44.0) % Monocytes % 5.6 (0.0-12.0) % Eosinophils % 2.7 (0.00-5.0) % Basophils % 0.0 (0.0-0.4) % Absolute Granulocytes 5.58 (1.4-6.9) Basophils # 0 (0-0.4) Sodium 139 (137-145) mmol/L Potassium 3.8 (3.5-5.1) mmol/L Chloride 106 (98-107) mmol/L Carbon Dioxide 24 (22-30) mmol/L Anion Gap 12.4 (5-15) MEQ/L BUN 13 (7-17) mg/dL Creatinine 0.75 (0.52-1.04) mg/dL Estimated GFR > 60.0 ML/MIN Glucose 90 (74-106) mg/dL Calcium 8.9 (8.4-10.2) mg/dL Total Bilirubin 0.50 (0.2-1.3) mg/dL AST 17 (14-36) U/L ALT 15 (0-35) U/L Alkaline Phosphatase 83 (38-126) U/L Serum Total Protein 7.0 (6.3-8.2) g/dL Albumin 4.1 (3.5-5.0) g/dL - Progress Progress: improved Counseled pt/family regarding: diagnosis, need for follow-up - Departure Departure Disposition: Home Clinical Impression: Hives Condition: Stable Critical Care Time: No Referrals: ALMA CALABRESE [Primary Care Provider] - Follow up/PCP as directed Instructions: Hives (DC), Chronic Hives Additional Instructions: Discharge/Care Plan AGNIESZKA HE was seen on 07/26/21 in the Emergency Room. The patient was counseled regarding Diagnosis,Lab results, Imaging studies, need for follow up and when to return to the Emergency Room. Prescriptions given: Discharge Note I have spoken with the patient and/or caregivers. I have explained the patient's condition, diagnosis and treatment plan based on the information available to me at this time. I have answered the patient's and/or caregiver's questions and addressed any concerns. The patient and/or caregivers have as good understanding of the patient's diagnosis, condition and treatment plan as can be expected at this point. The vital signs have been stable. The patient's condition is stable and appropriate for discharge from the emergency department. The patient will pursue further outpatient evaluation with the primary care physician or other designated or consulting physician as outlined in the discharge instructions. The patient and/or caregivers are agreeable to this plan of care and follow-up instructions have been explained in detail. The patient and/or caregivers have received these instruction. The patient/and or caregivers are aware that any significant change in condition or worsening of symptoms should prompt an immediate return to this or the closest emergency department or call 911. AGNIESZKA HE was seen on 07/26/21 n the Emergency Room. At that time you were treated for an emergent condition, during your visit Laboratory, Radiology and/or other procedures may have been ordered. It is very important that you follow-up with your Primary Care Physician ALMA CALABRESE within the next 24-48 hours to review your Emergency Room visit and the final results of testing that was ordered. Some test results such as Urine Cultures, Blood Cultures, and other cultures if ordered will not be finalized for 24-48 hours. If you do not have a Primary Care Provider please call the medical records department at [phone] to obtain a copy of your results or you may sign into our patient portal to obtain these results by visiting us @ [email or web address] and completing the following steps: 1. Click on the Patient Portal link 2. Click the Patient Self Enrollment Link to complete the enrollment form and entering your 3. Once the enrollment form is completed you will receive an email with a temporary ID and password at the email address you provided. 4. Next choose a user name and password. Your user name must be at least 4 characters long and your password must be at least 4 characters long. 5. Choose a security question from the list and provide your answer to the question. If you already have signed into the Health Portal you may access your Health Care Information 21/12 by the following steps: 1. Login to our website @ [email or web address] 2. Enter your original user name and password. FAQS The [facility] Portal is an online tool that contains your Lab Results, Radiology Reports, Visit History, Discharge Instructions and Health Summary Lab and Radiology Results will not be available for 72 hours on the portal. The Portal is a secure site, passwords are encryted and URLs are re-written so they cannot be copied and pasted. You and authorized family members are the only ones who can access your Portal. Also there is a timeout feature that protects your information if you leave the Portal page open. If you have technical difficulty please use the Contact Us link on the page this will allow you to submit any questions you have regarding the Portal or you may contact the Medical Record Department at [phone] ext [phone].
[2021-07-26] MEDS ORDERED: Pepcid 20 MG ONE (08:09)
[2021-07-26] MEDS ORDERED: Celestone Soluspan 6MG/ML ONE ×2 (08:10→09:10)
[2021-07-26 08:22] LABS: Absolute Neutrophil Ct (ANC) 5.58 (1.4-6.9); Basophil (Absolute #) 0 (0-0.4); Eosinophil % 2.7 % (0.00-5.0); Eosinophil (Absolute #) 0.23 (0-0.5); Hematocrit 42.3 % (35-47); Hemoglobin 14.7 gm/dl (12.0-16.0); Lymphocyte (Absolute #) 2.32 (1.0-4.6); Lymphocytes % 26.9 % (24.0-44.0); Mean Cell Volume 90.4 fl (78-100); Mean Corpuscular Hemoglobin 31.4 pg (26-32); Mean Corpuscular Hgb Concent. 34.8 g/dl (32-36); Mean Platelet Volume 9.8 fl (7.5-11.0); Monocyte (Absolute #) 0.48 (0.0-1.3); Monocytes % 5.6 % (0.0-12.0); Neutrophil % 64.8 % (36.0-66.0); Platelet Count 254 K/mm3 (150-450); Red Blood Count 4.68 M/mm3 (4.1-5.4); Red Cell Distribution Width 12.7 % (11.5-14.0); White Blood Count 8.6 K/mm3 (4.0-10.5)
[2021-07-26 08:29] LABS: ALBUMIN 4.1 g/dL (3.5-5.0); ALKALINE PHOSPHATASE 83 U/L (38-126); ANION GAP 12.4 MEQ/L (5-15); BLOOD UREA NITROGEN 13 mg/dL (7-17); CHLORIDE 106 mmol/L (98-107); Calcium 8.9 mg/dL (8.4-10.2); Carbon Dioxide 24 mmol/L (22-30); Creatinine 1 0.75 mg/dL (0.52-1.04); EST GLOMERULAR FILTRATION RATE > 60.0 ML/MIN; Glucose 90 mg/dL (74-106); Potassium 3.8 mmol/L (3.5-5.1); SGOT/AST 17 U/L (14-36); SGPT/ALT 15 U/L (0-35); SODIUM 139 mmol/L (137-145)
[2021-07-26 08:41] VITALS: BP 111/78; PULSE 68; O2SAT 97
== END 2021-07-26 08:58 | disposition home or self-care (01) ==
LOC: ED 07:23
DX: L50.0 Allergic urticaria (principal); E11.9 Type 2 diabetes mellitus without complications; Z79.899 Other long term (current) drug therapy; K21.9 Gastro-esophageal reflux disease without esophagitis; F41.9 Anxiety disorder, unspecified; Z72.0 Tobacco use
CPT/HCPCS: 36415; 80053; 85025; 96372; 99284; J0702; A9270-GY

== ENCOUNTER 2022-01-19 22:53 | Emergency (ER) | payer OTHER ==
[2022-01-19] MEDS ORDERED: Sodium Chloride 0.9% 1000 ML 1,000 ML IV STA (23:13)
[2022-01-19] MEDS ORDERED: Reglan 10 MG/2 ML IV ONE (23:15)
[2022-01-19] MEDS ORDERED: BENADRYL 50 MG/ML IV ONE (23:29)
[2022-01-19] MEDS ORDERED: TORAdol 30 mg Injection IV ONE (23:29)
[2022-01-19 23:45] LABS: Absolute Neutrophil Ct (ANC) 5.18 x10^3/uL (1.4-6.9); Basophil (Absolute #) 0.05 x10^3/uL (0-0.4); Eosinophil % 2.3 % (0.00-5.0); Hematocrit 39.2 % (35-47); Hemoglobin 13.9 g/dL (12.0-16.0); Lymphocytes % 31.4 % (24.0-44.0); Mean Cell Volume 86.7 fL (78-100); Mean Corpuscular Hemoglobin 30.8 pg (26-32); Mean Corpuscular Hgb Concent. 35.5 g/dL (32-36); Mean Platelet Volume 9.4 fL (7.5-11.0); Monocyte (Absolute #) 0.43 x10^3/uL (0.0-1.3); Neutrophil % 60.4 % (36.0-66.0); Platelet Count 280 x10^3/uL (150-450); Red Blood Count 4.52 x10^6/uL (4.1-5.4); Red Cell Distribution Width 11.6 % (11.5-14.0); White Blood Count 8.6 x10^3/uL (4.0-10.5)
[2022-01-19] MEDS ORDERED: Sodium Chloride 0.9% 1000 ML 1,000 ML ONE (23:45)
[2022-01-19] MEDS ORDERED: TORAdol 30 mg Injection ONE (23:45)
[2022-01-19 23:49] LABS: Appearance CLEAR (CLEAR); Bacteria PACKED /HPF (NEGATIVE); Bilirubin NEGATIVE (NEGATIVE); Epithelial Cells RARE /HPF (FEW); Glucose NEGATIVE (NEGATIVE); RBC 0-2 /HPF (0-2)
[2022-01-19 23:50] LABS: Ketones NEGATIVE (NEGATIVE); Nitrite NEGATIVE (NEGATIVE); Protein,Urine Dip NEGATIVE (Negative); RBC NEGATIVE Ery/ul (0-5); Urobilinogen 0.2 mg/dL (0-1)
[2022-01-19 23:51] LABS: Dipstick done @ ? MAIN LAB; Urine Cultured Indicated? YES
[2022-01-20 00:04] LABS: ALBUMIN 4.6 g/dL (3.5-5.0); ALKALINE PHOSPHATASE 87 U/L (38-126); BLOOD UREA NITROGEN 14 mg/dL (7-17); CHLORIDE 105 mmol/L (98-107); Calcium 9.7 mg/dL (8.4-10.2); Carbon Dioxide 24 mmol/L (22-30); Creatinine 1 1.09 mg/dL (0.52-1.04); EST GLOMERULAR FILTRATION RATE > 60.0 ML/MIN; Glucose 118 mg/dL (74-106); Potassium 3.6 mmol/L (3.5-5.1); SGOT/AST 22 U/L (14-36); SGPT/ALT 18 U/L (0-35); SODIUM 140 mmol/L (137-145); Total Protein 7.5 g/dL (6.3-8.2)
[2022-01-20 01:10] VITALS: BP 108/65; PULSE 83
[2022-01-20 01:11] VITALS: O2SAT 96
--- NOTE | 2022-01-20 01:11 | ERPHSYRPT ---
- History of Present Illness Time Seen by Provider: 01/19/22 23:25 Source: patient Exam Limitations: no limitations Patient Subjective Stated Complaint: pt states "I have had a migraine for about 2 and a half weeks. I was sitting on the cough and my left side of the neck s tarting hurting and my L side of my face started tingling." Triage Nursing Assessment: pt ambulatory to bed by self, pt alert and oriented x3, pt c/o migraine x2 weeks, pt also c/o neck pain and L sided facial tingling that started around 2245 and last 5 mins but has since resolved. handgrips equal and strong bilateral, no facial droop noted, pupils perrl Physician History: Patient is a 31-year-old female who presents with a complaint of 2-1/2 weeks of daily migraines. She had surgery 5 weeks ago which was a bilateral mastectomy. She felt a charley horse in the left side of her neck and developed left facial tenderness and tingling. The headache she has had have been typical migraines for her. Timing/Duration: week(s) (2-1/2) Quality: throbbing Head Pain Location: global Severity of Pain-Max: moderate Severity of Pain-Current: moderate Recent Head Trauma: no recent headache/trauma, frequent headaches Modifying Factors: Improves With: movement Previous symptoms: no recent treatment Allergies/Adverse Reactions: duloxetine [From Cymbalta] Allergy (Intermediate, Verified 01/19/22 23:18) states "irritability" adhesive Allergy (Mild, Verified 01/19/22 23:18) Rash cefaclor [From Ceclor] Allergy (Mild, Verified 01/19/22 23:18) Hives paroxetine [From Paxil] Adverse Reaction (Severe, Verified 01/19/22 23:18) "electric shock feeling in my head" Home Medications: Levothyroxine Sodium 50 Mcg [Synthroid 50 Mcg] 50 mcg PO DAILY 07/21/19 [History] Semaglutide [Ozempic] 1 mg SQ WEEKLY 07/14/20 [History] clonazePAM [Klonopin] 1 mg PO UD 11/27/20 [History] Nortriptyline HCl [Pamelor] 10 mg PO DAILY 05/13/21 [History] Hx Tetanus, Diphtheria Vaccination/Date Given: Yes Hx Influenza Vaccination/Date Given: No Hx Pneumococcal Vaccination/Date Given: No Immunizations Up to Date: Yes Travel Risk - International Travel Have you traveled outside of the country in past 3 weeks: No - Coronavirus Screening Are you exhibiting any of the following symptoms?: No Close contact with a COVID-19 positive Pt in past 14-21 Days: No - Vaccine Status Have you recieved a Covid-19 vaccination: No - Review of Systems Constitutional: No Fever, No Chills Eyes: No Symptoms Ears, Nose, & Throat: No Symptoms Respiratory: No Cough, No Dyspnea Cardiac: No Chest Pain, No Edema, No Syncope Abdominal/Gastrointestinal: No Abdominal Pain, No Nausea, No Vomiting, No Diarrhea Genitourinary Symptoms: No Dysuria Musculoskeletal: No Back Pain, No Neck Pain Skin: No Rash Neurological: Headache, Parasthesia, No Dizziness, No Focal Weakness, No Sensory Changes Psychological: No Symptoms Endocrine: No Symptoms All Other Systems: Reviewed and Negative - Past Medical History Pertinent Past Medical History: Yes Neurological History: Migraines ENT History: No Pertinent History Cardiac History: No Pertinent History Respiratory History: No Pertinent History Endocrine Medical History: Diabetes Type II, Hypothyroidism Musculoskeletal History: No Pertinent History GI Medical History: GERD, Irritable Bowel History: Other Psycho-Social History: Anxiety, Attention Deficit Disorder, Depression, Panic Disorder Female Reproductive Disorders: Other Other Medical History: Pt has a partial thyroid,.Dr Kent dx states chronic pelvic pain; lupus - Past Surgical History Past Surgical History: Yes Neuro Surgical History: No Pertinent History Cardiac: No Pertinent History Respiratory: No Pertinent History Gastrointestinal: Cholecystectomy Genitourinary: No Pertinent History Musculoskeletal: No Pertinent History Female Surgical History: Hysterectomy, Dilation & Curettage, Tubal Ligation, Other Other Surgical History: partial thyroidectomy. breast reconstruction-nodules removed. bilateral breasts removed- 2021. anesthesia problems - difficult to wake up, drop in bp. hysterectomy - Social History Smoking Status: Never smoker How long have you smoked: 4 yrs Exposure to second hand smoke: Yes Drug Use: none Patient Lives Alone: No Significant Family History: no pertinent family hx - Female History Hx Last Menstrual Period: hysterectomy Hx Now: No - Nursing Vital Signs Nursing Vital Signs: Initial Vital Signs Temperature 98.7 F 01/19/22 23:18 Pulse Rate 95 H 01/19/22 23:18 Respiratory Rate 18 01/19/22 23:18 Blood Pressure 124/93 01/19/22 23:18 O2 Sat by Pulse Oximetry 99 01/19/22 23:18 Pain Scale Pain Intensity 7 - Physical Exam General Appearance: no apparent distress Eye Exam: PERRL/EOMI Ears, Nose, Throat Exam: normal ENT inspection, moist mucous membranes Neck Exam: normal inspection, supple, full range of motion, No meningismus Respiratory Exam: normal breath sounds, lungs clear Cardiovascular Exam: regular rate/rhythm, normal heart sounds Gastrointestinal/Abdominal Exam: soft, No tenderness, No distention Back Exam: normal inspection, normal range of motion Mental Status Exam: alert, oriented x 3, 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 Exam: normal speech, PERRL, No facial droop Coordination/Gait Exam: normal cerebellar function Motor/Sensory Exam: no motor deficit, no sensory deficit Skin Exam: normal color, warm, dry, No rash SpO2 Interpretation: normal SpO2: 96 O2 Delivery: Room Air - Course Nursing assessment & vital signs reviewed: Yes - CT Exams Head CT Interpretation: Tele-radiologist Report Ordered Tests: Active Orders 24 hr Category Date Time Status HEAD WITHOUT CONTRAST [CT] Stat Exams 01/19/22 23:24 Taken CBC W DIFF Stat Lab 01/19/22 23:40 Completed CMP Stat Lab 01/19/22 23:40 Completed CULTURE,URINE Stat Lab 01/19/22 23:41 Received UA W/RFX CULTURE Stat Lab 01/19/22 23:41 Completed Medication Summary Discontinued Medications Generic Name Dose Route Start Last Admin Trade Name Viktoriya PRN Reason Stop Dose Admin Diphenhydramine HCl 25 mg 01/19/22 23:29 01/19/22 23:44 Diphenhydramine Hcl 50 Mg/Ml Vial IV 01/19/22 23:30 Not Given STAT ONE Sodium Chloride 1,000 mls @ 999 mls/hr 01/19/22 23:13 01/19/22 23:46 Sodium Chloride 0.9% 1000 Ml IV 01/20/22 00:13 999 mls/hr .Q1H1M STA Administration Sodium Chloride Confirm 01/19/22 23:45 Sodium Chloride 0.9% 1000 Ml Administered 01/19/22 23:46 Dose 1,000 mls @ ud .ROUTE .STK-MED ONE Ketorolac Tromethamine 30 mg 01/19/22 23:29 01/19/22 23:45 Ketorolac Tromethamine 30 Mg/Ml Inj IV 01/19/22 23:30 30 mg STAT ONE Administration Ketorolac Tromethamine Confirm 01/19/22 23:45 Ketorolac Tromethamine 30 Mg/Ml Inj Administered 01/19/22 23:46 Dose 30 mg .ROUTE .STK-MED ONE Metoclopramide HCl 10 mg 01/19/22 23:15 01/19/22 23:43 Metoclopramide Hcl 10 Mg/2 Ml Vial IV 01/19/22 23:16 Not Given STAT ONE Lab/Rad Data: Laboratory Result Diagrams 01/19/22 23:40 01/19/22 23:40 Laboratory Results 01/19/22 01/19/22 01/19/22 Range/Units 23:41 23:40 23:40 WBC 8.6 (4.0-10.5) x10^3/uL RBC 4.52 (4.1-5.4) x10^6/uL Hgb 13.9 (12.0-16.0) g/dL Hct 39.2 (35-47) % MCV 86.7 (78-100) fL MCH 30.8 (26-32) pg MCHC 35.5 (32-36) g/dL RDW 11.6 (11.5-14.0) % Plt Count 280 (150-450) x10^3/uL MPV 9.4 (7.5-11.0) fL Gran % 60.4 (36.0-66.0) % Immature Gran % (Auto) 0.3 (0.00-0.4) % Nucleat RBC Rel Count 0.0 (0.00-0.1) % Eos # (Auto) 0.20 (0-0.5) x10^3/uL Immature Gran # (Auto) 0.03 (0.00-0.03) x10^3u/L Absolute Lymphs (auto) 2.70 (1.0-4.6) x10^3/uL Absolute Monos (auto) 0.43 (0.0-1.3) x10^3/uL Absolute Nucleated RBC 0.00 (0.00-0.01) x10^3u/L Lymphocytes % 31.4 (24.0-44.0) % Monocytes % 5.0 (0.0-12.0) % Eosinophils % 2.3 (0.00-5.0) % Basophils % 0.6 (0.0-0.4) % Absolute Granulocytes 5.18 (1.4-6.9) x10^3/uL Basophils # 0.05 (0-0.4) x10^3/uL Sodium 140 (137-145) mmol/L Potassium 3.6 (3.5-5.1) mmol/L Chloride 105 (98-107) mmol/L Carbon Dioxide 24 (22-30) mmol/L Anion Gap 15.0 (5-15) MEQ/L BUN 14 (7-17) mg/dL Creatinine 1.09 H (0.52-1.04) mg/dL Estimated GFR > 60.0 ML/MIN Glucose 118 H (74-106) mg/dL Calcium 9.7 (8.4-10.2) mg/dL Total Bilirubin 0.30 (0.2-1.3) mg/dL AST 22 (14-36) U/L ALT 18 (0-35) U/L Alkaline Phosphatase 87 (38-126) U/L Serum Total Protein 7.5 (6.3-8.2) g/dL Albumin 4.6 (3.5-5.0) g/dL Urinalys Dipstick Clnc MAIN LAB Urine Color YELLOW (YELLOW) Urine Appearance CLEAR (CLEAR) Urine pH 7.0 (5-6) Ur Specific [place] 1.010 (1.005-1.025) POC Urine Protein Conf NEGATIVE (Negative) Urine Ketones NEGATIVE (NEGATIVE) Urine Nitrite NEGATIVE (NEGATIVE) Urine Bilirubin NEGATIVE (NEGATIVE) Urine Urobilinogen 0.2 (0-1) mg/dL Urine Leukocytes NEGATIVE (NEGATIVE) Urine WBC (Auto) 3-5 (0-5) /HPF Urine RBC (Auto) 0-2 (0-2) /HPF U Epithel Cells (Auto) RARE (FEW) /HPF Urine Bacteria (Auto) PACKED (NEGATIVE) /HPF Urine RBC NEGATIVE (0-5) Matthew/ul Ur Culture Indicated? YES Urine Glucose NEGATIVE (NEGATIVE) mg/dL - Progress Progress: improved Air Movement: good Blood Culture(s) Obtained: No Antibiotics given: No - Departure Departure Disposition: Home Clinical Impression: Migraine headache Condition: Stable Critical Care Time: No Referrals: ALMA CALABRESE [Primary Care Provider] - Follow up/PCP as directed Instructions: Headache, Adult (DC)
--- NOTE | 2022-01-21 22:20 | XRAY ---
Exam: CT of the head without IV contrast from 01/20/2022. CTDI: 53.92 mGy Comparison: CT of the head without IV contrast from 12/14/2020. Indication: 31-year-old female complains of migraine headaches for 2-1/2 weeks, dizziness, left-sided neck pain, nausea and vomiting; patient had bilateral mastectomy 5 weeks ago. Technique: Non-IV contrast axial images were obtained through the brain. Reconstructed coronal and sagittal images were created and reviewed. Findings: The ventricles are of normal size. No focal mass effect or midline shift is seen. No acute intracranial bleed or abnormal extra-axial fluid collection is seen. Ramos matter-white matter differentiation is preserved. No low attenuation infarct is seen within a major cerebral or cerebellar distribution. Structures of the posterior fossa appear unremarkable. The cortical sulci and basilar cisterns appear normal. The calvarium of the skull appears intact. The paranasal sinuses are essentially clear without air-fluid levels. The mastoid air cells are clear without effusion. The middle ear cavities appear grossly unremarkable. The orbits appear grossly unremarkable. Impression: 1. No acute intracranial bleed or other acute intracranial abnormality is seen. The findings are unchanged from 12/14/2020.
== END 2022-01-20 01:36 | disposition home or self-care (01) ==
LOC: ED 22:53
DX: G43.909 Migraine, unspecified, not intractable, without status migrainosus (principal); M54.2 Cervicalgia; R20.2 Paresthesia of skin; E11.9 Type 2 diabetes mellitus without complications; Z79.899 Other long term (current) drug therapy; Z28.310 Unvaccinated for COVID-19
CPT/HCPCS: 36000; 36415; 70450; 80053; 81015; 85025; 87086; 96360; 96361; 96374; 99284; J1885

== ENCOUNTER 2022-08-02 12:00 | Emergency (ER) | payer OTHER ==
[2022-08-02] MEDS ORDERED: PROTONIX 40 MG IV IV ONE ×2 (12:53→13:37)
[2022-08-02] MEDS ORDERED: Pepcid 20 MG VIAL IV ONE ×2 (12:53→13:37)
[2022-08-02] MEDS ORDERED: MORPHINE SULFATE 4 MG INJ IV ONE ×2 (12:53→15:00)
[2022-08-02] MEDS ORDERED: Zofran 4 MG/2 ML VIAL IV ONE (12:53)
[2022-08-02] MEDS ORDERED: Sodium Chloride 0.9% 1000 ML 1,000 ML IV STA (12:53)
--- NOTE | 2022-08-02 12:53 | ERPHSYRPT ---
- History of Present Illness Time Seen by Provider: 08/02/22 12:47 Historian: patient Exam Limitations: no limitations Patient Subjective Stated Complaint: pt reports abdominal pain starting last evening, reports nausea as well. states that she was not able to sleep due to the pain, she describes it as generalized at this time. Triage Nursing Assessment: pt is aox3, pupils perrl, afebrile, resps easy and non labored, radial pulses strong and equal, cap refill < 3 seconds, pt skin pink warm dry. pt abd soft, tender diffusely, bowel sounds present normoactive. Physician History: pt has abd pain x 2 days first mid low now RLQ and is tender on exam now with some possible rebound. No hx trauma. Prior Cholecystectomy and uterus removed and left tube, and Hx of ovarian cyst but not this bad prior, Hx kidney stones but this also different. Ordered and discussed results - Discussed CBC, CMP, HCG, Amylase, Lipase, Lactate, US, CT Abd and US to rule out pathology and ovarian torsion and pt agrees, after discussion of risks and benefits. Timing/Duration: day(s), intermittent Activities at Onset: none Quality: burning, sharpness, throbbing Abdominal Pain Onset Location: periumbilical Pain Radiation: RLQ Severity of Pain-Max: moderate Severity of Pain-Current: moderate Modifying Factors: Improves With: nothing Associated Symptoms: denies symptoms Previous symptoms: no prior history Allergies/Adverse Reactions: duloxetine [From Cymbalta] Allergy (Intermediate, Verified 08/02/22 12:44) states "irritability" adhesive Allergy (Mild, Verified 08/02/22 12:44) Rash cefaclor [From Ceclor] Allergy (Mild, Verified 08/02/22 12:44) Hives paroxetine [From Paxil] Adverse Reaction (Severe, Verified 08/02/22 12:44) "electric shock feeling in my head" Home Medications: Levothyroxine Sodium 50 Mcg [Synthroid 50 Mcg] 50 mcg PO DAILY 07/21/19 [History] Semaglutide [Ozempic] 1 mg SQ WEEKLY 07/14/20 [History] clonazePAM [Klonopin] 1 mg PO UD 11/27/20 [History] Nortriptyline HCl [Pamelor] 10 mg PO DAILY 05/13/21 [History] Hx Tetanus, Diphtheria Vaccination/Date Given: Yes Hx Influenza Vaccination/Date Given: No Hx Pneumococcal Vaccination/Date Given: No Immunizations Up to Date: Yes Travel Risk - International Travel Have you traveled outside of the country in past 3 weeks: No - Coronavirus Screening Are you exhibiting any of the following symptoms?: No - Vaccine Status Have you recieved a Covid-19 vaccination: No - Review of Systems Constitutional: No Fever, No Chills Eyes: No Symptoms Ears, Nose, & Throat: No Symptoms Respiratory: No Cough, No Dyspnea Cardiac: No Chest Pain, No Edema, No Syncope Abdominal/Gastrointestinal: Abdominal Pain, No Nausea, No Vomiting, No Diarrhea Genitourinary Symptoms: No Dysuria Musculoskeletal: No Back Pain, No Neck Pain Skin: No Rash Neurological: No Dizziness, No Focal Weakness, No Sensory Changes Psychological: No Symptoms Endocrine: No Symptoms Hematologic/Lymphatic: No Symptoms Immunological/Allergic: No Symptoms All Other Systems: Reviewed and Negative - Past Medical History Pertinent Past Medical History: Yes Neurological History: Migraines ENT History: No Pertinent History Cardiac History: No Pertinent History Respiratory History: No Pertinent History Endocrine Medical History: Diabetes Type II, Hypothyroidism Musculoskeletal History: No Pertinent History GI Medical History: GERD, Irritable Bowel History: Other Psycho-Social History: Anxiety, Attention Deficit Disorder, Depression, Panic Disorder Female Reproductive Disorders: Other Other Medical History: Pt has a partial thyroid,.Dr Kent dx states chronic pelvic pain; lupus - Past Surgical History Past Surgical History: Yes Neuro Surgical History: No Pertinent History Cardiac: No Pertinent History Respiratory: No Pertinent History Gastrointestinal: Cholecystectomy Genitourinary: No Pertinent History Musculoskeletal: No Pertinent History Female Surgical History: Hysterectomy, Dilation & Curettage, Tubal Ligation, Other Other Surgical History: partial thyroidectomy. breast reconstruction-nodules removed. bilateral breasts removed- November 2021. anesthesia problems - difficult to wake up, drop in bp. hysterectomy - Social History Smoking Status: Never smoker How long have you smoked: 4 yrs Exposure to second hand smoke: Yes Drug Use: none Patient Lives Alone: No Significant Family History: no pertinent family hx - Female History Hx Last Menstrual Period: 2016 Hx Now: No - Nursing Vital Signs Nursing Vital Signs: Initial Vital Signs Temperature 98.6 F 08/02/22 12:31 Pulse Rate 81 08/02/22 12:31 Respiratory Rate 18 08/02/22 12:31 Blood Pressure 126/78 08/02/22 12:31 O2 Sat by Pulse Oximetry 99 08/02/22 12:31 Pain Scale Pain Intensity 6 - Physical Exam General Appearance: no apparent distress, alert Eye Exam: PERRL/EOMI, eyes nml inspection Ears, Nose, Throat Exam: normal ENT inspection, pharynx normal, moist mucous membranes Neck Exam: normal inspection, non-tender, supple, full range of motion Respiratory Exam: normal breath sounds, lungs clear, No respiratory distress Cardiovascular Exam: regular rate/rhythm, normal heart sounds Gastrointestinal/Abdomen Exam: soft, tenderness, guarding, rebound, No mass Pelvic Exam: deferred Rectal Exam: deferred Back Exam: normal inspection, normal range of motion, No CVA tenderness, No vertebral tenderness Extremity Exam: normal inspection, normal range of motion, pelvis stable Neurologic Exam: alert, oriented x 3, cooperative, normal mood/affect, nml cerebellar function, sensation nml, No motor deficits Skin Exam: normal color, warm, dry SpO2 Interpretation: normal SpO2: 99 O2 Delivery: Room Air - Course Nursing assessment & vital signs reviewed: Yes - CT Exams Abdomen/Pelvis CT Interpretation: Tele-radiologist Report, No appendicitis, Other (thickening of colon/colitis) - Radiology Ultrasound Exam Pelvis Ultrasound: tele radiology report, negative, No Torsion/Nml Flow, pericolic fluid, Other Ordered Tests: Active Orders 24 hr Category Date Time Status IV Insertion STAT Care 08/02/22 12:53 Active NPO (ED) STAT Care 08/02/22 12:53 Active ABDOMEN AND PELVIS W/0 CONTRAS [CT] Stat Exams 08/02/22 13:11 Taken PELVIC [US] Stat Exams 08/02/22 13:28 Taken AMYLASE Stat Lab 08/02/22 13:40 Completed CBC W DIFF Stat Lab 08/02/22 13:40 Completed CMP Stat Lab 08/02/22 13:40 Completed HCG QUALITATIVE,SERUM Stat Lab 08/02/22 13:40 Completed LIPASE Stat Lab 08/02/22 13:40 Completed Lactic Acid Stat Lab 08/02/22 12:53 Completed UA W/RFX UR CULTURE Stat Lab 08/02/22 13:00 Completed Medication Summary Generic Name Dose Route Start Last Admin Trade Name Freq PRN Reason Stop Dose Admin Levofloxacin/Dextrose 500 mg in 100 mls @ 100 mls/hr 08/02/22 15:02 Levofloxacin 500mg/100ml D5w IV 08/02/22 16:01 STAT STA Metronidazole 500 mg in 100 mls @ 200 mls/hr 08/02/22 15:03 08/02/22 15:10 Flagyl 500 Mg Ivpb IV 08/02/22 15:32 200 ml/hr STAT STA 200 mls/hr Administration Discontinued Medications Generic Name Dose Route Start Last Admin Trade Name Freq PRN Reason Stop Dose Admin Famotidine 20 mg 08/02/22 12:53 08/02/22 13:46 Famotidine 20 Mg/1 Vial IV 08/02/22 12:54 20 mg STAT ONE Administration Famotidine Confirm 08/02/22 13:37 Famotidine 20 Mg/1 Vial Administered 08/02/22 13:38 Dose 20 mg IV .STK-MED ONE Sodium Chloride 1,000 mls @ 999 mls/hr 08/02/22 12:53 08/02/22 14:54 Sodium Chloride 0.9% 1000 Ml IV 08/02/22 13:53 Infused .Q1H1M STA Infusion Sodium Chloride Confirm 08/02/22 13:37 Sodium Chloride 0.9% 1000 Ml Administered 08/02/22 13:38 Dose 1,000 mls @ ud .ROUTE .STK-MED ONE Metronidazole Confirm 08/02/22 15:06 Flagyl 500 Mg Ivpb Administered 08/02/22 15:07 Dose 500 mg in 100 mls @ ud IV .STK-MED ONE Morphine Sulfate 4 mg 08/02/22 12:53 08/02/22 13:55 Morphine Sulfate 4 Mg/Ml Injection IV 08/02/22 12:54 4 mg STAT ONE Administration Morphine Sulfate Confirm 08/02/22 13:37 Morphine Sulfate 4 Mg/Ml Injection Administered 08/02/22 13:38 Dose 4 mg .ROUTE .STK-MED ONE Morphine Sulfate 4 mg 08/02/22 15:00 08/02/22 15:08 Morphine Sulfate 4 Mg/Ml Injection IV 08/02/22 15:01 4 mg STAT ONE Administration Morphine Sulfate Confirm 08/02/22 15:05 Morphine Sulfate 4 Mg/Ml Injection Administered 08/02/22 15:06 Dose 4 mg .ROUTE .STK-MED ONE Ondansetron HCl 4 mg 08/02/22 12:53 08/02/22 13:42 Ondansetron Hcl 4 Mg/2 Ml Vial IV 08/02/22 12:54 4 mg STAT ONE Administration Ondansetron HCl Confirm 08/02/22 13:36 Ondansetron Hcl 4 Mg/2 Ml Vial Administered 08/02/22 13:37 Dose 4 mg .ROUTE .STK-MED ONE Pantoprazole Sodium 40 mg 08/02/22 12:53 08/02/22 13:49 Pantoprazole 40 Mg Vial IV 08/02/22 12:54 40 mg STAT ONE Administration Pantoprazole Sodium Confirm 08/02/22 13:37 Pantoprazole 40 Mg Vial Administered 08/02/22 13:38 Dose 40 mg IV .STK-MED ONE Lab/Rad Data: Laboratory Result Diagrams 08/02/22 13:40 08/02/22 13:40 Laboratory Results 08/02/22 08/02/22 08/02/22 Range/Units 13:40 13:40 13:40 WBC 7.3 (4.0-10.5) x10^3/uL RBC 4.86 (4.1-5.4) x10^6/uL Hgb 14.6 (12.0-16.0) g/dL Hct 42.2 (35-47) % MCV 86.8 (78-100) fL MCH 30.0 (26-32) pg MCHC 34.6 (32-36) g/dL RDW 11.7 (11.5-14.0) % Plt Count 291 (150-450) x10^3/uL MPV 9.3 (7.5-11.0) fL Gran % 59.6 (36.0-66.0) % Immature Gran % (Auto) 0.5 H (0.00-0.4) % Nucleat RBC Rel Count 0.0 (0.00-0.1) % Eos # (Auto) 0.09 (0-0.5) x10^3/uL Immature Gran # (Auto) 0.04 H (0.00-0.03) x10^3u/L Absolute Lymphs (auto) 2.41 (1.0-4.6) x10^3/uL Absolute Monos (auto) 0.39 (0.0-1.3) x10^3/uL Absolute Nucleated RBC 0.00 (0.00-0.01) x10^3u/L Lymphocytes % 33.0 (24.0-44.0) % Monocytes % 5.3 (0.0-12.0) % Eosinophils % 1.2 (0.00-5.0) % Basophils % 0.4 (0.0-0.4) % Absolute Granulocytes 4.34 (1.4-6.9) x10^3/uL Basophils # 0.03 (0-0.4) x10^3/uL Sodium 140 (137-145) mmol/L Potassium 3.8 (3.5-5.1) mmol/L Chloride 106 (98-107) mmol/L Carbon Dioxide 28 (22-30) mmol/L Anion Gap 10.2 (5-15) MEQ/L BUN 9 (7-17) mg/dL Creatinine 0.79 (0.52-1.04) mg/dL Estimated GFR > 60.0 ML/MIN Glucose 80 (74-106) mg/dL Lactic Acid (0.4-2.0) Calcium 9.1 (8.4-10.2) mg/dL Total Bilirubin 0.60 (0.2-1.3) mg/dL AST 19 (14-36) U/L ALT 15 (0-35) U/L Alkaline Phosphatase 68 (38-126) U/L Serum Total Protein 7.3 (6.3-8.2) g/dL Albumin 4.2 (3.5-5.0) g/dL Amylase 50 (30-110) U/L Lipase 23 (23-300) U/L Serum , Qual NEGATIVE (Negative) Urine Color (Yellow) Urine Appearance (Clear) Urine pH (4.6-8.0) Ur Specific [place] (1.005-1.030) Urine Protein (Negative) Urine Glucose (UA) (Negative) mg/dL Urine Ketones (Negative) Urine Blood (Negative) Urine Nitrite (Negative) Urine Bilirubin (Negative) Urine Urobilinogen (0.2) mg/dL Ur Leukocyte Esterase (Negative) U Hyaline Cast (Auto) (0-2) /LPF Urine Microscopic RBC (0-5) /HPF Urine Microscopic WBC (0-5) /HPF Ur Epithelial Cells (None Seen) /HPF Urine Bacteria (None Seen) /HPF Urine Culture Reflexed (NO) 08/02/22 08/02/22 Range/Units 13:00 12:53 WBC (4.0-10.5) x10^3/uL RBC (4.1-5.4) x10^6/uL Hgb (12.0-16.0) g/dL Hct (35-47) % MCV (78-100) fL MCH (26-32) pg MCHC (32-36) g/dL RDW (11.5-14.0) % Plt Count (150-450) x10^3/uL MPV (7.5-11.0) fL Gran % (36.0-66.0) % Immature Gran % (Auto) (0.00-0.4) % Nucleat RBC Rel Count (0.00-0.1) % Eos # (Auto) (0-0.5) x10^3/uL Immature Gran # (Auto) (0.00-0.03) x10^3u/L Absolute Lymphs (auto) (1.0-4.6) x10^3/uL Absolute Monos (auto) (0.0-1.3) x10^3/uL Absolute Nucleated RBC (0.00-0.01) x10^3u/L Lymphocytes % (24.0-44.0) % Monocytes % (0.0-12.0) % Eosinophils % (0.00-5.0) % Basophils % (0.0-0.4) % Absolute Granulocytes (1.4-6.9) x10^3/uL Basophils # (0-0.4) x10^3/uL Sodium (137-145) mmol/L Potassium (3.5-5.1) mmol/L Chloride (98-107) mmol/L Carbon Dioxide (22-30) mmol/L Anion Gap (5-15) MEQ/L BUN (7-17) mg/dL Creatinine (0.52-1.04) mg/dL Estimated GFR ML/MIN Glucose (74-106) mg/dL Lactic Acid 1.0 (0.4-2.0) Calcium (8.4-10.2) mg/dL Total Bilirubin (0.2-1.3) mg/dL AST (14-36) U/L ALT (0-35) U/L Alkaline Phosphatase (38-126) U/L Serum Total Protein (6.3-8.2) g/dL Albumin (3.5-5.0) g/dL Amylase (30-110) U/L Lipase (23-300) U/L Serum , Qual (Negative) Urine Color Yellow (Yellow) Urine Appearance Clear (Clear) Urine pH 6.0 (4.6-8.0) Ur Specific [place] 1.020 (1.005-1.030) Urine Protein Negative (Negative) Urine Glucose (UA) Negative (Negative) mg/dL Urine Ketones Negative (Negative) Urine Blood Negative (Negative) Urine Nitrite Negative (Negative) Urine Bilirubin Negative (Negative) Urine Urobilinogen 0.2 (0.2) mg/dL Ur Leukocyte Esterase Negative (Negative) U Hyaline Cast (Auto) NONE SEEN (0-2) /LPF Urine Microscopic RBC 0-2 (0-5) /HPF Urine Microscopic WBC 0-2 (0-5) /HPF Ur Epithelial Cells Rare (None Seen) /HPF Urine Bacteria None Seen (None Seen) /HPF Urine Culture Reflexed NO (NO) - Progress Progress: improved, re-examined Progress Note: 08/02/22 15:18 on re-exam less tender now and no rebound or peritoneal signs. Discussed results with pt and need for further w/u of possible colitis including colonstudies and she wishes to try AB outpt after discussion of risks and benefits . 08/02/22 15:23 Pt is further advised that we have not specifically determined a cause although colitis is suspected, and that additional serious pathology could still be evolving undetected and so followup is needed. She prefers DC with oputpt Tx rather than furhter w/u in house at this time and has the capacity to make this choice. Counseled pt/family regarding: lab results, diagnosis, need for follow-up, rad results Medical Desision Making - Discussion of managment Reviewed:: Test results, Need for additional workup Agreed on:: Treatment plan, need for follow-up - Diagnostic Testing Diagnostic test were ordered, analyzed, and reviewed by me: Yes Radiological Interpretation: Interpreted by me, Reviewed by me, Teleradiologist Report - Risk of complications The pt has a mod risk of morbidity or mortality based on: Need for prescription drug management - Departure Departure Disposition: Home Clinical Impression: Colitis, Abdominal pain Condition: Good Critical Care Time: No Referrals: ALMA CALABRESE [Primary Care Provider] - Follow up/PCP as directed Instructions: Colitis, Severe Abdominal Pain, Adult (DC) Additional Instructions: Although we did not find any problem other that colon inflammation at this time, there is further follow up required to make the diagnosis and additional serious problems could still be developing . See your DrZhao this week for this , and return meantime if not improving or increased pain, vomiting or other concerns. THe levaquin antibiotic may have a effect on tendons and cartilage, so observe f or any symptoms and avoid strenuous activities the next few weeks. Prescriptions: Metronidazole 500 mg [Flagyl 500 MG] 500 mg PO QID #60 tablet Levofloxacin [Levofloxacin 500 MG Tablet] 500 mg PO DAILY #10 tablet
[2022-08-02 13:30] LABS: Appearance Clear (Clear); Bacteria None Seen /HPF (None Seen); Bilirubin Negative (Negative); Blood Negative (Negative); Epithelial Cells Rare /HPF (None Seen); Glucose, Urine Negative (Negative); Hyaline Casts NONE SEEN /LPF (0-2); Ketones Negative (Negative); Leukocyte Esterase Negative (Negative); Nitrite Negative (Negative); Protein,Urine Dip Negative (Negative); RBC 0-2 /HPF (0-5); Urobilinogen 0.2 mg/dL (0.2); WBC 0-2 /HPF (0-5)
[2022-08-02 13:35] LABS: ADD URINE CULTURE? NO (NO)
[2022-08-02] MEDS ORDERED: Zofran 4 MG/2 ML VIAL ONE (13:36)
[2022-08-02] MEDS ORDERED: MORPHINE SULFATE 4 MG INJ ONE ×2 (13:37→15:05)
[2022-08-02] MEDS ORDERED: Sodium Chloride 0.9% 1000 ML 1,000 ML ONE (13:37)
[2022-08-02 13:44] LABS: Absolute Neutrophil Ct (ANC) 4.34 x10^3/uL (1.4-6.9); BASOPHIL % 0.4 % (0.0-0.4); Basophil (Absolute #) 0.03 x10^3/uL (0-0.4); Eosinophil % 1.2 % (0.00-5.0); Eosinophil (Absolute #) 0.09 x10^3/uL (0-0.5); Hematocrit 42.2 % (35-47); Hemoglobin 14.6 g/dL (12.0-16.0); IMMATURE GRAN # 0.04 x10^3u/L (0.00-0.03); IMMATURE GRAN % 0.5 % (0.00-0.4); Lymphocyte (Absolute #) 2.41 x10^3/uL (1.0-4.6); Mean Cell Volume 86.8 fL (78-100); Mean Corpuscular Hgb Concent. 34.6 g/dL (32-36); Mean Platelet Volume 9.3 fL (7.5-11.0); Monocyte (Absolute #) 0.39 x10^3/uL (0.0-1.3); Monocytes % 5.3 % (0.0-12.0); Neutrophil % 59.6 % (36.0-66.0); Platelet Count 291 x10^3/uL (150-450); Red Blood Count 4.86 x10^6/uL (4.1-5.4); Red Cell Distribution Width 11.7 % (11.5-14.0); White Blood Count 7.3 x10^3/uL (4.0-10.5)
[2022-08-02 13:58] LABS: ALBUMIN 4.2 g/dL (3.5-5.0); ALKALINE PHOSPHATASE 68 U/L (38-126); AMYLASE 50 U/L (30-110); ANION GAP 10.2 MEQ/L (5-15); BLOOD UREA NITROGEN 9 mg/dL (7-17); CHLORIDE 106 mmol/L (98-107); Calcium 9.1 mg/dL (8.4-10.2); Carbon Dioxide 28 mmol/L (22-30); Creatinine 1 0.79 mg/dL (0.52-1.04); EST GLOMERULAR FILTRATION RATE > 60.0 ML/MIN; Glucose 80 mg/dL (74-106); LIPASE 23 U/L (23-300); Potassium 3.8 mmol/L (3.5-5.1); SGOT/AST 19 U/L (14-36); SGPT/ALT 15 U/L (0-35); SODIUM 140 mmol/L (137-145); Total Protein 7.3 g/dL (6.3-8.2)
[2022-08-02] MEDS ORDERED: Levofloxacin 500MG/100ML D5W 500 MG/100 ML BAG IV STA (15:02)
[2022-08-02] MEDS ORDERED: FLAGYL 500 MG IVPB 500 MG/100 ML BAG IV STA (15:03)
[2022-08-02] MEDS ORDERED: FLAGYL 500 MG IVPB 500 MG/100 ML BAG IV ONE (15:06)
[2022-08-02] MEDS ORDERED: Levofloxacin 500MG/100ML D5W 500 MG/100 ML BAG IV ONE (15:45)
[2022-08-02 16:39] VITALS: BP 102/67; PULSE 79; O2SAT 98
[2022-08-02] MEDS ORDERED: DIFLUCAN PO ONE (16:52)
--- NOTE | 2022-08-02 19:22 | XRAY ---
Indication: Pelvic pain, bloating, and constipation. Multiple contiguous axial images obtained through the abdomen and pelvis without contrast. Comparison: November 15, 2021 Lung bases demonstrates mild dependent atelectasis with stable tiny right lower lobe calcified granuloma. No infiltrate or effusion. Heart not enlarged. Noncontrasted stomach and bowel loops appear nonobstructed with normal appendix. Again partial hysterectomy and cholecystectomy. New small cul-de-sac fluid presumed physiologic from rupture/leaking cyst. Remaining liver, pancreas, spleen, adrenal glands, kidneys, ureters, bladder, and aorta are unremarkable for noncontrast exam. Osseous structures intact. Impression: 1. New small physiologic cul-de-sac fluid. 2. Remaining CT abdomen/pelvis without contrast exam is again negative. Comment: Preliminary interpretation made by [facility]. No critical discrepancy.
--- NOTE | 2022-08-02 19:24 | XRAY ---
Indication: Right lower quadrant pain. Partial hysterectomy. Two-dimensional transabdominal pelvic sonogram performed. Comparison: None Uterus surgically absent. Right ovary measures 3.5 x 1.8 x 3.5 cm and the left measures 3.7 x 2.3 x 2.5 cm. Normal perfusion bilaterally. No suspicious pelvic mass. Tiny cul-de-sac fluid presumed physiologic from rupture/leaking cyst. Impression: Partial hysterectomy. Tiny physiologic cul-de-sac fluid. Comment: Preliminary report was given.
== END 2022-08-02 17:04 | disposition home or self-care (01) ==
LOC: ED 12:00
DX: K52.9 Noninfective gastroenteritis and colitis, unspecified (principal); R10.31 Right lower quadrant pain; E11.9 Type 2 diabetes mellitus without complications; Z79.85 Long-term (current) use of injectable non-insulin antidiabetic drugs; Z79.899 Other long term (current) drug therapy; Z28.310 Unvaccinated for COVID-19
CPT/HCPCS: 36000; 36415; 74176; 76856; 80053; 81001; 82150; 83605; 83690; 84703; 85025; 96360; 96365; 96374; 96375; 96376; 99284; J1956; J2270; J2405; A9270-GY

== ENCOUNTER 2022-08-10 06:02 | Day surgery (SDC) | payer OTHER ==
[2022-08-10] MEDS ORDERED: Lactated Ringers 1,000 ML IV SCH (06:30)
[2022-08-10] MEDS ORDERED: Reglan 10 MG/2 ML IV ONE (06:40)
[2022-08-10] MEDS ORDERED: Pepcid 20 MG VIAL IV ONE (06:40)
[2022-08-10] MEDS ORDERED: Transderm Scop 1.5MG Patch TOP PRN (06:40)
[2022-08-10] MEDS ORDERED: Zofran 4 MG/2 ML VIAL IV STA (06:41)
[2022-08-10] MEDS ORDERED: Xylocaine-Mpf 2% 5 Ml Vial ONE (07:47)
[2022-08-10] MEDS ORDERED: Versed 2 MG/2 ML Injection ONE (07:47)
[2022-08-10] MEDS ORDERED: DIPRIVAN 200 MG/20 ML IV ONE ×2 (07:47→08:04)
[2022-08-10 09:01] VITALS: O2SAT 100
[2022-08-10 09:02] VITALS: BP 104/71; PULSE 59
--- NOTE | 2022-08-10 10:02 | OP ---
AMENDED REPORT: SURGERY DATE/TIME: 08/10/2022 0749 PREOPERATIVE DIAGNOSIS: Abdominal pain, diarrhea. POSTOPERATIVE DIAGNOSIS: Mild colitis. PROCEDURE: Colonoscopy with cold forceps biopsy. SURGEON: Dr. Banerjee. ANESTHESIA: MAC. Medications given by anesthesia department. HISTORY: History of irritable bowel with signs of colitis on CT scan. The patient also reported some bright blood and mucous in the stool. The patient is felt to need to have endoscopic evaluation. She was appraised of the risks of the procedure including the risk of perforation, phlebitis, untoward reaction to medication, bleeding and missed lesions. The patient verbalized her understanding and desired to have the procedure performed. DESCRIPTION OF PROCEDURE: The patient was given the medications by the anesthesia department. She had continuous pulse oximetry, ECG monitoring and intermittent blood pressure monitoring during the examination. She was placed in the left lateral decubitus position. A digital rectal examination was performed and revealed normal anal sphincter tone and no masses. The flexible Olympus pediatric colonoscope was used to intubate the rectum. A view of the colon was developed sequentially to the cecum including approximately 15 cm into the terminal ileum. Upon insertion and withdrawal, including a retroflex view in the rectum, no mucosal lesions were noted. However, we did do biopsies randomly through the colon to rule out evidence of underlying colitis. The prep was noted to be fair to good with fairly large amounts of liquid stool removed from the colon throughout the examination.
== END 2022-08-10 09:03 | disposition home or self-care (01) ==
LOC: SDC 06:02
PROVIDERS: ATTEND Family Medicine
DX: K52.9 Noninfective gastroenteritis and colitis, unspecified (principal); R10.9 Unspecified abdominal pain; E11.9 Type 2 diabetes mellitus without complications
CPT/HCPCS: 82947; J2250; J2405; J2704; A9270-GY

== ENCOUNTER 2022-08-13 12:42 | Emergency (ER) | payer OTHER ==
[2022-08-13 14:02] LABS: Appearance Clear (Clear); Bacteria Few /HPF (None Seen); Bilirubin Negative (Negative); Blood Negative (Negative); Epithelial Cells Rare /HPF (None Seen); Glucose, Urine Negative (Negative); Hyaline Casts NONE SEEN /LPF (0-2); Ketones Negative (Negative); Leukocyte Esterase Negative (Negative); Nitrite Negative (Negative); Ph 6.5 (4.6-8.0); Protein,Urine Dip Negative (Negative); RBC 0-2 /HPF (0-5); Urobilinogen 0.2 mg/dL (0.2)
[2022-08-13 14:04] LABS: ADD URINE CULTURE? NO (NO)
[2022-08-13 14:05] LABS: BASOPHIL % 0.3 % (0.0-0.4); Basophil (Absolute #) 0.02 x10^3/uL (0-0.4); Eosinophil % 1.8 % (0.00-5.0); Eosinophil (Absolute #) 0.12 x10^3/uL (0-0.5); Hematocrit 41.9 % (35-47); Hemoglobin 14.5 g/dL (12.0-16.0); IMMATURE GRAN # 0.02 x10^3u/L (0.00-0.03); IMMATURE GRAN % 0.3 % (0.00-0.4); Lymphocyte (Absolute #) 2.65 x10^3/uL (1.0-4.6); Lymphocytes % 40.2 % (24.0-44.0); Mean Corpuscular Hemoglobin 30.5 pg (26-32); Mean Corpuscular Hgb Concent. 34.6 g/dL (32-36); Mean Platelet Volume 9.6 fL (7.5-11.0); Monocyte (Absolute #) 0.28 x10^3/uL (0.0-1.3); Monocytes % 4.2 % (0.0-12.0); Neutrophil % 53.2 % (36.0-66.0); Platelet Count 286 x10^3/uL (150-450); Red Blood Count 4.76 x10^6/uL (4.1-5.4); Red Cell Distribution Width 11.7 % (11.5-14.0); White Blood Count 6.6 x10^3/uL (4.0-10.5)
[2022-08-13 14:21] LABS: ALBUMIN 4.6 g/dL (3.5-5.0); ALKALINE PHOSPHATASE 93 U/L (38-126); ANION GAP 13.9 MEQ/L (5-15); BLOOD UREA NITROGEN 13 mg/dL (7-17); CHLORIDE 102 mmol/L (98-107); Calcium 9.5 mg/dL (8.4-10.2); Carbon Dioxide 28 mmol/L (22-30); Creatinine 1 0.72 mg/dL (0.52-1.04); EST GLOMERULAR FILTRATION RATE > 60.0 ML/MIN; Glucose 101 mg/dL (74-106); LIPASE 65 U/L (23-300); Potassium 4.1 mmol/L (3.5-5.1); SGOT/AST 19 U/L (14-36); SGPT/ALT 18 U/L (0-35); SODIUM 140 mmol/L (137-145); Total Protein 7.8 g/dL (6.3-8.2)
--- NOTE | 2022-08-13 16:33 | XRAY ---
Indication: Right lower quadrant pain following colonoscopy 3 days ago. Multiple contiguous images obtained through the abdomen and pelvis without contrast. Comparison: August 02, 2022 Lung bases clear. Heart not enlarged. Noncontrasted stomach and bowel loops nonobstructed again with normal appearing appendix. Mild scattered colonic fecal debris greatest in the ascending colon. Again cholecystectomy. No free fluid/air. Remaining liver, pancreas, spleen, adrenal glands, kidneys, ureters, bladder, and aorta are unremarkable for noncontrast exam. Impression: Continued negative CT abdomen/pelvis without contrast exam compared to ER CT exam 11 days ago.
--- NOTE | 2022-08-13 17:14 | ERPHSYRPT ---
- History of Present Illness Time Seen by Provider: 08/13/22 17:19 Historian: patient Exam Limitations: no limitations Patient Subjective Stated Complaint: Abdominal pain Triage Nursing Assessment: Patient ambulated back to ED and transferred self to bed. Patient A+O X3. Patient's skin pink, warm and dry. Patient states she has been having abdominal pain for a couple weeks. Patient had recent colonoscopy on Wednesday08/10/[address] Banerjee. Patient states ever since she has been having lower abdominal pain 7/10 with nausea, diarrhea and some bloody stool. Abdomen soft and round with BS X 4. Physician History: Patient is a 32-year-old female presents to our emergency department for evaluation of abdominal pain. Patient has been experiencing abdominal pain for approximately 2 weeks. Patient had a colonoscopy on Wednesday. Since then patient had a bloody bowel movement. Patient was advised come to our ED by her primary care doctor Dr. Banerjee. Patient's abdominal pain is mostly right lower quadrant. No trauma. No fever. No vomiting. No rash. Patient voices no other complaints or concerns at this time. Patient declined pain medication. Portions of this note were created with voice recognition technology. There may be grammatical, spelling, punctuation or sound alike errors Timing/Duration: week(s) (3 days) Activities at Onset: none Quality: aching Abdominal Pain Onset Location: RLQ Pain Radiation: no radiation Severity of Pain-Max: moderate Severity of Pain-Current: mild Modifying Factors: Improves With: nothing Associated Symptoms: denies symptoms Previous symptoms: no prior history Allergies/Adverse Reactions: duloxetine [From Cymbalta] Allergy (Intermediate, Verified 08/13/22 12:54) states "irritability" adhesive Allergy (Mild, Verified 08/13/22 12:54) Rash cefaclor [From Ceclor] Allergy (Mild, Verified 08/13/22 12:54) Hives paroxetine [From Paxil] Adverse Reaction (Severe, Verified 08/13/22 12:54) "electric shock feeling in my head" Home Medications: Semaglutide [Ozempic] 2 mg SQ WEEKLY 07/14/20 [History] clonazePAM [Klonopin] 1 mg PO UD 11/27/20 [History] Cetirizine HCl 5 mg PO UD 08/07/22 [History] Levothyroxine Sodium [Synthroid] 50 mcg PO DAILY 08/07/22 [History] buPROPion HCl [Wellbutrin Sr] 100 mg PO UD 08/07/22 [History] Promethazine HCl 25 mg [Phenergan 25 mg] 25 mg PO Q6HPRN PRN 08/10/22 [History] Hx Tetanus, Diphtheria Vaccination/Date Given: Yes Hx Influenza Vaccination/Date Given: No Hx Pneumococcal Vaccination/Date Given: No Immunizations Up to Date: Yes Travel Risk - International Travel Have you traveled outside of the country in past 3 weeks: No - Coronavirus Screening Are you exhibiting any of the following symptoms?: No Close contact with a COVID-19 positive Pt in past 14-21 Days: No - Vaccine Status Have you recieved a Covid-19 vaccination: No - Review of Systems Constitutional: No Symptoms, No Fever, No Chills Eyes: No Symptoms Ears, Nose, & Throat: No Symptoms Respiratory: No Symptoms, No Cough, No Dyspnea Cardiac: No Symptoms, No Chest Pain, No Edema, No Syncope Abdominal/Gastrointestinal: No Symptoms, No Abdominal Pain, No Nausea, No Vomiting, No Diarrhea Genitourinary Symptoms: No Symptoms, No Dysuria Musculoskeletal: No Symptoms, No Back Pain, No Neck Pain Skin: No Symptoms, No Rash Neurological: No Symptoms, No Dizziness, No Focal Weakness, No Sensory Changes Psychological: No Symptoms Endocrine: No Symptoms Hematologic/Lymphatic: No Symptoms Immunological/Allergic: No Symptoms All Other Systems: Reviewed and Negative - Past Medical History Pertinent Past Medical History: Yes Neurological History: Migraines ENT History: No Pertinent History Cardiac History: No Pertinent History Respiratory History: No Pertinent History Endocrine Medical History: Diabetes Type II, Hypothyroidism Musculoskeletal History: No Pertinent History GI Medical History: GERD, Irritable Bowel History: Other Psycho-Social History: Anxiety, Attention Deficit Disorder, Depression, Panic Disorder Female Reproductive Disorders: Other Other Medical History: Pt has a partial thyroid,.Dr Kent dx states chronic pelvic pain; lupus, kidney stones - Past Surgical History Past Surgical History: Yes Neuro Surgical History: No Pertinent History Cardiac: No Pertinent History Respiratory: No Pertinent History Gastrointestinal: Cholecystectomy Genitourinary: No Pertinent History Musculoskeletal: No Pertinent History Female Surgical History: Hysterectomy, Dilation & Curettage, Tubal Ligation, Other Other Surgical History: partial thyroidectomy. breast reconstruction-nodules removed. bilateral breasts removed- November 2021. anesthesia problems - difficult to wake up, drop in bp. hysterectomy - Social History Smoking Status: Former smoker How long have you smoked: 4 yrs Exposure to second hand smoke: No Drug Use: none Patient Lives Alone: No Significant Family History: no pertinent family hx - Female History Hx Last Menstrual Period: 2016/hysterectomy Hx Now: No - Nursing Vital Signs Nursing Vital Signs: Initial Vital Signs Pulse Rate 83 08/13/22 12:57 Respiratory Rate 18 08/13/22 12:57 Blood Pressure 131/107 08/13/22 12:57 O2 Sat by Pulse Oximetry 99 08/13/22 12:57 Pain Scale Pain Intensity 7 - Physical Exam General Appearance: no apparent distress, alert Eye Exam: PERRL/EOMI, eyes nml inspection Ears, Nose, Throat Exam: normal ENT inspection, pharynx normal, moist mucous membranes Neck Exam: normal inspection, non-tender, supple, full range of motion Respiratory Exam: normal breath sounds, lungs clear, airway intact, No respiratory distress Cardiovascular Exam: regular rate/rhythm, normal heart sounds, normal peripheral pulses Gastrointestinal/Abdomen Exam: soft, No tenderness, No mass Back Exam: normal inspection, normal range of motion, No CVA tenderness, No vertebral tenderness Extremity Exam: normal inspection, normal range of motion, pelvis stable Neurologic Exam: alert, oriented x 3, cooperative, normal mood/affect, nml cerebellar function, sensation nml, No motor deficits Skin Exam: normal color, warm, dry SpO2 Interpretation: normal SpO2: 97 O2 Delivery: Room Air - Course Nursing assessment & vital signs reviewed: Yes - CT Exams Abdomen/Pelvis CT Interpretation: Tele-radiologist Report (No acute intra-abdominal pathology observed.) Ordered Tests: Active Orders 24 hr Category Date Time Status IV Insertion STAT Care 08/13/22 13:24 Active ABDOMEN AND PELVIS W/0 CONTRAS [CT] Stat Exams 08/13/22 15:01 Completed CBC W DIFF Stat Lab 08/13/22 13:43 Completed CMP Stat Lab 08/13/22 13:43 Completed HCG,QUALITATIVE URINE Stat Lab 08/13/22 13:23 Completed LIPASE Stat Lab 08/13/22 13:43 Completed UA W/RFX UR CULTURE Stat Lab 08/13/22 13:23 Completed Lab/Rad Data: Laboratory Result Diagrams 08/13/22 13:43 08/13/22 13:43 Laboratory Results 08/13/22 08/13/22 08/13/22 Range/Units 13:43 13:43 13:23 WBC 6.6 (4.0-10.5) x10^3/uL RBC 4.76 (4.1-5.4) x10^6/uL Hgb 14.5 (12.0-16.0) g/dL Hct 41.9 (35-47) % MCV 88.0 (78-100) fL MCH 30.5 (26-32) pg MCHC 34.6 (32-36) g/dL RDW 11.7 (11.5-14.0) % Plt Count 286 (150-450) x10^3/uL MPV 9.6 (7.5-11.0) fL Gran % 53.2 (36.0-66.0) % Immature Gran % (Auto) 0.3 (0.00-0.4) % Nucleat RBC Rel Count 0.0 (0.00-0.1) % Eos # (Auto) 0.12 (0-0.5) x10^3/uL Immature Gran # (Auto) 0.02 (0.00-0.03) x10^3u/L Absolute Lymphs (auto) 2.65 (1.0-4.6) x10^3/uL Absolute Monos (auto) 0.28 (0.0-1.3) x10^3/uL Absolute Nucleated RBC 0.00 (0.00-0.01) x10^3u/L Lymphocytes % 40.2 (24.0-44.0) % Monocytes % 4.2 (0.0-12.0) % Eosinophils % 1.8 (0.00-5.0) % Basophils % 0.3 (0.0-0.4) % Absolute Granulocytes 3.50 (1.4-6.9) x10^3/uL Basophils # 0.02 (0-0.4) x10^3/uL Sodium 140 (137-145) mmol/L Potassium 4.1 (3.5-5.1) mmol/L Chloride 102 (98-107) mmol/L Carbon Dioxide 28 (22-30) mmol/L Anion Gap 13.9 (5-15) MEQ/L BUN 13 (7-17) mg/dL Creatinine 0.72 (0.52-1.04) mg/dL Estimated GFR > 60.0 ML/MIN Glucose 101 (74-106) mg/dL Calcium 9.5 (8.4-10.2) mg/dL Total Bilirubin 0.40 (0.2-1.3) mg/dL AST 19 (14-36) U/L ALT 18 (0-35) U/L Alkaline Phosphatase 93 (38-126) U/L Serum Total Protein 7.8 (6.3-8.2) g/dL Albumin 4.6 (3.5-5.0) g/dL Lipase 65 (23-300) U/L Urine Color (Yellow) Urine Appearance (Clear) Urine pH (4.6-8.0) Ur Specific Hamer (1.005-1.030) Urine Protein (Negative) Urine Glucose (UA) (Negative) mg/dL Urine Ketones (Negative) Urine Blood (Negative) Urine Nitrite (Negative) Urine Bilirubin (Negative) Urine Urobilinogen (0.2) mg/dL Ur Leukocyte Esterase (Negative) U Hyaline Cast (Auto) (0-2) /LPF Urine Microscopic RBC (0-5) /HPF Urine Microscopic WBC (0-5) /HPF Ur Epithelial Cells (None Seen) /HPF Urine Bacteria (None Seen) /HPF Urine Culture Reflexed (NO) Urine HCG, Qual NEGATIVE (Negative) 08/13/22 Range/Units 13:23 WBC (4.0-10.5) x10^3/uL RBC (4.1-5.4) x10^6/uL Hgb (12.0-16.0) g/dL Hct (35-47) % MCV (78-100) fL MCH (26-32) pg MCHC (32-36) g/dL RDW (11.5-14.0) % Plt Count (150-450) x10^3/uL MPV (7.5-11.0) fL Gran % (36.0-66.0) % Immature Gran % (Auto) (0.00-0.4) % Nucleat RBC Rel Count (0.00-0.1) % Eos # (Auto) (0-0.5) x10^3/uL Immature Gran # (Auto) (0.00-0.03) x10^3u/L Absolute Lymphs (auto) (1.0-4.6) x10^3/uL Absolute Monos (auto) (0.0-1.3) x10^3/uL Absolute Nucleated RBC (0.00-0.01) x10^3u/L Lymphocytes % (24.0-44.0) % Monocytes % (0.0-12.0) % Eosinophils % (0.00-5.0) % Basophils % (0.0-0.4) % Absolute Granulocytes (1.4-6.9) x10^3/uL Basophils # (0-0.4) x10^3/uL Sodium (137-145) mmol/L Potassium (3.5-5.1) mmol/L Chloride (98-107) mmol/L Carbon Dioxide (22-30) mmol/L Anion Gap (5-15) MEQ/L BUN (7-17) mg/dL Creatinine (0.52-1.04) mg/dL Estimated GFR ML/MIN Glucose (74-106) mg/dL Calcium (8.4-10.2) mg/dL Total Bilirubin (0.2-1.3) mg/dL AST (14-36) U/L ALT (0-35) U/L Alkaline Phosphatase (38-126) U/L Serum Total Protein (6.3-8.2) g/dL Albumin (3.5-5.0) g/dL Lipase (23-300) U/L Urine Color Yellow (Yellow) Urine Appearance Clear (Clear) Urine pH 6.5 (4.6-8.0) Ur Specific Hamer 1.010 (1.005-1.030) Urine Protein Negative (Negative) Urine Glucose (UA) Negative (Negative) mg/dL Urine Ketones Negative (Negative) Urine Blood Negative (Negative) Urine Nitrite Negative (Negative) Urine Bilirubin Negative (Negative) Urine Urobilinogen 0.2 (0.2) mg/dL Ur Leukocyte Esterase Negative (Negative) U Hyaline Cast (Auto) NONE SEEN (0-2) /LPF Urine Microscopic RBC 0-2 (0-5) /HPF Urine Microscopic WBC 3-5 (0-5) /HPF Ur Epithelial Cells Rare (None Seen) /HPF Urine Bacteria Few A (None Seen) /HPF Urine Culture Reflexed NO (NO) Urine HCG, Qual (Negative) - Progress Progress: improved Progress Note: Patient is a 32-year-old female presents to our ED for evaluation of abdominal pain. Patient recently had a colonoscopy and had a bloody bowel movement. Patient contacted her primary care doctor who advised her to come to our ED for an evaluation. Test ordered include CBC CMP urine lipase urinalysis. CT abdomen pe lvis ordered as well. Work-up essentially nonremarkable. Complexity of problems addressed is moderate. Problem is new with uncertain prognosis. No critical care time. Complexity of data reviewed and analyzed is low.. Patient served as independent historian. Test ordered. Test reviewed. No outside documentation reviewed. Risk of complication and or risk morbidity/mortality of patient management is minimal. Patient declined pain medication. Work-up negative. Will discharge home. Time spent in discharge is approximately 10 minutes. Discharge diagnoses abdominal pain. Vital stable. Patient extubated for discharge. He voices no other complaints or concerns at this time. Portions of this note were created with voice recognition technology. There may be grammatical, spelling, punctuation or sound alike errors Counseled pt/family regarding: lab results, diagnosis, need for follow-up, rad results - Departure Departure Disposition: Home Clinical Impression: Abdominal pain Condition: Stable Critical Care Time: No Referrals: ALMA BANERJEE [Primary Care Provider] - Follow up/PCP as directed Additional Instructions: Discharge/Care Plan [id number] PIERRE was seen on 08/13/22 in the Emergency Room. The patient was counseled regarding Diagnosis,Lab results, Imaging studies, need for follow up and when to return to the Emergency Room. Prescriptions given: Discharge Note I have spoken with the patient and/or caregivers. I have explained the patient's condition, diagnosis and treatment plan based on the information available to me at this time. I have answered the patient's and/or caregiver's questions and addressed any concerns. The patient and/or caregivers have as good understanding of the patient's diagnosis, condition and treatment plan as can be expected at this point. The vital signs have been stable. The patient's condition is stable and appropriate for discharge from the emergency department. The patient will pursue further outpatient evaluation with the primary care physician or other designated or consulting physician as outlined in the discharge instructions. The patient and/or caregivers are agreeable to this plan of care and follow-up instructions have been explained in detail. The patient and/or caregivers have received these instruction. The patient/and or caregivers are aware that any significant change in condition or worsening of symptoms should prompt an immediate return to this or the closest emergency department or call 911.
[2022-08-13 17:24] VITALS: BP 100/68; PULSE 72
[2022-08-13 17:27] VITALS: O2SAT 97
== END 2022-08-13 17:27 | disposition home or self-care (01) ==
LOC: ED 12:42
DX: R10.31 Right lower quadrant pain (principal); K92.1 Melena; E11.9 Type 2 diabetes mellitus without complications; Z79.85 Long-term (current) use of injectable non-insulin antidiabetic drugs; Z79.899 Other long term (current) drug therapy; Z28.310 Unvaccinated for COVID-19
CPT/HCPCS: 36000; 36415; 74176; 80053; 81001; 81025; 83690; 85025; 99283

== ENCOUNTER 2022-11-01 16:18 | Emergency (ER) | payer OTHER ==
[2022-11-01 16:42] VITALS: BP 106/74; PULSE 90; O2SAT 96
[2022-11-01] MEDS ORDERED: XYLOCAINE 1% HCL 20 ML MDV ONE (16:46)
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
== END 2022-11-01 17:23 | disposition home or self-care (01) ==
LOC: ED 16:18
DX: T24.211A Burn of second degree of right thigh, initial encounter (principal); X17.XXXA Contact with hot engines, machinery and tools, initial encounter; E11.9 Type 2 diabetes mellitus without complications; Z79.85 Long-term (current) use of injectable non-insulin antidiabetic drugs; Z79.899 Other long term (current) drug therapy; Z28.310 Unvaccinated for COVID-19
CPT/HCPCS: 99281

== ENCOUNTER 2022-11-11 13:43 | Emergency (ER) | payer OTHER ==
[2022-11-11 14:16] LABS: Absolute Neutrophil Ct (ANC) 5.23 x10^3/uL (1.4-6.9); BASOPHIL % 0.4 % (0.0-0.4); Basophil (Absolute #) 0.03 x10^3/uL (0-0.4); Eosinophil % 0.7 % (0.00-5.0); Eosinophil (Absolute #) 0.06 x10^3/uL (0-0.5); Hematocrit 37.6 % (35-47); Hemoglobin 12.7 g/dL (12.0-16.0); IMMATURE GRAN # 0.03 x10^3u/L (0.00-0.03); IMMATURE GRAN % 0.4 % (0.00-0.4); Lymphocyte (Absolute #) 2.42 x10^3/uL (1.0-4.6); Lymphocytes % 29.7 % (24.0-44.0); Mean Cell Volume 90.4 fL (78-100); Mean Corpuscular Hemoglobin 30.5 pg (26-32); Mean Corpuscular Hgb Concent. 33.8 g/dL (32-36); Monocyte (Absolute #) 0.39 x10^3/uL (0.0-1.3); Monocytes % 4.8 % (0.0-12.0); Platelet Count 252 x10^3/uL (150-450); Red Blood Count 4.16 x10^6/uL (4.1-5.4); Red Cell Distribution Width 11.8 % (11.5-14.0); White Blood Count 8.2 x10^3/uL (4.0-10.5)
[2022-11-11 14:36] LABS: HCG SERUM TEST NEGATIVE (NEGATIVE)
[2022-11-11 14:38] LABS: ALBUMIN 3.8 g/dL (3.5-5.0); ALKALINE PHOSPHATASE 74 U/L (38-126); ANION GAP 13.4 MEQ/L (5-15); BLOOD UREA NITROGEN 9 mg/dL (7-17); CHLORIDE 106 mmol/L (98-107); Calcium 8.5 mg/dL (8.4-10.2); Carbon Dioxide 23 mmol/L (22-30); Creatinine 1 0.59 mg/dL (0.52-1.04); EST GLOMERULAR FILTRATION RATE > 60.0 ML/MIN; Glucose 100 mg/dL (74-106); MAGNESIUM 1.7 mg/dL (1.6-2.3); Potassium 3.8 mmol/L (3.5-5.1); SGOT/AST 20 U/L (14-36); SGPT/ALT 15 U/L (0-35); SODIUM 138 mmol/L (137-145); Total Protein 6.6 g/dL (6.3-8.2)
[2022-11-11 14:39] LABS: D-DIMER QUANTITATIVE 0.42 mg/L (0.0-0.50); INR 1.02 (0.8-3.0); PROTIME 11.1 SECONDS (9.4-12.5); PTT 27.9 SECONDS (25.1-36.5)
--- NOTE | 2022-11-11 14:51 | ERPHSYRPT ---
- History of Present Illness Source: patient, EMS Exam Limitations: no limitations Patient Subjective Stated Complaint: pt here for a near syncopal today while at work, she states that has been happening recently. she was given oj, and states she feels better. 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 Pt collapsed into a co-workers arms. She had some nausea/palpitations/mild headache but denies vomiting/chest pain/focal weakness/fever/dyspnea//focal weakness. Medical problems include DM2/Lupus/fibromyalgia/hypothyroidism. Glucose 109 per EMS. Prior Episodes: single episode today Timing/Duration: resolved prior to arrival Precipitating Factors: unknown Context: standing Loss of Consciousness: no loss of consciousness Charcter of event(s): collapsed Allergies/Adverse Reactions: duloxetine [From Cymbalta] Allergy (Intermediate, Verified 08/13/22 12:54) states "irritability" adhesive Allergy (Mild, Verified 08/13/22 12:54) Rash cefaclor [From Ceclor] Allergy (Mild, Verified 08/13/22 12:54) Hives paroxetine [From Paxil] Adverse Reaction (Severe, Verified 08/13/22 12:54) "electric shock feeling in my head" Home Medications: Semaglutide [Ozempic] 2 mg SQ WEEKLY 07/14/20 [History] clonazePAM [Klonopin] 1 mg PO UD 11/27/20 [History] Cetirizine HCl 5 mg PO UD 08/07/22 [History] Levothyroxine Sodium [Synthroid] 50 mcg PO DAILY 08/07/22 [History] buPROPion HCl [Wellbutrin Sr] 100 mg PO UD 08/07/22 [History] Hx Tetanus, Diphtheria Vaccination/Date Given: Yes Hx Influenza Vaccination/Date Given: No Hx Pneumococcal Vaccination/Date Given: No Immunizations Up to Date: Yes Travel Risk - International Travel Have you traveled outside of the country in past 3 weeks: No - Coronavirus Screening Are you exhibiting any of the following symptoms?: No Close contact with a COVID-19 positive Pt in past 14-21 Days: No - Vaccine Status Have you recieved a Covid-19 vaccination: No - Past Medical History Pertinent Past Medical History: Yes Neurological History: Migraines ENT History: No Pertinent History Cardiac History: No Pertinent History Respiratory History: No Pertinent History Endocrine Medical History: Diabetes Type II, Hypothyroidism Musculoskeletal History: No Pertinent History GI Medical History: GERD, Irritable Bowel History: Other Psycho-Social History: Anxiety, Attention Deficit Disorder, Depression, Panic Disorder Female Reproductive Disorders: Other Other Medical History: Pt has a partial thyroid,.Dr Kent dx states chronic pelvic pain; lupus, kidney stones - Past Surgical History Past Surgical History: Yes Neuro Surgical History: No Pertinent History Cardiac: No Pertinent History Respiratory: No Pertinent History Gastrointestinal: Cholecystectomy Genitourinary: No Pertinent History Musculoskeletal: No Pertinent History Female Surgical History: Hysterectomy, Dilation & Curettage, Tubal Ligation, Other Other Surgical History: partial thyroidectomy. breast reconstruction-nodules removed. bilateral breasts removed- November 2021. anesthesia problems - difficult to wake up, drop in bp. hysterectomy - Social History Smoking Status: Former smoker How long have you smoked: 4 yrs Exposure to second hand smoke: No Drug Use: none Patient Lives Alone: No Significant Family History: no pertinent family hx - Female History Hx Last Menstrual Period: hyster Hx Now: No - Review of Systems Constitutional: No Symptoms, Fatigue, Malaise Eyes: No Symptoms Ears, Nose, & Throat: No Symptoms Respiratory: No Symptoms Cardiac: No Symptoms, Palpitations Abdominal/Gastrointestinal: No Symptoms, Nausea Physical Exam - Nursing Vital Signs Nursing Vital Signs: Initial Vital Signs Temperature 98.0 F 11/11/22 13:50 Pulse Rate 85 11/11/22 13:50 Respiratory Rate 16 11/11/22 13:50 Blood Pressure 104/71 11/11/22 13:50 O2 Sat by Pulse Oximetry 98 11/11/22 13:50 Pain Scale Pain Intensity 0 - Physical Exam SpO2: 98 - Course Nursing assessment & vital signs reviewed: Yes EKG Interpreted by Me: RATE (NSR/Rate 87/Normal QT-QTc/No acute ST segment changes/no T wave abnormalities) - CT Exams Head CT Interpretation: Discussed w/radiologist (NAD) Ordered Tests: Active Orders 24 hr Category Date Time Status EKG-ER Only STAT Care 11/11/22 13:48 Active IV Insertion STAT Care 11/11/22 15:01 Active HEAD WITHOUT CONTRAST [CT] Stat Exams 11/11/22 14:54 Completed Alcohol [ETHYL ALCOHOL] Stat Lab 11/11/22 14:14 Completed CBC W DIFF Stat Lab 11/11/22 14:14 Completed CMP Stat Lab 11/11/22 14:14 Completed D-DIMER QUANTITATIVE Stat Lab 11/11/22 14:14 Completed HCG QUALITATIVE, SERUM Stat Lab 11/11/22 14:20 Completed MAGNESIUM Stat Lab 11/11/22 14:14 Completed PROTIME WITH INR Stat Lab 11/11/22 14:14 Completed PTT Stat Lab 11/11/22 14:14 Completed TROPONIN Q4H Lab 11/11/22 14:14 Completed TROPONIN Q4H Lab 11/11/22 18:00 Ordered TROPONIN Q4H Lab 11/11/22 22:00 Ordered UA W/RFX UR CULTURE Stat Lab 11/11/22 14:28 Completed Urine Triage Profile Stat Lab 11/11/22 14:28 Completed Medication Summary Discontinued Medications Generic Name Dose Route Start Last Admin Trade Name Freq PRN Reason Stop Dose Admin Sodium Chloride 1,000 mls @ 999 mls/hr 11/11/22 14:55 11/11/22 16:09 Sodium Chloride 0.9% 1000 Ml IV 11/11/22 15:55 Infused .Q1H1M STA Infusion Sodium Chloride Confirm 11/11/22 15:03 Sodium Chloride 0.9% 1000 Ml Administered 11/11/22 15:04 Dose 1,000 mls @ ud .ROUTE .[facility] Lab/Rad Data: Laboratory Result Diagrams 11/11/22 14:14 11/11/22 14:14 Laboratory Results 11/11/22 11/11/22 11/11/22 Range/Units 14:28 14:28 14:20 WBC (4.0-10.5) x10^3/uL RBC (4.1-5.4) x10^6/uL Hgb (12.0-16.0) g/dL Hct (35-47) % MCV (78-100) fL MCH (26-32) pg MCHC (32-36) g/dL RDW (11.5-14.0) % Plt Count (150-450) x10^3/uL MPV (7.5-11.0) fL Gran % (36.0-66.0) % Immature Gran % (Auto) (0.00-0.4) % Nucleat RBC Rel Count (0.00-0.1) % Eos # (Auto) (0-0.5) x10^3/uL Immature Gran # (Auto) (0.00-0.03) x10^3u/L Absolute Lymphs (auto) (1.0-4.6) x10^3/uL Absolute Monos (auto) (0.0-1.3) x10^3/uL Absolute Nucleated RBC (0.00-0.01) x10^3u/L Lymphocytes % (24.0-44.0) % Monocytes % (0.0-12.0) % Eosinophils % (0.00-5.0) % Basophils % (0.0-0.4) % Absolute Granulocytes (1.4-6.9) x10^3/uL Basophils # (0-0.4) x10^3/uL PT (9.4-12.5) SECONDS INR (0.8-3.0) APTT (25.1-36.5) SECONDS D-Dimer (0.0-0.50) mg/L Sodium (137-145) mmol/L Potassium (3.5-5.1) mmol/L Chloride (98-107) mmol/L Carbon Dioxide (22-30) mmol/L Anion Gap (5-15) MEQ/L BUN (7-17) mg/dL Creatinine (0.52-1.04) mg/dL Estimated GFR ML/MIN Glucose (74-106) mg/dL Calcium (8.4-10.2) mg/dL Magnesium (1.6-2.3) mg/dL Total Bilirubin (0.2-1.3) mg/dL AST (14-36) U/L ALT (0-35) U/L Alkaline Phosphatase (38-126) U/L Troponin I (0.000-0.034) ng/mL Serum Total Protein (6.3-8.2) g/dL Albumin (3.5-5.0) g/dL Serum HCG, Qual NEGATIVE (NEGATIVE) Urine Color Yellow (Yellow) Urine Appearance Clear (Clear) Urine pH 6.5 (4.6-8.0) Ur Specific Pearl <=1.005 (1.005-1.030) Urine Protein Negative (Negative) Urine Glucose (UA) Negative (Negative) mg/dL Urine Ketones Negative (Negative) Urine Blood Negative (Negative) Urine Nitrite Negative (Negative) Urine Bilirubin Negative (Negative) Urine Urobilinogen 0.2 (0.2) mg/dL Ur Leukocyte Esterase Negative (Negative) U Hyaline Cast (Auto) NONE SEEN (0-2) /LPF Urine Microscopic RBC 0-2 (0-5) /HPF Urine Microscopic WBC 0-2 (0-5) /HPF Ur Epithelial Cells None Seen (None Seen) /HPF Urine Bacteria Rare A (None Seen) /HPF Urine Culture Reflexed NO (NO) Urine Opiates Level NEGATIVE (NEGATIVE) Ur Methadone NEGATIVE (NEGATIVE) Urine Barbiturates NEGATIVE (NEGATIVE) Ur Phencyclidine (PCP) NEGATIVE (NEGATIVE) Urine Amphetamine NEGATIVE (NEGATIVE) U Benzodiazepine Level NEGATIVE (NEGATIVE) Urine Cocaine NEGATIVE (NEGATIVE) Urine Marijuana (THC) NEGATIVE (NEGATIVE) Ethyl Alcohol (0-10) mg/dL 11/11/22 11/11/22 11/11/22 Range/Units 14:14 14:14 14:14 WBC (4.0-10.5) x10^3/uL RBC (4.1-5.4) x10^6/uL Hgb (12.0-16.0) g/dL Hct (35-47) % MCV (78-100) fL MCH (26-32) pg MCHC (32-36) g/dL RDW (11.5-14.0) % Plt Count (150-450) x10^3/uL MPV (7.5-11.0) fL Gran % (36.0-66.0) % Immature Gran % (Auto) (0.00-0.4) % Nucleat RBC Rel Count (0.00-0.1) % Eos # (Auto) (0-0.5) x10^3/uL Immature Gran # (Auto) (0.00-0.03) x10^3u/L Absolute Lymphs (auto) (1.0-4.6) x10^3/uL Absolute Monos (auto) (0.0-1.3) x10^3/uL Absolute Nucleated RBC (0.00-0.01) x10^3u/L Lymphocytes % (24.0-44.0) % Monocytes % (0.0-12.0) % Eosinophils % (0.00-5.0) % Basophils % (0.0-0.4) % Absolute Granulocytes (1.4-6.9) x10^3/uL Basophils # (0-0.4) x10^3/uL PT 11.1 (9.4-12.5) SECONDS INR 1.02 (0.8-3.0) APTT 27.9 (25.1-36.5) SECONDS D-Dimer 0.42 (0.0-0.50) mg/L Sodium (137-145) mmol/L Potassium (3.5-5.1) mmol/L Chloride (98-107) mmol/L Carbon Dioxide (22-30) mmol/L Anion Gap (5-15) MEQ/L BUN (7-17) mg/dL Creatinine (0.52-1.04) mg/dL Estimated GFR ML/MIN Glucose (74-106) mg/dL Calcium (8.4-10.2) mg/dL Magnesium (1.6-2.3) mg/dL Total Bilirubin (0.2-1.3) mg/dL AST (14-36) U/L ALT (0-35) U/L Alkaline Phosphatase (38-126) U/L Troponin I < 0.012 (0.000-0.034) ng/mL Serum Total Protein (6.3-8.2) g/dL Albumin (3.5-5.0) g/dL Serum HCG, Qual (NEGATIVE) Urine Color (Yellow) Urine Appearance (Clear) Urine pH (4.6-8.0) Ur Specific Pearl (1.005-1.030) Urine Protein (Negative) Urine Glucose (UA) (Negative) mg/dL Urine Ketones (Negative) Urine Blood (Negative) Urine Nitrite (Negative) Urine Bilirubin (Negative) Urine Urobilinogen (0.2) mg/dL Ur Leukocyte Esterase (Negative) U Hyaline Cast (Auto) (0-2) /LPF Urine Microscopic RBC (0-5) /HPF Urine Microscopic WBC (0-5) /HPF Ur Epithelial Cells (None Seen) /HPF Urine Bacteria (None Seen) /HPF Urine Culture Reflexed (NO) Urine Opiates Level (NEGATIVE) Ur Methadone (NEGATIVE) Urine Barbiturates (NEGATIVE) Ur Phencyclidine (PCP) (NEGATIVE) Urine Amphetamine (NEGATIVE) U Benzodiazepine Level (NEGATIVE) Urine Cocaine (NEGATIVE) Urine Marijuana (THC) (NEGATIVE) Ethyl Alcohol < 10 (0-10) mg/dL 11/11/22 11/11/22 Range/Units 14:14 14:14 WBC 8.2 (4.0-10.5) x10^3/uL RBC 4.16 (4.1-5.4) x10^6/uL Hgb 12.7 (12.0-16.0) g/dL Hct 37.6 (35-47) % MCV 90.4 (78-100) fL MCH 30.5 (26-32) pg MCHC 33.8 (32-36) g/dL RDW 11.8 (11.5-14.0) % Plt Count 252 (150-450) x10^3/uL MPV 10.0 (7.5-11.0) fL Gran % 64.0 (36.0-66.0) % Immature Gran % (Auto) 0.4 (0.00-0.4) % Nucleat RBC Rel Count 0.0 (0.00-0.1) % Eos # (Auto) 0.06 (0-0.5) x10^3/uL Immature Gran # (Auto) 0.03 (0.00-0.03) x10^3u/L Absolute Lymphs (auto) 2.42 (1.0-4.6) x10^3/uL Absolute Monos (auto) 0.39 (0.0-1.3) x10^3/uL Absolute Nucleated RBC 0.00 (0.00-0.01) x10^3u/L Lymphocytes % 29.7 (24.0-44.0) % Monocytes % 4.8 (0.0-12.0) % Eosinophils % 0.7 (0.00-5.0) % Basophils % 0.4 (0.0-0.4) % Absolute Granulocytes 5.23 (1.4-6.9) x10^3/uL Basophils # 0.03 (0-0.4) x10^3/uL PT (9.4-12.5) SECONDS INR (0.8-3.0) APTT (25.1-36.5) SECONDS D-Dimer (0.0-0.50) mg/L Sodium 138 (137-145) mmol/L Potassium 3.8 (3.5-5.1) mmol/L Chloride 106 (98-107) mmol/L Carbon Dioxide 23 (22-30) mmol/L Anion Gap 13.4 (5-15) MEQ/L BUN 9 (7-17) mg/dL Creatinine 0.59 (0.52-1.04) mg/dL Estimated GFR > 60.0 ML/MIN Glucose 100 (74-106) mg/dL Calcium 8.5 (8.4-10.2) mg/dL Magnesium 1.7 (1.6-2.3) mg/dL Total Bilirubin 0.30 (0.2-1.3) mg/dL AST 20 (14-36) U/L ALT 15 (0-35) U/L Alkaline Phosphatase 74 (38-126) U/L Troponin I (0.000-0.034) ng/mL Serum Total Protein 6.6 (6.3-8.2) g/dL Albumin 3.8 (3.5-5.0) g/dL Serum HCG, Qual (NEGATIVE) Urine Color (Yellow) Urine Appearance (Clear) Urine pH (4.6-8.0) Ur Specific Pearl (1.005-1.030) Urine Protein (Negative) Urine Glucose (UA) (Negative) mg/dL Urine Ketones (Negative) Urine Blood (Negative) Urine Nitrite (Negative) Urine Bilirubin (Negative) Urine Urobilinogen (0.2) mg/dL Ur Leukocyte Esterase (Negative) U Hyaline Cast (Auto) (0-2) /LPF Urine Microscopic RBC (0-5) /HPF Urine Microscopic WBC (0-5) /HPF Ur Epithelial Cells (None Seen) /HPF Urine Bacteria (None Seen) /HPF Urine Culture Reflexed (NO) Urine Opiates Level (NEGATIVE) Ur Methadone (NEGATIVE) Urine Barbiturates (NEGATIVE) Ur Phencyclidine (PCP) (NEGATIVE) Urine Amphetamine (NEGATIVE) U Benzodiazepine Level (NEGATIVE) Urine Cocaine (NEGATIVE) Urine Marijuana (THC) (NEGATIVE) Ethyl Alcohol (0-10) mg/dL - Progress Progress: improved Progress Note: 11/11/22 16:36 Nursing note and vital signs reviewed No food or housing insecurities noted Additional history per mother All lab results reviewed and shared w pt/mother CT result reviewed and shared w pt/mother Serial neuro exams WNL No focal weakness in ER 1L NS bolus Pt discharged to f/u w PCP Counseled pt/family regarding: lab results, diagnosis, need for follow-up, rad results Medical Desision Making - Independent Historian Additional History obtained from: Mother - Diagnostic Testing Radiological Interpretation: Reviewed by me, Discussed w/ radiologist - Risk of complications Low Risk: Low risk of morbidity from additional dx testing or treatment - Departure Departure Disposition: Home Clinical Impression: Near syncope Condition: Stable Critical Care Time: No Referrals: ALMA CALABRESE [Primary Care Provider] - Follow up/PCP as directed Instructions: Syncope (Fainting) (DC) Additional Instructions: Follow up with your family MD in 1-2 days Return to ER as needed No driving until cleared by your family MD
[2022-11-11] MEDS ORDERED: Sodium Chloride 0.9% 1000 ML 1,000 ML IV STA (14:55)
[2022-11-11] MEDS ORDERED: Sodium Chloride 0.9% 1000 ML 1,000 ML ONE (15:03)
[2022-11-11 15:20] LABS: Appearance Clear (Clear); Bacteria Rare /HPF (None Seen); Bilirubin Negative (Negative); Blood Negative (Negative); Epithelial Cells None Seen /HPF (None Seen); Glucose, Urine Negative (Negative); Hyaline Casts NONE SEEN /LPF (0-2); Ketones Negative (Negative); Leukocyte Esterase Negative (Negative); Nitrite Negative (Negative); Ph 6.5 (4.6-8.0); Protein,Urine Dip Negative (Negative); RBC 0-2 /HPF (0-5); Specific Gravity <=1.005 (1.005-1.030); Urobilinogen 0.2 mg/dL (0.2); WBC 0-2 /HPF (0-5)
[2022-11-11 15:21] LABS: ADD URINE CULTURE? NO (NO)
[2022-11-11 15:31] LABS: Amphetamine,Urine NEGATIVE (NEGATIVE); Barbiturate,Urine NEGATIVE (NEGATIVE); Benzodiazepine,Urine NEGATIVE (NEGATIVE); Cocaine,Urine NEGATIVE (NEGATIVE); Methadone,Urine NEGATIVE (NEGATIVE); Opiate,Urine NEGATIVE (NEGATIVE); PCP,Urine NEGATIVE (NEGATIVE); THC,Urine NEGATIVE (NEGATIVE)
--- NOTE | 2022-11-11 16:25 | XRAY ---
Indication: Confusion. Near-syncope. Multiple contiguous axial images obtained through the head without contrast. Comparison: January 20, 2022 Normal appearing brain parenchyma, ventricles, and bony calvarium. Visualized paranasal sinuses and mastoid air cells are clear. Impression: Continued normal CT head without contrast exam.
[2022-11-11 16:39] VITALS: O2SAT 98
[2022-11-11 16:41] VITALS: BP 100/67; PULSE 68
== END 2022-11-11 16:45 | disposition home or self-care (01) ==
LOC: ED 13:43
DX: R55 Syncope and collapse (principal); R11.0 Nausea; R00.2 Palpitations; R51.9 Headache, unspecified; E11.9 Type 2 diabetes mellitus without complications; Z79.85 Long-term (current) use of injectable non-insulin antidiabetic drugs; Z79.899 Other long term (current) drug therapy; Z28.310 Unvaccinated for COVID-19
CPT/HCPCS: 36000; 36415; 70450; 80053; 80307; 81001; 82077; 83735; 84484; 84703; 85025; 85379; 85610; 85730; 93005; 96360; 99284

== ENCOUNTER 2023-01-10 10:29 | Emergency (ER) | payer OTHER ==
[2023-01-10 11:10] VITALS: BP 96/60; PULSE 70; RESP 18; O2SAT 98
[2023-01-10] MEDS ORDERED: Norflex 60 MG/2 ML IM ONE (11:14)
[2023-01-10] MEDS ORDERED: TORAdol 30 mg Injection IM ONE (11:14)
[2023-01-10] MEDS ORDERED: Norflex 60 MG/2 ML ONE (11:31)
[2023-01-10] MEDS ORDERED: TORAdol 30 mg Injection ONE (11:31)
--- NOTE | 2023-01-10 13:15 | ERPHSYRPT ---
- History of Present Illness Time Seen by Provider: 01/10/23 10:43 Source: patient, family Exam Limitations: no limitations Patient Subjective Stated Complaint: back pain Triage Nursing Assessment: Patient reports to ER with complaints of severe lower back pain after a fall around 1000. Patient reports that she fell about 2 months ago and has been having tailbone discomfort ever since and that after a fall this morning the pain is now severe, rating it 9/10 at this time, and that she is unable to ambulate. Patient reports that she fell down 3 stairs this morning. Patient was brought in via wheelchair and pivoted to bed with assistance. No o bvious visible injury. Physician History: 32 years old female presented in the ER with chief complaint of fall. Patient reports falling 3 steps earlier this morning and hitting her lower back/tail bone against the edge of the steps. She reports having similar kind of injury almost 2 months ago with continuous tailbone area pain. Since morning pain is got really worse, severe sharp shooting making it difficult to ambulate. No numbness tingling or weakness of lower extremities. No loss of bowel or bladder control. Did not hit her head, no loss of consciousness. No injury anywhere else. Occurred: this morning Reason for Fall: fell from standing pos Injuries/Pain Location: back Loss of Consciousness: no loss of consciousness Quality: sharpness Severity of Pain-Max: severe Severity of Pain-Current: severe Modifying Factors: Improves With: immobilization. Worsens With: movement Associated Symptoms (Fall): back pain, trouble walking Allergies/Adverse Reactions: duloxetine [From Cymbalta] Allergy (Intermediate, Verified 01/10/23 10:51) states "irritability" adhesive Allergy (Mild, Verified 01/10/23 10:51) Rash cefaclor [From Ceclor] Allergy (Mild, Verified 01/10/23 10:51) Hives paroxetine [From Paxil] Adverse Reaction (Severe, Verified 01/10/23 10:51) "electric shock feeling in my head" Home Medications: Levothyroxine Sodium [Synthroid] 50 mcg PO DAILY 08/07/22 [History] Cetirizine HCl [Zyrtec] 10 mg PO HS 01/10/23 [History] Lurasidone HCl 40 mg PO HS 01/10/23 [History] Hx Tetanus, Diphtheria Vaccination/Date Given: Yes Hx Influenza Vaccination/Date Given: No Hx Pneumococcal Vaccination/Date Given: No Immunizations Up to Date: Yes Travel Risk - International Travel Have you traveled outside of the country in past 3 weeks: No - Coronavirus Screening Are you exhibiting any of the following symptoms?: No Close contact with a COVID-19 positive Pt in past 14-21 Days: No - Vaccine Status Have you recieved a Covid-19 vaccination: No - Review of Systems Constitutional: No Symptoms Eyes: No Symptoms Ears, Nose, & Throat: No Symptoms Respiratory: No Symptoms Cardiac: No Symptoms Abdominal/Gastrointestinal: No Symptoms Genitourinary Symptoms: No Symptoms Musculoskeletal: Back Pain, Fall Skin: No Symptoms Neurological: No Symptoms Hematologic/Lymphatic: No Symptoms Immunological/Allergic: No Symptoms - Past Medical History Pertinent Past Medical History: Yes Neurological History: Migraines ENT History: No Pertinent History Cardiac History: No Pertinent History Respiratory History: No Pertinent History Endocrine Medical History: Diabetes Type II, Hypothyroidism Musculoskeletal History: No Pertinent History GI Medical History: GERD, Irritable Bowel History: Other Psycho-Social History: Anxiety, Attention Deficit Disorder, Bipolar, Depression, Panic Disorder Female Reproductive Disorders: Other Other Medical History: Pt has a partial thyroid,.Dr Kent dx states chronic pelvic pain; lupus, kidney stones - Past Surgical History Past Surgical History: Yes Neuro Surgical History: No Pertinent History Cardiac: No Pertinent History Respiratory: No Pertinent History Gastrointestinal: Cholecystectomy Genitourinary: No Pertinent History Musculoskeletal: No Pertinent History Female Surgical History: Hysterectomy, Dilation & Curettage, Tubal Ligation, Other Other Surgical History: partial thyroidectomy. breast reconstruction-nodules removed. bilateral breasts removed- November 2021. anesthesia problems - difficult to wake up, drop in bp. hysterectomy - Social History Smoking Status: Former smoker How long have you smoked: 4 yrs Exposure to second hand smoke: No Drug Use: none Patient Lives Alone: No Significant Family History: no pertinent family hx - Female History Hx Now: (unkn) - Nursing Vital Signs Nursing Vital Signs: Initial Vital Signs Pulse Rate 70 01/10/23 10:52 Respiratory Rate 18 01/10/23 10:52 Blood Pressure 96/60 01/10/23 10:52 O2 Sat by Pulse Oximetry 98 01/10/23 10:52 Pain Scale Pain Intensity 10 - Ziggy Coma Score Best Eye Response (Ziggy): (4) open spontaneously Best Verbal Response ([place]): (5) oriented Best Motor Response (Ziggy): (6) obeys commands Ziggy Total: 15 - Physical Exam General Appearance: no apparent distress, alert Head Injury: no evidence of injury Eye Exam: PERRL/EOMI, eyes nml inspection ENT Exam: airway nml, No evidence of ENT injury Neck Exam: supple, trachea midline, full range of motion, normal alignment Respiratory/Chest Exam: normal breath sounds, No chest tenderness, No respiratory distress Cardiovascular Exam: normal heart sounds, regular rate/rhythm Gastrointestinal Exam: soft, normal bowel sounds, No tenderness Back Exam: normal inspection, normal range of motion, muscle spasm, point tenderness (coccyx ), No CVA tenderness Extremity Exam: normal inspection, normal range of motion Neurologic Exam: alert, oriented x 3, cooperative, fibre composite technician II-XII nml as tested SpO2 Interpretation: normal SpO2: 98 O2 Delivery: Room Air Ordered Tests: Active Orders 24 hr Category Date Time Status LUMBAR COMPLETE (MIN 4 VIEWS) Stat Exams 01/10/23 11:29 Taken SACRUM AND COCCYX Stat Exams 01/10/23 11:28 Taken HCG QUALITATIVE, URINE Stat Lab 01/10/23 Ordered Medication Summary Discontinued Medications Generic Name Dose Route Start Last Admin Trade Name Freq PRN Reason Stop Dose Admin Ketorolac Tromethamine 30 mg 01/10/23 11:14 01/10/23 11:39 Ketorolac Tromethamine 30 Mg/Ml Inj IM 01/10/23 11:15 30 mg STAT ONE Administration Ketorolac Tromethamine Confirm 01/10/23 11:31 Ketorolac Tromethamine 30 Mg/Ml Inj Administered 01/10/23 11:32 Dose 30 mg .ROUTE .STK-MED ONE Orphenadrine Citrate 60 mg 01/10/23 11:14 01/10/23 11:39 Orphenadrine Citrate 60 Mg/2 Ml Vial IM 01/10/23 11:15 60 mg STAT ONE Administration Orphenadrine Citrate Confirm 01/10/23 11:31 Orphenadrine Citrate 60 Mg/2 Ml Vial Administered 01/10/23 11:32 Dose 60 mg .ROUTE .STK-MED ONE - Progress Progress: improved, pain not gone completely, re-examined Progress Note: 01/10/23 13:15 32 years old female presented in the ER with chief complaint of fall. Patient reports falling 3 steps earlier this morning and hitting her lower back/tail bone against the edge of the steps. She reports having similar kind of injury almost 2 months ago with continuous tailbone area pain. Since morning pain is got really worse, severe sharp shooting making it difficult to ambulate. No numbness tingling or weakness of lower extremities. No loss of bowel or bladder control. Did not hit her head, no loss of consciousness. No injury anywhere else. Patient has significant tenderness in the sacrococcygeal area. Mild tenderness in the lumbar paraspinal area. She has negative neuro exam and lower extremities. She is given Toradol and Norflex, on reevaluation patient is feeling much better and able to ambulate in the ER. She has no weakness. X- rays lumbar spine negative for any acute fracture subluxation reviewed by me, official report is pending. On x-rays sacrum/coccygeus questionable coccygeal fracture. Recommended supportive care and NSAIDs. Outpatient follow-up. Discussed signs symptoms of worsening needing return to ER which she seems understanding. Stable for discharge. Counseled pt/family regarding: diagnosis, need for follow-up, rad results Medical Desision Making - Diagnostic Testing Diagnostic test were ordered, analyzed, and reviewed by me: Yes Radiological Interpretation: Interpreted by me, Reviewed by me - Risk of complications The pt has a mod risk of morbidity or mortality based on: Need for prescription drug management - Departure Departure Disposition: Home Clinical Impression: Acute coccygeal pain, Fall Condition: Stable Critical Care Time: No Referrals: ALMA CALABRESE [Primary Care Provider] - Follow up with PCP 1 day Instructions: Preventing falls in adults, Coccyx Fracture (DC) Additional Instructions: Take Tylenol/diclofenac as needed. Follow-up with primary care for reevaluation. Intermittent ice application. Return to ER for intractable pain, numbness tingling weakness of lower extremities/loss of bowel or bladder control. Prescriptions: Diclofenac Sodium 50 mg PO TID PRN 7 Days #20 tab PRN Reason: Pain
--- NOTE | 2023-01-10 21:10 | XRAY ---
Indication: Pain following fall. Comparison: March 27, 2022 3 view sacrum/coccyx now demonstrates mild diffuse colonic fecal debris. No other bony, articular, or soft tissue abnormalities. Lumbar spine reported separately.
--- NOTE | 2023-01-10 21:12 | XRAY ---
Indication: Pain following fall. Comparison: None 5 view lumbar spine demonstrates 5 lumbar segments with minimal scoliosis, mild diffuse colonic fecal debris, and cholecystectomy clips. No other bony, articular, or soft tissue abnormalities.
== END 2023-01-10 13:26 | disposition home or self-care (01) ==
LOC: ED 10:29
DX: M53.3 Sacrococcygeal disorders, not elsewhere classified (principal); S39.92XA Unspecified injury of lower back, initial encounter; W10.9XXA Fall (on) (from) unspecified stairs and steps, initial encounter; E11.9 Type 2 diabetes mellitus without complications; Z79.899 Other long term (current) drug therapy; Z28.310 Unvaccinated for COVID-19
CPT/HCPCS: 72110; 72220; 96372; 99283; J1885; J2360

== ENCOUNTER 2023-06-18 12:10 | Emergency (ER) | payer OTHER ==
--- NOTE | 2023-06-18 12:27 | ERPHSYRPT ---
- History of Present Illness Time Seen by Provider: 06/18/23 12:27 Historian: patient Exam Limitations: no limitations Physician History: This is a 33-year-old white female patient of Dr. Banerjee who complains with lower abdominal cramping bilaterally which is increased in the last 4 days. There is been associated nausea and some diarrhea intermittently. Patient has been diagnosed in the past with irritable bowel syndrome and colitis. In the last 4 days the bilateral lower quadrant cramping has worsened. Patient has had a hysterectomy and cholecystectomy in the past. Patient has not seen a solar sales rep in quite some time. She did undergo colonoscopy a pproximately 1 year ago. Patient is not on any medication to help with her colitis diagnosis or irritable bowel syndrome diagnosis. Patient has a history of hypothyroidism, seasonal allergies, gastroesophageal reflux disease, anxiety/panic disorder, bipolar disorder, chronic pelvic pain and migraine headaches Timing/Duration: day(s) (4) Quality: cramping Abdominal Pain Onset Location: RLQ, LLQ Pain Radiation: no radiation Severity of Pain-Max: moderate Severity of Pain-Current: mild Modifying Factors: Improves With: other (nausea and intermittent diarrhea) Associated Symptoms: diarrhea, nausea, No chest pain, No shortness of breath Previous symptoms: same symptoms as today, no recent treatment Allergies/Adverse Reactions: duloxetine [From Cymbalta] Allergy (Intermediate, Verified 01/10/23 10:51) states "irritability" adhesive Allergy (Mild, Verified 01/10/23 10:51) Rash cefaclor [From Ceclor] Allergy (Mild, Verified 01/10/23 10:51) Hives paroxetine [From Paxil] Adverse Reaction (Severe, Verified 01/10/23 10:51) "electric shock feeling in my head" Home Medications: Cetirizine HCl [Zyrtec] 10 mg PO HS 01/10/23 [History] Bupropion HCl 150 mg Sr [Wellbutrin SR 150 MG] 300 mg PO DAILY 06/18/23 [History] clonazePAM [Klonopin] 1 mg PO BID 06/18/23 [History] Hx Tetanus, Diphtheria Vaccination/Date Given: Yes Hx Influenza Vaccination/Date Given: No Hx Pneumococcal Vaccination/Date Given: No Travel Risk - International Travel Have you traveled outside of the country in past 3 weeks: No - Coronavirus Screening Are you exhibiting any of the following symptoms?: No Close contact with a COVID-19 positive Pt in past 14-21 Days: No - Vaccine Status Have you recieved a Covid-19 vaccination: No - Review of Systems Constitutional: No Symptoms Eyes: No Symptoms Ears, Nose, & Throat: No Symptoms Respiratory: No Symptoms Cardiac: No Symptoms Abdominal/Gastrointestinal: Abdominal Pain, Nausea, Diarrhea, Appetite Changes Genitourinary Symptoms: No Symptoms Musculoskeletal: No Symptoms Skin: No Symptoms Neurological: No Symptoms Psychological: No Symptoms Endocrine: No Symptoms Hematologic/Lymphatic: No Symptoms Immunological/Allergic: No Symptoms All Other Systems: Reviewed and Negative - Past Medical History Pertinent Past Medical History: Yes Neurological History: Migraines ENT History: No Pertinent History Cardiac History: No Pertinent History Respiratory History: No Pertinent History Endocrine Medical History: Diabetes Type II, Hypothyroidism Musculoskeletal History: No Pertinent History GI Medical History: GERD, Irritable Bowel History: Other Psycho-Social History: Anxiety, Attention Deficit Disorder, Bipolar, Depression, Panic Disorder Female Reproductive Disorders: Other Other Medical History: Pt has a partial thyroid,.Dr Kent dx states chronic pelvic pain; lupus, kidney stones - Past Surgical History Past Surgical History: Yes Neuro Surgical History: No Pertinent History Cardiac: No Pertinent History Respiratory: No Pertinent History Gastrointestinal: Cholecystectomy Genitourinary: No Pertinent History Musculoskeletal: No Pertinent History Female Surgical History: Hysterectomy, Dilation & Curettage, Tubal Ligation, Other Other Surgical History: partial thyroidectomy. breast reconstruction-nodules removed. bilateral breasts removed- November 2021. anesthesia problems - difficult to wake up, drop in bp. hysterectomy - Social History Smoking Status: Former smoker How long have you smoked: 4 yrs Exposure to second hand smoke: No Drug Use: none Patient Lives Alone: No Significant Family History: no pertinent family hx - Nursing Vital Signs Nursing Vital Signs: Initial Vital Signs Temperature 98.3 F 06/18/23 12:18 Pulse Rate 78 06/18/23 12:18 Respiratory Rate 18 06/18/23 12:18 Blood Pressure 132/73 06/18/23 12:18 O2 Sat by Pulse Oximetry 98 06/18/23 12:18 Pain Scale Pain Intensity 5 - Physical Exam General Appearance: no apparent distress, alert, anxiety Eye Exam: PERRL/EOMI, eyes nml inspection Ears, Nose, Throat Exam: normal ENT inspection, moist mucous membranes Neck Exam: normal inspection, non-tender, supple, full range of motion Respiratory Exam: normal breath sounds, lungs clear, airway intact, No chest t enderness, No respiratory distress Cardiovascular Exam: regular rate/rhythm, normal heart sounds, normal peripheral pulses Gastrointestinal/Abdomen Exam: soft, normal bowel sounds, tenderness (Bilateral lower quadrant tenderness to palpation), guarding (Bilateral lower quadrant tenderness to palpation), No rebound Pelvic Exam: not done Rectal Exam: not done Back Exam: normal inspection, normal range of motion, No CVA tenderness, No vertebral tenderness Extremity Exam: normal inspection, normal range of motion, pelvis stable Neurologic Exam: alert, oriented x 3, cooperative, staff counsel II-XII nml as tested, normal mood/affect, nml cerebellar function, nml station & gait, sensation nml Skin Exam: normal color, warm, dry Lymphatic Exam: No adenopathy SpO2 Interpretation: normal O2 Delivery: Room Air - Course Nursing assessment & vital signs reviewed: Yes Ordered Tests: Active Orders 24 hr Category Date Time Status IV Insertion STAT Care 06/18/23 13:20 Active ABDOMEN AND PELVIS W/0 CONTRAS [CT] Stat Exams 06/18/23 14:26 Completed AMYLASE Stat Lab 06/18/23 12:25 Completed CBC W DIFF Stat Lab 06/18/23 12:25 Completed CMP Stat Lab 06/18/23 12:25 Completed LIPASE Stat Lab 06/18/23 12:25 Completed Lactic Acid Stat Lab 06/18/23 13:08 Completed UA W/RFX UR CULTURE Stat Lab 06/18/23 Completed Medication Summary Discontinued Medications Generic Name Dose Route Start Last Admin Trade Name Viktoriya PRN Reason Stop Dose Admin Hydromorphone HCl 1 mg 06/18/23 13:03 06/18/23 14:00 Hydromorphone 1 Mg/1ml Inj IV 06/18/23 13:04 1 mg STAT ONE Administration Hydromorphone HCl Confirm 06/18/23 13:57 Hydromorphone 1 Mg/1ml Inj Administered 06/18/23 13:58 Dose 1 mg .ROUTE .STK-MED ONE Sodium Chloride 1,000 mls @ 999 mls/hr 06/18/23 13:03 06/18/23 15:01 Sodium Chloride 0.9% 1000 Ml IV 06/18/23 14:03 Infused .Q1H1M STA Infusion Sodium Chloride Confirm 06/18/23 13:57 Sodium Chloride 0.9% 1000 Ml Administered 06/18/23 13:58 Dose 1,000 mls @ ud .ROUTE .STK-MED ONE Ondansetron HCl 4 mg 06/18/23 14:27 06/18/23 14:31 Ondansetron Hcl 4 Mg/2 Ml Vial IV 06/18/23 14:28 4 mg STAT ONE Administration Ondansetron HCl Confirm 06/18/23 14:30 Ondansetron Hcl 4 Mg/2 Ml Vial Administered 06/18/23 14:31 Dose 4 mg .ROUTE .STK-MED ONE Orphenadrine Citrate 60 mg 06/18/23 15:56 Orphenadrine Citrate 60 Mg/2 Ml Vial IV 06/18/23 15:57 STAT ONE Lab/Rad Data: Laboratory Result Diagrams 06/18/23 12:25 06/18/23 12:25 Laboratory Results 06/18/23 06/18/23 06/18/23 Range/Units Unknown 13:08 12:25 WBC (4.0-10.5) x10^3/uL RBC (4.1-5.4) x10^6/uL Hgb (12.0-16.0) g/dL Hct (35-47) % MCV (78-100) fL MCH (26-32) pg MCHC (32-36) g/dL RDW (11.5-14.0) % Plt Count (150-450) x10^3/uL MPV (7.5-11.0) fL Gran % (36.0-66.0) % Immature Gran % (Auto) (0.00-0.4) % Nucleat RBC Rel Count (0.00-0.1) % Eos # (Auto) (0-0.5) x10^3/uL Immature Gran # (Auto) (0.00-0.03) x10^3u/L Absolute Lymphs (auto) (1.0-4.6) x10^3/uL Absolute Monos (auto) (0.0-1.3) x10^3/uL Absolute Nucleated RBC (0.00-0.01) x10^3u/L Lymphocytes % (24.0-44.0) % Monocytes % (0.0-12.0) % Eosinophils % (0.00-5.0) % Basophils % (0.0-0.4) % Absolute Granulocytes (1.4-6.9) x10^3/uL Basophils # (0-0.4) x10^3/uL Sodium 137 (137-145) mmol/L Potassium 4.5 (3.5-5.1) mmol/L Chloride 104 (98-107) mmol/L Carbon Dioxide 27 (22-30) mmol/L Anion Gap 9.9 (5-15) MEQ/L BUN 11 (7-17) mg/dL Creatinine 0.76 (0.52-1.04) mg/dL Estimated GFR 104.7 ML/MIN Glucose 90 (74-106) mg/dL Lactic Acid 1.3 (0.4-2.0) Calcium 9.9 (8.4-10.2) mg/dL Total Bilirubin 0.70 (0.2-1.3) mg/dL AST 21 (14-36) U/L ALT 17 (0-35) U/L Alkaline Phosphatase 74 (38-126) U/L Serum Total Protein 7.6 (6.3-8.2) g/dL Albumin 4.5 (3.5-5.0) g/dL Amylase 62 (30-110) U/L Lipase 33 (23-300) U/L Urine Color Yellow (Yellow) Urine Appearance Clear (Clear) Urine pH 7.0 (4.6-8.0) Ur Specific Holl[place] 1.020 (1.005-1.030) Urine Protein Negative (Negative) Urine Glucose (UA) Negative (Negative) mg/dL Urine Ketones Negative (Negative) Urine Blood Negative (Negative) Urine Nitrite Negative (Negative) Urine Bilirubin Negative (Negative) Urine Urobilinogen 0.2 (0.2) mg/dL Ur Leukocyte Esterase Negative (Negative) U Hyaline Cast (Auto) NONE SEEN (0-2) /LPF Urine Microscopic RBC 0-2 (0-5) /HPF Urine Microscopic WBC 0-2 (0-5) /HPF Ur Epithelial Cells Few (None Seen) /HPF Urine Bacteria None Seen (None Seen) /HPF Urine Culture Reflexed NO (NO) 06/18/23 Range/Units 12:25 WBC 6.7 (4.0-10.5) x10^3/uL RBC 4.97 (4.1-5.4) x10^6/uL Hgb 14.9 (12.0-16.0) g/dL Hct 43.9 (35-47) % MCV 88.3 (78-100) fL MCH 30.0 (26-32) pg MCHC 33.9 (32-36) g/dL RDW 11.9 (11.5-14.0) % Plt Count 273 (150-450) x10^3/uL MPV 10.6 (7.5-11.0) fL Gran % 56.9 (36.0-66.0) % Immature Gran % (Auto) 0.4 (0.00-0.4) % Nucleat RBC Rel Count 0.0 (0.00-0.1) % Eos # (Auto) 0.17 (0-0.5) x10^3/uL Immature Gran # (Auto) 0.03 (0.00-0.03) x10^3u/L Absolute Lymphs (auto) 2.39 (1.0-4.6) x10^3/uL Absolute Monos (auto) 0.29 (0.0-1.3) x10^3/uL Absolute Nucleated RBC 0.00 (0.00-0.01) x10^3u/L Lymphocytes % 35.6 (24.0-44.0) % Monocytes % 4.3 (0.0-12.0) % Eosinophils % 2.5 (0.00-5.0) % Basophils % 0.3 (0.0-0.4) % Absolute Granulocytes 3.82 (1.4-6.9) x10^3/uL Basophils # 0.02 (0-0.4) x10^3/uL Sodium (137-145) mmol/L Potassium (3.5-5.1) mmol/L Chloride (98-107) mmol/L Carbon Dioxide (22-30) mmol/L Anion Gap (5-15) MEQ/L BUN (7-17) mg/dL Creatinine (0.52-1.04) mg/dL Estimated GFR ML/MIN Glucose (74-106) mg/dL Lactic Acid (0.4-2.0) Calcium (8.4-10.2) mg/dL Total Bilirubin (0.2-1.3) mg/dL AST (14-36) U/L ALT (0-35) U/L Alkaline Phosphatase (38-126) U/L Serum Total Protein (6.3-8.2) g/dL Albumin (3.5-5.0) g/dL Amylase (30-110) U/L Lipase (23-300) U/L Urine Color (Yellow) Urine Appearance (Clear) Urine pH (4.6-8.0) Ur Specific Hollister (1.005-1.030) Urine Protein (Negative) Urine Glucose (UA) (Negative) mg/dL Urine Ketones (Negative) Urine Blood (Negative) Urine Nitrite (Negative) Urine Bilirubin (Negative) Urine Urobilinogen (0.2) mg/dL Ur Leukocyte Esterase (Negative) U Hyaline Cast (Auto) (0-2) /LPF Urine Microscopic RBC (0-5) /HPF Urine Microscopic WBC (0-5) /HPF Ur Epithelial Cells (None Seen) /HPF Urine Bacteria (None Seen) /HPF Urine Culture Reflexed (NO) - Progress Progress: improved, pain not gone completely, re-examined Progress Note: 06/18/23 14:51 This patient's medical issue is 1 of moderate complexity. The level complex in the workup performed is based on review of the patient's past medical history, review of the patient's medication list, review the patient's drug allergy list, history present illness and physical findings on examination. The workup in this patient includes placement of intravenous line, infusion Normal Saline solution, infusion of Dilaudid 1 mg intravenously, infusion of 4 mg intravenous Zofran, amylase, lipase, CBC, CMP, urinalysis and CT scan of the abdomen pelvis without contrast. 06/18/23 15:58 This patient's laboratory data was interpreted by me. The results did not reveal any type of emergent or acute medical issue. CT scan of the abdomen pelvis without contrast was interpreted by the radiologist and I reviewed the impression. The impression is negative CT scan of the abdomen pelvis without contrast. There are nonobstructed bowel loops. There is normal appendix. There is no free air or free fluid present. Counseled pt/family regarding: lab results, diagnosis, need for follow-up, rad results Medical Desision Making - Independent Historian Additional History obtained from: Relative/friend - Diagnostic Testing Diagnostic test were ordered, analyzed, and reviewed by me: Yes Radiological Interpretation: Reviewed by me, Teleradiologist Report - Risk of complications The pt has a mod risk of morbidity or mortality based on: Need for prescription drug management - Departure Departure Disposition: Home Clinical Impression: Abdominal pain Condition: Stable Critical Care Time: No Referrals: ALMA BANERJEE [Primary Care Provider] - Follow up/PCP as directed Additional Instructions: Decrease your diet down to clear liquid diet and slowly advance over the next 24 to 48 hours to a nonfat, nonspicy diet. Take your new medication and old medication as prescribed. Call your primary care provider on 06/21/2023 to make arrangements for further evaluation and management including possible referral to a solar sales rep if indicated. Prescriptions: Dicyclomine HCl 20 mg [Bentyl 20 mg] 20 mg PO QID #28 tablet Prednisone 10 mg [Deltasone 10 mg] 10 mg PO TID #12 tablet Metronidazole 500 mg [Flagyl 500 MG] 500 mg PO TID #21 tablet
[2023-06-18 12:36] VITALS: BP 132/73; PULSE 78; RESP 18; TEMP 98.3; O2SAT 98
[2023-06-18] MEDS ORDERED: Hydromorphone 1 mg/ml Injection IV ONE (13:03)
[2023-06-18] MEDS ORDERED: Sodium Chloride 0.9% 1000 ML 1,000 ML IV STA (13:03)
[2023-06-18 13:10] LABS: Absolute Neutrophil Ct (ANC) 3.82 x10^3/uL (1.4-6.9); BASOPHIL % 0.3 % (0.0-0.4); Basophil (Absolute #) 0.02 x10^3/uL (0-0.4); Eosinophil % 2.5 % (0.00-5.0); Eosinophil (Absolute #) 0.17 x10^3/uL (0-0.5); Hematocrit 43.9 % (35-47); Hemoglobin 14.9 g/dL (12.0-16.0); IMMATURE GRAN # 0.03 x10^3u/L (0.00-0.03); IMMATURE GRAN % 0.4 % (0.00-0.4); Lymphocyte (Absolute #) 2.39 x10^3/uL (1.0-4.6); Lymphocytes % 35.6 % (24.0-44.0); Mean Cell Volume 88.3 fL (78-100); Mean Corpuscular Hgb Concent. 33.9 g/dL (32-36); Mean Platelet Volume 10.6 fL (7.5-11.0); Monocyte (Absolute #) 0.29 x10^3/uL (0.0-1.3); Monocytes % 4.3 % (0.0-12.0); Neutrophil % 56.9 % (36.0-66.0); Platelet Count 273 x10^3/uL (150-450); Red Blood Count 4.97 x10^6/uL (4.1-5.4); Red Cell Distribution Width 11.9 % (11.5-14.0); White Blood Count 6.7 x10^3/uL (4.0-10.5)
[2023-06-18 13:23] LABS: Appearance Clear (Clear); Bacteria None Seen /HPF (None Seen); Bilirubin Negative (Negative); Blood Negative (Negative); Epithelial Cells Few /HPF (None Seen); Glucose, Urine Negative (Negative); Hyaline Casts NONE SEEN /LPF (0-2); Ketones Negative (Negative); Leukocyte Esterase Negative (Negative); Nitrite Negative (Negative); Protein,Urine Dip Negative (Negative); RBC 0-2 /HPF (0-5); Urobilinogen 0.2 mg/dL (0.2); WBC 0-2 /HPF (0-5)
[2023-06-18 13:26] LABS: ADD URINE CULTURE? NO (NO)
[2023-06-18 13:50] LABS: ALBUMIN 4.5 g/dL (3.5-5.0); ANION GAP 9.9 MEQ/L (5-15); BILIRUBIN,TOTAL 0.7 mg/dL (0.2-1.3); Calcium 9.9 mg/dL (8.4-10.2); Creatinine 1 0.76 mg/dL (0.52-1.04); EST GLOMERULAR FILTRATION RATE 104.7 ML/MIN; Potassium 4.5 mmol/L (3.5-5.1); Total Protein 7.6 g/dL (6.3-8.2)
[2023-06-18] MEDS ORDERED: Hydromorphone 1 mg/ml Injection ONE (13:57)
[2023-06-18] MEDS ORDERED: Sodium Chloride 0.9% 1000 ML 1,000 ML ONE (13:57)
[2023-06-18] MEDS ORDERED: Zofran 4 MG/2 ML VIAL IV ONE (14:27)
[2023-06-18] MEDS ORDERED: Zofran 4 MG/2 ML VIAL ONE (14:30)
--- NOTE | 2023-06-18 15:44 | XRAY ---
Indication: Bilateral lower quadrant pain. Blood in stool. Multiple contiguous axial images obtained through the abdomen and pelvis without contrast. Comparison: August 13, 2022 Lung bases remain clear. Heart not enlarged. Noncontrasted stomach and bowel loops nonobstructed again with normal appendix. Again cholecystectomy and hysterectomy. No free fluid/air. Remaining liver, pancreas, spleen, adrenal glands, kidneys, ureters, bladder, uterus, and aorta are unremarkable for noncontrast exam. Osseous structures intact. Impression: Continued negative CT abdomen/pelvis without contrast exam.
[2023-06-18] MEDS ORDERED: Norflex 60 MG/2 ML IV ONE (15:56)
[2023-06-18] MEDS ORDERED: Norflex 60 MG/2 ML ONE (16:01)
== END 2023-06-18 16:25 | disposition home or self-care (01) ==
LOC: ED 12:10
DX: R10.31 Right lower quadrant pain (principal); R10.32 Left lower quadrant pain; R11.0 Nausea; R19.7 Diarrhea, unspecified; E11.9 Type 2 diabetes mellitus without complications; Z79.52 Long term (current) use of systemic steroids; Z79.899 Other long term (current) drug therapy; Z28.310 Unvaccinated for COVID-19
CPT/HCPCS: 36000; 36415; 74176; 80053; 81001; 82150; 83605; 83690; 85025; 96374; 96375; 99284; J1170; J2360; J2405

== ENCOUNTER 2023-06-28 14:32 | Emergency (ER) | payer OTHER ==
[2023-06-28 14:45] VITALS: TEMP 98.1
[2023-06-28] MEDS ORDERED: TORAdol 30 mg Injection IV ONE (15:07)
[2023-06-28] MEDS ORDERED: Sodium Chloride 0.9% 1000 ML 1,000 ML IV STA (15:11)
--- NOTE | 2023-06-28 15:12 | ERPHSYRPT ---
- History of Present Illness Historian: patient Exam Limitations: no limitations Patient Subjective Stated Complaint: pt here for abd pain for 3 week now, was seen at here, dr perry and regional for this problems. awaiting stool sample, no fever, some nausea Triage Nursing Assessment: pt alert, walked in, resp easy, skin w.d.p. no edema noted, moves all ext well, abd soft Physician History: Patient is a 33-year-old white female with iPatient has been seen in the ER here earlier in the month and also in regional in the ER. Patient saw Dr. Perry today who sent her to ER for pain control. Pain is 7 out of 10 on scale and described as cramping. Nothing makes the pain better or worse. She has had nausea without vomiting and has chronic diarrhea. She states she had hematochezia early in the illness which has resolved. Patient denies fever, cough, and coryza. She has a past medical history of a total abdominal hysterectomy, cholecystectomy, and irritable bowel syndrome. Patient smoked 1 pack a day until 3 years ago. Timing/Duration: other (3 weeks) Activities at Onset: rest Quality: cramping Abdominal Pain Onset Location: other (Infraumbilical) Pain Radiation: no radiation Severity of Pain-Max: severe Severity of Pain-Current: moderate Modifying Factors: Improves With: nothing Associated Symptoms: diarrhea (Chronic diarrhea), nausea Previous symptoms: same symptoms as today Allergies/Adverse Reactions: duloxetine [From Cymbalta] Allergy (Intermediate, Verified 06/28/23 14:47) states "irritability" adhesive Allergy (Mild, Verified 06/28/23 14:47) Rash cefaclor [From Ceclor] Allergy (Mild, Verified 06/28/23 14:47) Hives paroxetine [From Paxil] Adverse Reaction (Severe, Verified 06/28/23 14:47) "electric shock feeling in my head" Home Medications: Cetirizine HCl [Zyrtec] 10 mg PO HS 01/10/23 [History] Bupropion HCl 150 mg Sr [Wellbutrin SR 150 MG] 300 mg PO DAILY 06/18/23 [History] clonazePAM [Klonopin] 1 mg PO BID 06/18/23 [History] Levothyroxine Sodium [Synthroid] 50 mcg PO DAILY 06/28/23 [History] Hx Tetanus, Diphtheria Vaccination/Date Given: Yes Hx Influenza Vaccination/Date Given: No Hx Pneumococcal Vaccination/Date Given: No Immunizations Up to Date: Yes Travel Risk - International Travel Have you traveled outside of the country in past 3 weeks: No - Coronavirus Screening Are you exhibiting any of the following symptoms?: No Close contact with a COVID-19 positive Pt in past 14-21 Days: No - Vaccine Status Have you recieved a Covid-19 vaccination: No - Review of Systems Constitutional: No Symptoms, Lethargy, Malaise Eyes: No Symptoms Ears, Nose, & Throat: No Symptoms Respiratory: No Symptoms Cardiac: No Symptoms Abdominal/Gastrointestinal: No Symptoms, Abdominal Pain, Nausea, Diarrhea Genitourinary Symptoms: No Symptoms Musculoskeletal: No Symptoms Skin: No Symptoms Neurological: No Symptoms Psychological: No Symptoms Endocrine: No Symptoms Hematologic/Lymphatic: No Symptoms Immunological/Allergic: No Symptoms - Past Medical History Pertinent Past Medical History: Yes Neurological History: Migraines ENT History: No Pertinent History Cardiac History: No Pertinent History Respiratory History: No Pertinent History Endocrine Medical History: Diabetes Type II, Hypothyroidism Musculoskeletal History: No Pertinent History GI Medical History: GERD, Irritable Bowel History: Other Psycho-Social History: Anxiety, Attention Deficit Disorder, Depression, Panic Disorder Female Reproductive Disorders: Other Other Medical History: Pt has a partial thyroid,.Dr Kent dx states chronic pelvic pain; lupus,-negaive tests,kidney stones, pt denies being bipolar - Past Surgical History Past Surgical History: Yes Neuro Surgical History: No Pertinent History Cardiac: No Pertinent History Respiratory: No Pertinent History Gastrointestinal: Cholecystectomy Genitourinary: No Pertinent History Musculoskeletal: No Pertinent History Female Surgical History: Hysterectomy, Dilation & Curettage, Tubal Ligation, Mastectomy, Other Other Surgical History: partial thyroidectomy. breast reconstruction-nodules removed. bilateral breasts removed- November 2021. anesthesia problems - difficult to wake up, drop in bp. hysterectomy - Social History Smoking Status: Former smoker How long have you smoked: 4 yrs Exposure to second hand smoke: No Drug Use: none Patient Lives Alone: No Significant Family History: no pertinent family hx - Female History Hx Last Menstrual Period: hyster Hx Now: No - Nursing Vital Signs Nursing Vital Signs: Initial Vital Signs Temperature 98.1 F 06/28/23 14:43 Pulse Rate 95 H 06/28/23 14:43 Respiratory Rate 18 06/28/23 14:43 Blood Pressure 126/90 06/28/23 14:43 O2 Sat by Pulse Oximetry 99 06/28/23 14:43 Pain Scale Pain Intensity 3 Within normal limits - Physical Exam General Appearance: no apparent distress Eye Exam: PERRL/EOMI, eyes nml inspection Ears, Nose, Throat Exam: normal ENT inspection, TMs normal, pharynx normal, moist mucous membranes Neck Exam: normal inspection, non-tender, supple, full range of motion, No meningismus, No mass, No Brudzinski, No Kernig's Respiratory Exam: normal breath sounds, lungs clear, airway intact Cardiovascular Exam: regular rate/rhythm, normal heart sounds, normal peripheral pulses, capillary refill <2 sec, No murmur Gastrointestinal/Abdomen Exam: soft (Good bowel sounds all 4 quadrants, moderate infraumbilical tenderness to palpation without guarding or rebound, abdomen is soft) Back Exam: normal inspection, normal range of motion, No CVA tenderness, No vertebral tenderness Extremity Exam: normal inspection, normal range of motion Neurologic Exam: alert, oriented x 3, cooperative, director hematology II-XII nml as tested, normal mood/affect, nml cerebellar function, nml station & gait, sensation nml Skin Exam: normal color, warm, dry Lymphatic Exam: No adenopathy SpO2 Interpretation: normal SpO2: 99 O2 Delivery: Room Air - Course Nursing assessment & vital signs reviewed: Yes - CT Exams Abdomen/Pelvis CT Interpretation: Discussed w/radiologist (Negative CT of the abdomen pelvis with IV contrast) Ordered Tests: Active Orders 24 hr Category Date Time Status ABDOMEN AND PELVIS W CONTRAST [CT] Stat Exams 06/28/23 16:14 Completed AMYLASE Stat Lab 06/28/23 15:15 Completed CBC W DIFF Stat Lab 06/28/23 15:15 Completed CMP Stat Lab 06/28/23 15:15 Completed ESR [Erythrocyte Sedimentation Rate] Stat Lab 06/28/23 15:15 Completed LIPASE Stat Lab 06/28/23 15:15 Completed Lactic Acid Stat Lab 06/28/23 15:13 Completed UA W/RFX UR CULTURE Stat Lab 06/28/23 15:13 Completed Medication Summary Discontinued Medications Generic Name Dose Route Start Last Admin Trade Name Freq PRN Reason Stop Dose Admin Droperidol 2.5 mg 06/28/23 16:14 06/28/23 16:28 Droperidol 5 Mg/2 Ml Vial IM 06/28/23 16:15 2.5 mg STAT ONE Administration Droperidol Confirm 06/28/23 16:22 Droperidol 5 Mg/2 Ml Vial Administered 06/28/23 16:23 Dose 5 mg .ROUTE .STK-MED ONE Sodium Chloride 1,000 mls @ 999 mls/hr 06/28/23 15:11 06/28/23 16:47 Sodium Chloride 0.9% 1000 Ml IV 06/28/23 16:11 Infused .Q1H1M STA Infusion Sodium Chloride Confirm 06/28/23 15:15 Sodium Chloride 0.9% 1000 Ml Administered 06/28/23 15:16 Dose 1,000 mls @ ud .ROUTE .STK-MED ONE Ketorolac Tromethamine 30 mg 06/28/23 15:07 06/28/23 15:19 Ketorolac Tromethamine 30 Mg/Ml Inj IV 06/28/23 15:08 30 mg STAT ONE Administration Ketorolac Tromethamine Confirm 06/28/23 15:15 Ketorolac Tromethamine 30 Mg/Ml Inj Administered 06/28/23 15:16 Dose 30 mg .ROUTE .STK-MED ONE Lab/Rad Data: Laboratory Result Diagrams 06/28/23 15:15 06/28/23 15:15 Laboratory Results 06/28/23 06/28/23 06/28/23 Range/Units 15:15 15:15 15:15 WBC 6.6 (4.0-10.5) x10^3/uL RBC 4.84 (4.1-5.4) x10^6/uL Hgb 14.6 (12.0-16.0) g/dL Hct 42.0 (35-47) % MCV 86.8 (78-100) fL MCH 30.2 (26-32) pg MCHC 34.8 (32-36) g/dL RDW 11.6 (11.5-14.0) % Plt Count 348 (150-450) x10^3/uL MPV 10.1 (7.5-11.0) fL Gran % 58.5 (36.0-66.0) % Immature Gran % (Auto) 0.5 H (0.00-0.4) % Nucleat RBC Rel Count 0.0 (0.00-0.1) % Eos # (Auto) 0.14 (0-0.5) x10^3/uL Immature Gran # (Auto) 0.03 (0.00-0.03) x10^3u/L Absolute Lymphs (auto) 2.22 (1.0-4.6) x10^3/uL Absolute Monos (auto) 0.32 (0.0-1.3) x10^3/uL Absolute Nucleated RBC 0.00 (0.00-0.01) x10^3u/L Lymphocytes % 33.7 (24.0-44.0) % Monocytes % 4.9 (0.0-12.0) % Eosinophils % 2.1 (0.00-5.0) % Basophils % 0.3 (0.0-0.4) % Absolute Granulocytes 3.86 (1.4-6.9) x10^3/uL Basophils # 0.02 (0-0.4) x10^3/uL ESR 16 (0-20) mm/hr Sodium 139 (137-145) mmol/L Potassium 3.6 (3.5-5.1) mmol/L Chloride 105 (98-107) mmol/L Carbon Dioxide 25 (22-30) mmol/L Anion Gap 12.1 (5-15) MEQ/L BUN 9 (7-17) mg/dL Creatinine 0.72 (0.52-1.04) mg/dL Estimated GFR 111.8 ML/MIN Glucose 106 (74-106) mg/dL Lactic Acid (0.4-2.0) Calcium 9.8 (8.4-10.2) mg/dL Total Bilirubin 0.60 (0.2-1.3) mg/dL AST 21 (14-36) U/L ALT 15 (0-35) U/L Alkaline Phosphatase 89 (38-126) U/L Serum Total Protein 7.8 (6.3-8.2) g/dL Albumin 4.7 (3.5-5.0) g/dL Amylase 70 (30-110) U/L Lipase 41 (23-300) U/L Urine Color (Yellow) Urine Appearance (Clear) Urine pH (4.6-8.0) Ur Specific [place] (1.005-1.030) Urine Protein (Negative) Urine Glucose (UA) (Negative) mg/dL Urine Ketones (Negative) Urine Blood (Negative) Urine Nitrite (Negative) Urine Bilirubin (Negative) Urine Urobilinogen (0.2) mg/dL Ur Leukocyte Esterase (Negative) Urine Microscopic RBC (0-5) /HPF Urine Microscopic WBC (0-5) /HPF Ur Epithelial Cells (None Seen) /HPF Urine Bacteria (None Seen) /HPF Urine Culture Reflexed (NO) 06/28/23 06/28/23 Range/Units 15:13 15:13 WBC (4.0-10.5) x10^3/uL RBC (4.1-5.4) x10^6/uL Hgb (12.0-16.0) g/dL Hct (35-47) % MCV (78-100) fL MCH (26-32) pg MCHC (32-36) g/dL RDW (11.5-14.0) % Plt Count (150-450) x10^3/uL MPV (7.5-11.0) fL Gran % (36.0-66.0) % Immature Gran % (Auto) (0.00-0.4) % Nucleat RBC Rel Count (0.00-0.1) % Eos # (Auto) (0-0.5) x10^3/uL Immature Gran # (Auto) (0.00-0.03) x10^3u/L Absolute Lymphs (auto) (1.0-4.6) x10^3/uL Absolute Monos (auto) (0.0-1.3) x10^3/uL Absolute Nucleated RBC (0.00-0.01) x10^3u/L Lymphocytes % (24.0-44.0) % Monocytes % (0.0-12.0) % Eosinophils % (0.00-5.0) % Basophils % (0.0-0.4) % Absolute Granulocytes (1.4-6.9) x10^3/uL Basophils # (0-0.4) x10^3/uL ESR (0-20) mm/hr Sodium (137-145) mmol/L Potassium (3.5-5.1) mmol/L Chloride (98-107) mmol/L Carbon Dioxide (22-30) mmol/L Anion Gap (5-15) MEQ/L BUN (7-17) mg/dL Creatinine (0.52-1.04) mg/dL Estimated GFR ML/MIN Glucose (74-106) mg/dL Lactic Acid 1.3 (0.4-2.0) Calcium (8.4-10.2) mg/dL Total Bilirubin (0.2-1.3) mg/dL AST (14-36) U/L ALT (0-35) U/L Alkaline Phosphatase (38-126) U/L Serum Total Protein (6.3-8.2) g/dL Albumin (3.5-5.0) g/dL Amylase (30-110) U/L Lipase (23-300) U/L Urine Color Yellow (Yellow) Urine Appearance Clear (Clear) Urine pH 7.0 (4.6-8.0) Ur Specific [place] 1.010 (1.005-1.030) Urine Protein Negative (Negative) Urine Glucose (UA) Negative (Negative) mg/dL Urine Ketones Negative (Negative) Urine Blood Negative (Negative) Urine Nitrite Negative (Negative) Urine Bilirubin Negative (Negative) Urine Urobilinogen 0.2 (0.2) mg/dL Ur Leukocyte Esterase Negative (Negative) Urine Microscopic RBC 0-2 (0-5) /HPF Urine Microscopic WBC 0-2 (0-5) /HPF Ur Epithelial Cells Rare (None Seen) /HPF Urine Bacteria Rare A (None Seen) /HPF Urine Culture Reflexed NO (NO) - Progress Progress Note: 06/28/23 17:55 Nursing note and vital signs reviewed. No food or housing insecurity noted. All lab results reviewed and shared with patient. CT results reviewed and shared with patient. 06/28/23 17:56 1 L normal saline bolus/30 mg IV Toradol with minimal relief of pain. 2.5 mg IM droperidol with mild relief of pain. Patient suffers from chronic abdominal pain with normal lab work and again negative CT of the abdomen pelvis for acute pathology. Patient discharged in stable condition to follow-up with her PCP and advised return to ER for increasing pain or temperature greater 100.5. Patient stable condition upon discharge. Counseled pt/family regarding: lab results, diagnosis, need for follow-up, rad results Medical Desision Making - Diagnostic Testing Diagnostic test were ordered, analyzed, and reviewed by me: Yes Radiological Interpretation: Reviewed by me - Risk of complications The pt has a mod risk of morbidity or mortality based on: Need for prescription drug management - Departure Departure Disposition: Home Clinical Impression: Chronic abdominal pain Condition: Stable Critical Care Time: No Referrals: ALMA PERRY [Primary Care Provider] - Follow up/PCP as directed Instructions: Severe Abdominal Pain, Adult (DC) Additional Instructions: Follow-up with your family MD Return to ER for increasing pain or temperature greater 100.5 Prescriptions: Hydrocodone/Acetaminophen [Hydrocodone-Acetamin 10-325 mg] 1 each PO Q4-6HPRN PRN #5 tablet MDD 4 tablet PRN Reason: Pain
[2023-06-28] MEDS ORDERED: Sodium Chloride 0.9% 1000 ML 1,000 ML ONE (15:15)
[2023-06-28] MEDS ORDERED: TORAdol 30 mg Injection ONE (15:15)
[2023-06-28 15:22] LABS: Absolute Neutrophil Ct (ANC) 3.86 x10^3/uL (1.4-6.9); BASOPHIL % 0.3 % (0.0-0.4); Basophil (Absolute #) 0.02 x10^3/uL (0-0.4); Eosinophil % 2.1 % (0.00-5.0); Eosinophil (Absolute #) 0.14 x10^3/uL (0-0.5); Hemoglobin 14.6 g/dL (12.0-16.0); IMMATURE GRAN # 0.03 x10^3u/L (0.00-0.03); IMMATURE GRAN % 0.5 % (0.00-0.4); Lymphocyte (Absolute #) 2.22 x10^3/uL (1.0-4.6); Lymphocytes % 33.7 % (24.0-44.0); Mean Cell Volume 86.8 fL (78-100); Mean Corpuscular Hemoglobin 30.2 pg (26-32); Mean Corpuscular Hgb Concent. 34.8 g/dL (32-36); Mean Platelet Volume 10.1 fL (7.5-11.0); Monocyte (Absolute #) 0.32 x10^3/uL (0.0-1.3); Monocytes % 4.9 % (0.0-12.0); Neutrophil % 58.5 % (36.0-66.0); Platelet Count 348 x10^3/uL (150-450); Red Blood Count 4.84 x10^6/uL (4.1-5.4); Red Cell Distribution Width 11.6 % (11.5-14.0); White Blood Count 6.6 x10^3/uL (4.0-10.5)
[2023-06-28 15:27] LABS: Appearance Clear (Clear); Bilirubin Negative (Negative); Blood Negative (Negative); Glucose, Urine Negative (Negative); Ketones Negative (Negative); Leukocyte Esterase Negative (Negative); Nitrite Negative (Negative); Protein,Urine Dip Negative (Negative); Urobilinogen 0.2 mg/dL (0.2)
[2023-06-28 15:29] LABS: ADD URINE CULTURE? NO (NO); Bacteria Rare /HPF (None Seen); Epithelial Cells Rare /HPF (None Seen); RBC 0-2 /HPF (0-5); WBC 0-2 /HPF (0-5)
[2023-06-28 15:36] LABS: ALBUMIN 4.7 g/dL (3.5-5.0); ANION GAP 12.1 MEQ/L (5-15); BILIRUBIN,TOTAL 0.6 mg/dL (0.2-1.3); Calcium 9.8 mg/dL (8.4-10.2); Creatinine 1 0.72 mg/dL (0.52-1.04); EST GLOMERULAR FILTRATION RATE 111.8 ML/MIN; Potassium 3.6 mmol/L (3.5-5.1); Total Protein 7.8 g/dL (6.3-8.2)
--- NOTE | 2023-06-28 17:05 | XRAY ---
Indication: Infraumbilical pain 3 weeks. Multiple contiguous axial images obtained through the abdomen and pelvis using 80 cc Isovue 370 contrast. Comparison: June 18, 2023 Lung bases remain clear. Heart not enlarged. Noncontrasted stomach and bowel loops appear nonobstructed again with normal air-filled appendix. Again cholecystectomy and hysterectomy. No free fluid/air. Remaining liver, pancreas, spleen, adrenal glands, kidneys, ureters, bladder, and aorta are normal in CTA appearance and attenuation. No pathologic retroperitoneal lymphadenopathy. Impression: Continued negative CT abdomen/pelvis with contrast exam.
[2023-06-28 17:29] VITALS: BP 111/69; PULSE 70; RESP 16
[2023-06-28 17:58] VITALS: O2SAT 99
== END 2023-06-28 17:29 | disposition home or self-care (01) ==
LOC: ED 14:32
DX: G89.29 Other chronic pain (principal); R10.9 Unspecified abdominal pain; R11.0 Nausea; E11.9 Type 2 diabetes mellitus without complications; Z79.891 Long term (current) use of opiate analgesic; Z79.899 Other long term (current) drug therapy; Z28.310 Unvaccinated for COVID-19
CPT/HCPCS: 36415; 74177; 80053; 81001; 82150; 83605; 83690; 85025; 85652; 96360; 96372; 96374; 99284; J1885

== ENCOUNTER 2023-09-14 10:37 | Emergency (ER) | payer OTHER ==
[2023-09-14 10:50] VITALS: PULSE 102; TEMP 98.1; O2SAT 96
--- NOTE | 2023-09-14 11:06 | ERPHSYRPT ---
- History of Present Illness Time Seen by Provider: 09/14/23 11:03 Source: patient Exam Limitations: no limitations Patient Subjective Stated Complaint: Pt [place] out in [place] and on top of a tree stump and fell and injured her right lateral ankle Triage Nursing Assessment: Pt brought to the ER by her , tachycardic, rates pain as 9/10, swelling and bruising to the lateral right ankle, denies any other injuries, pulses normal, skin n/w/d, appears to be in moderate pain Physician History: 33-year-old female presents to our ED for evaluation of pain to her right ankle and right foot. Patient states she was in [place] standing on [place] tree stump. Patient fell and twisted her right ankle. Injury occurred approximately half hour to 45 minutes prior to arrival. Pain described as an ache that is localized. Pain worse with movement and weightbearing pain improved with rest. No other injuries reported. No BHT or LOC. No neck pain. Cervical spine cleared clinically. Patient denies pain to her hip and knee. Significant other at bedside. They voiced no other complaints or concerns at this time. Portions of this note were created with voice recognition technology. There may be grammatical, spelling, punctuation or sound alike errors Timing/Duration: today Modifying Factors: Improves With: nothing Associated Symptoms: denies symptoms Allergies/Adverse Reactions: duloxetine [From Cymbalta] Allergy (Intermediate, Verified 09/14/23 10:50) states "irritability" adhesive Allergy (Mild, Verified 09/14/23 10:50) Rash cefaclor [From Ceclor] Allergy (Mild, Verified 09/14/23 10:50) Hives paroxetine [From Paxil] Adverse Reaction (Severe, Verified 09/14/23 10:50) "electric shock feeling in my head" droperidol Adverse Reaction (Verified 09/14/23 10:51) Home Medications: Cetirizine HCl [Zyrtec] 10 mg PO HS 01/10/23 [History] Bupropion HCl 150 mg Sr [Wellbutrin SR 150 MG] 300 mg PO DAILY 06/18/23 [History] clonazePAM [Klonopin] 1 mg PO BID 06/18/23 [History] Levothyroxine Sodium [Synthroid] 50 mcg PO DAILY 06/28/23 [History] Semaglutide [Ozempic] 1 mg SQ WEEKLY 09/14/23 [History] Hx Tetanus, Diphtheria Vaccination/Date Given: Yes Hx Influenza Vaccination/Date Given: No Hx Pneumococcal Vaccination/Date Given: No Travel Risk - International Travel Have you traveled outside of the country in past 3 weeks: No - Emerging Infectious Disease Are you exhibiting symptoms associated with any current EIDs: No - Review of Systems Constitutional: No Symptoms, No Fever, No Chills Eyes: No Symptoms Ears, Nose, & Throat: No Symptoms Respiratory: No Symptoms, No Cough, No Dyspnea Cardiac: No Symptoms, No Chest Pain, No Edema, No Syncope Abdominal/Gastrointestinal: No Symptoms, No Abdominal Pain, No Nausea, No Vomiting, No Diarrhea Genitourinary Symptoms: No Symptoms, No Dysuria Musculoskeletal: No Symptoms, No Back Pain, No Neck Pain Skin: No Symptoms, No Rash Neurological: No Symptoms, No Dizziness, No Focal Weakness, No Sensory Changes Psychological: No Symptoms Endocrine: No Symptoms Hematologic/Lymphatic: No Symptoms Immunological/Allergic: No Symptoms All Other Systems: Reviewed and Negative - Past Medical History Pertinent Past Medical History: Yes Neurological History: Migraines ENT History: No Pertinent History Cardiac History: No Pertinent History Respiratory History: No Pertinent History Endocrine Medical History: Diabetes Type II, Hypothyroidism Musculoskeletal History: No Pertinent History GI Medical History: GERD, Irritable Bowel History: Other Psycho-Social History: Anxiety, Attention Deficit Disorder, Depression, Panic Disorder Female Reproductive Disorders: Other Other Medical History: Pt has a partial thyroid,.Dr Kent dx states chronic pelvic pain; lupus,-negaive tests,kidney stones, pt denies being bipolar - Past Surgical History Past Surgical History: Yes Neuro Surgical History: No Pertinent History Cardiac: No Pertinent History Respiratory: No Pertinent History Gastrointestinal: Cholecystectomy Genitourinary: No Pertinent History Musculoskeletal: No Pertinent History Female Surgical History: Hysterectomy, Dilation & Curettage, Tubal Ligation, Mastectomy, Other Other Surgical History: partial thyroidectomy. breast reconstruction-nodules removed. bilateral breasts removed- November 2021. anesthesia problems - difficult to wake up, drop in bp. hysterectomy Significant Family History: no pertinent family hx - Female History Hx Now: No (hysterectomy) - Social History Smoking Status: Current every day smoker How long have you smoked: 4 yrs Exposure to second hand smoke: No Drug Use: none Patient Lives Alone: No - Nursing Vital Signs Nursing Vital Signs: Initial Vital Signs Temperature 98.1 F 09/14/23 10:42 Pulse Rate 102 H 09/14/23 10:42 Blood Pressure 136/81 09/14/23 10:42 O2 Sat by Pulse Oximetry 96 09/14/23 10:42 Pain Scale Pain Intensity 8 - Physical Exam General Appearance: no apparent distress, alert Eye Exam: PERRL/EOMI, eyes nml inspection Ears, Nose, Throat Exam: normal ENT inspection, TMs normal, pharynx normal, moist mucous membranes Neck Exam: normal inspection, non-tender, supple, full range of motion Respiratory Exam: normal breath sounds, lungs clear, airway intact, No respiratory distress Cardiovascular Exam: regular rate/rhythm, normal heart sounds, normal peripheral pulses Gastrointestinal/Abdomen Exam: soft, normal bowel sounds, No tenderness, No mass Back Exam: normal inspection, normal range of motion, No CVA tenderness, No vertebral tenderness Extremity Exam: normal inspection, normal range of motion, pelvis stable, other (Swelling to the lateral aspect of the right ankle. There are some tenderness to palpation at the anterolateral ankle ankle over the ATFL ligament. Tenderness goes into the dorsum of the right foot. The involved extremities neurovascular tact distally compartments are soft cap refill less than 2 s) Neurologic Exam: alert, oriented x 3, cooperative, normal mood/affect, nml cerebellar function, nml station & gait, sensation nml, No motor deficits Skin Exam: normal color, warm, dry, No rash Lymphatic Exam: No adenopathy SpO2 Interpretation: normal SpO2: 96 O2 Delivery: Room Air - Course Nursing assessment & vital signs reviewed: Yes - Radiology Exams Foot X-ray Interpretation: Teleradiologist Report (Heel spur. No fractures or dislocations) Ankle X-ray Interpretation: Interpreted by me (Heel spur. No fracture or dislocation) Ordered Tests: Active Orders 24 hr Category Date Time Status ANKLE (3 VIEWS) Stat Exams 09/14/23 10:59 Completed FOOT (MINIMUM 3 VIEWS) Stat Exams 09/14/23 10:58 Completed Medication Summary Discontinued Medications Generic Name Dose Route Start Last Admin Trade Name Freq PRN Reason Stop Dose Admin Acetaminophen 975 mg 09/14/23 11:07 09/14/23 11:13 Acetaminophen 325 Mg Tablet PO 09/14/23 11:08 975 mg STAT ONE Administration Acetaminophen Confirm 09/14/23 11:12 Acetaminophen 325 Mg Tablet Administered 09/14/23 11:13 Dose 975 mg .ROUTE .STK-MED ONE - Progress Progress: improved Progress Note: Patient reassessed. No active pain. X-rays negative for fracture dislocation. Incidental heel spur observed. Edin wrap applied. Patient given bilateral lateral axillary crutches. Patient referred to the orthopedic clinic for follow-up tomorrow. No indication for further workup at this time. Will discharge home. Patient received Tylenol for pain control per her request. Patient voices no other complaints or concerns at this time. Portions of this note were created with voice recognition technology. There may be grammatical, spelling, punctuation or sound alike errors Complexity problem addressed is moderate acute complicated Complexity of data reviewed and analyzed is moderate. Test ordered test reviewed results analyzed and correlated clinically with history and physical examination. Dr. Wright independently reviewed the x-rays of the ankle and foot. No fracture dislocations observed. Incidental heel spur. Findings confirmed per radiology read. Risk of complication and or risk of morbidity/mortality of patient management is moderate. Patient given bilateral axillary crutches. Prescription for Toradol forwarded to patient's pharmacy Vital stable. Time spent to discharge patient is approximately 15 minutes. Plan of care established for shared decision making. No social determinants of health present impede follow-up. Portions of this note were created with voice recognition technology. There may be grammatical, spelling, punctuation or sound alike errors 09/14/23 11:34 09/14/23 11:39 Counseled pt/family regarding: diagnosis, need for follow-up, rad results - Departure Departure Disposition: Home Clinical Impression: Ankle sprain, Heel spur, Foot sprain Condition: Stable Critical Care Time: No Referrals: ALMA CALABRESE [Primary Care Provider] - Follow up/PCP as directed Additional Instructions: Discharge/Care Plan [id number] PIERRE was seen on 09/14/23 in the Emergency Room. The patient was counseled regarding Diagnosis,Lab results, Imaging studies, need for follow up and when to return to the Emergency Room. Prescriptions given: Discharge Note I have spoken with the patient and/or caregivers. I have explained the patient's condition, diagnosis and treatment plan based on the information available to me at this time. I have answered the patient's and/or caregiver's questions and addressed any concerns. The patient and/or caregivers have as good understanding of the patient's diagnosis, condition and treatment plan as can be expected at this point. The vital signs have been stable. The patient's condition is stable and appropriate for discharge from the emergency department. The patient will pursue further outpatient evaluation with the primary care physician or other designated or consulting physician as outlined in the discharge instructions. The patient and/or caregivers are agreeable to this plan of care and follow-up instructions have been explained in detail. The patient and/or caregivers have received these instruction. The patient/and or caregivers are aware that any significant change in condition or worsening of symptoms should prompt an immediate return to this or the closest emergency department or call 911. Prescriptions: Ketorolac Trometh 10 mg Tab [TORAdol 10 MG TABLET] 10 mg PO TID 5 Days #15 tablet Outpatient Orders: Ortho Referral Time Frame: 1 Day, Facility: [facility], Location: ORTHO CLINIC
[2023-09-14] MEDS ORDERED: TYLENOL 325 MG ONE (11:12)
[2023-09-14] MEDS: TYLENOL 325 MG PO ONE (11:13)
--- NOTE | 2023-09-14 11:31 | XRAY ---
Indication: Pain. Comparison: None 3 nonweightbearing views right foot demonstrates small plantar heel spur. No other bony, articular, or soft tissue abnormalities.
--- NOTE | 2023-09-14 11:31 | XRAY ---
Indication: Pain. Comparison: None 3 view right ankle demonstrates mild anterolateral soft tissue swelling and small plantar heel spur. No other bony, articular, or soft tissue abnormalities.
[2023-09-14 11:38] VITALS: BP 117/85
== END 2023-09-14 11:44 | disposition home or self-care (01) ==
LOC: ED 10:37
DX: S93.602A Unspecified sprain of left foot, initial encounter (principal); M25.571 Pain in right ankle and joints of right foot; W17.89XA Other fall from one level to another, initial encounter; M77.32 Calcaneal spur, left foot; S93.402A Sprain of unspecified ligament of left ankle, initial encounter
CPT/HCPCS: 73610; 73630; 99283; A9270-GY

== ENCOUNTER 2023-10-26 06:00 | Day surgery (SDC) | payer OTHER ==
[2023-10-26] MEDS: Lactated Ringers 1,000 ML IV SCH (06:10)
[2023-10-26 06:26] LABS: Hematocrit 39.1 % (35-47); Hemoglobin 13.9 g/dL (12.0-16.0); Mean Cell Volume 85.4 fL (78-100); Mean Corpuscular Hemoglobin 30.3 pg (26-32); Mean Corpuscular Hgb Concent. 35.5 g/dL (32-36); Mean Platelet Volume 9.9 fL (7.5-11.0); Platelet Count 305 x10^3/uL (150-450); Red Blood Count 4.58 x10^6/uL (4.1-5.4); Red Cell Distribution Width 11.6 % (11.5-14.0); White Blood Count 8.4 x10^3/uL (4.0-10.5)
[2023-10-26 06:34] VITALS: RESP 16
[2023-10-26 06:40] LABS: ALBUMIN 4.3 g/dL (3.5-5.0); ANION GAP 11.6 MEQ/L (5-15); BILIRUBIN,TOTAL 0.4 mg/dL (0.2-1.3); Calcium 9.4 mg/dL (8.4-10.2); Creatinine 1 0.71 mg/dL (0.52-1.04); EST GLOMERULAR FILTRATION RATE 113.6 ML/MIN; Potassium 3.9 mmol/L (3.5-5.1); Total Protein 7.4 g/dL (6.3-8.2)
[2023-10-26] MEDS ORDERED: Naropin 0.5% 30 ML VIAL ONE (07:02)
[2023-10-26] MEDS ORDERED: Versed 2 MG/2 ML Injection ONE (07:03)
[2023-10-26] MEDS ORDERED: DIPRIVAN 200 MG/20 ML IV ONE ×2 (07:04→09:53)
[2023-10-26] MEDS ORDERED: Decadron 4 MG INJ ONE ×2 (07:04→07:05)
[2023-10-26] MEDS ORDERED: Zofran 4 MG/2 ML VIAL ONE (07:04)
[2023-10-26] MEDS ORDERED: CLINDAMYCIN-D5W 900 MG/50 ML*** 900 MG/50 ML BAG IV ONE (07:09)
[2023-10-26] MEDS ORDERED: Lactated Ringers 1,000 ML IV ONE (07:13)
[2023-10-26] MEDS ORDERED: Epinephrine Preservative Free 1 MG/ML ONE ×2 (07:13)
[2023-10-26] MEDS: CLINDAMYCIN-D5W 900 MG/50 ML*** 900 MG/50 ML BAG IV STA (07:14)
[2023-10-26] MEDS ORDERED: SUBLIMAZE 100 MCG/2 ML ONE ×2 (08:24→10:18)
[2023-10-26] MEDS ORDERED: Ephedrine Sulfate 50 MG/ML ONE (08:36)
--- NOTE | 2023-10-26 09:50 | XRAY ---
Indication: Right ankle arthroscopy with synovectomy, microfracture osteochondral defect, and lateral ankle stabilization. Intraoperative fluoroscopy provided for 1 minute 31 seconds. Numerous digital spot images submitted for interpretation demonstrates instrumentation lateral talus and lateral malleolus. Multiple cinematic images also obtained with manual manipulation of ankle. Correlate with intraoperative findings/report.
[2023-10-26] MEDS ORDERED: Hydromorphone 1 mg/ml Injection ONE (10:19)
[2023-10-26] MEDS ORDERED: DEMEROL 50 MG ONE (10:36)
[2023-10-26 11:52] VITALS: O2SAT 99
--- NOTE | 2023-10-26 12:53 | XRAY ---
1 minute 31 seconds of fluoroscopy used in surgery for a right ankle arthroscopy with synovectomy, microfracture osteochondral defect, and lateral ankle stabilization.
[2023-10-26 13:05] VITALS: BP 130/87; PULSE 74; TEMP 97.6
--- NOTE | 2023-10-27 10:32 | OP ---
SURGERY DATE/TIME: 10/26/2023 0740 PREOPERATIVE DIAGNOSES: 1) Right ankle synovitis. 2) Ankle pain. 3) Osteochondral defect central medial talus. 4) Lateral ankle instability. 5) Peroneus brevis low lying muscle belly. 6) Peroneus longus tenosynovitis. POSTOPERATIVE DIAGNOSES: 1) Right ankle synovitis. 2) Ankle pain. 3) Osteochondral defect central medial talus. 4) Lateral ankle instability. 5) Peroneus brevis low lying muscle belly. 6) Peroneus longus tenosynovitis. PROCEDURES: 1) Ankle arthroscopy with extensive synovectomy. 2) Arthroscopic microfracture of talar dome. 3) Lateral ankle stabilization with internal brace, double ligament repair. 4) Peroneus longus tenosynovectomy. 5) Peroneus brevis debridement with excision of low-lying muscle belly. SURGEON: Sanchez Zapata DPM. CORN GROWER: None. ANESTHESIA: General plus a preoperative popliteal and saphenous block. See anesthesia notes for details. HEMOSTASIS: Thigh tourniquet set to 300 mm of Mercury for 54 total tourniquet minutes. QUANTITATIVE BLOOD LOSS: Approximately 10 cc. MATERIALS: Kim lateral ankle stabilization one - 2.9 JuggerKnot, a 2.9 Betta Link with two - 1.45 JuggerKnot with BroadBand, 4-0 Monocryl, 3-0 Nylon. INJECTABLES: See anesthesia report for details. INDICATION FOR SURGERY: Maria is a very pleasant 33-year-old female known to my service briefly two years ago for concerns of ankle pain to the right lower extremity. The patient at that time did have some indications of locking up of the ankle, which was suspicious for a suspected for osteochondral defect along with a long-standing history of lateral ankle instability. As a result, we attempted to get a MRI. Insurance did have an issue with us obtaining the MRI unless physical therapy and immobilization was tried. At that time with the use of immobilization, the patient's knees were having a bigger issue at that time and that was addressed. At this time, the patient represented approximately two years after initial consultation and an MRI was taken for a new injury resulting in the discovery of an osteochondral defect in later stages. On MRI, it demonstrated approximately 10.5 mm in width, 5.35 mm in depth and 7.4 mm in length. Discussion was held in regards to the options for treatment from this respect. The patient does also have a long standing history of lateral ankle instability and rolling her ankles which likely is the cause of why she does have this chronic osteochondral defect. As a result, we have decided to proceed with addressing these issues. She did also have a significant amount of pain on the lateral compartment in the area of the superior peroneal retinaculum, which extended the whole entire length of her leg. As a result, we decided at minimum to do an exploratory evaluation of the peroneal tendon and the superior peroneal retinaculum in this respect. All risks, complications and benefits were discussed with the patient including but not limited to infection, hematoma, seroma, possibility of delayed wound healing, nonwound healing, possible irritating hardware, and possible need for further surgery intervention at a later date. No guarantees were provided as to the outcome at this time. It is at this time we decided to proceed. Plenty of time was allowed for the patient to ask questions which were answered to her apparent satisfaction. It is at this time we decided to proceed. DESCRIPTION OF PROCEDURE AND FINDINGS: The patient was brought into the postoperative anesthesia care unit prior to the procedure and provided a popliteal and saphenous block per anesthesia. Please see anesthesia records for details. Following this, the patient was brought into the OR and placed on the OR table in the supine position. A well-padded thigh tourniquet was applied and the tourniquet was set to 300 mm of Mercury. The right lower extremity was prepped and draped in the typical sterile fashion and lowered onto the surgical field. General anesthesia was also administered until the patient was adequately sedated. At this time, attention was directed to the right ankle where the medial malleolus, the tip of the medial malleolus and the lateral malleolus were identified. The palpable dell at the anterior aspect of the ankle joint was then identified this helped us establish our anterior medial and anterior lateral portals. Anterior medial portal was then insufflated with approximately 15 cc of lactated Ringer's. An 11 blade was then utilized to make a small incision and blunt dissection was carried down to the level of the capsule. The obturator and the trocar were then introduced. The obturator was then removed providing a flush of the insufflation fluid. The 30-degree 4.0 mm camera was then introduced. An inspection of the joint took place at this time. Lights were turned off a lateral portal was made under direct visualization of the internal light scope. Blunt dissection was once again carried down making sure not to damage the superficial peroneal nerve in this area. From that standpoint, the 2.7 mm shaver was then introduced and extensive synovectomy took place. Significant amount of hemorrhagic synovitis was identified at the lateral medial compartment. Inspection of the anterior inferior talofibular ligament (AITFL) where there was a low lying Basset's ligament as well as a very scarred down anterior talofibular ligament was debrided on inspection. The medial aspect of the talar dome was then inspected. Any synovitis surrounding this area was debrided and cauterized. From this standpoint, probe was utilized to probe the medial shoulder of the talus discovering the osteochondral defect. The foot was held in a dorsiflexed position and the osteochondral defect was debrided utilizing the shaver. Once cleaned of any delaminated cartilage, a pick was utilized to probe the bone underneath which was soft. The pick was then used for microfracture until oil spots were seen this was performed in two separate places on one lesion and more medial lesion had one single microfracture performed. Following this, debridement took place once again to clean up any of the remaining residual tissue. From that standpoint, the scope was removed. Stress views were then obtained of the anterior talofibular ligament and calcaneofibular ligament (CFL) utilizing an anterior drawer and a talar tilt respectively. These were both out at this time with significant amount of laxity. The decision was made to proceed with double ligament repair this was performed making an incision down to the level of bone being careful not to damage any neurovascular structures. The periosteum was identified and a cuff off of the anterior talofibular ligament and calcaneofibular ligament were then lifted. A 2.9 JuggerKnot was then utilized underneath the ligament in the talar body making sure not to enter the tibiotalar joint or violate the subtalar joint at about 45 degrees relative to where the talar head meets the talar body and superior so as not to enter the tibiotalar joint. A 2.9 JuggerKnot was then introduced gaining excellent fixation, which was attached to a 2.9 Betta Link in the footprint of the anterior talofibular ligament origin on the fibula. Two - 1.45 JuggerKnots were then introduced inspecting and repairing in a Brostrom-Wilhelm type repair with the internal brace to the anterior talar fibular ligament as well as the calcaneofibular ligament. Following this, stress views were once again obtained demonstrating significant improvement in the talar tilt and significant improvement in the anterior drawer. Following this, the incision is mobilized posteriorly where an incision through the peroneal retinaculum was performed above and below the superior peroneal retinaculum to inspect the peroneus brevis and peroneus longus. The peroneus longus had a significant amount of tenosynovitis, which was resected above and below the super peroneal retinaculum. More concerning, there was a significant almost 6 cm thick muscle on the peroneus brevis that was pulled into the superior peroneal retinaculum that likely is causing irritation within the peroneal retinaculum that was excised and handed off the field for evaluation. From that standpoint, the foot was run through a range of motion making sure no impingements were within the superior peroneal retinaculum and no subluxation of the peroneal retinaculum occurred. From that standpoint, copious amounts of sterile saline were utilized to flush the surgical site. 4-0 Monocryl was utilized to coapt the subcutaneous skin edges in a simple buried interrupted-type fashion. 3-0 Nylon was utilized in a horizontal mattress-type fashion to coapt the skin in everted position. Following this, a dressing consisting of Betadine, Adaptic, 4x4, Kerlix and a well-padded posterior splint with Sugar-Tong was applied to the patient's right lower extremity with the foot orthogonal with slight eversion relative to longitudinal axis of the leg. The patient then was reversed from anesthesia and returned to the postoperative anesthesia care unit with vital signs stable and vascular status intact. The patient handled the anesthesia as well as the procedure without significant complication. Postoperative orders as indicated in the patient's discharge chart.
== END 2023-10-26 13:00 | disposition home or self-care (01) ==
LOC: SDC 06:00
PROVIDERS: ATTEND Podiatrist Foot & Ankle Surgery
DX: M65.871 Other synovitis and tenosynovitis, right ankle and foot (principal); M25.571 Pain in right ankle and joints of right foot; M95.8 Other specified acquired deformities of musculoskeletal system; M25.371 Other instability, right ankle; S86.312A Strain of muscle(s) and tendon(s) of peroneal muscle group at lower leg level, left leg, initial encounter
CPT/HCPCS: 27680; 27696; 28086; 28090; 29892; 29898; 36415; 73610; 76000; 76937; 80053; 85027; C1713; J0171; J1100; J1170; J2175; J2250; J2405; J2704; J2795; J3010

== ENCOUNTER 2023-10-27 14:14 | Day surgery (SDC) | payer OTHER ==
[2023-10-27] MEDS ORDERED: Lactated Ringers 1,000 ML IV ONE (14:20)
[2023-10-27 14:24] VITALS: RESP 18
[2023-10-27] MEDS ORDERED: Marcaine Mpf 0.5% Vial 30 Ml ONE (14:34)
[2023-10-27] MEDS ORDERED: EXPAREL 133 MG/10 ML VIAL IJ ONE (14:34)
[2023-10-27] MEDS ORDERED: Versed 2 MG/2 ML Injection ONE (14:52)
[2023-10-27] MEDS: Lactated Ringers 1,000 ML IV SCH (15:00)
[2023-10-27 15:59] VITALS: TEMP 96.1; O2SAT 100
[2023-10-27 16:06] VITALS: BP 104/79; PULSE 64
== END 2023-10-27 16:14 | disposition home or self-care (01) ==
LOC: SDC 14:14
PROVIDERS: ATTEND Podiatrist Foot & Ankle Surgery
DX: G89.18 Other acute postprocedural pain (principal)
CPT/HCPCS: J2250

== ENCOUNTER 2024-01-01 13:22 | Emergency (ER) | payer OTHER ==
--- NOTE | 2024-01-01 13:25 | ERPHSYRPT ---
- History of Present Illness Time Seen by Provider: 01/01/24 13:25 Source: patient Exam Limitations: no limitations Physician History: This is an overweight 33-year-old white female patient who is a patient of Dr. Banerjee and drove herself first to [facility] care at our hospital. Patient was then sent to the emergency department secondary to the concern of the possibility of this patient having a dislocated left shoulder. The patient has been recovering from an ankle surgery. Patient slipped in the shower last evening falling onto her left shoulder and injuring it. She does not have much pain when not moving. However, when it is passively moved, she has significant pain. Patient is right-handed. Patient has a history of diabetes, anxiety/panic disorder, hypothyroidism, gastroesophageal reflux disease, irritable bowel syndrome and ADD. Patient denies chest pain. Patient denies shortness of breath and patient denies abdominal pain. Occurred: yesterday Severity of Pain-Max: moderate (Movement) Severity of Pain-Current: mild (With no movement) Extremities Pain Location: shoulder: left Modifying Factors: Improves With: movement (Worsens the pain significantly) Associated Symptoms: none Allergies/Adverse Reactions: duloxetine [From Cymbalta] Allergy (Intermediate, Verified 10/19/23 09:12) states "irritability" adhesive Allergy (Mild, Verified 10/19/23 09:12) Rash cefaclor [From Ceclor] Allergy (Mild, Verified 10/19/23 09:12) Hives paroxetine [From Paxil] Adverse Reaction (Severe, Verified 10/19/23 09:12) "electric shock feeling in my head" droperidol Adverse Reaction (Verified 10/19/23 09:12) Home Medications: Cetirizine HCl [Zyrtec] 10 mg PO HS 01/10/23 [History] Bupropion HCl 150 mg Sr [Wellbutrin SR 150 MG] 300 mg PO DAILY 06/18/23 [History] clonazePAM [Klonopin] 1 mg PO BID PRN 06/18/23 [History] Levothyroxine Sodium [Synthroid] 50 mcg PO DAILY 06/28/23 [History] Hydrocodone/Acetaminophen [Hydrocodone-Acetamin 5-325 mg] 1 tab PO Q4HPRN PRN MDD 6 10/27/23 [History] Hx Tetanus, Diphtheria Vaccination/Date Given: Yes Hx Influenza Vaccination/Date Given: No Hx Pneumococcal Vaccination/Date Given: No Travel Risk - International Travel Have you traveled outside of the country in past 3 weeks: No - Emerging Infectious Disease Are you exhibiting symptoms associated with any current EIDs: No - Review of Systems Constitutional: No Symptoms Eyes: No Symptoms Ears, Nose, & Throat: No Symptoms Respiratory: No Symptoms Cardiac: No Symptoms Abdominal/Gastrointestinal: No Symptoms Genitourinary Symptoms: No Symptoms Musculoskeletal: Fall (Last evening 5 PM), Injury (Left shoulder) Skin: No Symptoms Neurological: No Symptoms Psychological: No Symptoms Endocrine: No Symptoms Hematologic/Lymphatic: No Symptoms Immunological/Allergic: No Symptoms All Other Systems: Reviewed and Negative - Past Medical History Pertinent Past Medical History: Yes Neurological History: No Pertinent History ENT History: No Pertinent History Cardiac History: Other Respiratory History: No Pertinent History Endocrine Medical History: Diabetes Type II, Other Musculoskeletal History: No Pertinent History GI Medical History: GERD, Irritable Bowel History: Other Psycho-Social History: Anxiety, Attention Deficit Disorder, Depression, Panic Disorder Female Reproductive Disorders: Other Other Medical History: PSH: GALL BLADDER, PARTIAL THYROIDECTOMY, 4 BREAST SURGERIES, HYSTERECTOMY. PMH: AUTO IMMUNE DISEASE ( UNDIAGNOSED) - Past Surgical History Past Surgical History: Yes Neuro Surgical History: No Pertinent History Cardiac: No Pertinent History Respiratory: No Pertinent History Gastrointestinal: Cholecystectomy Genitourinary: No Pertinent History Musculoskeletal: No Pertinent History Female Surgical History: Hysterectomy, Dilation & Curettage, Tubal Ligation, Mastectomy, Other Other Surgical History: partial thyroidectomy. breast reconstruction-nodules removed. bilateral breasts removed- November 2021. anesthesia problems - difficult to wake up, drop in bp. hysterectomy Significant Family History: no pertinent family hx - Female History Hx Last Menstrual Period: 3 months ago - Social History Smoking Status: Former smoker How long have you smoked: 4 yrs Exposure to second hand smoke: No Drug Use: none Patient Lives Alone: No - Social Determinants of Health Will the patient participate in the screening: Yes Do you worry about a steady place to live?: No In the past 12 months,have you had to go without utilities?: No Transportation Issues: No Has anyone in your support network made you feel unsafe?: No Have you or anyone in your house had to go without enough: No - Nursing Vital Signs Nursing Vital Signs: Initial Vital Signs Temperature 97.7 F 01/01/24 13:27 Pulse Rate 72 01/01/24 13:27 Respiratory Rate 18 01/01/24 13:27 Blood Pressure 105/87 01/01/24 13:27 O2 Sat by Pulse Oximetry 99 01/01/24 13:27 Pain Scale Pain Intensity 0 - Physical Exam General Appearance: no apparent distress, alert, anxiety, obese Eyes, Ears, Nose, Throat Exam: normal ENT inspection, moist mucous membranes Neck Exam: normal inspection, non-tender, supple, full range of motion Cardiovascular/Respiratory Exam: chest non-tender, no respiratory distress Abdominal Exam: non-tender Back Exam: normal inspection, normal range of motion, No CVA tenderness, No vertebral tenderness Shoulder Exam: normal inspection, no evidence of injury, limited ROM (Shoulder), soft tissue tenderness, No deformity Elbow/Forearm Exam: normal inspection, non-tender, no evidence of injury, normal ROM Wrist Exam: normal inspection, non-tender (Shoulder), no evidence of injury, normal ROM Hand Exam: normal inspection, non-tender, no evidence of injury, normal ROM Neuro/Tendon Exam: normal sensation, normal tendon functions, responds to pain, no evidence tendon injury Mental Status Exam: alert, oriented x 3, cooperative Skin Exam: normal color, warm, dry SpO2 Interpretation: normal O2 Delivery: Room Air - Course Nursing assessment & vital signs reviewed: Yes Ordered Tests: Active Orders 24 hr Category Date Time Status CLAVICLE Stat Exams 01/01/24 13:43 Taken SHOULDER Stat Exams 01/01/24 13:43 Taken Medication Summary Discontinued Medications Generic Name Dose Route Start Last Admin Trade Name Nileq PRN Reason Stop Dose Admin Orphenadrine Citrate 100 mg 01/01/24 14:47 Orphenadrine Citrate 100 Mg Er Tab PO 01/01/24 14:48 STAT ONE Orphenadrine Citrate Confirm 01/01/24 14:56 Orphenadrine Citrate 100 Mg Er Tab Administered 01/01/24 14:57 Dose 100 mg PO .STK-MED ONE Prednisone 20 mg 01/01/24 14:49 Prednisone 20 Mg Tablet PO 01/01/24 14:50 STAT ONE Prednisone Confirm 01/01/24 14:56 Prednisone 20 Mg Tablet Administered 01/01/24 14:57 Dose 20 mg .ROUTE .STK-MED ONE - Progress Progress: improved, pain not gone completely, re-examined Progress Note: 01/01/24 14:02 My medical decision making and the assignment of low to moderate complexity in this patient's medical issue today is based on review of the patient's past medical history, review of patient's medication list, review of patient drug allergy list, history presence and physical findings on examination. The workup in this patient includes initially ordering x-ray of the left clavicle and left shoulder. If these studies do not show an acute fracture or dislocation, no further studies or intervention is necessary. However, if there is a fracture and/or dislocation present we will need to intervene accordingly. 01/01/24 15:00 I interpreted the patient's left shoulder preliminary x-ray report. I do not see an acute fracture or dislocation. I interpreted the patient's left clavicle preliminary x-ray report. I do not see an acute fracture or dislocation. Counseled pt/family regarding: diagnosis, need for follow-up, rad results Medical Desision Making - Diagnostic Testing Diagnostic test were ordered, analyzed, and reviewed by me: Yes Radiological Interpretation: Interpreted by me - Risk of complications The pt has a mod risk of morbidity or mortality based on: Need for prescription drug management - Departure Departure Disposition: Home Clinical Impression: Contusion of left shoulder Condition: Stable Critical Care Time: No Referrals: ALMA BANERJEE [Primary Care Provider] - Follow up/PCP as directed Additional Instructions: Ice pack to tender area 3-4 times a day for the next 2 to 3 days. Follow-up with your primary care provider or the [facility] orthopedic clinic Wednesday through Wednesday 8 AM to 10 AM if your left shoulder continues to be tender at the same level after 2 to 3 days. Take your medications as prescribed. Monitor your blood sugar levels while taking the steroids. Prescriptions: Prednisone 10 mg [Deltasone 10 mg] 10 mg PO TID #12 tablet Orphenadrine Citrate 100 mg [Norflex 100 MG Tablet] 100 mg PO BID #10 tab
[2024-01-01 13:33] VITALS: TEMP 97.7
[2024-01-01] MEDS ORDERED: DELTASONE 20 MG ONE (14:56)
[2024-01-01] MEDS ORDERED: Norflex 100 MG Tablet PO ONE (14:56)
[2024-01-01] MEDS: DELTASONE 20 MG PO ONE (15:00)
[2024-01-01] MEDS: Norflex 100 MG Tablet PO ONE (15:02)
[2024-01-01 15:06] VITALS: BP 100/78; PULSE 59; RESP 16; O2SAT 95
--- NOTE | 2024-01-01 20:50 | XRAY ---
Indication: Pain following fall. Comparison: None 3 view left shoulder demonstrates normal bones, articulation, and soft tissues.
--- NOTE | 2024-01-01 20:50 | XRAY ---
Indication: Pain following fall. Comparison: None 2 view left clavicle demonstrates normal bones, articulation, and soft tissues.
== END 2024-01-01 15:23 | disposition home or self-care (01) ==
LOC: ED 13:22
DX: S40.012A Contusion of left shoulder, initial encounter (principal); W18.2XXA Fall in (into) shower or empty bathtub, initial encounter; Y93.E1 Activity, personal bathing and showering; Y92.002 Bathroom of unspecified non-institutional (private) residence as the place of occurrence of the external cause; E11.9 Type 2 diabetes mellitus without complications; Z79.52 Long term (current) use of systemic steroids; Z79.891 Long term (current) use of opiate analgesic; Z79.899 Other long term (current) drug therapy
CPT/HCPCS: 73000; 73030; 99283; A9270-GY

== ENCOUNTER 2024-01-13 12:37 | Emergency (ER) | payer OTHER ==
[2024-01-13 13:21] VITALS: TEMP 98
[2024-01-13 13:43] LABS: Absolute Neutrophil Ct (ANC) 4.49 x10^3/uL (1.56-6.13); BASOPHIL % 0.4 % (0.1-1.2); Basophil (Absolute #) 0.03 x10^3/uL (0.01-0.08); Eosinophil % 1.3 % (0.7-5.8); Hematocrit 41.2 % (34.1-44.9); Hemoglobin 14.5 g/dL (11.2-15.7); IMMATURE GRAN # 0.03 x10^3u/L (0.001-0.031); IMMATURE GRAN % 0.4 % (0.001-0.429); Lymphocyte (Absolute #) 2.57 x10^3/uL (1.18-3.74); Lymphocytes % 33.6 % (19.3-51.7); Mean Cell Volume 85.5 fL (79.4-94.8); Mean Corpuscular Hemoglobin 30.1 pg (25.6-32.2); Mean Corpuscular Hgb Concent. 35.2 g/dL (32.2-35.5); Mean Platelet Volume 10.1 fL (9.4-12.3); Monocyte (Absolute #) 0.43 x10^3/uL (0.24-0.86); Monocytes % 5.6 % (4.7-12.5); Neutrophil % 58.7 % (34.0-71.1); Platelet Count 328 x10^3/uL (182-369); Red Blood Count 4.82 x10^6/uL (3.93-5.22); Red Cell Distribution Width 11.7 % (11.7-14.4); White Blood Count 7.7 x10^3/uL (3.98-10.04)
[2024-01-13] MEDS: BABY ASPIRIN 81 MG CHEW PO ONE (13:51)
[2024-01-13] MEDS ORDERED: BABY ASPIRIN 81 MG CHEW ONE (13:51)
[2024-01-13 13:56] LABS: HCG SERUM TEST NEGATIVE (NEGATIVE)
[2024-01-13 13:59] LABS: ALBUMIN 4.6 g/dL (3.5-5.0); ANION GAP 14.7 MEQ/L (5-15); BILIRUBIN,TOTAL 0.5 mg/dL (0.2-1.3); Calcium 9.6 mg/dL (8.4-10.2); Creatinine 1 0.8 mg/dL (0.52-1.04); EST GLOMERULAR FILTRATION RATE 98.5 ML/MIN; Potassium 3.8 mmol/L (3.5-5.1); Total Protein 7.6 g/dL (6.3-8.2)
--- NOTE | 2024-01-13 15:20 | XRAY ---
Indication: Left chest/back pain 2 days. Pulmonary embolus. Multiple contiguous axial images obtained through the chest using 80 cc Isovue 370 contrast and PE protocol. Comparison: May 13, 2021 Again suboptimal opacification of pulmonary arteries limits evaluation for pulmonary embolus. Again no obvious central pulmonary embolus. Heart is not enlarged. Aorta is normal in course and caliber. No pathologic mediastinal/hilar lymphadenopathy. Lungs inflated and remain clear. Bony thorax intact. Previous bilateral breast implants have been removed. Limited upper abdomen again demonstrates fatty liver, 13.2 cm splenomegaly, and cholecystectomy. Impression: 1. Again pulmonary embolus evaluation limited due to suboptimal contrast opacification. Again no obvious central pulmonary embolus. 2. Again incidental fatty liver and splenomegaly. 3. Remaining CT chest with contrast exam is negative.
--- NOTE | 2024-01-13 15:21 | ERPHSYRPT ---
- History of Present Illness Time Seen by Provider: 01/13/24 13:00 Historian: patient Exam Limitations: no limitations Patient Subjective Stated Complaint: C/O left upper back pain that started 2 days ago. Patient indicates that the pain has now (started last night) spread ing/wrapping around to her left chest. Triage Nursing Assessment: Patient ambulate back to ER without difficulties. No SOB noted at this time. Skin tone normal with face a little flushed. She is alert and oriented. Physician History: 33-year-old female fairly healthy presented in the ER with 2 days history of upper back pain mild to moderate dull aching to sharp, hurts to take a deep breath, no significant relieving factors and now wrapping around to the left chest without any dyspnea. Patient was seen at urgent care and sent in here for further evaluation with concern for PE. Patient denies any history of blood clots. She does have surgery of ankle done with postoperative cast placement which is removed couple of weeks ago. Patient denies any palpitations, fever or chills. No cough or recent sickness. No history of coronary artery disease. Aspirin Treatment Today: no aspirin today Allergies/Adverse Reactions: duloxetine [From Cymbalta] Allergy (Intermediate, Verified 01/13/24 12:53) states "irritability" adhesive Allergy (Mild, Verified 01/13/24 12:53) Rash cefaclor [From Ceclor] Allergy (Mild, Verified 01/13/24 12:53) Hives metoclopramide [From Reglan] Allergy (Verified 01/13/24 12:53) paroxetine [From Paxil] Adverse Reaction (Severe, Verified 01/13/24 12:53) "electric shock feeling in my head" droperidol Adverse Reaction (Verified 01/13/24 12:53) Home Medications: Cetirizine HCl [Zyrtec] 10 mg PO HS 01/10/23 [History] Bupropion HCl 150 mg Sr [Wellbutrin SR 150 MG] 300 mg PO HS 06/18/23 [History] clonazePAM [Klonopin] 1 mg PO BID PRN 06/18/23 [History] Levothyroxine Sodium [Synthroid] 50 mcg PO HS 06/28/23 [History] Hydrocodone/Acetaminophen [Hydrocodone-Acetamin 5-325 mg] 1 tab PO Q4HPRN PRN MDD 6 10/27/23 [History] Orphenadrine Citrate 100 mg [Norflex 100 MG Tablet] 100 mg PO BID PRN 01/13/24 [History] Hx Tetanus, Diphtheria Vaccination/Date Given: Yes Hx Influenza Vaccination/Date Given: No Hx Pneumococcal Vaccination/Date Given: No Immunizations Up to Date: Yes Travel Risk - International Travel Have you traveled outside of the country in past 3 weeks: No - Emerging Infectious Disease Are you exhibiting symptoms associated with any current EIDs: No - Review of Systems Constitutional: No Symptoms Eyes: No Symptoms Ears, Nose, & Throat: No Symptoms Respiratory: No Symptoms Cardiac: Chest Pain Abdominal/Gastrointestinal: No Symptoms Genitourinary Symptoms: No Symptoms Musculoskeletal: Back Pain Skin: No Symptoms Neurological: No Symptoms Psychological: No Symptoms Endocrine: No Symptoms Hematologic/Lymphatic: No Symptoms Immunological/Allergic: No Symptoms - Past Medical History Pertinent Past Medical History: Yes Neurological History: No Pertinent History ENT History: No Pertinent History Cardiac History: Other Respiratory History: No Pertinent History Endocrine Medical History: Diabetes Type II, Other Musculoskeletal History: No Pertinent History GI Medical History: GERD, Irritable Bowel History: Other Psycho-Social History: Anxiety, Attention Deficit Disorder, Depression, Panic Disorder Female Reproductive Disorders: Other Other Medical History: PSH: GALL BLADDER, PARTIAL THYROIDECTOMY, 4 BREAST SURGERIES, HYSTERECTOMY. PMH: AUTO IMMUNE DISEASE ( UNDIAGNOSED) - Past Surgical History Past Surgical History: Yes Neuro Surgical History: No Pertinent History Cardiac: No Pertinent History Respiratory: No Pertinent History Gastrointestinal: Cholecystectomy Genitourinary: No Pertinent History Musculoskeletal: No Pertinent History Female Surgical History: Hysterectomy, Dilation & Curettage, Tubal Ligation, Mastectomy, Other Other Surgical History: partial thyroidectomy, breast reconstruction-nodules removed. bilateral breasts removed- November 2021. anesthesia problems - difficult to wake up, drop in b/p Significant Family History: no pertinent family hx - Female History Hx Last Menstrual Period: 2017 Hx Now: No - Social History Smoking Status: Former smoker How long have you smoked: 4 yrs Exposure to second hand smoke: No Drug Use: none Patient Lives Alone: No - Social Determinants of Health Will the patient participate in the screening: Yes Do you worry about a steady place to live?: No Do you have any problems with any of the following?: No known problems In the past 12 months,have you had to go without utilities?: No Transportation Issues: No Has anyone in your support network made you feel unsafe?: No Have you or anyone in your house had to go without enough: No - Nursing Vital Signs Nursing Vital Signs: Initial Vital Signs Temperature 98 F 01/13/24 12:37 Pain Scale Pain Intensity 6 - Physical Exam General Appearance: no apparent distress, alert Eye Exam: PERRL/EOMI Ears, Nose, Throat Exam: normal ENT inspection Neck Exam: normal inspection, supple, full range of motion Respiratory Exam: normal breath sounds, lungs clear, No chest tenderness Cardiovascular Exam: regular rate/rhythm, normal heart sounds Gastrointestinal/Abdomen Exam: soft, normal bowel sounds, No tenderness Back Exam: normal inspection, normal range of motion Extremity Exam: normal inspection, normal range of motion, pelvis stable Neurologic Exam: alert, oriented x 3, cooperative, stage producer II-XII nml as tested Skin Exam: normal color SpO2 Interpretation: normal SpO2: 97 O2 Delivery: Room Air - Course EKG Interpreted by Me: RATE (93), Sinus Rhythm, NORMAL AXIS, NORMAL INTERVALS, NORMAL QRS Ordered Tests: Medication Summary Discontinued Medications Generic Name Dose Route Start Last Admin Trade Name Freq PRN Reason Stop Dose Admin Aspirin 324 mg 01/13/24 13:23 01/13/24 13:51 Aspirin 81 Mg Tab.Chew PO 01/13/24 13:24 324 mg STAT ONE Administration Aspirin Confirm 01/13/24 13:51 Aspirin 81 Mg Tab.Chew Administered 01/13/24 13:52 Dose 324 mg .ROUTE .STK-MED ONE Lab/Rad Data: Laboratory Result Diagrams 01/13/24 13:15 01/13/24 13:15 Laboratory Results 01/13/24 01/13/24 01/13/24 Range/Units 13:15 13:15 13:15 WBC (3.98-10.04) x10^3/uL RBC (3.93-5.22) x10^6/uL Hgb (11.2-15.7) g/dL Hct (34.1-44.9) % MCV (79.4-94.8) fL MCH (25.6-32.2) pg MCHC (32.2-35.5) g/dL RDW (11.7-14.4) % Plt Count (182-369) x10^3/uL MPV (9.4-12.3) fL Gran % (34.0-71.1) % Immature Gran % (Auto) (0.001-0.429) % Nucleat RBC Rel Count (0.00-0.2) % Eos # (Auto) (0.04-0.36) x10^3/uL Immature Gran # (Auto) (0.001-0.031) x10^3u/L Absolute Lymphs (auto) (1.18-3.74) x10^3/uL Absolute Monos (auto) (0.24-0.86) x10^3/uL Absolute Nucleated RBC (0.00-0.012) x10^3u/L Lymphocytes % (19.3-51.7) % Monocytes % (4.7-12.5) % Eosinophils % (0.7-5.8) % Basophils % (0.1-1.2) % Absolute Granulocytes (1.56-6.13) x10^3/uL Basophils # (0.01-0.08) x10^3/uL D-Dimer 0.41 (0.0-0.50) mg/L Sodium (135-145) mmol/L Potassium (3.5-5.1) mmol/L Chloride (98-107) mmol/L Carbon Dioxide (22-30) mmol/L Anion Gap (5-15) MEQ/L BUN (7-17) mg/dL Creatinine (0.52-1.04) mg/dL Estimated GFR ML/MIN Glucose (74-106) mg/dL Calcium (8.4-10.2) mg/dL Total Bilirubin (0.2-1.3) mg/dL AST (14-36) U/L ALT (0-35) U/L Alkaline Phosphatase (38-126) U/L Troponin I < 0.012 (0.000-0.033) ng/mL Serum Total Protein (6.3-8.2) g/dL Albumin (3.5-5.0) g/dL Serum HCG, Qual NEGATIVE (NEGATIVE) 01/13/24 01/13/24 Range/Units 13:15 13:15 WBC 7.7 (3.98-10.04) x10^3/uL RBC 4.82 (3.93-5.22) x10^6/uL Hgb 14.5 (11.2-15.7) g/dL Hct 41.2 (34.1-44.9) % MCV 85.5 (79.4-94.8) fL MCH 30.1 (25.6-32.2) pg MCHC 35.2 (32.2-35.5) g/dL RDW 11.7 (11.7-14.4) % Plt Count 328 (182-369) x10^3/uL MPV 10.1 (9.4-12.3) fL Gran % 58.7 (34.0-71.1) % Immature Gran % (Auto) 0.4 (0.001-0.429) % Nucleat RBC Rel Count 0.0 (0.00-0.2) % Eos # (Auto) 0.10 (0.04-0.36) x10^3/uL Immature Gran # (Auto) 0.03 (0.001-0.031) x10^3u/L Absolute Lymphs (auto) 2.57 (1.18-3.74) x10^3/uL Absolute Monos (auto) 0.43 (0.24-0.86) x10^3/uL Absolute Nucleated RBC 0.00 (0.00-0.012) x10^3u/L Lymphocytes % 33.6 (19.3-51.7) % Monocytes % 5.6 (4.7-12.5) % Eosinophils % 1.3 (0.7-5.8) % Basophils % 0.4 (0.1-1.2) % Absolute Granulocytes 4.49 (1.56-6.13) x10^3/uL Basophils # 0.03 (0.01-0.08) x10^3/uL D-Dimer (0.0-0.50) mg/L Sodium 139 (135-145) mmol/L Potassium 3.8 (3.5-5.1) mmol/L Chloride 105 (98-107) mmol/L Carbon Dioxide 23 (22-30) mmol/L Anion Gap 14.7 (5-15) MEQ/L BUN 11 (7-17) mg/dL Creatinine 0.80 (0.52-1.04) mg/dL Estimated GFR 98.5 ML/MIN Glucose 108 H (74-106) mg/dL Calcium 9.6 (8.4-10.2) mg/dL Total Bilirubin 0.50 (0.2-1.3) mg/dL AST 24 (14-36) U/L ALT 24 (0-35) U/L Alkaline Phosphatase 88 (38-126) U/L Troponin I (0.000-0.033) ng/mL Serum Total Protein 7.6 (6.3-8.2) g/dL Albumin 4.6 (3.5-5.0) g/dL Serum HCG, Qual (NEGATIVE) - Progress Progress: improved, re-examined Air Movement: good Progress Note: 01/13/24 15:22 33-year-old is evaluated in the ER for upper back pain with radiation to the anterior chest. Back pain is going on for couple of days. EKG is normal sinus rhythm with no acute ischemic changes. Negative initial troponins. Normal white count, fairly unremarkable chemistries. Although patient has a negative D-dimer but with her history I have obtained CTA chest which is negative for obvious PE, no other infectious/inflammatory process in the thoracic cavity. She is offered pain medication which she declined I believe patient has back s train, recommended taking Tylenol ibuprofen. Her pain is going on for the last couple of days and 1 negative troponin is sufficient enough to rule out ACS safely and also patient does not have multiple risk factors for CAD. She is a low heart score, do not think patient needs any further workup. Recommended outpatient follow-up with primary care and if continues to have pain may need outpatient referral for cardiology. At this point I do not think patient needs any other workup and is stable for discharge. I have shared the results of workup with patient and family and plan of discharge which they understand and agree. 01/13/24 15:24 Blood Culture(s) Obtained: No Antibiotics given: No Counseled pt/family regarding: lab results, diagnosis, need for follow-up, rad results Medical Desision Making - Independent Historian Additional History obtained from: Family - Diagnostic Testing Diagnostic test were ordered, analyzed, and reviewed by me: Yes Radiological Interpretation: Reviewed by me - Departure Departure Disposition: Home Clinical Impression: Muscle strain of upper back, Atypical chest pain Condition: Stable Critical Care Time: No Referrals: ALMA CALABRESE [Primary Care Provider] - Follow up with PCP 1 day Instructions: Pleuritic Chest Pain ED, Upper back pain Additional Instructions: Take Tylenol/ibuprofen as needed for pain. Follow-up with primary care for reevaluation and if pain persist may need referral to outpatient cardiology. Return to ER for intractable pain or if having difficulty breathing etc.
[2024-01-13 15:34] VITALS: BP 110/68; PULSE 82; RESP 18
[2024-01-15 13:07] VITALS: O2SAT 97
== END 2024-01-13 15:51 | disposition home or self-care (01) ==
LOC: ED 12:37
DX: S29.012A Strain of muscle and tendon of back wall of thorax, initial encounter (principal); R07.89 Other chest pain; E11.9 Type 2 diabetes mellitus without complications; Z79.899 Other long term (current) drug therapy
CPT/HCPCS: 36000; 36415; 71260; 80053; 84484; 84703; 85025; 85379; 93005; 93041; 99284; A9270-GY

== ENCOUNTER 2024-07-11 06:05 | Day surgery (SDC) | payer OTHER ==
[2024-07-11] MEDS: Decadron 4 MG PO ONE (06:29)
[2024-07-11] MEDS: TYLENOL EXTRA STRENGTH 500 MG PO ONE (06:29)
[2024-07-11] MEDS: NEURONTIN PO ONE (06:30)
[2024-07-11] MEDS: Lactated Ringers 1,000 ML IV SCH (06:30)
[2024-07-11 06:49] LABS: Absolute Neutrophil Ct (ANC) 4.29 x10^3/uL (1.56-6.13); BASOPHIL % 0.4 % (0.1-1.2); Basophil (Absolute #) 0.03 x10^3/uL (0.01-0.08); Eosinophil % 1.9 % (0.7-5.8); Eosinophil (Absolute #) 0.15 x10^3/uL (0.04-0.36); Hematocrit 36.8 % (34.1-44.9); Hemoglobin 13.1 g/dL (11.2-15.7); IMMATURE GRAN # 0.03 x10^3u/L (0.001-0.031); IMMATURE GRAN % 0.4 % (0.001-0.429); Lymphocyte (Absolute #) 2.88 x10^3/uL (1.18-3.74); Mean Cell Volume 84.8 fL (79.4-94.8); Mean Corpuscular Hemoglobin 30.2 pg (25.6-32.2); Mean Corpuscular Hgb Concent. 35.6 g/dL (32.2-35.5); Mean Platelet Volume 9.8 fL (9.4-12.3); Monocytes % 5.1 % (4.7-12.5); Neutrophil % 55.2 % (34.0-71.1); Platelet Count 283 x10^3/uL (182-369); Red Blood Count 4.34 x10^6/uL (3.93-5.22); Red Cell Distribution Width 11.8 % (11.7-14.4); White Blood Count 7.8 x10^3/uL (3.98-10.04)
[2024-07-11 06:58] VITALS: RESP 18
[2024-07-11 07:01] LABS: ALBUMIN 4.4 g/dL (3.5-5.0); BILIRUBIN,TOTAL 0.7 mg/dL (0.2-1.3); Calcium 9.1 mg/dL (8.4-10.2); Creatinine 1 0.93 mg/dL (0.52-1.04); EST GLOMERULAR FILTRATION RATE 81.7 ML/MIN
[2024-07-11] MEDS ORDERED: Epinephrine Preservative Free 1 MG/ML ONE (07:01)
[2024-07-11 07:03] LABS: Potassium 3.7 mmol/L (3.5-5.1)
[2024-07-11 07:04] LABS: ANION GAP 13.7 MEQ/L (5-15)
[2024-07-11] MEDS ORDERED: EXPAREL 133 MG/10 ML VIAL IJ ONE (07:07)
[2024-07-11] MEDS ORDERED: Marcaine Mpf 0.5% Vial 30 Ml ONE (07:07)
[2024-07-11] MEDS ORDERED: CLINDAMYCIN-D5W 900 MG/50 ML*** 900 MG/50 ML BAG IV ONE (07:22)
[2024-07-11] MEDS: CLINDAMYCIN-D5W 900 MG/50 ML*** 900 MG/50 ML BAG IV ONE (07:22)
[2024-07-11] MEDS ORDERED: SUBLIMAZE 100 MCG/2 ML ONE ×2 (07:38→11:21)
[2024-07-11] MEDS ORDERED: Versed 2 MG/2 ML Injection ONE (07:38)
[2024-07-11] MEDS ORDERED: propofoL IV ONE (08:17)
[2024-07-11] MEDS ORDERED: Zofran 4 MG/2 ML VIAL ONE (08:33)
[2024-07-11] MEDS ORDERED: PHENYLEPHRINE HCL ONE (09:20)
[2024-07-11] MEDS ORDERED: Hydromorphone 1 mg/ml Injection ONE (10:44)
[2024-07-11 12:25] VITALS: TEMP 97.1; O2SAT 96
[2024-07-11 12:41] VITALS: BP 99/61; PULSE 84
--- NOTE | 2024-07-13 09:25 | OP ---
SURGERY DATE/TIME: 07/11/2024 5834 - [id number] PREOPERATIVE DIAGNOSES: 1) Right ankle pain. 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 3) Ankle synovitis. 4) Ankle joint effusion. POSTOPERATIVE DIAGNOSES: 1) Right ankle pain. 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 3) Ankle synovitis. 4) Ankle joint effusion. PROCEDURE: 1) Ankle arthroscopy with extensive synovectomy. 2) Microfracture osteochondral defect. 3) Allograft juvenile particulate cartilage replacement with fibrin glue. 4) Arthrotomy of tibiotalar joint, right. SURGEON: Sanchez Zapata DPM PROFESSOR OF GRAPHIC DESIGN: Kai Rust NP ANESTHESIA: General with a preoperative block. See anesthesia report for details. HEMOSTASIS: Thigh tourniquet set to 300 mmHg for approximately 55 total tourniquet minutes. ESTIMATED BLOOD LOSS: Approximately 10 mL. MATERIALS: 3-0 nylon, a juvenile particulate cartilage from [employer] with fibrin glue. INJECTABLES: See anesthesia report for details. INDICATIONS: The patient is very pleasant 34-year-old female well known to my service for ankle pain and previous history. Initially, the patient was diagnosed with an osteochondral defect and lateral ankle instability where we were planning for surgical intervention. She did have an osteochondral defect which was diagnosed by our nurse practitioner. Discussion was held in regards to options for management. However, she was lost to followup at that time. She did return approximately 6 months to 1 year later seeking surgical intervention. However, at this time she is back 6 months to 1 year later with continued pain of the ankle joint. The patient does have similar symptoms. A new MRI was obtained demonstrating a smaller sized osteochondral defect, however, still significant pain with some bone marrow edema associated with it. From that standpoint, discussion was held in regards to the standard of care in relationship to osteochondral defect management of the talus and what options were available to her without burning any bridges. Discussion was held in regards to the juvenile particulate cartilage as a possibility and a high likelihood of success rate with failure of the microfracture. The patient understands all risks, complications, and benefits associated with the surgical intervention including, but not limited to, infection, hematoma, seroma, possibility of delayed wound healing, non-wound healing, and possible need for further surgical intervention at a later date. No guarantees were provided as to the outcome of surgical intervention. Plenty of time was allowed for the patient to ask questions which were answered to her apparent satisfaction at this time. It is at this time we decided to proceed. DESCRIPTION OF PROCEDURE AND FINDINGS: The patient was brought into the PACU prior to the procedure and provided a popliteal and saphenous block. See anesthesia report for details. Following this, the patient was brought in the operating room, placed on the operating room table in the supine position. General anesthesia was administered until the patient was adequately sedated. From that standpoint, the right lower extremity was prepped and draped in the typical sterile fashion. A well-padded tourniquet was applied the patient's right thigh and the tourniquet was set to 300 mmHg. At this time, anteromedial and anterolateral portals were established, first identifying the medial malleolus and lateral malleolus as well as the palpable dell at the anterior aspect of the ankle joint. Once this was performed, the 18-gauge needle with lactated Ringer's was introduced in the anteromedial portal site. This was utilized to insufflate the ankle joint, showing a characteristic dorsiflexion of the foot. From that standpoint, an 11-blade was utilized to make a skin incision and then a curved hemostat was used to puncture the capsule of the joint. The obturator and trocar were then introduced into the anteromedial site. The obturator was then removed and the 4.0, 30-degree camera was then introduced into the site, initially showing a significant amount of scar tissue, especially for somebody who had just had an extensive synovectomy in the past. It did take a significant amount of time and inspection of the joint in order to identify the articular cartilage. However, an 11-blade was utilized to make an incision at the anterolateral aspect of the ankle once planned out and under direct arthroscopic guidance was carried down, introducing a shaver in order to truly show the joint space. Multiple pictures were taken of the joint and the hemorrhagic and crab meat synovitis that was encountered. There were some significant delaminations and constrictures at the anterior aspect of the ankle joint that no doubt restricted her range of motion. From that standpoint, extensive synovectomy took place in order to identify the joint line. Once this was performed and a significant amount of the synovitis was removed, the ablation wand was attached and any bleeders were cauterized, any constrictures or synovitis resistant to debridement were shrunk down and then debridement took place once again. The osteochondral defect was identified at this time at the medial talar dome where this was probed and assessed. The fibrocartilage had developed to some degree. However, the osteochondral defect did have a significant amount of sinking directly into the bone just below it. From that standpoint, pictures were taken of the probe sinking into the weakened cartilage, and the shaver was reintroduced back into the deficit, shaving the cartilage down to the subchondral plate. Once this was performed, microfracture took place utilizing a 30-degree chondral pick. Once this was performed, the area was dried completely by removing the shaver from the site and the insufflation fluid from the scope. Once this was performed, multiple cotton-tip applicators were utilized to dry the microfracture site and all bleeders were cauterized. Once the fluid was controlled, introduction of the fibrin glue was then performed. Following this, the juvenile particulate cartilage was then introduced. The delivery system did have some form of failure, so decision was made to proceed with a mini open arthrotomy. This was carried out through the anteromedial portal and this was carried down carefully through the layers of dissection, making sure not to damage any neurovascular structures along the way. Once this was carried out, a Weitlaner was utilized to open the incision site and direct inspection of the site took place. An arthrotomy was performed at this time utilizing a rongeur for any constrictures that were identified at the site and then the remaining particular cartilage was introduced into the osteochondral deficit under direct visualization of the 4.0, 30-degree camera from the lateral portal site. Once this was performed, the fibrin glue was then administered over the osteochondral defect and we waited approximately 10 minutes before proceeding with closure in order to ensure that the fibrin glue had dried. Once this had been performed, sterile saline was utilized to cleanse the incision sites, 3-0 nylon and 4-0 Monocryl were utilized the coapt the subcutaneous skin edges in a simple interrupted buried-type fashion as well as a simple interrupted-type fashion at the portal site. Once this was performed, a dressing consisting of Betadine, Adaptic, 4 x 4, Kerlix, ABD, and a well-padded posterior splint with sugar-tong was applied to the patient's right lower extremity with the foot orthogonal relative to longitudinal axis of the extremity. Following this, the patient was reversed from anesthesia and returned to the postoperative anesthesia care unit with vital signs stable and vascular status intact. The patient handled the anesthesia as well as the procedure without significant complication. Postoperative orders as indicated in the patient's discharge chart.
== END 2024-07-11 12:45 | disposition home or self-care (01) ==
LOC: SDC 06:05
PROVIDERS: ATTEND Podiatrist Foot & Ankle Surgery
DX: M65.871 Other synovitis and tenosynovitis, right ankle and foot (principal); M25.571 Pain in right ankle and joints of right foot; M25.471 Effusion, right ankle; M93.271 Osteochondritis dissecans, right ankle and joints of right foot
CPT/HCPCS: 27610; 29891; 29898; 36415; 76937; 80053; 85025; J0171; J0666; J1171; J2250; J2371; J2405; J2704; J3010; A9270-GY